=== PATIENT | female | born 1980 | race Caucasian/White ===

== ENCOUNTER → 2024-11-08 | Outpatient (CLI) | payer OTHER, SELFPAY | END | disposition home or self-care (01) | LOC: LABSPEC 21:19 | PROVIDERS: PCP Family Medicine; Referring Provider Nurse Practitioner; Visit Provider Nurse Practitioner | DX: Z00.00 Encounter for general adult medical examination without abnormal findings (principal) ==

== ENCOUNTER → 2024-11-09 | Outpatient (CLI) | payer OTHER, SELFPAY ==
--- OUTSIDE RECORDS SUMMARY | 2024-11-09 02:48 | XMS RPT_ITS | CCD ---
Author Organization [facility] Care Team Providers Care Manufacturing Finance Manager Name Role Phone Pending Provider Unavailable Unavailable Unavailable Unavailable Unavailable Unavailable Unavailable Unavailable Jeffery Swift MD Unavailable Jeffery Swift MD Primary Care Provider Ming Perez DO Primary Care Provider Jeffery Swift MD Unavailable Jeffery Swift MD Primary Care Provider Jeffery Swift MD Unavailable [phone] Jeffery Swift MD Primary Care Provider Cresencio More Attending Unavailable PROVIDER, UNKNOWN Referring Unavailable Ming Perez Primary Care Unavailable PROVIDER, UNKNOWN Referring Unavailable Ming Perez Primary Care Unavailable Cresencio More Attending Unavailable PROVIDER, UNKNOWN Referring Unavailable Ming Perez Primary Care Unavailable Ming Perez Attending Unavailable Oscar Voss Attending Unavaila Oscar Landry Referring Unavaila ble Pending, Provider Primary Care Unavailable Jeffery Swift MD Unavailable Jeffery Swift MD Primary Care Provider Ming Perez DO Primary Care Provider ZAIRA MOODY Attending Unavailable MING PEREZ Primary Care Unavailable JEFFERY SWIFT Primary Care Unavailable ZAIRA MEJIA Attending UnavailJEFFERY Conley Primary Care Unavailable Jeffery Swift MD Primary Care Provider ROSLYN CARRANZA CNP Attending Unavailable MING PEREZ Primary Care Unavailable Anahy Garcia APRN.CNP Unavailable Nory Aj PA-C Unavailable Jeniffer ORTIZ, Jeffery Cedeno Unavailable JENIFFER, JEFFERY A Primary Care Unavailable STEPHANIE DUVALL Attending Unavailable JENIFFER, JEFFERY A Primary Care Unavailable JENIFFERJEFFERY Attending Unavailable SELF Referring Unavailable JENIFFER, JEFFERY A Primary Care Unavailable JENIFFER, JEFFERY A Primary Care Unavailable JEFFERY SWIFT Attending Unavailable JENIFFER, JEFFERY A Referring Unavailable JENIFFER, JEFFERY A Primary Care Unavailable Lorrie Braxton Attending Unavailable Neftaliley, Tha Primary Care Unavailable Bursley, Tha Referring Unavailable Bursley, Tha Primary Care Unavailable Lorrie Braxton Attending Unavailable Bursley, Tha Referring Unavailable Bursley, Tha Primary Care Unavailable Lorrie Braxton Attending Unavailable Bursley, Tha Referring Unavailable Bursley, Tha Primary Care Unavailable Lorrie Braxton Attending Unavailable Pedrito, Tha Referring Unavailable Pedrito ORTIZ, Dr. Almazan Primary Care Provider Dr. Tha Major MD Referring Provider [phone] Fox EMT I/85-CLorrie Attending Provider [phone] Christiano EMT I/85-CReyna Attending Provider Jose PÉREZ.OCCUPATIONAL REHABILITATION AIDEKenAnahy Unavailable Nory Aj PA-C Unavailable Christiano EMT I/85-CReyna Referring Provider [phone] Allergies Allergy Classification Reported Allergen(s) Allergy Type Date of Onset Reaction(s) Facility (20 sources) atorvastatin; Translations: [ATORVASTATIN] Drug Allergy 0 Other: See Comments [facility] Work Phone: (20 sources) canagliflozin; Translations: [CANAGLIFLOZIN] Drug Allergy 8 Other: See Comments [facility] Work Phone: (20 sources) HYDROcodone; Translations: [HYDROCODONE] Drug Allergy 6 Other: See Comments [facility] Work Phone: (20 sources) Blue Dye; Translations: [BLUE DYE] Drug Allergy 6 [facility] Work Phone: (2 sources) Acetaminophen / HYDROcodone Drug Allergy 5 Nausea Only [facility] Work Phone: (2 sources) atorvastatin Drug Allergy 0 [facility] (2 sources) Morphine Drug Allergy 5 Nausea Only [facility] (1 source) canagliflozin Drug Allergy 8 [facility] [employer] (1 source) Blue Dyes (Parenteral) Drug Allergy 6 [facility] NEGATED: Highlighted row has been ruled out! (1 source) Other Propensity to adverse reactions 6 [facility] Work Phone: Medications Current Medications Medication Drug Class(es) Dates Sig (Normalized) Sig (Original) Blood-Glucose Meter (20 sources) Start: 07-12-2019 Blood-Glucose Meter Indications: Type 2 diabetes mellitus without complication, without long-term current use of insulin (HCC) Use as directed to test glucose 3 times daily, E11.9, non-insulin. 1 Each 07/12/2019 Active Start: 07-12-2019 Blood-Glucose Meter Indications: Type 2 diabetes mellitus without complication, without long-term current use of insulin (HCC) Use as directed to test glucose 3 times daily, E11.9, non-insulin. 1 Each 0 07/12/2019 Active Comment on above: Use as directed to t est glucose 3 times daily, E11.9, non-insulin. Blood-Glucose Meter,Continuous (DEXCOM G6 SKATES OPERATOR) misc (20 sources) Start: 08-07-2022 Blood-Glucose Meter,Continuous (DEXCOM G6 SKATES OPERATOR) misc Indications: Type 2 diabetes mellitus without complication, without long-term current use of insulin (HCC) Use continuously to monitor glucose, IDDM, E11.9 08/07/2022 Active Start: 08-07-2022 Blood-Glucose Meter,Continuous (DEXCOM G6 SKATES OPERATOR) misc Indications: Type 2 diabetes mellitus without complication, without long-term current use of insulin (HCC) Use continuously to monitor glucose, IDDM, E11.9 0 08/07/2022 Active Comment on above: Use continuously to monitor glucose, IDDM, E11.9 Blood-Glucose Sensor (DEXCOM G6 SENSOR) ismael (20 sources) Start: 08-07-2022 Blood-Glucose Sensor (DEXCOM G6 SENSOR) ismael Indications: Type 2 diabetes mellitus without complication, without long-term current use of insulin (HCC) Use one sensor every 10 days, IDDM, E 11.9 08/07/2022 Active Start: 08-07-2022 Blood-Glucose Sensor (DEXCOM G6 SENSOR) ismael Indications: Type 2 diabetes mellitus without complication, without long-term current use of insulin (HCC) Use one sensor every 10 days, IDDM, E 11.9 0 08/07/2022 Active Comment on above: Use one sensor every 10 days, IDDM, E 11.9 Blood-Glucose Sensor (Dexcom G7 Sensor) device (4 sources) Start: 10-26-2023 Blood-Glucose Sensor (Dexcom G7 Sensor) device Active 0 .Route 3 October 26, 2023 10:00am Diabetes mellitus Type 2 diabetes mellitus with hyperglycemia services account manager (current) use of insulin 1 sensor q 10 days Start: 10-26-2023 Blood-Glucose Sensor (Dexcom G7 Sensor) device Active 0 .Route 3 October 26, 2023 10:00am 1 sensor q 10 days Start: 10-15-2023 End: 10-26-2023 Blood-Glucose Sensor (Dexcom G7 Sensor) device Discontinued 0 .Route 3 October 15, 2023 12:00am October 26, 2023 10:00am Diabetes mellitus Type 2 diabetes mellitus with hyperglycemia services account manager (current) use of insulin 1 sensor q 10 days Start: 10-15-2023 End: 10-26-2023 Blood-Glucose Sensor (Dexcom G7 Sensor) device Discontinued 0 .Route October 15, 2023 12:00am October 26, 2023 10:00am 1 sensor q 10 days Blood-Glucose Transmitter (DEXCOM G6 TRANSMITTER) ismael (20 sources) Start: 08-07-2022 Blood-Glucose Transmitter (DEXCOM G6 TRANSMITTER) ismael Indications: Type 2 diabetes mellitus without complication, without long-term current use of insulin (HCC) Use one transmitter every 3 months, IDDM, E 11.9 08/07/2022 Active Start: 08-07-2022 Blood-Glucose Transmitter (DEXCOM G6 TRANSMITTER) ismael Indications: Type 2 diabetes mellitus without complication, without long-term current use of insulin (HCC) Use one transmitter every 3 months, IDDM, E 11.9 0 08/07/2022 Active Comment on above: Use one transmitter every 3 months, IDDM, E 11.9 cetirizine hydrochloride 10 mg oral capsule (20 sources) Histamine-1 Receptor Antagonist Start: 4 take 1 capsule by mouth once daily Cetirizine (Zyrtec) 10 mg capsule Active 10 mg PO DAILY May 12, 2023 1:00am Start: 09-29-2018 take 1 tablet by ml th twice daily cetirizine (ZYRTEC) 10 mg tablet Take 1 tablet by mouth twice daily. 180 tablet 1 09/29/2018 Active take 1 tablet by ml th once daily cetirizine (ZyrTEC) 10 MG tablet Take 10 mg by mouth daily. 0 Active Comment on above: Take 1 tablet by ml th twice daily. ciprofloxacin 500 mg oral tablet (1 source) Quinolone Antimicrobial Start: 025 take 1 tablet by mouth twice daily Ciprofloxacin Hcl (Cipro) 500 mg tablet Active 500 mg PO TWICE A DAY 14 November 08, 2024 12:00am Continuous Blood Gluc Sensor (FREESTYLE SUKHDEEP 2 SENSOR) [facility] ([facility]) Start: 022 Continuous Blood Gluc Sensor (FREESTYLE SUKHDEEP 2 SENSOR) [facility] [place] 1 SENSOR every 14 days as directed 0 08/14/2021 Active famotidine 20 mg oral tablet (1 source) Histamine-2 Receptor Antagonist Start: 018 take 1 tablet by mouth twice daily famotidine (PEPCID) 20 MG tablet Take 1 tablet by mouth 2 times daily 60 tablet 0 12/09/2017 Active 3 ml insulin degludec 100 unt/ml pen injector (4 sources) Insulin Analog Start: End: 025 Insulin Degludec (Tresiba Flextouch U-100) 100 unit/mL (3 mL) insulin pen Active 16 U SC DAILY 15 May 26, 2024 8:11am 3 ml insulin glargine 100 unt/ml pen injector (20 sources) Insulin Analog Start: inject 8 [IU] by subcutaneous injection once daily insulin glargine (LANTUS SOLOSTAR U-100 INSULIN) 100 unit/mL (3 mL) Indications: Type 2 diabetes mellitus without complication, without long-term current use of insulin ([facility]) Inject 8 units subcutaneously daily; Per Dr. Vivek Linares 30 mL 3 02/09/2024 Active Start: 05-22-2023 End: 02-09-2024 inject 10 [IU] by subcutaneous injection once daily insulin glargine (LANTUS SOLOSTAR U-100 INSULIN) 100 unit/mL (3 mL) Indications: Type 2 diabetes mellitus without complication, without long-term current use of insulin ([facility]) Inject 10 units subcutaneously daily; Per Dr. Vivek Linares 30 mL 3 05/22/2023 02/09/2024 Discontinued (Adjust Sig - Block E-Cancel) Start: 05-21-2023 End: 01-05-2024 Insulin Glargine (Lantus Linda ostar U-100 Insulin) 100 unit/mL (3 mL) insulin pen Discontinued 16 U SC EVERY EVENING 25 05December 15, 2023 9:04am January 05, 2024 12:31pm Start: 05-12-2023 End: 05-21-2023 Insulin Glargine (Lantus Linda ostar U-100 Insulin) 100 unit/mL (3 mL) insulin pen Discontinued 13 U SC EVERY EVENING May 12, 2023 1:00am May 21, 2023 10:35am Start: 03-30-2023 insulin glargi ne (LANTUS SOLOSTAR U-100 INSULIN) 100 unit/mL (3 mL) Indications: Type 2 diabetes mellitus without complication, without long-term current use of insulin ([facility]) Inject 13 units subcutaneously at bedtime daily; increase 2 units every 2 days until fasting glucose is 120 up to 30 units daily 30 mL 3 03/30/2023 Active Start: 03-10-2023 insulin glargi ne (LANTUS SOLOSTAR U-100 INSULIN) 100 unit/mL (3 mL) Indications: Type 2 diabetes mellitus without complication, without long-term current use of insulin (HCC) Inject 13 units subcutaneously at bedtime daily 15 mL 3 03/10/2023 Active Start: 04-01-2022 End: 03-10-2023 inject 10 [IU] by subcutaneous injection once daily at bedtime insulin glargine (LANTUS SOLOSTAR U-100 INSULIN) 100 unit/mL (3 mL) Indications: Type 2 diabetes mellitus without complication, without long-term current use of insulin (HCC) Inject 10 units subcutaneously at bedtime daily 15 mL 3 12/09/2022 03/10/2023 Discontinued Start: 04-01-2022 inject 10 [IU] by prabhakar bcutaneous injection once daily at bedtime insulin glargine (LANTUS SOLOSTAR U-100 INSULIN) 100 unit/mL (3 mL) Indications: Type 2 diabetes mellitus without complication, without long-term current use of insulin (HCC) Inject 10 Units subcutaneously daily at bedtime. 0 04/01/2022 Active Start: 12-24-2021 End: 04-01-2022 inject 9 [IU] by subcutaneous injection once daily at bedtime insulin glargine (LANTUS SOLOSTAR U-100 INSULIN) 100 unit/mL (3 mL) Indications: Type 2 diabetes mellitus without complication, without long-term current use of insulin (HCC) Inject subcutaneously 9 units daily at bedtime 15 mL 5 12/24/2021 04/01/2022 Discontinued (Adjust Sig - Block E-Cancel) Start: 09-19-2021 inject 8 [IU] by sub cutaneous injection once daily at bedtime insulin glargine (LANTUS SOLOSTAR U-100 INSULIN) 100 unit/mL (3 mL) Indications: Type 2 diabetes mellitus without complication, without long-term current use of insulin (HCC) Inject subcutaneously 8 units daily at bedtime; titrating up to 10 units daily for fasting glucose under 150 15 mL 5 09/19/2021 Active Start: 07-26-2021 insulin glargi ne (Lantus SoloStar) 100 UNIT/ML pen Inject 10 Units under the skin. 0 07/26/2021 Active Start: 07-26-2021 End: 09-19-2021 inject 5 [IU] by subcutaneous injection at bedtime insulin glargine (LANTUS SOLOSTAR) 100 UNIT/ML injection pen Inject subcutaneously 5 units at bedtime 0 07/26/2021 Active Comment on above: Inject subcutaneousl y 5 units at bedtime Inject subcutaneousl y 8 units daily at bedtime; titrating up to 10 units daily for fasting glucose under 150 Inject subcutaneousl y 9 units daily at bedtime Inject 10 Units subc utaneously daily at bedtime. Inject 10 units subc utaneously at bedtime daily Inject 13 units subc utaneously at bedtime daily Inject 13 units subc utaneously at bedtime daily; increase 2 units every 2 days until fasting glucose is 120 up to 30 units daily Inject 10 units subc utaneously daily; Per Dr. Vivek Linares 3 ml insulin isophane, human 100 unt/ml pen injector (5 sources) Start: 10-15-19 End: 09-15-19 Insulin Nph Isoph U-100 Human (Humulin N Nph Insulin Kwikpen) 100 unit/mL (3 mL) insulin pen Active 10 U SC EVERY MORNING 9 September 14, 2024 1:40pm Diabetes mellitus Type 2 diabetes mellitus with hyperglycemia services account manager (current) use of insulin metFORMIN hydrochloride 1000 mg oral tablet (20 sources) Biguanide Start: 11-09-19 take 1 tablet by mouth twice daily Metformin 1,000 mg tablet Active 1000 mg PO TWICE A DAY 180 November 08, 2024 12:00am Start: 05-12-2023 End: 08-11-2024 Metformin 500 mg tablet exte nded release 24 hr Discontinued 1000 mg PO TWICE A DAY 180 June 16, 2024 3:32pm August 11, 2024 10:02am Start: 06-17-2022 take 1 tablet by ml th every twenty-four hours in the morning metFORMIN XR (Glucophage-XR) 500 MG 24 hr tablet Take 1,000 mg by mouth in the morning and 1,000 mg in the evening. Take with meals. 0 06/17/2022 Active Start: 12-24-2021 End: 12-09-2022 take 2 tablets by mouth twice daily at mealtime metFORMIN ER (GLUCOPHAGE XR) 500 mg 24 hr tablet Indications: Type 2 diabetes mellitus without complication, without long-term current use of insulin (HCC) Take 2 tablets by mouth twice daily with meals. 360 tablet 3 12/09/2022 Active Start: 01-22-2021 take 2 tablets by mo uth twice daily at mealtime metFORMIN ER (GLUCOPHAGE XR) 500 mg 24 hr tablet Indications: Type 2 diabetes mellitus without complication, without long-term current use of insulin (HCC) Take 2 tablets by mouth twice daily with meals. 360 tablet 3 01/22/2021 Active Start: 07-04-2019 metFORMIN HCl - 1000 MG Oral Tablet Quantity: 60 Refills: 0 Ordered: 11-May-2020 DO Start : 04-Jul-2019 Active Start: 04-28-2018 End: 04-28-2027 metFORMIN (GLUCOPHAGE) 1000 MG tablet One q am for one week, then one bid if FBS over 150 mg/dl 60 tablet 0 04/28/2018 04/28/2027 Active Comment on above: Take 2 tablets by mo uth twice daily with meals. Take 2 tablets by mo uth two times a day with meals. Per Dr. Vivek linares MULTIVITAMIN ORAL (20 sources) MULTIVITAMIN ORA L Take by mouth. flintstone Active MULTIVITAMIN ORA L Take by mouth. flintstone 0 Active Comment on above: Take by mouth. flint stone naphazoline hydrochloride 0.25 mg/ml / pheniramine maleate 3 mg/ml ophthalmic solution (1 source) Start: 023 naphazoline-phenirami ne (Naphcon-A) 0.025-0.3 % ophthalmic solution Indications: Acute viral conjunctivitis of left eye Administer 1 drop into both eyes in the morning and 1 drop at noon and 1 drop in the evening and 1 drop before bedtime. 5 mL 0 08/19/2022 Active Semaglutide, 2 MG/DOSE, (Ozempic, 2 MG/DOSE,) 8 MG/3ML solution pen-injector (1 source) Start: 022 inject 2 mg by subcutaneous injection every week Semaglutide, 2 MG/DOSE, (Ozempic, 2 MG/DOSE,) 8 MG/3ML solution pen-injector Inject 2 mg under the skin once a week. 0 04/01/2022 Active tirzepatide (MOUNJARO) 7.5 mg/0.5 mL pen injector (11 sources) Start: 024 inject 7.5 mg by subcutaneous injection once tirzepatide (MOUNJARO) 7.5 mg/0.5 mL pen injector Inject 7.5 mg subcutaneously one time a week. Dr. Vivek Castro 02/09/2024 Active End: 02-09-2024 inject 7.5 mg by subcutaneous injection every week tirzepatide (MOUNJARO) 7.5 mg/0.5 mL pen injector Inject 7.5 mg subcutaneously one time a week. 02/09/2024 Discontinued (Adjust Sig - Block E-Cancel) inject 7.5 mg by sub cutaneous injection every week tirzepatide (MOUNJARO) 7.5 mg/0.5 mL pen injector Inject 7.5 mg subcutaneously one time a week. Active inject 7.5 mg by sub cutaneous injection every week tirzepatide (MOUNJARO) 7.5 mg/0.5 mL pen injector Inject 7.5 mg subcutaneously one time a week. 0 Active Comment on above: Inject 7.5 mg subcut aneously one time a week. Tirzepatide (Mounjaro) 7.5 mg/0.5 mL pen injector (12 sources) Start: 08-22-2024 Tirzepatide (Mounjaro) 7.5 mg/0.5 mL pen injector Active 7.5 mg SC EVERY WEEK 2 3 August 22, 2024 9:35am Type 1 diabetes mellitus with hyperglycemia Type 1 diabetes mellitus with hyperglycemia Start: 08-22-2024 Tirzepatide (M ounjaro) 7.5 mg/0.5 mL pen injector Active 7.5 mg SC EVERY WEEK 2 August 22, 2024 9:35am Start: 04-18-2024 End: 08-22-2024 Tirzepatide (Mounjaro) 7.5 m g/0.5 mL pen injector Discontinued 7.5 mg SC EVERY WEEK 2 3 April 18, 2024 1:22pm August 22, 2024 9:36am Diabetes mellitus Type 2 diabetes mellitus with hyperglycemia services account manager (current) use of insulin Start: 04-18-2024 End: 08-22-2024 Tirzepatide (Mounjaro) 7.5 m g/0.5 mL pen injector Discontinued 7.5 mg SC EVERY WEEK 2 April 18, 2024 1:22pm August 22, 2024 9:36am Start: 12-15-2023 End: 04-18-2024 Tirzepatide (Mounjaro) 7.5 m g/0.5 mL pen injector Discontinued 7.5 mg SC EVERY WEEK 2 3 December 15, 2023 9:05am April 18, 2024 1:22pm Diabetes mellitus Type 2 diabetes mellitus with hyperglycemia halfway (current) use of insulin Start: 12-15-2023 End: 04-18-2024 Tirzepatide (Mounjaro) 7.5 m g/0.5 mL pen injector Discontinued 7.5 mg SC EVERY WEEK 2 December 15, 2023 9:05am April 18, 2024 1:22pm Start: 08-13-2023 End: 12-15-2023 Tirzepatide (Mounjaro) 7.5 m g/0.5 mL pen injector Discontinued 7.5 mg SC EVERY WEEK 2 August 13, 2023 6:07pm December 15, 2023 9:06am Diabetes mellitus Type 2 diabetes mellitus with hyperglycemia halfway (current) use of insulin Start: 08-13-2023 End: 12-15-2023 Tirzepatide (Mounjaro) 7.5 m g/0.5 mL pen injector Discontinued 7.5 mg SC EVERY WEEK 2 August 13, 2023 6:07pm December 15, 2023 9:06am Start: 07-20-2023 End: 08-13-2023 Tirzepatide (Mounjaro) 7.5 m g/0.5 mL pen injector Discontinued 7.5 mg SC EVERY WEEK 2 July 20, 2023 12:00am August 13, 2023 6:08pm Start: 07-20-2023 End: 08-13-2023 Tirzepatide (Mounjaro) 7.5 m g/0.5 mL pen injector Discontinued 7.5 mg SC EVERY WEEK 2 July 20, 2023 12:00am August 13, 2023 6:08pm Start: 06-18-2023 End: 07-13-2023 Tirzepatide (Mounjaro) 7.5 m g/0.5 mL pen injector Discontinued 7.5 mg SC EVERY WEEK 2 June 18, 2023 1:00am July 13, 2023 4:51pm Diabetes mellitus Type 2 diabetes mellitus with hyperglycemia services account manager (current) use of insulin Start: 06-18-2023 End: 07-13-2023 Tirzepatide (Mounjaro) 7.5 m g/0.5 mL pen injector Discontinued 7.5 mg SC EVERY WEEK 2 June 18, 2023 1:00am July 13, 2023 4:51pm traMADol hydrochloride 50 mg oral tablet (1 source) Opioid Agonist Start: 11-08-2024 take 1 tablet by mouth every four hours as needed for pain Tramadol 50 mg tablet Active 50 mg PO Q4H as needed for lower back pain acute 42 7 0 November 08, 2024 12:00am November 14, 2024 12:00am Low back pain Low back pain, unspecified Completed/Discontinued Medications Medication Drug Class(es) Dates Sig (Normalized) Sig (Original) amoxicillin 875 mg / clavulanate 125 mg oral tablet (6 sources) Penicillin-class Antibacterial Start: 08-19-2024 End: 09-14-2024 Amoxicillin-Pot Clavulanate 875-125 mg tablet Discontinued 1 {tbl} PO TWICE A DAY 20 August 19, 2024 12:00am September 14, 2024 7:57am Start: 10-20-2020 take 1 tablet by ml th twice daily after mealtime Amoxicillin-Pot Clavulanate 875-125 MG Oral Tablet TAKE 1 TABLET TWICE DAILY AFTER MEALS Quantity: 20 Refills: 0 Ordered: 20-Oct-2020 Eyad Pérez MD Start : 20-Oct-2020 Active azithromycin 250 mg oral tablet (2 sources) Macrolide Antimicrobial Start: 09-13-2024 End: 09-18-2024 take 2 tablets by mouth once daily, then take 1 tablet by mouth once daily at mealtime Azithromycin 250 mg tablet Discontinued 250 mg PO daily 6 5 0 September 13, 2024 12:00am September 17, 2024 12:00am September 18, 2024 12:08am 2 po qd for 1 day then 1 po qd for 4 days with food or after eating Blood-Glucose Sensor (Freestyle Sukhdeep 3 Sensor) device (2 sources) Start: 07-09-2023 End: 10-15-2023 Blood-Glucose Sensor (Freestyle Sukhdeep 3 Sensor) device Discontinued 0 .Route 2 July 09, 2023 1:00am October 15, 2023 2:50pm Diabetes mellitus Type 2 diabetes mellitus without complications 1 sensor q 14 days Start: 07-09-2023 End: 10-15-2023 Blood-Glucose Sensor (Freest yle Sukhdeep 3 Sensor) device Discontinued 0 .Route 2 July 09, 2023 1:00am October 15, 2023 2:50pm 1 sensor q 14 days Dulaglutide (8 sources) GLP-1 Receptor Agonist Start: 05-21-2023 End: 06-18-2023 Dulaglutide (Trulicity) 4.5 mg/0.5 mL pen injector Discontinued 4.5 mg SC EVERY WEEK 2 May 21, 2023 1:00am June 18, 2023 9:15am Diabetes mellitus Type 2 diabetes mellitus without complications Start: 05-21-2023 End: 06-18-2023 Dulaglutide (Trulicity) 4.5 mg/0.5 mL pen injector Discontinued 4.5 mg SC EVERY WEEK 2 May 21, 2023 1:00am June 18, 2023 9:15am Start: 05-12-2023 End: 05-21-2023 Dulaglutide (Trulicity) 3 mg /0.5 mL pen injector Discontinued 3 mg SC EVERY WEEK May 12, 2023 1:00am May 21, 2023 5:21pm Start: 02-25-2023 End: 03-09-2023 inject 1.5 mg by subcutaneous injection every week dulaglutide (TRULICITY) 1.5 mg/0.5 mL pen injector Inject 1.5 mg subcutaneously one time a week. 2 mL 5 02/25/2023 03/09/2023 Discontinued Start: 04-20-2018 Trulicity 1.5 MG/0.5ML Subcutaneous Solution Pen-injector inject 1 AND 1/2 milligram subcutaneously every week Quantity: 2 Refills: 0 Ordered: 08-May-2020 DO Start : 04-Jul-2019 Active Comment on above: Inject 1.5 mg subcut aneously one time a week. dulaglutide (TRULICITY) 3 mg/0.5 mL pen injector (8 sources) Start: inject 3 mg by subcutaneous injection every week dulaglutide (TRULICITY) 3 mg/0.5 mL pen injector Inject 3 mg subcutaneously one time a week. 2 mL 5 03/09/2023 Active Comment on above: Inject 3 mg subcutan eously one time a week. dulaglutide (TRULICITY) 4.5 mg/0.5 mL pen injector (10 sources) Start: End: inject 4.5 mg by subcutaneous injection every week dulaglutide (TRULICITY) 4.5 mg/0.5 mL pen injector Indications: Type 2 diabetes mellitus without complication, without long-term current use of insulin (HCC) Inject 4.5 mg subcutaneously one time a week. 12 Each 0 12/31/2021 01/29/2022 Discontinued Start: 12-31-2021 inject 4.5 mg by sub cutaneous injection every week dulaglutide (TRULICITY) 4.5 mg/0.5 mL pen injector Indications: Type 2 diabetes mellitus without complication, without long-term current use of insulin (HCC) Inject 4.5 mg subcutaneously one time a week. 12 Each 0 12/31/2021 Active Start: 05-16-2021 inject 4.5 mg by sub cutaneous injection every week dulaglutide (TRULICITY) 4.5 mg/0.5 mL pen injector Indications: Type 2 diabetes mellitus without complication, without long-term current use of insulin (HCC) Inject 4.5 mg subcutaneously one time a week. 12 Each 3 05/16/2021 Active Comment on above: Inject 4.5 mg subcut aneously one time a week. dulaglutide (TRULICITY) 4.5 mg/0.5 mL pen injector (1 source) Start: 024 End: 024 inject 4.5 mg by subcutaneous injection once dulaglutide (TRULICITY) 4.5 mg/0.5 mL pen injector Inject 4.5 mg subcutaneously one time a week. Per Dr. Vivek Linares 0 05/22/2023 07/21/2023 Discontinued (Course of therapy completed) Comment on above: Inject 4.5 mg subcut aneously one time a week. Per Dr. Vivek Linares flash glucose scanning reader (FREESTYLE SUKHDEEP 2 READER) (13 sources) Start: 022 End: 023 flash glucose scanning reader (FREESTYLE SUKHDEEP 2 READER) Indications: Type 2 diabetes mellitus without complication, without long-term current use of insulin (HCC) Use 4x daily, IDDM, E 11.65 1 Each 0 07/26/2021 08/07/2022 Discontinued (Discontinued by Patient) Start: 07-26-2021 flash glucose scanning reader (FREESTYLE SUKHDEEP 2 READER) Indications: Type 2 diabetes mellitus without complication, without long-term current use of insulin (HCC) Use 4x daily, IDDM, E 11.65 1 Each 0 07/26/2021 Active Comment on above: Use 4x daily, IDDM, E 11.65 flash glucose sensor (FREESTYLE SUKHDEEP 2 SENSOR) kit (13 sources) Start: 07-26-2021 End: 08-07-2022 flash glucose sensor (FREESTYLE SUKHDEEP 2 SENSOR) kit Indications: Type 2 diabetes mellitus without complication, without long-term current use of insulin (HCC) Use one sensor every 14 days, IDDM, E11.65 2 Each 11 07/26/2021 08/07/2022 Discontinued (Discontinued by Patient) Start: 07-26-2021 flash glucose sensor (FREESTYLE SUKHDEEP 2 SENSOR) kit Indications: Type 2 diabetes mellitus without complication, without long-term current use of insulin (HCC) Use one sensor every 14 days, IDDM, E11.65 2 Each 11 07/26/2021 Active Comment on above: Use one sensor every 14 days, IDDM, E11.65 fluconazole 150 mg oral tablet (2 sources) Azole Antifungal Start: 5 End: 5 Fluconazole 150 mg tablet Discontinued 150 mg PO Every 3 Days 2 August 19, 2024 12:00am September 14, 2024 7:56am september repeat second dose 72 hrs after first dose if symptoms persist glimepiride 2 mg oral tablet (20 sources) Sulfonylurea Start: 4 End: 5 take 2 tablets by mouth once daily at breakfast, then take 1 tablet by mouth at dinner Glimepiride 2 mg tablet Discontinued 6 mg PO DAILY 270 May 26, 2024 8:10am August 11, 2024 10:03am 2 tabs at breakfast, one tab at dinner Start: 03-31-2023 glimepiride (A MARYL) 2 mg tablet Indications: Type 2 diabetes mellitus without complication, without long-term current use of insulin ([facility]) Take 2 tabs breakfast and 1 tab dinner 270 tablet 3 03/31/2023 Active Start: 06-17-2022 take 2 tablets by mo uth once daily at breakfast glimepiride (Amaryl) 2 MG tablet take 2 tablets by mouth once daily with breakfast 0 06/17/2022 Active Start: 04-01-2022 End: 03-31-2023 take 1 tablet by mouth twice daily at mealtime glimepiride (AMARYL) 2 mg tablet Indications: Type 2 diabetes mellitus without complication, without long-term current use of insulin (HCC) Take 1 tablet by mouth twice daily with meals. 180 tablet 3 12/09/2022 03/31/2023 Discontinued Start: 12-24-2021 End: 04-01-2022 take 2 tablets by mouth once daily at breakfast glimepiride (AMARYL) 2 mg tablet Indications: Type 2 diabetes mellitus without complication, without long-term current use of insulin (HCC) Take 2 tablets by mouth daily with breakfast. 180 tablet 3 12/24/2021 04/01/2022 Discontinued Start: 01-22-2021 take 2 tablets by mo ut twice daily at mealtime glimepiride (AMARYL) 1 mg tablet Indications: Type 2 diabetes mellitus without complication, without long-term current use of insulin ([facility]) Take 2 tablets by mouth twice daily with meals. (total 4 mg daily) 360 tablet 3 01/22/2021 Active Start: 12-09-2017 glimepiride (A MARYL) 2 MG tablet Increase to 2mg BID 60 tablet 0 12/09/2017 Active Comment on above: Take 2 tablets by mo uth twice daily with meals. (total 4 mg daily) Take 2 tablets by mo uth daily with breakfast. Take 1 tablet by ml twice daily with meals. Take 2 tabs breakfas t and 1 tab dinner Take 2 tabs breakfas t and [address] Vivek Linares 3 ml insulin aspart, human 100 unt/ml pen injector (9 sources) Insulin Analog Start: 09-19-2021 insulin aspart U-100 (NOVOLOG FLEXPEN U-100 INSULIN) 100 unit/mL (3 mL) Indications: Type 2 diabetes mellitus without complication, without long-term current use of insulin ([facility]) Inject subcutaneously TID meals per up to 15 units daily 15 mL 5 09/19/2021 Active Start: 07-26-2021 End: 09-19-2021 insulin aspart U-100 (NOVOLO G FLEXPEN U-100 INSULIN) 100 unit/mL (3 mL) Indications: Type 2 diabetes mellitus without complication, without long-term current use of insulin (HCC) Inject subcutaneously TID meals per SS up to 30 units daily 15 mL 5 07/26/2021 09/19/2021 Discontinued (Adjust Sig - Block E-Cancel) Start: 04-12-2021 inject 20 [IU] by prabhakar bcutaneous injection once insulin aspart (NOVOLOG) 100 UNIT/ML injection pen Inject subcutaneously up to 20 units daily per sliding scale 0 04/12/2021 Active Comment on above: Inject subcutaneousl y TID meals per SS up to 30 units daily Inject subcutaneousl y TID meals per SS up to 15 units daily 0.5 unt doses 3 ml insulin lispro 100 unt/ml pen injector (20 sources) Insulin Analog Start: 08-10-2023 End: 05-26-2024 Insulin Lispro (Humalog Romie Kwikpen U-100) 100 unit/mL insulin pen, half-unit Discontinued 10.5 U SC TWICE A DAY 15 December 22, 2023 2:27pm May 26, 2024 8:11am Diabetes mellitus Type 2 diabetes mellitus with hyperglycemia halfway (current) use of insulin Start: 05-22-2023 insulin lispro (HUMALOG KWIKPEN INSULIN) 100 unit/mL 3 units TID, per Dr. Vivek Linares 15 mL 5 05/22/2023 Active Start: 05-21-2023 Insulin Lispro (Humalog Kwikpen Insulin) 100 unit/mL insulin pen Active 1 sliding scale dose SC before meals and at bedtime May 21, 2023 1:00am Start: 04-01-2023 insulin lispro (HUMALOG KWIKPEN INSULIN) 100 unit/mL Inject subcutaneously TID meals per sliding scale up to 30 units daily 15 mL 5 04/01/2023 Active Start: 04-01-2023 insulin lispro (HUMALOG KWIKPEN INSULIN) 100 unit/mL Inject subcutaneously TID meals per sliding scale up to 30 units daily 15 mL 5 04/01/2023 Active Comment on above: Inject subcutaneousl y TID meals per sliding scale up to 30 units daily 3 units TID, per End Dr. Vivek sotelo levothyroxine sodium 0.125 mg oral tablet (20 sources) l-Thyroxine Start: 12-25-19 End: 05-26-19 take 1 tablet by mouth once daily Levothyroxine (Synthroid) 125 mcg tablet Discontinued 125 ug PO DAILY 90 1 December 15, 2023 9:05am May 26, 2024 8:11am Start: 07-24-2017 take 1 tablet by ml th once daily before breakfast levothyroxine (SYNTHROID) 125 mcg tablet Indications: Postablative hypothyroidism take 1 tablet by mouth once daily before breakfast 90 tablet 3 03/11/2021 Active Comment on above: take 1 tablet by ml th once daily before breakfast Take 1 tablet by ml th daily before breakfast. pioglitazone 30 mg oral tablet (20 sources) Peroxisome Proliferator Receptor alpha Agonist, Peroxisome Proliferator Receptor gamma Agonist, Thiazolidinedione Start: 05-12-19 End: 07-09-19 take 1 tablet by mouth once daily Pioglitazone (Actos) 30 mg tablet Discontinued 30 mg PO DAILY May 12, 2023 1:00am July 09, 2023 3:25pm Start: 05-28-2021 End: 12-09-2022 take 1 tablet by mouth once daily pioglitazone (ACTOS) 30 mg tablet Indications: Type 2 diabetes mellitus without complication, without long-term current use of insulin ([facility]) Take 1 tablet by mouth once daily. 90 tablet 3 12/09/2022 Active Comment on above: Take 1 tablet by ml th once daily. take 1 tablet by ml th once daily semaglutide (OZEMPIC) 2 mg/dose (8 mg/3 mL) pen injector (10 sources) Start: 04-01-20 End: 12-10-19 inject 2 mg by subcutaneous injection every week semaglutide (OZEMPIC) 2 mg/dose (8 mg/3 mL) pen injector Indications: Type 2 diabetes mellitus without complication, without long-term current use of insulin ([facility]) Inject 2 mg subcutaneously one time a week. 3 mL 04/01/2022 12/09/2022 Discontinued Start: 04-01-2022 inject 2 mg by subcu taneous injection every week semaglutide (OZEMPIC) 2 mg/dose (8 mg/3 mL) pen injector Indications: Type 2 diabetes mellitus without complication, without long-term current use of insulin ([facility]) Inject 2 mg subcutaneously one time a week. 3 mL 04/01/2022 Active Start: 12-24-2021 End: 12-31-2021 inject 2 mg by subcutaneous injection every week semaglutide (OZEMPIC) 2 mg/dose (8 mg/3 mL) pen injector Indications: Type 2 diabetes mellitus without complication, without long-term current use of insulin (HCC) Inject 2 mg subcutaneously one time a week. 3 mL 5 12/24/2021 12/31/2021 Discontinued Comment on above: Inject 2 mg subcutan eously one time a week. semaglutide (OZEMPIC) 2 mg/dose (8 mg/3 mL) pen injector (1 source) Start: inject 2 mg by subcutaneous injection every week semaglutide (OZEMPIC) 2 mg/dose (8 mg/3 mL) pen injector Indications: Type 2 diabetes mellitus without complication, without long-term current use of insulin (HCC) Inject 2 mg subcutaneously one time a week. 3 mL 11 12/09/2022 Active Comment on above: Inject 2 mg subcutan eously one time a week. 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 (current) use of insulin Start: 07-16-2023 End: 10-15-2023 Tirzepatide (Mounjaro) 12.5 mg/0.5 mL pen injector Discontinued 12.5 mg SC EVERY WEEK July 16, 2023 2:35pm October 15, 2023 2:45pm Start: 07-13-2023 End: 07-16-2023 Tirzepatide (Mounjaro) 12.5 mg/0.5 mL pen injector Discontinued 12.5 mg SC EVERY WEEK 2 July 13, 2023 1:00am July 16, 2023 2:35pm Diabetes mellitus Type 2 diabetes mellitus with hyperglycemia services account manager (current) use of insulin Start: 07-13-2023 End: 07-16-2023 Tirzepatide (Mounjaro) 12.5 mg/0.5 mL pen injector Discontinued 12.5 mg SC EVERY WEEK 2 July 13, 2023 1:00am July 16, 2023 2:35pm tirzepatide (MOUNJARO) 5 mg/0.5 mL pen injector (3 sources) Start: 02-23-2023 End: 02-25-2023 inject 5 mg by subcutaneous injection every week tirzepatide (MOUNJARO) 5 mg/0.5 mL pen injector Inject 5 mg subcutaneously one time a week. 2 mL 0 02/23/2023 02/25/2023 Discontinued Start: 02-23-2023 inject 5 mg by subcu taneous injection every week tirzepatide (MOUNJARO) 5 mg/0.5 mL pen injector Inject 5 mg subcutaneously one time a week. 2 mL 0 02/23/2023 Active Comment on above: Inject 5 mg subcutan eously one time a week. TRULICITY 4.5 mg/0.5 mL pen injector (2 sources) Start: End: inject 4.5 mg by subcutaneous injection every week TRULICITY 4.5 mg/0.5 mL pen injector Indications: Type 2 diabetes mellitus without complication, without long-term current use of insulin (HCC) inject 4.5 milligrams subcutaneously weekly 2 mL 5 01/29/2022 04/01/2022 Discontinued Start: 01-29-2022 inject 4.5 mg by sub cutaneous injection every week TRULICITY 4.5 mg/0.5 mL pen injector Indications: Type 2 diabetes mellitus without complication, without long-term current use of insulin (HCC) inject 4.5 milligrams subcutaneously weekly 2 mL 5 01/29/2022 Active Comment on above: inject 4.5 milligram s subcutaneously weekly Problems Active Problems Problem Classification Problem Date Documented Da te Episodic/Chronic Acquired foot deformities (2 sources) Toe joint rigid; Translations: [Hallux rigidus, left foot] 07-15-2024 Chronic Anxiety disorders (4 sources) Mixed anxiety and depressive disorder; Translations: [Anxiety disorder, unspecified] Onset: 08-20-2016 07-24-2017 Chronic Chronic obstructive pulmonary disease and bronchiectasis (2 sources) Bronchitis; Translations: [Bronchitis, not specified as acute or chronic] 08-19-2024 Episodic Complications of surgical procedures or medical care (20 sources) Postablative hypothyroidism; Translations: [Postprocedural hypothyroidism] Onset: 07-06-2012 05-06-2021 Chronic Diabetes mellitus with complications (7 sources) Type 2 diabetes mellitus with hyperglycemia; Translations: [Hyperglycemia due to type 1 diabetes mellitus] Onset: 07-28-2024 08-12-2024 Chronic Diabetes mellitus without complication (20 sources) Type 2 diabetes mellitus without complication; Translations: [Type 2 diabetes mellitus without complications] Onset: 01-09-2015 Chronic Disorders of lipid metabolism (20 sources) Dyslipidemia; Translations: [Hyperlipidemia, unspecified] Onset: 11-29-2019 11-29-2019 Chronic E Codes: Fall (4 sources) Accidental fall ; Translations: [Unspecified fall] Episodic Genitourinary congenital anomalies (20 sources) Renal agenesis; 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, unilateral] 11-29-2019 Chronic Genitourinary symptoms and ill-defined conditions (2 sources) Dysuria; Translations: [Dysuria] 06-18-2023 Episodic Inflammation; infection of eye (except that caused by tuberculosis or sexually transmitteddisease) (3 sources) Viral conjunctivitis; Translations: [Viral conjunctivitis, unspecified] Onset: 08-19-2022 Episodic Joint disorders and dislocations; trauma-related (4 sources) Derangement of left knee; Translations: [Other internal derangement of knee] Chronic Malaise and fatigue (1 source) Fatigue; Translations: [Other fatigue] Episodic Menopausal disorders (3 sources) Perimenopausal state; Translations: [Menopausal and female climacteric states] Onset: 08-19-2022 Chronic Nonmalignant breast conditions (1 source) Congenital hypoplasia of breast; Translations: [Hypoplasia of breast] Episodic Nutritional deficiencies (20 sources) Vitamin D deficiency; Translations: [Vitamin D deficiency, unspecified] Onset: 11-29-2019 11-29-2019 Chronic Other aftercare (2 sources) halfway (current) use of insulin; Translations: [Encounter for long-term (current) use of insulin (HCC)] Onset: 07-28-2024 Episodic Other congenital anomalies (1 source) Porokeratosis; Translations: [Other specified congenital malformations of skin] 07-14-2024 Chronic Other gastrointestinal disorders (4 sources) Irritable bowel syndrome; Translations: [Irritable bowel syndrome without diarrhea] Onset: 05-11-2006 08-04-2017 Chronic Other gastrointestinal disorders (2 sources) Diarrhea; Translations: [Diarrhea, unspecified] 10-15-2023 Episodic Other lower respiratory disease (1 source) Dyspnea on exertion; Translations: [Dyspnea, unspecified] Episodic Other lower respiratory disease (1 source) Cough; Translations: [Acute cough] 01-28-2024 Episodic Other non-traumatic joint disorders (4 sources) Pain in right knee; Translations: [Acute pain of both knees] Episodic Other nutritional; endocrine; and metabolic disorders (20 sources) Overweight; Translations: [Overweight] Onset: 12-18-2017 11-29-2019 Episodic Other nutritional; endocrine; and metabolic disorders (1 source) Overweight; Translations: [Overweight] Onset: 07-13-2024 Episodic Other screening for suspected conditions (not mental disorders or infectious disease) (4 sources) Patient encounter status; Translations: [Encounter for screening mammogram for malignant neoplasm of breast] Episodic Other upper respiratory disease (20 sources) Seasonal allergy; Translations: [Other seasonal allergic rhinitis] Onset: 11-29-2019 11-29-2019 Chronic Other upper respiratory disease (4 sources) Allergic rhinitis; Translations: [Allergic rhinitis, unspecified] Onset: 01-28-2016 05-02-2016 Chronic Other upper respiratory infections (8 sources) Acute sinusitis; Translations: [Acute sinusitis, unspecified] 08-19-2024 Episodic Pneumonia (except that caused by tuberculosis or sexually transmitted disease) (2 sources) Pneumonia (except that caused by tuberculosis or sexually transmitted disease); Translations: [Pneumonia due to coronavirus disease 2018] Onset: 06-04-2021 Residual codes; unclassified (1 source) Viral syndrome; Translations: [Other general symptoms and signs] 01-28-2024 Episodic Spondylosis; intervertebral disc disorders; other back problems (2 sources) Disorder of left sciatic nerve; Translations: [Sciatica, left side] 11-08-2024 Episodic Thyroid disorders (5 sources) Acquired hypothyroidism; Translations: [Hypothyroidism, unspecified] Onset: 05-11-2003 08-04-2017 Chronic Unclassified (1 source) New Patient Evaluation Onset: 10-10-2022 Urinary tract infections (1 source) Cystitis; Translations: [Cystitis, unspecified without hematuria] 11-08-2024 Episodic Viral infection (1 source) Disease caused by 2019-nCoV; Translations: [Other specified viral infection] Episodic Viral infection (2 sources) COVID-19; Translations: [COVID-19] Onset: 06-04-2021 Past or Other Problems Problem Classification Problem Date Documented Da te Episodic/Chronic Conditions associated with dizziness or vertigo (10 sources) Vertigo; Translations: [Dizziness and giddiness] Onset: 04-09-2012 Resolved: 06-28-2013 06-28-2013 Episodic Deficiency and other anemia (2 sources) Anemia; Translations: [Anemia, unspecified] Episodic Mycoses (9 sources) Candidiasis of vagina; Translations: [Vaginal yeast infection] Onset: 03-18-2018 Resolved: 03-25-2018 03-25-2018 Episodic Nonspecific chest pain (3 sources) Chest pain; Translations: [Chest pain, unspecified] Onset: 11-21-2021 Episodic Other ear and sense organ disorders (9 sources) Pain of ear structure; Translations: [Otalgia, unspecified ear] Onset: 01-07-2012 Resolved: 06-28-2013 06-28-2013 Episodic Other ear and sense organ disorders (9 sources) Tinnitus; Translations: [Tinnitus, unspecified ear] Onset: 04-09-2012 Resolved: 06-28-2013 06-28-2013 Episodic Other lower respiratory disease (2 sources) Other forms of dyspnea; Translations: [Other forms of dyspnea] Onset: 11-21-2021 Episodic Other lower respiratory disease (2 sources) Dyspnea, unspecified; Translations: [Dyspnea, unspecified] Onset: 04-22-2021 Episodic Other non-traumatic joint disorders (1 source) Joint pain; Translations: [Pain in unspecified joint] Onset: 11-21-2014 Resolved: 01-28-2016 01-28-2016 Episodic Other nutritional; endocrine; and metabolic disorders (4 sources) History of Graves' disease; Translations: [Personal history of other endocrine, nutritional and metabolic disease] Onset: 01-28-2016 05-02-2016 Episodic Other skin disorders (20 sources) Foot callus; Translations: [Corns and callosities] Onset: 11-29-2019 11-29-2019 Episodic Other upper respiratory disease (9 sources) Rhinitis; Translations: [Chronic rhinitis] Onset: 01-07-2012 Resolved: 06-28-2013 06-28-2013 Chronic Other upper respiratory disease (7 sources) Polyp of nasal cavity and/or nasal sinus; Translations: [Nasal polyp, unspecified] Onset: 02-09-2024 02-09-2024 Episodic Results Test Name Value Interpretation Reference Range Facility Endocrinology Visit Reporton 08-11-[address] [facility] [address] [place] [address] OFFICE VISIT Date of Service: 08/11/24 MR#: [id number] Acct: [id number] Name: CRISTINA MARTINEZ Rep #: [id number] : 1980 Provider: PATO mohamud Age/Sex: 44/F Location: [facility] [place] Status: Signed Intake Vital Signs 04/14/24 13:16 08/11/24 09:46 Height 5 ft 5 in 5 ft 5 in Weight: 160 lb 6 oz 163 lb 4 oz BMI 26.6 27.1 BP 111/76 123/83 H Blood Pressure Location Lt brachial Rt brachial Position Sitting Sitting Pulse 80 88 Pulse Source Monitor Monitor Pulse Oximetry (%) 99 98 Oxygen Delivery Method room air room air Intake Visit Reasons: 4 M FU, CX 07/14 Chief Complaint: f/u diabetes Is patient in pain?: No Allergies No Known Allergies Allergy (Verified 08/11/24 09:50) Medications ???Medication ???Instructions ???Recorded ???Confirmed ???Type cetirizine 10 mg capsule (Zyrtec) 10 mg PO DAILY 05/12/23 08/11/24 History insulin lispro 100 unit/mL 1 sliding scale dose subcut QACHS 05/21/23 08/11/24 History subcutaneous pen (Humalog KwikPen (U-100) Insulin) blood-glucose sensor ([employer] G7 #3 ea 10/26/23 08/11/24 Rx Sensor device) tirzepatide 7.5 mg/0.5 mL 7.5 mg (0.5 mL) subcut QWEEK #2 mL 04/18/24 08/11/24 Rx subcutaneous pen injector (Darianro) insulin NPH isoph U-100 human 100 10 unit (0.1 mL) subcut QAM #9 mL 04/26/24 08/11/24 Rx unit/mL (3 mL) subcutaneous pen (Humulin N NPH U-100 Insulin KwikPen) Tresiba FlexTouch U-100 100 16 unit (0.16 mL) subcut DAILY #15 05/26/24 08/11/24 Rx unit/mL (3 mL) subcutaneous pen mL (insulin degludec) insulin lispro 100 unit/mL 10.5 unit (0.105 mL) subcut BID 08/11/24 Rx subcutaneous half-unit pen #15 mL (Humalog Romie KwikPen (U-100)) levothyroxine 125 mcg tablet 125 mcg PO DAILY #90 tabs 05/26/24 08/11/24 Rx (Synthroid) [facility] Medical History (Updated 08/12/24 @ 09:58 by PATO Bradley) Hypercholesteremia Anxiety Arthritis Thyroid disease Surgical History History of cholecystectomy Social History Smoking Status: Former smoker alcohol intake: current details: 1-2 days per week substance use type: does not use frequency: 1-2 times per week HPI HPI Chief Complaint: f/u diabetes Details: CRISTINA MARTINEZ, is a 44 F who presents to the office today for evaluation and management of diabetes. A1C today is 6.87%, improved from 04/14/24 at 7.3%. She has gained 3 lbs since that time. The weight gain is upsetting to her. Recent labs completed earlier this month showed +SACHI antibodies. Currently taking Tresiba 7 u once daily, N 6 u QHS, and Humalog 2.5 u TIDCM, glimepiride 6 mg once daily, and metformin 1 gm BID with food. CGM tracings reviewed- she is having post meal elevations. She is having mid day lows. N effective in addressing DP. She denies any significant episode of hypoglycemia that has required assistance from others. We have discussed in detail at multiple prior appts insulin pump therapy, she has been resistance. She is hypothyroid d/t radiation. She is taking levothyroxine 125 mcg once daily when she is up in the middle of the night to urinate; however, she reports she is typically missing 4-5 doses/week. BP controlled. Review of recent labs 07/28/24: vitamin D 41.1 - M:C TSH 4.72 T4 1.3 vitamin B 12 454 total cholesterol 185 LDL 112 She is seeing a holistic doctor in the coming weeks. She is trying to be mindful of her diet and eat whole foods, she does admit that over the last year + she has not been as strict with her diet. She denies any acute concerns. ROS Const Constitutional: Positive for fatigue and weight change (gain) ENT ENT: No dizziness/vertigo Cardio Cardiology: No chest pain at rest, chest pain with exertion, shortness of breath or palpitations Skin Skin: No wounds Endo Endocrine: Positive for fatigue and weight change (gain) Exam Const General: cooperative, healthy appearing and comfortable Nutritional Appearance: overweight Orientation: alert, awake and oriented x3 HENMT Head: normal to inspection Ears: hearing grossly normal bilaterally Nose: external nose normal Face and sinus: normal facial exam Eyes General: appearance normal, both eyes and all related structures Alignment and Position: alignment normal Sclera: sclerae normal Neck Neck: normal visual inspection Chest Chest palpation inspection: normal inspection of the chest Resp Effort Inspection: normal respiratory effort, able to speak in complete sentences, symmetric chest movement, normal respiratory pattern, no audible wheezes and no (more content not included)... Normal [facility] - Hematology and Cell countsOrdered By: Lorrie Braxton on 08-11-2024 HbA1c (Bld) [Mass fraction] 6.8 % High 4.2-6.3 [facility] 25([place])D3 [place] [facility] 25-hydroxyvitamin D3 [Mass/Vol] 41.4 ng/mL Normal 31.0-80.0 [facility] Comment on above: Order Comment: Speci men Type: BLOOD SPECIMEN Ordering Facility: [facility] Address: [address] [place] [address] Result Comment: Clas sification of 25 [place] Vitamin D status: Deficiency/Insufficiency: < or = 30 ng/ml. Sufficiency/Optimal Levels: 31-80 ng/mL Toxicity: > 100 ng/mL. Test performed by chemiluminescent immunoassay. Performed By: #### 1 [id number] #### [facility] CLIA [id number] [address] [address] [place] ALBUMIN/CREATININE RATIO, UR INEon 07-28-2024 Albumin DL <= 20 mg/L (U) [Mass/Vol] mg/dL Normal [facility] Comment on above: Order Comment: Speci men Type: URINE SPECIMEN Ordering Facility: [facility] Address: [address] [place], [place] [id number] Performed By: #### U ACR #### [facility] CLIA [id number] [address] [place] [id number] [place] Albumin/Creatinine (U) [Mass ratio] <10 Normal <30 [facility] Comment on above: Order Comment: Speci men Type: URINE SPECIMEN Ordering Facility: [facility] Address: [address] [place] [address] Result Comment: Adul t Male and Female Nephrotic Criteria: <30 mg/g is considered normal to mildly increased 30-300 mg/g is considered moderately increased >300 mg/g is considered severely increased KDIGO. (2013). KDIGO 2012 Clinical Practice Guideline for the Evaluation and Management of Chronic Kidney Disease. Official Journal of the International Society of Nephrology, 3(1), 1-150. Performed By: #### U ACR #### [facility] CLIA [id number] [facility]0 [place] [id number] [place] Creatinine (U) [Mass/Vol] 123.1 mg/dL Normal 20.0-300.0 [facility] Comment on above: Order Comment: Speci men Type: URINE SPECIMEN Ordering Facility: [facility] Address: [address] [place] [address] Performed By: #### U ACR #### [facility] CLIA [id number] [address] [place] [address] [place] Comprehensive metabolic 2000 panelon 07-28-2024 Albumin [Mass/Vol] 4.3 g/dL Normal 3.9-4.9 [facility] Comment on above: Order Comment: Speci men Type: BLOOD SPECIMEN Ordering Facility: [facility] Address: [address] [place] [address] Performed By: #### 2 4323-8, 58426-5, 6-3 #### [facility] CLIA [id number] [address] [place] [address] [place] ALP [Catalytic activity/Vol] 46 U/L Normal 34-123 [facility] Comment on above: Order Comment: Speci men Type: BLOOD SPECIMEN Ordering Facility: [facility] Address: [address] [place] [address] Performed By: #### 2 4323-8, 62964-2, 6-3 #### [facility] CLIA [id number] [address] [place] [address] [place] ALT [Catalytic activity/Vol] 9 U/L Normal 7-38 [facility] Comment on above: Order Comment: Speci men Type: BLOOD SPECIMEN Ordering Facility: [facility] Address: [address] [place] [address] Performed By: #### 2 4323-8, 14216-8, 6-3 #### [facility] CLIA [id number] [address] [place] [address] [place] Anion gap [Moles/Vol] 7 mmol/L Low 8-15 [facility] Comment on above: Order Comment: Speci men Type: BLOOD SPECIMEN Ordering Facility: [facility] Address: [address] [place] [address] Performed By: #### 2 4323-8, 39125-4, 3015-3 #### [facility] CLIA [id number] [address] [place] [address] [place] AST [Catalytic activity/Vol] 13 U/L Normal 13-35 [facility] Comment on above: Order Comment: Speci men Type: BLOOD SPECIMEN Ordering Facility: [facility] Address: [address] [place] [address] Performed By: #### 2 4323-8, 85122-4, 6-3 #### [facility] CLIA [id number] [address] [place] [address] [place] Bilirubin [Mass/Vol] 0.3 mg/dL Normal 0.2-1.3 [facility] Comment on above: Order Comment: Speci men Type: BLOOD SPECIMEN Ordering Facility: [facility] Address: [address] [place] [address] Performed By: #### 2 4323-8, 48009-2, 3015-3 #### [facility] CLIA [id number] [address] [place] [address] [place] Calcium [Mass/Vol] 9.7 mg/dL Normal 8.5-10.2 [facility] Comment on above: Order Comment: Speci men Type: BLOOD SPECIMEN Ordering Facility: [facility] Address: [address] [place] [address] Performed By: #### 2 4323-8, 94677-5, 3015-3 #### [facility] CLIA [id number] [address] [place] [address] [place] Chloride [Moles/Vol] 103 mmol/L Normal 98-107 [facility] Comment on above: Order Comment: Speci men Type: BLOOD SPECIMEN Ordering Facility: [facility] Address: [address] [place] [address] Performed By: #### 2 4323-8, 71877-5, 3015-3 #### [facility] CLIA [id number] [address] [place] [address] [place] CO2 [Moles/Vol] 31 mmol/L High 22-30 [facility] Comment on above: Order Comment: Speci men Type: BLOOD SPECIMEN Ordering Facility: [facility] Address: [address] [place] [address] Performed By: #### 2 4323-8, 30243-7, 3015-3 #### [facility] CLIA [id number] [address] [place] [address] [place] Creatinine [Mass/Vol] 0.61 mg/dL Normal 0.58-0.96 [facility] Comment on above: Order Comment: Speci men Type: BLOOD SPECIMEN Ordering Facility: [facility] Address: [address] [place] [address] Performed By: #### 2 4323-8, 44650-8, 3015-3 #### [facility] CLIA [id number] [address] [place] [address] [place] Creatinine and Glomerular filtration rate.predicted panel (S/P/Bld) 113 mL/min/1.73m??? Normal >=60 [facility] Comment on above: Order Comment: Rosario garcia Type: BLOOD SPECIMEN Ordering Facility: [facility] Address: [address] [place] [address] Result Comment: Eliana mated Glomerular Filtration Rate (eGFR) is calculated using the 2020 CKD-EPI creatinine equation. This equation utilizes serum creatinine, sex, and age as parameters. The creatinine assay has traceable calibration to isotope dilution-mass spectrometry. Refer to KDIGO guidelines for clinical interpretation. In patients with unstable renal function, e.g. those with acute kidney injury, the eGFR may not accurately reflect actual GFR. Performed By: #### 2 4323-8, 62298-2, 3015-3 #### [facility] CLIA [id number] [address] [place] [address] [place] Glucose [Mass/Vol] 129 mg/dL High 74-99 [facility] Comment on above: Order Comment: Rosario garcia Type: BLOOD SPECIMEN Ordering Facility: [facility] Address: [address] [place] [address] Result Comment: The [place] Diabetes Association (ADA) provides guidance for cutoff values for fasting glucose and random glucose. The ADA defines fasting as no caloric intake for at least 8 hours. Fasting plasma glucose results between 100 to 125 mg/dL indicate increased risk for diabetes (prediabetes). Fasting plasma glucose results greater than or equal to 126 mg/dL meet the criteria for diagnosis of diabetes. In the absence of unequivocal hyperglycemia, results should be confirmed by repeat testing. In a patient with classic symptoms of hyperglycemia or hyperglycemic crisis, random plasma glucose results greater than or equal to 200 mg/dL meet the criteria for diagnosis of diabetes. Reference: Standards of Medical Care in Diabetes 2016, [place] Diabetes Association. Diabetes Care. 2016.39(Suppl 1). Performed By: #### 2 4323-8, 65062-0, 6-3 #### [facility] CLIA [id number] [address] [place] [address] [place] Potassium [Moles/Vol] 4.5 mmol/L Normal 3.7-5.1 [facility] Comment on above: Order Comment: Speci men Type: BLOOD SPECIMEN Ordering Facility: [facility] Address: [address] [place] [address] Performed By: #### 2 4323-8, 31124-1, 3016-3 #### [facility] CLIA [id number] [address] [place] [address] [place] Protein [Mass/Vol] 6.9 g/dL Normal 6.3-8.0 [facility] Comment on above: Order Comment: Speci men Type: BLOOD SPECIMEN Ordering Facility: [facility] Address: [address] [place] [address] Performed By: #### 2 4323-8, 35301-6, 6-3 #### [facility] CLIA [id number] [address] [place] [address] [place] Sodium [Moles/Vol] 141 mmol/L Normal 136-144 [facility] Comment on above: Order Comment: Speci men Type: BLOOD SPECIMEN Ordering Facility: [facility] Address: [address] [place] [address] Performed By: #### 2 4323-8, 71336-5, 6-3 #### [facility] CLIA [id number] [address] [place] [address] [place] Urea nitrogen [Mass/Vol] 13 mg/dL Normal 7-21 [facility] Comment on above: Order Comment: Speci men Type: BLOOD SPECIMEN Ordering Facility: [facility] Address: [address] [place] [address] Performed By: #### 2 4323-8, 87752-3, 6-3 #### [facility] CLIA [id number] [address] [place] [address] [place] GAD65 Ab Ser-aCncon 07-29-19 25 Glutamate decarboxylase 65 Ab Qn (S) 5.6 IU/mL High <=5.0 [facility] Comment on above: Order Comment: Speci men Type: BLOOD SPECIMEN Ordering Facility: [facility] Address: [facility] [place] [id number] Result Comment: Anti -glutamic acid decarboxylase antibody (GAD65) test usually in conjunction with another test such as IA-2 antibody is used as an aid in establishing the autoimmune nature of previously-diagnosed type I diabetes mellitus or in predicting of progression to type I diabetes mellitus in patients with certain autoimmune diseases including autoimmune gastritis among others. It is also used as an aid in diagnosis of stiff person syndrome and certain autoimmune nervous system diseases. Clinical correlation is required. Performed By: #### 1 3926-1 #### [facility] CLIA [id number] [address] [place] [address] [place] Glutamate decarboxylase 65 A b Qn (S)on 07-28-2024 GLUTAMIC ACID DECARBOXYLAS AB QUALITATIVE Positive Abnormal Negative [facility] Comment on above: Order Comment: Rosario garcia Type: BLOOD SPECIMEN Ordering Facility: [facility] Address: [address] [place] [address] Performed By: #### 1 3926-1 #### [facility] CLIA [id number] [address] [place] [address] [place] Lipid 1996 panelon 5 Cholesterol [Mass/Vol] 185 mg/dL Normal <200 [facility] Comment on above: Order Comment: Rosario garcia Type: BLOOD SPECIMEN Ordering Facility: [facility] Address: [address] [place] [address] Result Comment: <200 mg/dL, Desirable 200-239 mg/dL, Borderline high >239 mg/dL, High Performed By: #### 2 4323-8, 43960-6, 3016-3 #### [facility] CLIA [id number] [address] [place] [address] [place] Cholesterol in HDL [Mass/Vol] 63 mg/dL Normal >39 [facility] Comment on above: Order Comment: Rosario garcia Type: BLOOD SPECIMEN Ordering Facility: [facility] Address: [address] [place] [address] Result Comment: 40-5 9 mg/dL, Acceptable >59 mg/dL, High: Negative risk factor for coronary heart disease <40 mg/dL, Low: Positive risk factor for coronary heart disease Performed By: #### 2 4323-8, 39260-2, 6-3 #### [facility] CLIA [id number] [address] [place] Cholesterol in LDL [Mass/Vol] 112 mg/dL High <100 [facility] Comment on above: Order Comment: Rosario radha Type: BLOOD SPECIMEN Ordering Facility: [facility] Address: [address] [place] [address] Result Comment: <100 mg/dL, Optimal 100-129 mg/dL, Near optimal/above optimal 130-159 mg/dL, Borderline high 160-189 mg/dL, High >189 mg/dL, Very high Secondary prevention optimal LDL Cholesterol levels are recommended to be < 70 mg/dL Performed By: #### 2 4323-8, 71226-7, 3015-3 #### [facility] CLIA [id number] [address] Cholesterol in LDL/Cholesterol in HDL [Mass ratio] 1.78 {ratio} Normal <2.54 [facility] Comment on above: Order Comment: Rosario [facility] Type: BLOOD SPECIMEN Ordering Facility: [facility] Address: [address] [place] [address] Result Comment: Refe rence: 1. National Cholesterol Education Program ATP III Guideline At-A-Glance Quick Desk Reference: National Heart, Lung, and Blood [place]. National Institutes of Health. 2001: NIH Publication No. 01-3305. 2. An International Atherosclerosis Society position paper: global recommendations for the management of dyslipidemia: executive summary, Atherosclerosis. 2014: 232(2):410-413. Performed By: #### 2 4323-8, 59967-8, 3015-3 #### [facility] CLIA [id number] [address] Cholesterol in VLDL [Mass/Vol] 10 mg/dL Normal <30 [facility] Comment on above: Order Comment: Rosario [facility] Type: BLOOD SPECIMEN Ordering Facility: [facility] Address: [address] [place] [address] Performed By: #### 2 4323-8, 21298-0, 6-3 #### [facility] CLIA [id number] [address] [place] Cholesterol non HDL [Mass/Vol] 122 mg/dL Normal <130 [facility] Comment on above: Order Comment: Rosario garcia Type: BLOOD SPECIMEN Ordering Facility: [facility] Address: [address] [place] [address] Result Comment: <130 mg/dL, Optimal 130-159 mg/dL, Near optimal/above optimal 160-189 mg/dL, Borderline high 190-219 mg/dL, High >219 mg/dL, Very high Secondary prevention optimal non HDL Cholesterol levels are recommended to be <100 mg/dL Performed By: #### 2 4323-8, 52540-3, 3016-3 #### [facility] CLIA [id number] [address] Cholesterol.total/C holesterol in HDL [Mass ratio] 2.94 {ratio} Normal <5.10 [facility] Comment on above: Order Comment: Rosario garcia Type: BLOOD SPECIMEN Ordering Facility: [facility] Address: [address] [place] [address] Performed By: #### 2 4323-8, 78241-3, 3016-3 #### [facility] CLIA [id number] [address] FASTING TIME 12 hrs Normal [facility] Comment on above: Order Comment: Rosario garcia Type: BLOOD SPECIMEN Ordering Facility: [facility] Address: [address] [place] [address] Performed By: #### 2 4323-8, 55285-0, 3016-3 #### [facility] CLIA [id number] [address] Triglyceride [Mass/Vol] 50 mg/dL Normal <150 [facility] Comment on above: Order Comment: Rosario [facility] Type: BLOOD SPECIMEN Ordering Facility: [facility] Address: [address] [place] [address] Result Comment: <150 mg/dL, Normal 150-199 mg/dL, Borderline high 200-499 mg/dL, High >499 mg/dL, Very high Performed By: #### 2 4323-8, 23812-5, 3016-3 #### [facility] CLIA [id number] [address] [place] [address] [place] T4 Free SerPl-mCncon 025 Free T4 [Mass/Vol] 1.3 ng/dL Normal 0.9-1.7 [facility] Comment on above: Order Comment: Rosario garcia Type: BLOOD SPECIMEN Ordering Facility: [facility] Address: [address] [place] [address] Performed By: #### 3 024-7 #### [facility] CLIA [id number] [address] [place] [address] [place] TSH SerPl-aCncon 07-28-2024 TSH Qn 4.720 m[IU]/L High 0.270-4.200 [facility] Comment on above: Order Comment: Rosario garcia Type: BLOOD SPECIMEN Ordering Facility: [facility] Address: [address] [place] [address] Result Comment: If t he patient is , TSH reference range varies by gestational period: First Trimester (weeks 9-12): 0.180-2.990 mIU/L Second Trimester: 0.110-3.980 mIU/L Third Trimester: 0.480-4.710 mIU/L Nura Hernández et al. A Practical Approach for the Verifications and Determination of Site- and Trimester-Specific Reference Intervals for Thyroid Function tests in . Thyroid, 2019:29:3:412-420. Luis Baltazar, et al. 2017 Guidelines of the [place] Thyroid Association for the Diagnosis and Management of Thyroid Disease during and the . Thyroid, 2017:27:3:315-389. Performed By: #### 2 4323-8, 71518-5, 3016-3 #### [facility] CLIA [id number] [address] [place] [address] [place] Urinalysis complete panel (U )on 07-28-2024 Bacteria LM.HPF (Urine sed) [#/Area] Rare Abnormal None Seen [facility] Comment on above: Order Comment: Rosario garcia Type: URINE SPECIMEN Ordering Facility: [facility] Address: [address] [place] [address] Performed By: #### 2 4356-8 #### [facility] CLIA [id number] [address] [place] Bilirubin Ql (U) Negative Normal Negative [facility] Comment on above: Order Comment: Speci men Type: URINE SPECIMEN Ordering Facility: [facility] Address: [address] [place] [address] Performed By: #### 2 4356-8 #### [facility] CLIA [id number] [address] [place] Clarity (Unsp spec) Clear Normal Clear [facility] Comment on above: Order Comment: Speci men Type: URINE SPECIMEN Ordering Facility: [facility] Address: [address] [place] [address] Performed By: #### 2 4356-8 #### [facility] CLIA [id number] [address] Color (U) Yellow Normal Yellow [facility] Comment on above: Order Comment: Speci men Type: URINE SPECIMEN Ordering Facility: [facility] Address: [address] [place] [address] Performed By: #### 2 4356-8 #### [facility] CLIA [id number] [address] Epithelial cells LM.HPF (Urine sed) [#/Area] Few Normal [facility] Comment on above: Order Comment: Speci men Type: URINE SPECIMEN Ordering Facility: [facility] Address: [address] [place] [address] Performed By: #### 2 4356-8 #### [facility] CLIA [id number] [address] [place] Glucose Test strip (U) [Mass/Vol] Negative Normal Negative [facility] Comment on above: Order Comment: Speci men Type: URINE SPECIMEN Ordering Facility: [facility] Address: [address] [place] [address] Performed By: #### 2 4356-8 #### [facility] CLIA [id number] [address] [place] Hemoglobin Ql (U) Negative Normal Negative [facility] Comment on above: Order Comment: Speci men Type: URINE SPECIMEN Ordering Facility: [facility] Address: [address] [place] [address] Performed By: #### 2 4356-8 #### [facility] CLIA [id number] [address] [place] [address] [place] [facility] [place] Ketones Ql (U) Negative Normal Negative [facility] Comment on above: Order Comment: Speci men Type: URINE SPECIMEN Ordering Facility: [facility] Address: [address] [place] [address] Performed By: #### 2 4356-8 #### [facility] CLIA [id number] [address] [place] Leukocyte esterase Test strip Ql (U) Negative Normal Negative [facility] Comment on above: Order Comment: Speci men Type: URINE SPECIMEN Ordering Facility: [facility] Address: [address] [place] [address] Performed By: #### 2 4356-8 #### [facility] CLIA [id number] [address] [place] [address] [place] Nitrite Ql (U) Negative Normal Negative [facility] Comment on above: Order Comment: Speci men Type: URINE SPECIMEN Ordering Facility: [facility] Address: [address] [place] [address] Performed By: #### 2 4356-8 #### [facility] CLIA [id number] [address] [place] [address] [place] pH (U) 6.0 [pH] Normal 5.0-8.0 [facility] Comment on above: Order Comment: Speci men Type: URINE SPECIMEN Ordering Facility: [facility] Address: [facility] [place] [address] Performed By: #### 2 4356-8 #### [facility] CLIA [id number] [address] [place] Protein (U) [Mass/Vol] Negative Normal Negative [facility] Comment on above: Order Comment: Speci men Type: URINE SPECIMEN Ordering Facility: [facility] Address: [facility] [place] [address] Performed By: #### 2 4356-8 #### [facility] CLIA [id number] [address] [place] [address] [place] RBC LM.HPF (Urine sed) [#/Area] 0-3 /HPF Normal 0-3 /HPF [facility] Comment on above: Order Comment: Speci men Type: URINE SPECIMEN Ordering Facility: [facility] Address: [address] [place] [address] Performed By: #### 2 4356-8 #### [facility] CLIA [id number] [address] [place] [address] [place] Specific gravity (U) [Rel density] 1.025 Normal 1.005-1.030 [facility] Comment on above: Order Comment: Speci men Type: URINE SPECIMEN Ordering Facility: [facility] Address: [address] [place] [address] Performed By: #### 2 4356-8 #### [facility] CLIA [id number] [address] [place] Urobilinogen Ql (U) 0.2 EU/dL Normal 0.2-1.0 EU/dL [facility] Comment on above: Order Comment: Speci men Type: URINE SPECIMEN Ordering Facility: [facility] Address: [address] [place] [address] Performed By: #### 2 4356-8 #### [facility] CLIA [id number] [address] [place] WBC LM.HPF (Urine sed) [#/Area] 0-5 /HPF Normal 0-5 /HPF [facility] Comment on above: Order Comment: Speci men Type: URINE SPECIMEN Ordering Facility: [facility] Address: [address] [place] [address] Performed By: #### 2 4356-8 #### [facility] CLIA [id number] [address] [place] Vit B12 SerPl-mCncon 025 Cobalamin (Vitamin B12) [Mass/Vol] 454 pg/mL Normal 232-1245 [facility] Comment on above: Order Comment: Speci men Type: BLOOD SPECIMEN Ordering Facility: [facility] Address: [address] [place] [address] Performed By: #### 2 132-9 #### [facility] [id number] [address] [place] [address] [facility] CNOVon 07-14-2024 CNOV Office Visit (PODIWS ) -------- CRISTINA MARTINEZ ([id number]) 1980 F Date Time Provider Department 07/14/24 9:30 AM STEPHANIE DUVALL PODIWS During your visit today, we recorded the following information about you: Mallorie Jauregui LPN 07/15/2024 8:15 AM Signed AMB ROOMING INTAKE FLOWSHEET DATA Pain Pain Level: 5 Pain Location: Foot-Right Description: Tenderness Duration Amount of Time: 2 Duration Units: Months Frequency: Intermittent Intervention/Comfort measure: Relaxation, Reposition Patient presents with: Right Foot - New, Diabetes, Pain, Wart JULISSA Payan Matthew 07/15/2024 8:15 AM Signed Initial Podiatric Office Visit: Chief Complaint: This 44 year old female who presents with chief complaint:wart of right foot HPI Patient presents to clinic for evaluation of right foot. Has wart to right 5th metatarsal that she has noticed for the past 1-3 months. Hurts with pressure. Treated with debridement and she was fine but the condition returned. Here to discuss options. She was last seen in 2020 and we had talked about her bunion of left foot. This causes her pain and she is interested in discussing surgery but would like to consider after 2024. She is type 2 diabetes. Patient denies any burning or numbness. Her last A1c was October 2023 was 6.9. Does also mention ingrowing toenail of b/l feet. PAIN EVALUATION 07/14/2024 0930 Pain Level: 5 Pain Location: Foot-Right Description: Tenderness Duration Amount of Time: 2 Duration Units: Months Frequency: Intermittent Intervention/Comfort measure: Relaxation;Reposition Hemoglobin A1C (%) Date Value 10/15/2023 6.9 07/16/2023 7.5 11/29/2019 6.2 08/15/2015 5.9 10/06/2012 5.6 07/06/2012 5.3 Hemoglobin A1c (%) Date Value 03/10/2016 5.8 02/19/2015 6.8 Hemoglobin A1C (POCT) (%) Date Value 12/09/2022 7.8 08/07/2022 7.5 04/01/2022 7.9 12/24/2021 8.1 09/19/2021 8.1 PCP: Jeffery Swift MD PAST MEDICAL HISTORY Diagnosis Date Blurring of visual image Chronic osteoarthritis Congenital single kidney left Diverticulitis Dyslipidemia 11/29/2019 Encounter for gynecological examination 07/21/2023 Seeing Natasha Strauss Foot callus 11/29/2019 Gastroesophageal reflux disease Migraine Over weight 12/18/2017 Postablative hypothyroidism 07/06/2012 History of hyperthyroidism Seasonal allergies 11/29/2019 Type 2 diabetes mellitus without complication, without long-term current use of insulin (HCC) 09/19/[address] Doyle Vitamin D deficiency Current Outpatient Medications Medication Sig insulin glargine (LANTUS SOLOSTAR U-100 INSULIN) 100 unit/mL (3 mL) Inject 8 units subcutaneously daily; Per Dr. Vivek Linares tirzepatide (MOUNJARO) 7.5 mg/0.5 mL pen injector Inject 7.5 mg subcutaneously one time a week. PerDr. Doyle levothyroxine (SYNTHROID) 125 mcg tablet take 1 tablet by mouth every morning before breakfast insulin lispro (HUMALOG KWIKPEN INSULIN) 100 unit/mL 3 units TID, per Dr. Vivek Linares metFORMIN ER (GLUCOPHAGE XR) 500 mg 24 hr tablet Take 2 tablets by mouth two times a day with meals. Per Dr. Vivek linares glimepiride (AMARYL) 2 mg tablet Take 2 tabs breakfast and [address]. [address] Vivek Linares Insulin Rowlett, Disposable, (BD ULTRAFINE III MINI PEN) 31 gauge x 3/16 Use 4 pen needles daily Blood-Glucose Sensor (DEXCOM G6 SENSOR) ismael Use one sensor every 10 days, IDDM, E 11.9 Blood-Glucose Transmitter (DEXCOM G6 TRANSMITTER) ismael Use one transmitter every 3 months, IDDM, E 11.9 Blood-Glucose Meter,Continuous (DEXCOM G6 SKATES OPERATOR) misc Use continuously to monitor glucose, IDDM, E11.9 blood sugar diagnostic (BLOOD GLUCOSE TEST) test strip Use as directed to test glucose 2 times daily, E11.9, IDDM Lancets lancets Use as directed to test glucose 3 times daily, E11.9, non-insulin. MULTIVITAMIN ORAL Take by mouth. flintstone Blood-Glucose Meter Use as directed to test glucose 3 times daily, E11.9, non-insulin. cetirizine (ZYRTEC) 10 mg tablet Take 1 tablet by mouth twice daily. No current facility-administered medications for this visit. ALLERGIES Allergen Reactions Blue Dye Hives Hydrocodone Other: See Comments N \EANDE\ V Invokana [Canaglifl* Other: See Comments Vaginal yeast infections Lipitor [Atorvastat* Other: See Comments made sugars increase. PAST SURGICAL HISTORY Procedure Laterality Date CHOLECYSTECTOMY HX 2010 HYSTERECTOMY HX 07/01/2013 LAVH - DUB LAPAROSCOPIC TUBAL LIGATION/RING/CLIP 08/20/2012 Filshie clips NEEDLE OCULOGRAPHY 1/ XOC MUSC 1/BOTH EYE W/IANDR SURGERY TO REPAIR LAZY EYE L EYE PAST SURGICAL HISTORY OF 2008 Dental procedure- 4 wisdom teeth removed PAST SURGICAL HISTORY OF Eye muscle surgery procedure PAST SURGICAL HISTORY OF 2012 Hysterectomy, ovary preserv PAST SURGICAL HISTORY OF 08/2012 Tubal ster (more content not included)... Normal [facility] Physician Progress No nidia 04-19-2024 [facility] Physician Progress Note CRISTINA MARTINEZ :1980 Registration Date:04/19/2024 Assessment/Plan This Visit Diagnosis 1. Encounter for annual routine gynecological examination Z01.419 pap/hpv neg 2022- ASC-H MVI/Calcium/Vit D Exercise f/u 1 yr and prn Ordered: AMB Preventive Est Age 40-64 [id number], 04/19/2024 11:48:00 EST, Encounter for annual routine gynecological examination / S/P hysterectomy / Diabetes type 2 / Hot flashes / Screening mammogram, encounter for 2. S/P hysterectomy Z90.710 Ordered: AMB Preventive Est Age 40-64 [id number], 04/19/2024 11:48:00 EST, Encounter for annual routine gynecological examination / S/P hysterectomy / Diabetes type 2 / Hot flashes / Screening mammogram, encounter for 3. Diabetes type 2 E11.9 follows up with PCP- considering pump for better control Ordered: AMB Preventive Est Age 40-64 [id number], 04/19/2024 11:48:00 EST, Encounter for annual routine gynecological examination / S/P hysterectomy / Diabetes type 2 / Hot flashes / Screening mammogram, encounter for 4. Hot flashes R23.2 lab order given for estradiol and FSH interested in trying supplements Ordered: AMB Preventive Est Age 40-64 [id number], 04/19/2024 11:48:00 EST, Encounter for annual routine gynecological examination / S/P hysterectomy / Diabetes type 2 / Hot flashes / Screening mammogram, encounter for ESTRADIOL, ROUTINE, 04/19/2024, Order for future visit-Diagnosis required, Dx: Hot flashes FSH, ROUTINE, 04/19/2024, Order for future visit-Diagnosis required, Dx: Hot flashes 5. Screening mammogram, encounter for Z12.31 order given for mammogram Ordered: AMB Preventive Est Age 40-64 [id number], 04/19/2024 11:48:00 EST, Encounter for annual routine gynecological examination / S/P hysterectomy / Diabetes type 2 / Hot flashes / Screening mammogram, encounter for MAMM DIGITAL SCRN BILATERAL, 04/19/2024, Routine, SCREENING, Ambulatory, Screening mammogram, encounter for Medication Reconciliation What How Much When Instructions Unchanged glimepiride (glimepiride 2 mg oral tablet) 180 EA, 0 Refill(s), take 1 tablet by mouth twice a day with meals Contact prescribing physician if questions or concerns Unchanged insulin glargine (Lantus Solostar Pen 100 units/ mL subcutaneous solution) 9 mL, 0 Refill(s), inject 10 units subcutaneously at bedtime daily Contact prescribing physician if questions or concerns Unchanged levothyroxine (levothyroxine 125 mcg (0.125 mg) oral tablet) Contact prescribing physician if questions or concerns Unchanged metFORMIN (metFORMIN 1000 mg oral tablet, extended release) Oral DAILY Contact prescribing physician if questions or concerns Unchanged metFORMIN = Glucophage (metFORMIN 500 mg oral tablet, extended release) Oral 1000 Unknown, 0 Refill(s), Take 1,000 mg by mouth in the morning and 1,000 mg in the evening. Take with meals. Contact prescribing physician if questions or concerns Unchanged pioglitazone (Actos 30 mg oral tablet) Oral 0 Refill(s) Contact prescribing physician if questions or concerns Unchanged pioglitazone (pioglitazone 15 mg oral tablet) Contact prescribing physician if questions or concerns Unchanged tirzepatide (Mounjaro 7.5 mg/ 0.5 mL subcutaneous solution) 2 mL, 0 Refill(s), INJECT 7.5 MG (0.5 ML) SUBCUTANEOUSLY EVERY WEEK Contact prescribing physician if questions or concerns What How Much When Comments Stop Taking dulaglutide (Trulicity Pen 1.5 mg/ 0.5 mL subcutaneous solution) 0.5 Milliliter Subcutaneous THURSDAY Stop Taking glimepiride (Amaryl 1 mg oral tablet) Oral 0 Refill(s) Stop Taking semaglutide (Ozempic 8 mg/ 3 mL (2 mg dose) subcutaneous solution) 9 mL, 0 Refill(s), INJECT 2 MG SUBCUTANEOUSLY ONCE A WEEK Chief Complaint Here for annual- has been having night sweats, hot flashes, and fatigue for the last few months- interested in blood work. Can have some leakage with coughing/sneezing. HYST. History of Present Illness 43year old here for annual gynecologic exam. Current with PCP-manages DM/hypothyroid. Due for labs there. Hx LAVH/BS 2013- done for bleeding. Had a breast augmentation in Jun. Had over 100 lb weight loss and lost breast tissue- very happy with surgery-Dr. Silva. Sexual activity: no new partners Dyspareunia/vaginal concerns: none Menopause Vasomotor symptoms: increased night sweats, occasional hot flashes during the day Cervical Cytology Last Pap: pap/hpv neg 01/2023 History of abnormal pap: Hx ASC-H prior to hyst (unable to locate pathology) Breasts Denies breast pain, lumps, skin changes or discharge Mammogram Mammogram: neg 03/31/23 Fam hx breast cancer: none Bowel/Bladder Denies any urinary urgency, incontinence, dysuria. Denies any bowel changes Colonoscopy 2021 Physical Exam Vitals & Measurements BP: 110/78 HT: 166 cm WT: 74.5 kg BMI: 27.04 Depression Screening Scores Initial Depression Screen Score: 0 (04/19/24 10:57:00) Fall Risk Assessment Is the patient ambulatory (m (more content not included)... Normal [facility] Ambulatory Clinical Summaryo n 04-19-2024 Ambulatory Clinical Summary CRISTINA MARTINEZ :1980 [facility]:[id number] Registration Date:04/19/2024 Ambulatory Visit Instructions Your Diagnosis Encounter for annual routine gynecological examination S/P hysterectomy Diabetes type 2 Hot flashes Screening mammogram, encounter for Your Care Team Attending Physician - ROSLYN CARRANZA CNP Primary Care Physician - MING PEREZ Procedures Performed Breast Augmentation (06/2023) Mammogram: Cat 1 Negative (03/31/2023) Pap: Neg w/Neg HPV (01/23/2023) Colonoscopy- Rpt in 10 years (2021) LAVH - Bilateral salpingectomy w/cystoscopy - DUB & non functioning Rt urter (07/01/2013) hysteroscopy D&C, BTL - Post coital bleeding (2012) Cholecystectomy, Dr Alves (07/2011) strabismus repair [place] teeth Discharge Vitals Blood Pressure 110/78 Height 65.35 in (166 cm) Weight 164.27 lb (74.5 kg) BMI 27.04 Systolic Blood Pressure: 110 mmHg (04/19/24 10:57:00) Diastolic Blood Pressure: 78 mmHg (04/19/24 10:57:00) Mean Arterial Pressure: 89 mmHg (04/19/24 10:57:00) Height/Length Measured: 166 cm (04/19/24 10:57:00) Weight Measured: 74.5 kg (04/19/24 10:57:00) Body Mass Index Measured: 27.04 kg/m2 (04/19/24 10:57:00) Ht/Wt Measurement Refused by Patient?2: No (04/19/24 10:57:00) What to do next Scheduled Follow-Up Appointments No results You Need to Schedule the Following Appointments ESTRADIOL, ROUTINE, 04/19/2024, Order for future visit-Diagnosis required, Dx: Hot flashes FSH, ROUTINE, 04/19/2024, Order for future visit-Diagnosis required, Dx: Hot flashes MAMM DIGITAL SCRN BILATERAL, 04/19/2024, Routine, SCREENING, Ambulatory, Screening mammogram, encounter for Medications What How Much When Instructions Unchanged glimepiride (glimepiride 2 mg oral tablet) 180 EA, 0 Refill(s), take 1 tablet by mouth twice a day with meals Contact prescribing physician if questions or concerns Unchanged insulin glargine (Lantus Solostar Pen 100 units/ mL subcutaneous solution) 9 mL, 0 Refill(s), inject 10 units subcutaneously at bedtime daily Contact prescribing physician if questions or concerns Unchanged levothyroxine (levothyroxine 125 mcg (0.125 mg) oral tablet) Contact prescribing physician if questions or concerns Unchanged metFORMIN (metFORMIN 1000 mg oral tablet, extended release) Oral DAILY Contact prescribing physician if questions or concerns Unchanged metFORMIN = Glucophage (metFORMIN 500 mg oral tablet, extended release) Oral 1000 Unknown, 0 Refill(s), Take 1,000 mg by mouth in the morning and 1,000 mg in the evening. Take with meals. Contact prescribing physician if questions or concerns Unchanged pioglitazone (Actos 30 mg oral tablet) Oral 0 Refill(s) Contact prescribing physician if questions or concerns Unchanged pioglitazone (pioglitazone 15 mg oral tablet) Contact prescribing physician if questions or concerns Unchanged tirzepatide (Mounjaro 7.5 mg/ 0.5 mL subcutaneous solution) 2 mL, 0 Refill(s), INJECT 7.5 MG (0.5 ML) SUBCUTANEOUSLY EVERY WEEK Contact prescribing physician if questions or concerns What How Much When Comments Stop Taking dulaglutide (Trulicity Pen 1.5 mg/ 0.5 mL subcutaneous solution) 0.5 Milliliter Subcutaneous THURSDAY Stop Taking glimepiride (Amaryl 1 mg oral tablet) Oral 0 Refill(s) Stop Taking semaglutide (Ozempic 8 mg/ 3 mL (2 mg dose) subcutaneous solution) 9 mL, 0 Refill(s), INJECT 2 MG SUBCUTANEOUSLY ONCE A WEEK Allergies artificial color or dye hives oxyCODONE Problems Ongoing - Any problem that you are currently receiving treatment for. BMI 26.0-26.9,adult Diabetes type 2 Encounter for annual routine gynecological examination History of Graves' disease - Radiation Therapy Hot flashes Hypothyroidism, postradioiodine therapy Kidney congenitally absent, right S/P hysterectomy Screening mammogram, encounter for Single kidney LEFT Common Emergency Awareness Tips IS IT A STROKE? Act FAST and Check for these signs: FACE Does the face look uneven? ARM Does one arm drift down? SPEECH Does their speech sound strange? TIME Call at any sign of stroke Heart Attack Signs Chest discomfort: Most heart attacks involve discomfort in the center of the chest and lasts more than a few minutes, or goes away and comes back. It can feel like uncomfortable pressure, squeezing, fullness or pain. Discomfort in upper body: Symptoms can include pain or discomfort in one or both arms, back, neck, jaw or stomach. Shortness of breath: With or without discomfort. Other signs: Breaking out in a cold sweat, nausea, or lightheaded. Remember, MINUTES DO MATTER. If you experience any of these heart attack warning signs, call to get immediate medical attention! Normal [facility] Comprehensive Intake - Texto n 04-19-2024 Comprehensive Intake - Text Comprehensive Intake Entered On: 04/19/2024 10:57 EST Performed On: 04/19/2024 10:57 EST by Daniela Gudino Summary Bladder Control Issues? : No Urine Leakage? : Yes Presence or absence of urinary incontinence assessed : Yes Daniela Gudino - 04/19/2024 11:06 EST Chief Complaint : Here for annual- has been having night sweats, hot flashes, and fatigue for the last few months- interested in blood work. Can have some leakage with coughing/sneezing. MYRA. Daniela Gudino - 04/19/2024 11:17 EST Menstrual Status : Hysterectomy CPT-II Medication list doc'd in medical record : Yes Influenza immunization administered or previously received : No Pneumococcal vaccine administered or previously received : No Daniela Gudino - 04/19/2024 10:57 EST Measurements Weight Measured : 74.5 kg(Converted to: 164 lb 4 oz, 164.244 lb) Body Mass Index Measured : 27.04 kg/m2 Body Mass Index documented : Yes Daniela Gudino - 04/19/2024 11:06 EST Ht/Wt Measurement Refused by Patient? : No Height/Length Measured : 166 cm(Converted to: 5 ft 5 in, 65.35 in) Daniela Gudino - 04/19/2024 10:57 EST Vitals Require BP : Yes Systolic Blood Pressure : 110 mmHg Diastolic Blood Pressure : 78 mmHg Mean Arterial Pressure : 89 mmHg Last Systolic BP : less than 130 mmHg Last Diastolic BP : less than 80 mmHg Pain Present : No actual or suspected pain Pain : 0 Pain severity quantified : No pain present Daniela Gudino - 04/19/2024 11:06 EST Infection Screening Travel outside [place] within past 21 days : No Positive COVID test in the last 10 days? : No Exposure to and/or close contact with a person who has a laboratory-confirmed COVID test within the last 48 hours. : No Daniela Gudino - 04/19/2024 10:57 EST Depression Screening Is patient currently : None of the Below Feeling Down, Depressed, Hopeless : Not at all Little Interest - Pleasure in Activities : Not at all Initial Depression Screen Score : 0 Depression Screening Score 0 : No Daniela Gudino - 04/19/2024 11:06 EST Falls Risk Assessment Is the patient ambulatory (mobile) : Yes Have you had 2 or more falls in the past year : No Have you had a fall within the past year that has caused an injury : No Patient screen for fall risk : no falls in last year OR 1 fall with no injury in last year Daniela Gudino - 04/19/2024 10:[address] [facility] HUMAN FACTORS ENGINEER Visit - [place] HUMAN FACTORS ENGINEER Visit - Text HUM[employer]CT[employer] ENGINEER Visit Entered On : 04/19/2024 11:00 EST Performed On: 04/19/2024 10:57 EST by Daniela Gudino [employer] ENGINEER Menstrual History Menstrual Status : Hysterectomy Daniela Gudino - 04/19/2024 10:57 EST HUM[employer] ENGINEER Screenings Date of Last Pap Smear : 01/23/2023 Last Pap Result : Negative Last Pap Result Comment : 01/23/2023 Neg w/Neg HPV 03/25/2019 ASCUS w/Neg HPV Date of Last Mammogram : 03/31/2023 Last Mammography Result : Benign Last Mammography Result Comment : Negative Date of colo/rectal cancer screen : 2021- per patient [place]/Rectal cancer screen test performed : Colonoscopy [place]/Rectal cancer screen result comment : Rpt in 10 years Daniela Gudino - 04/19/2024 10:57 EST Contraception Contraception Method : Sterilization for contraception Sterilization Type : Hysterectomy Daniela Gudino - 04/19/2024 10:[address] [facility] Endocrinology Visit Reporton 04-14-[address] [facility] [address] [place] [address] OFFICE VISIT Date of Service: 04/14/24 MR#: [id number] Acct: [id number] Name: CRISTINA MARTINEZ Rep #: [id number] : 1980 Provider: PATO mohamud Age/Sex: 43/F Location: [facility] [place] Status: Signed Intake Vital Signs 01/14/24 15:21 04/14/24 13:16 Height 5 ft 5 in 5 ft 5 in Weight: 161 lb 160 lb 6 oz BMI 26.8 26.6 BP 111/77 111/76 Blood Pressure Location Lt brachial Lt brachial Position Sitting Sitting Pulse 92 80 Pulse Source Monitor Monitor Pulse Oximetry (%) 98 99 Oxygen Delivery Method room air room air Intake Visit Reasons: 3 M FU Chief Complaint: f/u diabetes Is patient in pain?: No Allergies No Known Allergies Allergy (Verified 10/15/23 14:27) Medications ???Medication ???Instructions ???Recorded ???Confirmed ???Type cetirizine 10 mg capsule (Zyrtec) 10 mg PO DAILY 05/12/23 04/14/24 History insulin lispro 100 unit/mL 1 sliding scale dose subcut QACHS 05/21/23 04/14/24 History subcutaneous pen (Humalog KwikPen (U-100) Insulin) insulin NPH isoph U-100 human 100 10 unit (0.1 mL) subcut QAM #9 mL 10/15/23 04/14/24 Rx unit/mL (3 mL) subcutaneous pen (Humulin N NPH U-100 Insulin KwikPen) blood-glucose sensor (Dexcom G7 #3 ea 10/26/23 04/14/24 Rx Sensor device) glimepiride 2 mg tablet 6 mg (3 x 2 mg) PO DAILY #270 tabs 12/15/23 04/14/24 Rx levothyroxine 125 mcg tablet 125 mcg PO DAILY #90 tabs 12/15/23 04/14/24 Rx (Synthroid) tirzepatide 7.5 mg/0.5 mL 7.5 mg (0.5 mL) subcut QWEEK #2 mL 12/15/23 04/14/24 Rx subcutaneous pen injector (Mounjaro) insulin lispro 100 unit/mL 10.5 unit (0.105 mL) subcut BID 12/22/23 04/14/24 Rx subcutaneous half-unit pen #15 mL (Humalog Romie KwikPen (U-100)) Tresiba FlexTouch U-100 100 16 unit (0.16 mL) subcut DAILY #15 01/05/24 04/14/24 Rx unit/mL (3 mL) subcutaneous pen mL (insulin degludec) metformin 500 mg tablet,extended 1,000 mg (2 x 500 mg) PO BID #180 03/21/24 04/14/24 Rx release 24 hr tabs PFSH Medical History Hypercholesteremia Anxiety Arthritis Thyroid disease Diabetes Surgical History History of cholecystectomy Social History Smoking Status: Former smoker alcohol intake: current details: 1-2 days per week substance use type: does not use frequency: 1-2 times per week HPI HPI Chief Complaint: f/u diabetes Details: CRISTINA MARTINEZ, is a 43 F who presents to the office today for evaluation and management of diabetes. A1C today is 7.3%, increased from 01/14/24 at 6.8%. Weight is stable. Her weight is very frustrating for her. Currently taking metformin 1 gm BID with food, Mounjaro 7.5 mg qweek- tolerating well, glimepiride 4 mg bfast, 2 mg supper, basal/bolus and N for DP. She admits that she has been somewhat off track with her diet d/t holidays. Dexcom tracings reviewed- she is having sustained elevations as well as rebound elevations following a low. Denies any significant episodes of hypoglycemia that have required assistance from others. I suspect d/t her low insulin needs that she is likely type 1, not type 2. We have discussed insulin pump therapy on several occasions, she is still somewhat hesitant. She is hypothyroid. Currently taking levothyroxine 125 mcg once daily. Reports compliance with medication regimen. She was to have labs completed after her last appt, she has not had those drawn yet. Denies any acute concerns. ROS Const Constitutional: No fatigue or weight change ENT ENT: No dizziness/vertigo Cardio Cardiology: No chest pain at rest, chest pain with exertion, shortness of breath or palpitations Skin Skin: No wounds Endo Endocrine: No fatigue or weight change Exam Const General: cooperative, healthy appearing, comfortable and no acute distress Nutritional Appearance: overweight Orientation: alert, awake and oriented x3 HENMT Head: normal to inspection Ears: hearing grossly normal bilaterally Nose: external nose normal Face and sinus: normal facial exam Eyes General: appearance normal, both eyes and all related structures Alignment and Position: alignment normal Sclera: sclerae normal Neck Neck: normal visual inspection Carotids: normal carotid upstroke Chest Chest palpation inspection: normal inspection of the chest Resp Effort Inspection: normal respiratory effort, able to speak in complete sentences, symmetric chest movement, normal respiratory pattern, no audible wheezes and no cough Auscultation: Bilateral: Clear to Auscultation Cardio Rate: regular rate Rhythm: (more content not included)... Normal [facility] CNOVon 02-09-2024 CNOV Office Visit (FAMPWS ) -------- CRISTINA MARTINEZ ([id number]) 1980 F Date Time Provider Department 02/09/24 9:40 AM [facility] SW[facility] During your visit today, we recorded the following information about you: Pulse Respiration Blood pressure Weight 82/minute 16/minute 108/68 72.6 kg Jeffery Swift MD 02/09/2024 10:35 AM Signed Chief Complaint Patient presents with: F/U 6 months HPI Cristina Martinez is a 43 year old female who presents here today for 6 month follow up. Patient sees endocrinology last visit 01/2024 Follows with endocrinology for hx of diabetes and hypothyroidism ADHD dx as child; was on medication for a short time; has noticed difficulty with concentrating and staying focused. Patient has been getting dizzying, off balance. No ataxia or vertigo. Not related to position changes. Sometimes if she rolls over too fast she will get it. But has it often at rest. No syncope. Does have allergies. Ears always hurt. Has noted some decreased hearing. Nose is congested. Patient has checked her home BP and has been normal during the dizzy spells. Like 's Past medical history, appointments, medications, allergies reviewed. Previous Medical History PAST MEDICAL HISTORY Diagnosis Date Blurring of visual image Chronic osteoarthritis Congenital single kidney left Diverticulitis Dyslipidemia 11/29/2019 Encounter for gynecological examination 07/21/2023 Seeing Natasha Strauss Foot callus 11/29/2019 Gastroesophageal reflux disease Migraine Over weight 12/18/2017 Postablative hypothyroidism 07/06/2012 History of hyperthyroidism Seasonal allergies 11/29/2019 Type 2 diabetes mellitus without complication, without long-term current use of insulin ([facility]) 09/19/[address] Doyle Vitamin D deficiency Previous Surgical History PAST SURGICAL HISTORY Procedure Laterality Date CHOLECYSTECTOMY HX 2011 HYSTERECTOMY HX 07/01/2013 [facility] - DUB LAPAROSCOPIC TUBAL LIGATION/RING/CLIP 08/20/2012 Filshie clips NEEDLE OCULOGRAPHY 1/ XOC MUSC 1/BOTH EYE W/IANDR SURGERY TO REPAIR LAZY EYE L EYE PAST SURGICAL HISTORY OF 2008 Dental procedure- 4 wisdom teeth removed PAST SURGICAL HISTORY OF Eye muscle surgery procedure PAST SURGICAL HISTORY OF 2012 Hysterectomy, ovary preserv PAST SURGICAL HISTORY OF 08/2012 Tubal sterilization SALPINGECTOMY Bilateral 07/01/2013 TOOTH EXTRACTION Family History FAMILY HISTORY Problem Relation Age of Onset other (migraine) Father other (rheumatoid arthritis) Father other (Thyroid disorder) Father hyperthyroid Arthritis Mother osteoarthritis Diabetes Mother other (migraine) Mother other (Cancer - other) Paternal Grandmother started in her eye and metastasized Alzheimer's Disease Maternal Grandmother other (Diabetes mellitus) Maternal Grandmother Cancer Other multiple family members Thyroid Paternal Grandfather hyperthyroid Diabetes Paternal Grandfather Thyroid Paternal Uncle hyperthyroid Thyroid Paternal Aunt hyperthyroid Thyroid Paternal Uncle hyperthyroid other (Thyroid disorder) Other other (Thyroid disorder) Other Patient Allergies ALLERGIES Allergen Reactions Blue Dye Hives Hydrocodone Other: See Comments N \EANDE\ V Invokana [Canaglifl* Other: See Comments Vaginal yeast infections Lipitor [Atorvastat* Other: See Comments made sugars increase. Current Medications Current Outpatient Medications on File Prior to Visit Medication Sig levothyroxine (SYNTHROID) 125 mcg tablet take 1 tablet by mouth every morning before breakfast tirzepatide (MOUNJARO) 7.5 mg/0.5 mL pen injector Inject 7.5 mg subcutaneously one time a week. insulin glargine (LANTUS SOLOSTAR U-100 INSULIN) 100 unit/mL (3 mL) Inject 10 units subcutaneously daily; Per Dr. Vivek Linares (Patient taking differently: Inject 8 units subcutaneously daily; Per Dr. Vivke Linares) insulin lispro (HUMALOG KWIKPEN INSULIN) 100 unit/mL 3 units TID, per Dr. Vivek Linares metFORMIN ER (GLUCOPHAGE XR) 500 mg 24 hr tablet Take 2 tablets by mouth two times a day with meals. Per Dr. Vivek linares glimepiride (AMARYL) 2 mg tablet Take 2 tabs breakfast and [address] Vivek Linares Insulin Rowlett, Disposable, (BD ULTRAFINE III MINI PEN) 31 gauge x 3/16 Use 4 pen needles daily Blood-Glucose Sensor (DEXCOM G6 SENSOR) ismael Use one sensor every 10 days, IDDM, E 11.9 Blood-Glucose Transmitter (DEXCOM G6 TRANSMITTER) ismael Use one transmitter every 3 months, IDDM, E 11.9 Blood-Glucose Meter,Continuous (DEXCOM G6 SKATES OPERATOR[place] [facility] [place] to monitor glucose, IDDM, E11.9 blood sugar diagnostic (BLOOD GLUCOSE TEST) test strip Use as directed to test glucose 2 times daily, E11.9, IDDM Lancets lancets Use as directed to test glucose 3 times daily, E11.9, non-insulin. MULTIVITAMIN ORAL Take by mouth. flintstone Blood-Glucose (more content not included)... Normal [facility] CNOVon 01-28-2024 CNOV Office Visit (WALKWA ) -------- CRISTINA MARTINEZ ([id number]) 1980 F Date Time Provider Department 01/28/24 12:30 PM ROSE MARY FINLEY During your visit today, we recorded the following information about you: Temperature Pulse Respiration Blood pressure 100 degrees 97/minute 16/minute 120/82 Weight 71.5 kg Rose Mary Finley, AZEB 01/28/2024 3:22 PM Signed Cristina Martinez is a 43 year old female with a complaint of fever up to 100, chills, body aches, productive cough, runny nose, headache x 3 days. Mild diarrhea. Has had pneumonia in the past, feels similar. Denies sob, hemoptysis, vomiting or any other complaints. No recent sick contacts. Did not take home covid test. BS all over the place because I'm sick. REVIEW OF SYSTEMS See HPI, otherwise unremarkable. PAST MEDICAL HISTORY Diagnosis Date Blurring of visual image Chronic osteoarthritis Congenital single kidney left Diverticulitis Dyslipidemia 11/29/2019 Encounter for gynecological examination 07/21/2023 Seeing Natasha Strauss Foot callus 11/29/2019 Gastroesophageal reflux disease Migraine Over weight 12/18/2017 Postablative hypothyroidism 07/06/2012 History of hyperthyroidism Seasonal allergies 11/29/2019 Type 2 diabetes mellitus without complication, without long-term current use of insulin ([facility]) 09/19/[address] Doyle Vitamin D deficiency PAST SURGICAL HISTORY Procedure Laterality Date CHOLECYSTECTOMY HX 2011 HYSTERECTOMY HX 07/01/2013 [facility] LAPAROSCOPIC TUBAL LIGATION/RING/CLIP 08/20/2012 Filshie clips NEEDLE OCULOGRAPHY 1/ XOC MUSC 1/BOTH EYE W/IANDR SURGERY TO REPAIR LAZY EYE L EYE PAST SURGICAL HISTORY OF 2008 Dental procedure- 4 wisdom teeth removed PAST SURGICAL HISTORY OF Eye muscle surgery procedure PAST SURGICAL HISTORY OF 2012 Hysterectomy, ovary preserv PAST SURGICAL HISTORY OF 08/2012 Tubal sterilization SALPINGECTOMY Bilateral 07/01/2013 TOOTH EXTRACTION FAMILY HISTORY Problem Relation Age of Onset other (migraine) Father other (rheumatoid arthritis) Father other (Thyroid disorder) Father hyperthyroid Arthritis Mother osteoarthritis Diabetes Mother other (migraine) Mother other (Cancer - other) Paternal Grandmother started in her eye and metastasized Alzheimer's Disease Maternal Grandmother other (Diabetes mellitus) Maternal Grandmother Cancer Other multiple family members Thyroid Paternal Grandfather hyperthyroid Diabetes Paternal Grandfather Thyroid Paternal Uncle hyperthyroid Thyroid Paternal Aunt hyperthyroid Thyroid Paternal Uncle hyperthyroid other (Thyroid disorder) Other other (Thyroid disorder) Other Social History Tobacco Use Smoking status: Former Current packs/day: 0.00 Types: Cigarettes Quit date: 07/03/2009 Years since quittin.5 Smokeless tobacco: Never Tobacco comments: Type: cigarette; Start date: 1999; Stop date: 2009 Vaping Use Vaping status: Never Used Substance Use Topics Alcohol use: Yes Comment: rarely Drug use: No PHYSICAL EXAMINATION: Vitals: BP 120/82 Pulse 97 Temp 37.8 ?C (100 ?F) Resp 16 Wt 71.5 kg (157 lb 8.3 oz) LMP 01/26/2012 SpO2 97% BMI 25.81 kg/m? General Appearance: Alert, in no acute distress, well-hydrated, well nourished.. Ears: External ears normal, canals clear. TMs clear Nose/Sinuses: Nares normal, septum midline, mucosa normal, no drainage or sinus tenderness. Oropharynx: Lips, mucosa, and tongue normal, teeth and gums normal, oropharynx normal. Neck: Supple, no adenopathy. Lungs: Lungs clear to auscultation. No wheezing, rhonchi, rales.. Heart: RRR without murmur, gallop, or rubs. No ectopy. ASSESSMENT: DIAGNOSIS: (R05.1) Acute cough (primary encounter diagnosis) (R68.89) Flu-like symptoms PLAN: ASSESSMENT/PLAN: 1. Acute cough - ICD9: 786.2, ICD10: R05.1 (primary diagnosis) - XR CHEST 2V FRONTAL/LAT - COVID AND INFLUENZA A/B AND RSV PCR, ROUTINE 2. Flu-like symptoms - ICD9: 780.99, ICD10: R68.89 - XR CHEST 2V FRONTAL/LAT - COVID AND INFLUENZA A/B AND RSV PCR, ROUTINE Supportive care, push fluids. Follow up dependent on results. Report to ED in the interim for new or worsening sx. Pt in agreement with the plan and verbalized understanding. Rose Mary Finley PA-C Allergies As of Date: 01/28/2024 Noted Allergy Reaction BLUE DYE 03/10/2016 4 - Hives HYDROCODONE 12/31/2015 14 - Other: See Comments Comments: N \EANDE\ V INVOKANA (CANAGLIFLOZIN) 03/11/2018 14 - Other: See Comments Comments: Vaginal yeast infections LIPITOR (ATORVASTATIN) 02/27/2020 14 - Other: See Comments Comments: made sugars increase. Date Reviewed: 01/28/2024 Reviewed by: Cristina Gomez MA - Fully Assessed Reason for Visit: Viral Syndrome [119] Cmt: Has fever and chest is burning, started Thursday. Primary Visit Diagnosis:Acute cough [R05.1] Other Visi (more content not included)... Normal [facility] COVID AND INFLUENZA A/B AND RSV PCR, ROUTINEon 01-28-2024 SARS-CoV-2 (COVID-19) RNA PAYAM+probe Ql (Unsp spec) SARS-COV-2 (AGENT OF COVID-19) RNA: Detected INFLUENZA A RNA: Not detected INFLUENZA B RNA: Not detected RESPIRATORY SYNCYTIAL VIRUS (RSV) RNA: Not detected Abnormal [facility] Comment on above: Performed By: #### C VFLRS ####[facility] LABCLIA [id number] [address] OF [facility] Endocrinology Visit Reporton 01-14-[address] [facility] [address] [place] [id number] OFFICE VISIT Date of Service: 01/14/24 MR#: [id number] Acct: [id number] Name: CRISTINA MARTINEZ Rep #: [id number] : 1980 Provider: PATO mohamud Age/Sex: 43/F [place] [facility] [place] Status: Signed Intake Vital Signs 10/15/23 14:24 01/14/24 15:21 Height 5 ft 5 in 5 ft 5 in Weight: 159 lb 161 lb BMI 26.4 26.8 BP 111/77 111/77 Blood Pressure Location Lt brachial Lt brachial Position Sitting Sitting Pulse 82 92 Pulse Source Monitor Monitor Pulse Oximetry (%) 98 98 Oxygen Delivery Method room air room air Intake Visit Reasons: 3 M FU Chief Complaint: f/u diabetes Application Performance Engineer Required: No Accompanied by: Self Is patient in pain?: No Allergies No Known Allergies Allergy (Verified 10/15/23 14:27) Medications ???Medication ???Instructions ???Recorded ???Confirmed ???Type cetirizine 10 mg capsule (Zyrtec) 10 mg PO DAILY 05/12/23 01/14/24 History insulin lispro 100 unit/mL 1 sliding scale dose subcut QACHS 05/21/23 01/14/24 History subcutaneous pen (Humalog KwikPen (U-100) Insulin) insulin NPH isoph U-100 human 100 10 unit (0.1 mL) subcut QAM #9 mL 10/15/23 01/14/24 Rx unit/mL (3 mL) subcutaneous pen (Humulin N NPH U-100 Insulin KwikPen) blood-glucose sensor ([employer] G7 #3 ea 10/26/23 01/14/24 Rx Sensor device) glimepiride 2 mg tablet 6 mg (3 x 2 mg) PO DAILY #270 tabs 12/15/23 01/14/24 Rx levothyroxine 125 mcg tablet 125 mcg PO DAILY #90 tabs 12/15/23 01/14/24 Rx (Synthroid) metformin 500 mg tablet,extended 1,000 mg (2 x 500 mg) PO BID #180 12/15/23 01/14/24 Rx release 24 hr tabs tirzepatide 7.5 mg/0.5 mL 7.5 mg (0.5 mL) subcut QWEEK #2 mL 12/15/23 01/14/24 Rx subcutaneous pen injector (Lorna) insulin lispro 100 unit/mL 10.5 unit (0.105 mL) subcut BID 12/22/23 01/14/24 Rx subcutaneous half-unit pen #15 mL (Humalog Romie KwikPen (U-100)) Tresiba FlexTouch U-100 100 16 unit (0.16 mL) subcut DAILY #15 01/05/24 01/14/24 Rx unit/mL (3 mL) subcutaneous pen mL (insulin degludec) [facility] Medical History Hypercholesteremia Anxiety Arthritis Thyroid disease Diabetes Surgical History History of cholecystectomy Social History Smoking Status: Former smoker alcohol intake: current details: 1-2 days per week substance use type: does not use frequency: 1-2 times per week HPI HPI Chief Complaint: f/u diabetes Details: CRISTINA MARTINEZ, is a 43 F who presents to the office today for evaluation and management of diabetes. A1C today is 6.8%, consistent with 10/15/23 at 6.9%. She has gained 2 lbs. This is frustrating to her. Currently taking metformin 1 gm BID with food, Lantus 7 u once daily, Humalog 3.5-4.5 u TIDCM, glimepiride 4 mg AM and 2 mg PM, and Mounjaro 7.5 mg qweek- tolerating fair. Dexcom tracings reviewed- she has significant Salima Phenomenon. She does not like taking N prior to bedtime d/t potential low blood sugars. Denies any significant episode of hypoglycemia that has required assistance from others. Currently taking levothyroxine 125 mcg once daily. Reports compliance with medication regimen. Hx of elevated cholesterol. She is not currently on any cholesterol lowering agent. She is due for routine labs. Denies any acute concerns. ROS Const Constitutional: Positive for fatigue and weight change Psych Psychiatric: Positive for anxiety and Positive for irritability Gastro GI: Positive for diarrhea (intermittent) Endo Endocrine: Positive for fatigue and weight change Exam Const General: cooperative, healthy appearing, comfortable and no acute distress Nutritional Appearance: overweight Orientation: alert, awake and oriented x3 HENMT Head: normal to inspection Ears: hearing grossly normal bilaterally Nose: external nose normal Face and sinus: normal facial exam Eyes General: appearance normal, both eyes and all related structures Alignment and Position: alignment normal Sclera: sclerae normal Neck Neck: normal visual inspection Carotids: normal carotid upstroke Chest Chest palpation inspection: normal inspection of the chest Resp Effort Inspection: normal respiratory effort, able to speak in complete sentences, symmetric chest movement, normal respiratory pattern, no audible wheezes and no cough Auscultation: Bilateral: Clear to Auscultation Cardio Rate: regular rate Rhythm: regular rhythm Heart Sounds: S1 normal and S2 normal Bruits: no carotid bruits GI Inspection: normal to inspection Musc Cervical Spine: normal cervical lordosi (more content not included)... Normal [facility] Endocrinology Visit Reporton 10-15-[address] [facility] [address] [place] [address] OFFICE VISIT Date of Service: 10/15/23 MR#: [id number] Acct: [id number] Name: CRISTINA MARTINEZ Rep #: [id number] : 1980 Provider: PATO mohamud Age/Sex: 43/F Location: [facility] [place] Status: Signed Intake Vital Signs 07/09/23 13:40 10/15/23 14:24 Height 5 ft 5 in 5 ft 5 in Weight: 159 lb 159 lb BMI 26.4 26.4 BP 112/74 111/77 Blood Pressure Location Lt brachial Lt brachial Position Sitting Sitting Pulse 96 82 Pulse Source Monitor Monitor Pulse Oximetry (%) 99 98 Oxygen Delivery Method room air room air Intake Visit Reasons: 3 M FU Chief Complaint: f/u diabetes Application Performance Engineer Required: No Accompanied by: Self Is patient in pain?: No Allergies No Known Allergies Allergy (Verified 10/15/23 14:27) Medications ???Medication ???Instructions ???Recorded ???Confirmed ???Type cetirizine 10 mg capsule (Zyrtec) 10 mg PO DAILY 05/12/23 10/15/23 History glimepiride 2 mg tablet 6 mg PO DAILY 05/12/23 10/15/23 History levothyroxine 125 mcg tablet 125 mcg PO DAILY 05/12/23 10/15/23 History (Synthroid) metformin 500 mg tablet,extended 1,000 mg PO BID 05/12/23 10/15/23 History release 24 hr insulin glargine 100 unit/mL (3 16 unit subcut QPM 05/21/23 10/15/23 History mL) subcutaneous pen (Lantus Solostar U-100 Insulin) insulin lispro 100 unit/mL 1 sliding scale dose subcut QACHS 05/21/23 10/15/23 History subcutaneous pen (Humalog KwikPen (U-100) Insulin) insulin lispro 100 unit/mL 10.5 unit (0.105 mL) subcut BID 08/10/23 10/15/23 Rx subcutaneous half-unit pen #15 mL (Humalog Romie KwikPen (U-100)) tirzepatide 7.5 mg/0.5 mL 7.5 mg (0.5 mL) subcut QWEEK #2 mL 08/13/23 10/15/23 Rx subcutaneous pen injector (Mounjaro) blood-glucose sensor (Dexcom G7 #3 ea 10/15/23 10/15/23 Rx Sensor device) insulin NPH isoph U-100 human 100 10 unit (0.1 mL) subcut QAM #9 mL 10/15/23 10/15/23 Rx unit/mL (3 mL) subcutaneous pen (Humulin N NPH U-100 Insulin KwikPen) PFSH Medical History Hypercholesteremia Anxiety Arthritis Thyroid disease Diabetes Surgical History History of cholecystectomy Social History Smoking Status: Former smoker alcohol intake: current details: 1-2 days per week substance use type: does not use frequency: 1-2 times per week HPI HPI Chief Complaint: f/u diabetes Details: CRISTINA MARTINEZ, is a 43 F who presents to the office today for evaluation and management of diabetes. A1C today is 6.9%, improved from 05/21/23 at 7.7%. Weight is stable since her last appt 07/09/23. Currently taking metformin 1 gm BID with food, glimepiride 4 mg before breakfast, 2 mg before supper, Lantus 8 u once daily, Humalog 2-3 u TIDCM, and Mounjaro 7.5mg- tolerating fair. CGM tracings reviewed- she is having Salima Phenomenon- this is frustrating to her. Denies any significant episodes of hypoglycemia that have required assistance from others. Currently taking levothyroxine 125 mcg once daily. Reports compliance with medication regimen. 07/16/23: vitamin D 36 GFR 116 total cholesterol 220 LDL 149 TSH 1.020 Reports diarrhea, nausea, headache, and dizziness for the last week. Exam Const General: cooperative, healthy appearing, comfortable and no acute distress Nutritional Appearance: overweight Orientation: alert, awake and oriented x3 HENMT Head: normal to inspection Ears: hearing grossly normal bilaterally Nose: external nose normal Face and sinus: normal facial exam Eyes General: appearance normal, both eyes and all related structures Alignment and Position: alignment abnormal left esotropia Sclera: sclerae normal Neck Neck: normal visual inspection Carotids: normal carotid upstroke Chest Chest palpation inspection: normal inspection of the chest Resp Effort Inspection: normal respiratory effort, able to speak in complete sentences, symmetric chest movement, normal respiratory pattern, no audible wheezes and no cough Auscultation: Bilateral: Clear to Auscultation Cardio Rate: regular rate Rhythm: regular rhythm Heart Sounds: S1 normal and S2 normal Bruits: no carotid bruits GI Inspection: normal to inspection Musc Cervical Spine: normal cervical lordosis Thoracic/Lumbar Spine: thoracic and lumbar spine normal to inspection Skin General: no rashes or lesions noted Lesions: no lesions Rashes: no rashes Trauma: no lacerations or abrasions Wounds: no wounds Neuro General: patient alert, patient awake and patient oriented x3 Cognition: normal cognition Speech: speec (more content not included)... Normal [facility] HEMOGLOBIN A1C (EXTERNAL)Ord ered By: Janes Ruano on 10-15-2023 HbA1c (Bld) [Mass fraction] 6.9 % Abnormal 0 - 5.7 % [facility] Interpretation and review of laboratory results Abnormal [facility] CRISTINA MARTINEZ ([id number]) 1980 F Date Time Provider Department 07/28/23 K[facility] MENESES [facility] During your visit today, we recorded the following information about you: Katarzyna Meneses MA 07/28/2023 12:53 PM Signed Patient stopped by office indicated that you guys had talked about ADHD and having US of carotid. She said her was with her and everyone got to talking about other things and never went back to the 2 issues that she wanted to address. Please place order for carotid US. Also need to schedule ADHD appointment? 40 minutes? HUY Felton Jeffrey A, MD 07/28/2023 4:41 PM Signed Let Cristina know I went back to my note and I don't have anything in it or in her diagnosis to explain getting a carotid doppler US? Also I would need an appt for ADD eval. 20 min is ok. Edilia Malagon RN 07/29/2023 8:57 AM Signed Left vm for patient to return call for provider's message. Regina Dodge LPN 07/31/2023 11:09 AM Signed Left message to call office. 07/31/2023 11:08 AM JULISSA Urbina Brittany L, MA 08/06/2023 9:50 AM Addendum Patient reviewed [facility] messed sent on 08/02, at 3:54 PM on 08/02 with no response. Will close TE at this time. Jhonny Campbell MA Allergies As of Date: 07/28/2023 Noted Allergy Reaction BLUE DYE 03/10/2016 4 - Hives HYDROCODONE 12/31/2015 14 - Other: See Comments Comments: N \EANDE\ V INVOKANA (CANAGLIFLOZIN) 03/11/2018 14 - Other: See Comments Comments: Vaginal yeast infections LIPITOR (ATORVASTATIN) 02/27/2020 14 - Other: See Comments Comments: made sugars increase. Date Reviewed: 07/21/2023 Reviewed by: Jeffery Swift MD - Fully Assessed Reason for Visit: Patient Question [1907] Prescriptions as of 08/06/2023 - tirzepatide (MOUNJARO) 7.5 mg/0.5 mL pen injector Inject 7.5 mg subcutaneously one time a week. - insulin glargine (LANTUS SOLOSTAR U-100 INSULIN) 100 unit/mL (3 mL) Inject 10 units subcutaneously daily; Per Dr. Vivek Linares - insulin lispro (HUMALOG KWIKPEN INSULIN) 100 unit/mL 3 units TID, per Dr. Vivek Linares - metFORMIN ER (GLUCOPHAGE XR) 500 mg 24 hr tablet Take 2 tablets by mouth two times a day with meals. Per Dr. Vivek linares - glimepiride (AMARYL) 2 mg tablet Take 2 tabs breakfast and [address] Vivek Linares - Insulin Rowlett, Disposable, (BD ULTRAFINE III MINI PEN) 31 gauge x 16 Use 4 pen needles daily - levothyroxine (SYNTHROID) 125 mcg tablet Take 1 tablet by mouth daily before breakfast. - Blood-Glucose Sensor (DEXCOM G6 SENSOR) ismael Use one sensor every 10 days, IDDM, E 11.9 - Blood-Glucose Transmitter (DEXCOM G6 TRANSMITTER) ismael Use one transmitter every 3 months, IDDM, E 11.9 - Blood-Glucose Meter,Continuous (DEXCOM G6 SKATES OPERATOR) [facility] Use [facility] to monitor glucose, IDDM, E11.9 - blood sugar diagnostic (BLOOD GLUCOSE TEST) test strip Use as directed to test glucose 2 times daily, E11.9, IDDM - Lancets lancets Use as directed to test glucose 3 times daily, E11.9, non-insulin. - MULTIVITAMIN ORAL Take by mouth. flintstone - Blood-Glucose Meter Use as directed to test glucose 3 times daily, E11.9, non-insulin. - cetirizine (ZYRTEC) 10 mg tablet Take 1 tablet by mouth twice daily. Problem List As Of Date 07/28/2023 Noted Resolved Rhinitis [J31.0] 01/07/2012 06/28/2013 Otalgia [H92.09] 01/07/2012 06/28/2013 Vertigo [R42] 04/09/2012 06/28/2013 Tinnitus [H93.19] 04/09/2012 06/28/2013 Postablative hypothyroidism [E89.0] 07/06/2012 Vaginal yeast infection [B37.31] 03/18/2018 03/25/2018 Vitamin D deficiency [E55.9] 11/29/2019 Seasonal allergies [J30.2] 11/29/2019 Dyslipidemia [E78.5] 11/29/2019 Foot callus [L84] 11/29/2019 Congenital single kidney [Q60.0] Type 2 diabetes mellitus without complication, *09/19/2021 Well adult exam [Z00.00] 07/21/2023 Encounter for gynecological examination [Z01.41*07/21/2023 Encounter Status:Closed by JHONNY CAMPBELL on 08/06/23 Normal [facility] CNOVon 07-21-2023 CNOV Office Visit (FAMPWS ) -------- CRISTINA MARTINEZ ([id number]) 1980 F Date Time Provider Department 07/21/23 2:00 PM JEFFERY SWIFT FAMPWS During your visit today, we recorded the following information about you: Pulse Respiration Blood pressure Weight 76/minute 16/minute 114/78 71.7 kg Height 1.664 m Jeffery Swift MD 07/21/2023 4:23 PM Signed Chief Complaint Patient presents with: Physical HPI Cristina Mratinez is a 43 year old female who presents here today for Physical. Follows with endocrinology for hx of diabetes and hypothyroidism Any new concerns today? None ADHD dx as child; was on medication for a short time; has noticed difficulty with concentrating and staying focused. Any recent ER/hospital visits? None Patient currently see Dr. Doyle Past medical history, appointments, medications, allergies reviewed. Previous Medical History PAST MEDICAL HISTORY Diagnosis Date Blurring of visual image Chronic osteoarthritis Congenital single kidney left Diverticulitis Dyslipidemia 11/29/2019 Foot callus 11/29/2019 Gastroesophageal reflux disease Hyperthyroidism s/o I-131 ablation Migraine Obesity, Class I, BMI 30-34.9 12/18/2017 Over weight 12/18/2017 Postablative hypothyroidism 07/06/2012 History of hyperthyroidism Seasonal allergies 11/29/2019 Type 2 diabetes mellitus (HCC) 02/19/2015 Type II diabetes mellitus, uncontrolled Vitamin D deficiency Previous Surgical History PAST SURGICAL HISTORY Procedure Laterality Date CHOLECYSTECTOMY HX 2010 HYSTERECTOMY HX 07/01/2013 [facility] - [facility] LAPAROSCOPIC TUBAL LIGATION/RING/CLIP 08/20/2012 Jacobshie clips NEEDLE OCULOGRAPHY 1/ XOC MUSC 1/BOTH EYE W/IANDR SURGERY TO REPAIR LAZY EYE L EYE PAST SURGICAL HISTORY OF 2008 Dental procedure- 4 wisdom teeth removed PAST SURGICAL HISTORY OF Eye muscle surgery procedure PAST SURGICAL HISTORY OF 2012 Hysterectomy, ovary preserv PAST SURGICAL HISTORY OF 08/2012 Tubal sterilization SALPINGECTOMY Bilateral 07/01/2013 TOOTH EXTRACTION Family History FAMILY HISTORY Problem Relation Age of Onset other (migraine) Father other (rheumatoid arthritis) Father other (Thyroid disorder) Father hyperthyroid Arthritis Mother osteoarthritis Diabetes Mother other (migraine) Mother other (Cancer - other) Paternal Grandmother started in her eye and metastasized Alzheimer's Disease Maternal Grandmother other (Diabetes mellitus) Maternal Grandmother Cancer Other multiple family members Thyroid Paternal Grandfather hyperthyroid Diabetes Paternal Grandfather Thyroid Paternal Uncle hyperthyroid Thyroid Paternal Aunt hyperthyroid Thyroid Paternal Uncle hyperthyroid other (Thyroid disorder) Other other (Thyroid disorder) Other Patient Allergies ALLERGIES Allergen Reactions Blue Dye Hives Hydrocodone Other: See Comments N \EANDE\ V Invokana [Canaglifl* Other: See Comments Vaginal yeast infections Lipitor [Atorvastat* Other: See Comments made sugars increase. Current Medications Current Outpatient Medications on File Prior to Visit Medication Sig tirzepatide (MOUNJARO) 7.5 mg/0.5 mL pen injector Inject 7.5 mg subcutaneously one time a week. insulin glargine (LANTUS SOLOSTAR U-100 INSULIN) 100 unit/mL (3 mL) Inject 10 units subcutaneously daily; Per Dr. Vivek Linares (Patient taking differently: Inject 8 units subcutaneously daily; Per Dr. Vivek Linares) insulin lispro (HUMALOG KWIKPEN INSULIN) 100 unit/mL 3 units TID, per Dr. Vivek Linares metFORMIN ER (GLUCOPHAGE XR) 500 mg 24 hr tablet Take 2 tablets by mouth two times a day with meals. Per Dr. Vivek linares glimepiride (AMARYL) 2 mg tablet Take 2 tabs breakfast and [address] Vivek Linares Insulin Rowlett, Disposable, (BD ULTRAFINE III MINI PEN) 31 gauge x 3/16 Use 4 pen needles daily levothyroxine (SYNTHROID) 125 mcg tablet Take 1 tablet by mouth daily before breakfast. Blood-Glucose Sensor (DEXCOM G6 SENSOR) ismael Use one sensor every 10 days, IDDM, E 11.9 Blood-Glucose Transmitter (DEXCOM G6 TRANSMITTER) ismael Use one transmitter every 3 months, IDDM, E 11.9 Blood-Glucose Meter,Continuous (DEXCOM G6 SKATES OPERATOR) misc Use continuously to monitor glucose, IDDM, E11.9 blood sugar diagnostic (BLOOD GLUCOSE TEST) test strip Use as directed to test glucose 2 times daily, E11.9, IDDM Lancets lancets Use as directed to test glucose 3 times daily, E11.9, non-insulin. MULTIVITAMIN ORAL Take by mouth. flintstone Blood-Glucose Meter Use as directed to test glucose 3 times daily, E11.9, non-insulin. cetirizine (ZYRTEC) 10 mg tablet Take 1 tablet by mouth twice daily. dulaglutide (TRULICITY) 4.5 mg/0.5 mL pen injector Inject 4.5 mg subcutaneously one time a week. Per Dr. Vivek Linares (Patient not taking: Reported on 07/21/2023) No current facility-administered medications on file prior to visit (more content not included)... Normal [facility] 25(OH)D3 [facility] 2023 25-hydroxyvitamin D3 [Mass/Vol] 36.0 ng/mL Normal >=30.0 [facility] Comment on above: Order Comment: Speci men Type: BLOOD SPECIMEN Ordering Facility: [facility] Address: [address] [place] [address] Result Comment: Clas sification of 25 [place] Vitamin D status: Deficiency: <= 20.0 ng/ml. Insufficiency: 21.0-29.0 ng/ml. Sufficiency: >= 30.0 ng/ml. Performed By: #### 1 989-3 #### [facility] CLIA [id number] [address] [place] ALBUMIN/CREAT RATIO RND URon 07-16-2023 Albumin Unsp time DL <= 20 mg/L (U) [Mass/Time] 12.8 mg/L Normal [facility] Comment on above: Order Comment: Speci [facility] Type: URINE SPECIMEN Ordering Facility: [facility] Address: [address] [address] Performed By: #### U ACR #### [facility] CLIA [id number] [address] [place] Albumin/Creatinine (U) [Mass ratio] 13 mg/g Normal <30 [facility] Comment on above: Order Comment: Speci men Type: URINE SPECIMEN Ordering Facility: [facility] Address: [address] [place] [address] Result Comment: Adul t Male and Female Nephrotic Criteria: <30 mg/g is considered normal to mildly increased 30-300 mg/g is considered moderately increased >300 mg/g is considered severely increased KDIGO. (2013). KDIGO 2012 Clinical Practice Guideline for the Evaluation and Management of Chronic Kidney Disease. Official Journal of the International Society of Nephrology, 3(1), 1-150. Performed By: #### U ACR #### [facility] CLIA [id number] [address] Creatinine (U) [Mass/Vol] 101.8 mg/dL Normal 42.2-237.9 [facility] Comment on above: Order Comment: Speci men Type: URINE SPECIMEN Ordering Facility: [facility] Address: [address] [place] [address] Performed By: #### U ACR #### [facility] CLIA [id number] [address] Comprehensive metabolic 2000 panelon 07-16-2023 Albumin [Mass/Vol] 4.1 g/dL Normal 3.9-4.9 [facility] Comment on above: Order Comment: Speci men Type: BLOOD SPECIMEN Ordering Facility: [facility] Address: [address] [place] [address] Performed By: #### 3 016-3, 66841-5, 07970-3 #### [facility] CLIA [id number] [address] [place] [address] [place] [facility] ALP [Catalytic activity/Vol] 44 U/L Normal 34-123 [facility] Comment on above: Order Comment: Speci men Type: BLOOD SPECIMEN Ordering Facility: [facility] Address: [address] [place] [address] Performed By: #### 3 016-3, 87891-5, 89598-7 #### [facility] CLIA [id number] [address] [place] [address] [place] [facility] ALT With P-5'-P [Catalytic activity/Vol] 12 U/L Normal 7-38 [facility] Comment on above: Order Comment: Speci men Type: BLOOD SPECIMEN Ordering Facility: [facility] Address: [address] [place] [address] Performed By: #### 3 016-3, 26453-9, 14010-5 #### [facility] CLIA [id number] [address] [place] [address] [place] Anion gap [Moles/Vol] 12 mmol/L Normal 9-18 [facility] Comment on above: Order Comment: Speci men Type: BLOOD SPECIMEN Ordering Facility: [facility] Address: [address] [place] [address] Performed By: #### 3 016-3, 75019-8, #### [facility] CLIA [id number] [address] [place] [address] [place] AST With P-5'-P [Catalytic activity/Vol] 13 U/L Normal 13-35 [facility] Comment on above: Order Comment: Speci men Type: BLOOD SPECIMEN Ordering Facility: [facility] Address: [address] [place] [address] Performed By: #### 3 016-3, 00957-1, 12853-5 #### [facility] CLIA [id number] [address] [place] [address] [place] Bilirubin [Mass/Vol] 0.3 mg/dL Normal 0.2-1.3 [facility] Comment on above: Order Comment: Speci men Type: BLOOD SPECIMEN Ordering Facility: [facility] Address: [address] [place] [address] Performed By: #### 3 016-3, 43076-5, 16063-7 #### [facility] CLIA [id number] [address] [place] [address] [place] Calcium [Mass/Vol] 9.2 mg/dL Normal 8.5-10.2 [facility] Comment on above: Order Comment: Speci men Type: BLOOD SPECIMEN Ordering Facility: [facility] Address: [address] [place] [address] Performed By: #### 3 016-3, 33889-5, 98395-8 #### [facility] CLIA [id number] [address] [place] [address] [place] Chloride [Moles/Vol] 100 mmol/L Normal 97-105 [facility] Comment on above: Order Comment: Speci men Type: BLOOD SPECIMEN Ordering Facility: [facility] Address: [address] [place] [address] Performed By: #### 3 016-3, 99264-1, 06477-5 #### [facility] CLIA [id number] [address] [place] [address] [place] CO2 [Moles/Vol] 26 mmol/L Normal 22-30 [facility] Comment on above: Order Comment: Speci men Type: BLOOD SPECIMEN Ordering Facility: [facility] Address: [address] [place] [address] Performed By: #### 3 016-3, 77533-3, 53601-1 #### [facility] CLIA [id number] [address] [place] [address] [place] Creatinine [Mass/Vol] 0.55 mg/dL Low 0.58-0.96 [facility] Comment on above: Order Comment: Speci men Type: BLOOD SPECIMEN Ordering Facility: [facility] Address: [address] [place] [address] Performed By: #### 3 016-3, 79122-9, 03261-4 #### [facility] CLIA [id number] [address] [place] [address] [place] [facility] Creatinine and Glomerular filtration rate.predicted panel (S/P/Bld) 116 mL/min/1.73m??? Normal >=60 [facility] Comment on above: Order Comment: Speci men Type: BLOOD SPECIMEN Ordering Facility: [facility] Address: [address] [place] [address] Result Comment: Eliana mated Glomerular Filtration Rate (eGFR) is calculated using the 2020 CKD-EPI creatinine equation. This equation utilizes serum creatinine, sex, and age as parameters. The creatinine assay has traceable calibration to isotope dilution-mass spectrometry. Refer to KDIGO guidelines for clinical interpretation. In patients with unstable renal function, e.g. those with acute kidney injury, the eGFR may not accurately reflect actual GFR. Performed By: #### 3 016-3, 43586-4, #### [facility] CLIA [id number] [address] [place] [address] [place] Glucose [Mass/Vol] 228 mg/dL High 74-99 [facility] Comment on above: Order Comment: Rosario garcia Type: BLOOD SPECIMEN Ordering Facility: [facility] Address: [address] [place] [address] Result Comment: The [place] Diabetes Association (ADA) provides guidance for cutoff values for fasting glucose and random glucose. The ADA defines fasting as no caloric intake for at least 8 hours. Fasting plasma glucose results between 100 to 125 mg/dL indicate increased risk for diabetes (prediabetes). Fasting plasma glucose results greater than or equal to 126 mg/dL meet the criteria for diagnosis of diabetes. In the absence of unequivocal hyperglycemia, results should be confirmed by repeat testing. In a patient with classic symptoms of hyperglycemia or hyperglycemic crisis, random plasma glucose results greater than or equal to 200 mg/dL meet the criteria for diagnosis of diabetes. Reference: Standards of Medical Care in Diabetes 2016, [place] Diabetes Association. Diabetes Care. 2016.39(Suppl 1). Performed By: #### 3 016-3, 75922-9, #### [facility] CLIA [id number] [address] [place] [address] [place] Potassium [Moles/Vol] 4.6 mmol/L Normal 3.7-5.1 [facility] Comment on above: Order Comment: Rosario garcia Type: BLOOD SPECIMEN Ordering Facility: [facility] Address: [address] [place] [address] Performed By: #### 3 016-3, 51394-2, #### [facility] CLIA [id number] [address] [place] [address] [place] Protein [Mass/Vol] 7.0 g/dL Normal 6.3-8.0 [facility] Comment on above: Order Comment: Rosario men Type: BLOOD SPECIMEN Ordering Facility: [facility] Address: [address] [place] [address] Performed By: #### 3 016-3, 33987-2, 13155-6 #### [facility] CLIA [id number] [address] [place] [address] [place] Sodium [Moles/Vol] 138 mmol/L Normal 136-144 [facility] Comment on above: Order Comment: Malachii men Type: BLOOD SPECIMEN Ordering Facility: [facility] Address: [address] [place] [address] Performed By: #### 3 016-3, 34603-5, #### [facility] CLIA [id number] [address] [place] [address] [place] Urea nitrogen [Mass/Vol] 13 mg/dL Normal 7-21 [facility] Comment on above: Order Comment: Malachii men Type: BLOOD SPECIMEN Ordering Facility: [facility] Address: [address] [place] [address] Performed By: #### 3 016-3, 60499-9, #### [facility] CLIA [id number] [address] [place] [address] [place] HbA1c (Bld)on 07-16-2023 Average glucose Estimated from glycated hemoglobin (Bld) [Mass/Vol] 169 mg/dL Normal [facility] Comment on above: Order Comment: Malachii men Type: BLOOD SPECIMEN Ordering Facility: [facility] Address: [address] [place] [address] Result Comment: eAG: (Estimated average glucose) is a calculated value from HgbA1c and is sales representative raw fibers of the average blood glucose level in the last 2-3 month period. Performed By: #### 5 5454-3 #### [facility] CLIA [id number] [address] [place], [place] [address] [address] [place] HbA1c (Bld) [Mass fraction] 7.5 % High 4.3-5.6 [facility] Comment on above: Order Comment: Rosario garcia Type: BLOOD SPECIMEN Ordering Facility: [facility] Address: [address] [place] [address] Result Comment: [place] Diabetes Association guidelines indicate that patients with HgbA1c in the range 5.7-6.4% are at increased risk for development of diabetes, and intervention by lifestyle modification may be beneficial. HgbA1c greater or equal to 6.5% is considered diagnostic of diabetes. Performed By: #### 5 5454-3 #### [facility] CLIA [id number] [id number] [place] [address] [place] Lipid 1996 panelon 4 Cholesterol [Mass/Vol] 220 mg/dL High <200 [facility] Comment on above: Order Comment: Rosario garcia Type: BLOOD SPECIMEN Ordering Facility: [facility] Address: [address] [place] [address] Result Comment: <200 mg/dL, Desirable 200-239 mg/dL, Borderline high >239 mg/dL, High Performed By: #### 3 016-3, 31879-4, 78892-4 #### [facility] CLIA [id number] [address] [place] [address] [facility] [place] Cholesterol in HDL [Mass/Vol] 58 mg/dL Normal >39 [facility] Comment on above: Order Comment: Rosario garcia Type: BLOOD SPECIMEN Ordering Facility: [facility] Address: [address] [place] [address] Result Comment: 40-5 9 mg/dL, Acceptable >59 mg/dL, High: Negative risk factor for coronary heart disease <40 mg/dL, Low: Positive risk factor for coronary heart disease Performed By: #### 3 016-3, 92875-2, 97455-2 #### [facility] CLIA [id number] [address] [place] [address] [facility] [place] Cholesterol in LDL [Mass/Vol] 149 mg/dL High <100 [facility] Comment on above: Order Comment: Rosario garcia Type: BLOOD SPECIMEN Ordering Facility: [facility] Address: [address] [place] [address] Result Comment: <100 mg/dL, Optimal 100-129 mg/dL, Near optimal/above optimal 130-159 mg/dL, Borderline high 160-189 mg/dL, High >189 mg/dL, Very high Secondary prevention optimal LDL Cholesterol levels are recommended to be < 70 mg/dL Performed By: #### 3 016-3, 82404-1, #### [facility] CLIA [id number] [address] [place] [address] [facility] Cholesterol in LDL/Cholesterol in HDL [Mass ratio] 2.57 {ratio} High <2.54 [facility] Comment on above: Order Comment: Rosario garcia Type: BLOOD SPECIMEN Ordering Facility: [facility] Address: [address] [place] [address] Result Comment: Refe rence: 1. National Cholesterol Education Program ATP III Guideline At-A-Glance Quick Desk Reference: National Heart, Lung, and Blood [place]. National Institutes of Health. 2001: NIH Publication No. 01-3305. 2. An International Atherosclerosis Society position paper: global recommendations for the management of dyslipidemia: executive summary, Atherosclerosis. 2014: 232(2):410-413. Performed By: #### 3 016-3, 22587-6, #### [facility] CLIA [id number] [address] [place] [address] [place] Cholesterol in VLDL [Mass/Vol] 13 mg/dL Normal <30 [facility] Comment on above: Order Comment: Rosario garcia Type: BLOOD SPECIMEN Ordering Facility: [facility] Address: [address] [place] [address] Performed By: #### 3 016-3, 88604-7, #### [facility] CLIA [id number] [address] [place] [address] [place] Cholesterol non HDL [Mass/Vol] 162 mg/dL High <130 [facility] Comment on above: Order Comment: Rosario garcia Type: BLOOD SPECIMEN Ordering Facility: [facility] Address: [address] [place] [address] Result Comment: <130 mg/dL, Optimal 130-159 mg/dL, Near optimal/above optimal 160-189 mg/dL, Borderline high 190-219 mg/dL, High >219 mg/dL, Very high Secondary prevention optimal non HDL Cholesterol levels are recommended to be <100 mg/dL Performed By: #### 3 016-3, 91811-5, 09211-1 #### [facility] CLIA [id number] [address] [place] [address] [facility] Cholesterol.total/C holesterol in HDL [Mass ratio] 3.79 {ratio} Normal <5.10 [facility] Comment on above: Order Comment: Specyordan men Type: BLOOD SPECIMEN Ordering Facility: [facility] Address: [address] [place] [address] Performed By: #### 3 016-3, 96233-4, 11505-8 #### [facility] CLIA [id number] [address] [place] [address] [facility] FASTING TIME 12 hrs Normal [facility] Comment on above: Order Comment: Specyordan garcia Type: BLOOD SPECIMEN Ordering Facility: [facility] Address: [address] [place] [address] Performed By: #### 3 016-3, 70277-2, 83301-0 #### [facility] CLIA [id number] [address] [place] [address] [facility] Triglyceride [Mass/Vol] 64 mg/dL Normal <150 [facility] Comment on above: Order Comment: Speci men Type: BLOOD SPECIMEN Ordering Facility: [facility] Address: [address] [place] [address] Result Comment: <150 mg/dL, Normal 150-199 mg/dL, Borderline high 200-499 mg/dL, High >499 mg/dL, Very high Performed By: #### 3 016-3, 59318-1, 89054-9 #### [facility] CLIA [id number] [address] [place] [address] [place] T4 Free SerPl-mCncon 024 Free T4 [Mass/Vol] 1.8 ng/dL High 0.9-1.7 [facility] Comment on above: Order Comment: Rosario garcia Type: BLOOD SPECIMEN Ordering Facility: [facility] Address: [address] [place] [address] Performed By: #### 3 024-7 #### [facility] CLIA [id number] [address] [place] [address] [place] TSH SerPl-aCncon 07-16-2023 TSH Qn 1.020 m[IU]/L Normal 0.270-4.200 [facility] Comment on above: Order Comment: Rosario garcia Type: BLOOD SPECIMEN Ordering Facility: [facility] Address: [address] [address] Result Comment: If t he patient is , TSH reference range varies by gestational period: First Trimester (weeks 9-12): 0.180-2.990 mIU/L Second Trimester: 0.110-3.980 mIU/L Third Trimester: 0.480-4.710 mIU/L Nura Hernández et al. A Practical Approach for the Verifications and Determination of Site- and Trimester-Specific Reference Intervals for Thyroid Function tests in . Thyroid, 2019:29:3:412-420. Luis Baltazar, et al. 2017 Guidelines of the [place] Thyroid Association for the Diagnosis and Management of Thyroid Disease during and the . Thyroid, 2017:27:3:315-389. Performed By: #### 3 016-3, 50535-6, 40616-7 #### [facility] CLIA [id number] [address] [place] [address] [place] MACIEJ SCREENINGon 03-31-2023 [facility] HEMOGLOBIN A1C (POC)on 12-09 HbA1c (Bld) [Mass fraction] 7.8 % Abnormal 4.2 - 5.6 % [facility] 36on 11-10-2022 36 Placed call to galo harkins. Unable to reach them by phone to discuss lab results. Left detailed message to return call to discuss results. Normal [facility] 36 ----- Message from Jaya Moody PA-C sent at 11/10/2022 1:58 PM EDT ----- We did review your ophthalmology exam as this is no signs of diabetic retinopathy continue on your routine schedule exams as directed per the eye doctor. Follow-up with the office as directed in the next scheduled appointment in February. [facility] CNOVon 10-10-2022 CNOV Office Visit (PLHWBA ) -------- CRISTINA MARTINEZ ([id number]) 1980 F Date Time Provider Department 10/10/22 2:30 PM ZAIRA MEJIA PLHWBA During your visit today, we recorded the following information about you: Weight Height 68.1 kg 1.651 m Zaira Mejia MD 10/11/2022 12:58 PM Signed [facility] Department of Plastic Surgery BREAST AUGMENTATION EVALUATION CC:Small Breast Size HPI: Cristina Martinez is a 42 year old that presents today for breast augmentaion evaluation and bilateral micromastia. The patient complains of small breasts for >2 years. The patients personal history includes None. The pt does do a self breast exam frequently. All mammograms WNL, no sig h/o breast cancer. S/P weight loss by diet. Current Bra Size: 38 A Desired Bra Size: Full C History of Bleeding Disorder: No History of DVT/Pulmonary Embolism: No History of MRSA: No MRSA Infection History of Diabetes: Yes: Take tablets and Insulin dependent History of Sleep Apnea: No History of HTN: No History of Smoking: Yes PMH: PAST MEDICAL HISTORY Diagnosis Date Blurring of visual image Chronic osteoarthritis Congenital single kidney left Diverticulitis Dyslipidemia 11/29/2019 Foot callus 11/29/2019 Gastroesophageal reflux disease Hyperthyroidism s/o I-131 ablation Migraine Obesity, Class I, BMI 30-34.9 12/18/2017 Over weight 12/18/2017 Postablative hypothyroidism 07/06/2012 History of hyperthyroidism Seasonal allergies 11/29/2019 Type 2 diabetes mellitus (HCC) 02/19/2015 Type II diabetes mellitus, uncontrolled Vitamin D deficiency PSH: PAST SURGICAL HISTORY Procedure Laterality Date CHOLECYSTECTOMY HX 2011 HYSTERECTOMY HX 07/01/2013 LAVH - DUB LAPAROSCOPIC TUBAL LIGATION/RING/CLIP 08/20/2012 Filshie clips NEEDLE OCULOGRAPHY 1/ XOC MUSC 1/BOTH EYE W/IANDR SURGERY TO REPAIR LAZY EYE L EYE PAST SURGICAL HISTORY OF 2008 Dental procedure- 4 wisdom teeth removed PAST SURGICAL HISTORY OF Eye muscle surgery procedure PAST SURGICAL HISTORY OF 2012 Hysterectomy, ovary preserv PAST SURGICAL HISTORY OF 08/2012 Tubal sterilization SALPINGECTOMY Bilateral 07/01/2013 TOOTH EXTRACTION Meds: Current Outpatient Medications on File Prior to Visit Medication Sig insulin glargine (LANTUS SOLOSTAR U-100 INSULIN) 100 unit/mL (3 mL) Inject 10 units subcutaneously at bedtime daily Insulin [place], Disposable, (BD ULTRAFINE III MINI PEN) 31 gauge x 3/16 Use 1 pen needles daily Blood-Glucose Sensor (DEXCOM G6 SENSOR) ismael Use one sensor every 10 days, IDDM, E 11.9 Blood-Glucose Transmitter (DEXCOM G6 TRANSMITTER) ismael Use one transmitter every 3 months, IDDM, E 11.9 Blood-Glucose Meter,Continuous (DEXCOM G6 SKATES OPERATOR) [facility] [place] to monitor glucose, IDDM, E11.9 semaglutide (OZEMPIC) 2 mg/dose (8 mg/3 mL) pen injector Inject 2 mg subcutaneously one time a week. glimepiride (AMARYL) 2 mg tablet Take 1 tablet by mouth twice daily with meals. pioglitazone (ACTOS) 30 mg tablet Take 1 tablet by mouth once daily. metFORMIN ER (GLUCOPHAGE XR) 500 mg 24 hr tablet Take 2 tablets by mouth twice daily with meals. levothyroxine (SYNTHROID) 125 mcg tablet Take 1 tablet by mouth daily before breakfast. blood sugar diagnostic (BLOOD GLUCOSE TEST) test strip Use as directed to test glucose 2 times daily, E11.9, IDDM Lancets lancets Use as directed to test glucose 3 times daily, E11.9, non-insulin. MULTIVITAMIN ORAL Take by mouth. flintstone Blood-Glucose Meter Use as directed to test glucose 3 times daily, E11.9, non-insulin. cetirizine (ZYRTEC) 10 mg tablet Take 1 tablet by mouth twice daily. No current facility-administered medications on file prior to visit. Social History Tobacco Use Smoking status: Former Types: Cigarettes Quit date: 07/03/2009 Years since quittin.2 Smokeless tobacco: Never Tobacco comments: Type: cigarette; Start date: 1999; Stop date: 2009 Vaping Use Vaping Use: Never used Substance Use Topics Alcohol use: Yes Comment: rarely Drug use: No REVIEW OF SYSTEMS: Review of Systems Constitutional: Negative for chills, diaphoresis, fever, malaise/fatigue and weight loss. Respiratory: Negative for cough, shortness of breath and wheezing. Cardiovascular: Negative for chest pain, palpitations and leg swelling. Gastrointestinal: Negative for diarrhea, nausea and vomiting. Genitourinary: Negative for dysuria. Neurological: Negative for dizziness, tingling, focal weakness, weakness and headaches. Endo/Heme/Allergies: Does not bruise/bleed easily. Psychiatric/Behavioral: Negative for depression. The patient does not have insomnia. PHYSICAL EXAM: Ht 165.1 cm (5' 5) Wt 68.1 kg (150 lb 3.2 oz) LMP 01/26/2012 BMI 24.99 kg/m? CONSTITUTIONAL: Patient reports no recent fever or weight loss ABDOMEN: Non distended, positive bowel (more content not included)... [facility] 09-18-2022 36 Patient was sent a letter to return call to the office. [facility] 09-11-2022 36 Left message for pat ient to return call to the office. [facility] 36 Please assist [facility] 36 Name of caller: Heidi wilhelm Contact phone number: [phone] Relationship to Patient: patient Provider: Zaira Moody Practice: [facility] Chief Complaint/Reason for Call: Patient states she heard that the [facility] were giving free calcium score tests and would like to know if the provider has heard of this and what she would do to go about this. Please Advise. Best time of day caller can be reached: Any Patient advised that office/PCP has 24-48 business hours to return their call: No [place] [id number] 36 Placed call to galo harkins. Was able to speak to patient. All concerns in message have been addressed. [facility] 36 Please assist [facility] [facility] 36 Name of caller: Heidi wilhelm Contact phone number: [phone] Relationship to Patient: patient Provider: [place] Practice: Medical center [facility] Chief Complaint/Reason for Call: patient states the manufacture has stopped making the eye drops rx naphazoline-pheniramine (Naphcon-A) 0.025-0.3 % ophthalmic solution Please advise what she can get instead . Best time of day caller can be reached: any Patient advised that office/PCP has 24-48 business hours to return their call: yes Normal [facility] Office Visiton 08-19-2022 Follow-up visit [id number] Heidi Martinez Brittaney 1980 F Date Provider Department Center 08/19/2022 [id number] MOODY [facility] Family History Problem Relation Age of Onset Diabetes Paternal Grandfather No Known Problems Mother Thyroid disease Father No Known Problems Brother No Known Problems Sister Family Status - Relation Status Age at Paternal Grandfather Mother Alive Father Alive Brother Alive Sister Alive Level of Service:06794 [place] OFFICE/OUTPATIENT ESTABLISHED MOD MDM 30-39 MIN Reason for Visit and Comments: new to provider [Other] Menopause [179678] - Thinks it in Normal [facility] Progress Noteon 08-19-2022 Progress Note [facility] [address] [facility] [address] Dept: [phone] Dept Loc: [phone] Visit type: Established Patient Reason for Visit: new to provider and Menopause (Thinks it in ) Assessment and Plan 1. Acute viral conjunctivitis of left eye Comments: acute inflammation left eye Orders: - naphazoline-pheniramine (Naphcon-A) 0.025-0.3 % ophthalmic solution; Administer 1 drop into both eyes in the morning and 1 drop at noon and 1 drop in the evening and 1 drop before bedtime., Starting Thu08/19/2022, Normal 2. Perimenopause Comments: concern for possible menopause, will refer to HUMAN FACTORS ENGINEER for futher evaluation. 3. Hypothyroidism (acquired) Comments: TSH levels have been normal this is continuing to be followed by endocrinology encouraged to continue to follow with them. 4. Type 2 diabetes mellitus without complication, with long-term current use of insulin ([facility]) ([facility]) Comments: Most recent hemoglobin A1c is 7.5 and improving continue to follow-up with endocrinology. 5. Other fatigue Comments: Suspect secondary to stress, possible perimenopausal. Scheduled to have blood work including CBC drawn later this week. Follow up in about 6 months (around 02/18/2023). Lengthy discussion with the patient about her health. Her sugars appear adequately controlled. We did discuss her ASCVD risk which is 1.5% at this point time. He does recommend statin therapy but on a case to case basis. She states that she is talk to her manufacturing lead before about placing her on a statin as she is trying to modify her diet and watch what she eats cooked better using special oils such as coconut and olive oil. I think this is reasonable at this point time as his ASCVD risk is extremely low even though she is a diabetic she would prefer to stay off statin medications at this point time even though her LDL slightly higher HDL is at 58 which is good. Encouraged to try [id number] medication such as omega-3 fatty acids or red yeast rice as these will help drop her LDL levels without using a statin medication. She does have ongoing conjunctivitis of the left eye but possibly more allergy based versus medication as she does have some cobblestoning of the conjunctive a but there is no signs of an acute bacterial infection or any indication for emergent antibiotic treatment. There is no signs of shingles or zoster is in and around the eyes and suggest further imaging of the eye. We did also discussed the use of holistic medicine. He did discussed Eastern medicine. Encouraged use of vitamins herbs and supplements. Discussed the use of such medicines and heard such as turmeric and maciej. Patient is encouraged to use these items as comfortable as she is. As she is trying to lead a healthier lifestyle we will once avoid as much medicine as possible. Time spent with the patient 40 minutes Subjective HPI This is a 42 yo female with h/o DM2, HLD, and post ablative hypothyroid, with grave's disease, and anxiety and depression, and IBS who presents to the office for evaluation. She is currently following up with endocrinology. She has had her gallbladder removed, post lottie US of abdomen 11/29 was normal, also history of BAILEY, MRI 11/29 was normal and she has a negative cardiac stress test the same month. Also a normal colonoscopy 04/01. Female exam due for exam, will follow up with Production Cloth Cutter, Last A1c was 7.5 08/07/22 trulicity, and recent switched ozempic, lost 103lbs diet and diabetes. Born with only one kidney, left remains. Treated for pink eye in left eye about a month ago, still having intermittent drainage in left eye. Fatigue, sweating, sex drive diminished, emotional, concerned for possible menopause, partial hysterectomy, Patient states she is trying to lead a healthy life ever since she was diagnosed as a diabetic she is lost a lot of weight she states she is down 103 pounds watching what she eats cooking better she is states she is trying to lead as much of a healthy life as possible she was concerned that she may be going through menopause we did discuss this and following with HUMAN FACTORS ENGINEER to do any further testing to determine stage of menopause. Otherwise in review of her medications everything seems to be stable there is no indication for current blood work at this point time as she continues to follow-up with endocrinology for most of her needs. Review of Systems Constitutional: Positive for fatigue. Negative for chills and fever. HENT: Negative for congestion and sore throat. Eyes: Positive for discharge, redness and itching. Negative for photophobia and visual disturbance. Respiratory: Negative for cough and shortness of breath. Cardiovascular: Negative for chest pain. Gastrointestinal: Negative for abdominal pain, diarrhea, nausea and vomiting. Genitourinary: Negative for difficulty urinating, dysur (more content not included)... Normal [facility] HEMOGLOBIN A1C (POC)on 08-07 HbA1c (Bld) [Mass fraction] 7.5 % Abnormal 4.2 - 5.6 % [facility] 36on 07-09-2022 36 Talked to patient an d she will get the lab work done. Normal [facility] 36on 07-08-2022 36 Left detailed messag e for patient to stop by and have a cbc done before her next menses. Normal [facility] 36 Even though the anem ia is most likely secondary to heavy menses for completeness should have a CBC done before her next menses Normal [facility] HEMOGLOBIN A1C (POC)on 04-01 HbA1c (Bld) [Mass fraction] 7.9 % Abnormal 4.2 - 5.6 % [facility] MRI Brain w/ + w/o Contrasto n 11-21-2021 MRI Brain w/ + w/o Contrast Patient Name: CRISTINA MARTINEZ Magnetic Resonance Imaging ACCESSION EXAM DATE/TIME PROCEDURE ORDERING PROVIDER [id number] 11/21/2021 09:59 EDT MRI Brain w/ + w/o DO PEREZ PAUL E. Contrast CPT code 87863 Reason For Exam (MRI Brain w/ + w/o Contrast) . Report CLINICAL INFORMATION: Recurrent headaches. MRI brain without and with gadolinium: Contrast: Gadavist, 7 mL. Sagittal T1 and axial T1, turbo spin echo T2, FLAIR, T2*gradient echo and diffusion-weighted images are obtained prior to gadolinium administration. Axial, coronal and sagittal T1 weighted images are obtained following gadolinium administration. The ventricles and sulci are normal in size and configuration. No intra-axial mass lesion or mass effect is seen. There are no focal areas of abnormal intra-axial signal intensity. There is no abnormality of the cerebellum, midbrain, jarad or medulla. The corpus callosum, optic chiasm and pituitary are normal in appearance. There is no evidence of acute ischemic disease. There are no areas of abnormal contrast enhancement or other enhancing lesions. IMPRESSION: Negative examination. Report Dictated on Final Dictating Physician: MD CALZADA HARLAN Signed Date and Time: 11/22/2021 10:11 pm Signed by: MD CALZADA HARLAN Transcribed Date and Time: 11/22/2021 10:12 Normal [facility] NM Myocardial Perf Imaging M ulti Specton 11-21-2021 NM Myocardial Perf Imaging Multi Spect Patient Name: CRISTINA MARTINEZ Nuclear Medicine ACCESSION EXAM DATE/TIME PROCEDURE ORDERING PROVIDER [id number] 11/21/2021 09:28 EDT NM Myocardial Perf DO PEREZ PAUL E. Imaging Multi Spect CPT code 92674 [id number] A9500 Reason For Exam (NM Myocardial Perf Imaging Multi Spect) Chest pain Report Nuclear Stress Myocardial Perfusion Study Abdulkadir Protocol Gated SPECT Patient: Cristina Martinez Height: (66 in) Weight: (146.1 lb) : 1980 Age: 41 Gender: F Study Date: 11/21/2021 Accession#: Patient Room #: *ORDERING PHYSICIAN: Ming Swain *SUPERVISING PHYSICIAN: * Edi, *RN: * Kendall Hill *RADIOLOGIST: * Lucian Guerrero MD *NUCLEAR TECH: * Zachery Arnett V. *READING PHYSICIAN: Chuck Guzman Indications: - Chest pain. - Dyspnea on exertion. Summary: 1. Normal exercise stress myocardial perfusion imaging. No evidence for scar or ischemia. 2. Left ventricular ejection fraction and wall motion appear normal on gated SPECT images. 3. Stress ECG conclusions: The stress ECG is negative for ischemia. Radiologist Confirmation: This is a combined report. The ECG portion of the study was interpreted and reported by the salsa dance instructor and the perfusion imaging portion of the study was interpreted and reported by Lucian Guerrero MD on 11/21/2021 10:56 AM. Nuclear Medicine Report History: Diabetic non insulin dependent. Tobacco use former. Hypothyroidism. Medications: Insulin. Metformin (Glucophage). Pioglitazone (Actos). Glimepiride (Amaryl). Levothyroxine (Synthroid). Allergies: See list allergy. No cardiac medications. No known cardiac medical history. Patient is NPO per policy. No caffeine per policy. Medication list reviewed with patient and no contraindicated medications have been taken. Study data: Bra or chest circumference is 34 in. The patient states she is not . The patient's lungs are clear to auscultation. Heart auscultation by RN revealed a regular rate and rhythm. Pre pain assessment is 0 out of 10. Post pain assessment is 0 out of 10. Patient status: Outpatient. Gated SPECT; rest/stress. One-day Sestamibi. Consent: The procedure was reviewed with the patient and the patient voices understanding. Study completion: The patient tolerated the procedure well. There were no complications. Administered medications: None. Discharge: Discharge instruction given. The patient was discharged to home while ambulatory. Procedure data: Initial setup. The patient was brought to the laboratory. A baseline ECG was recorded. Surface ECG leads and blood pressure measurements were monitored. IV access obtained 20 RAC. 1 attempts for IV access. IV access per Derek Hill. IV patent, site benign. IV discontinued, site benign. Treadmill exercise testing was performed using the Abdulkadir protocol. The patient exercised for 8 min 16 sec, to a maximal work rate of 10.1 mets. Exercise was terminated due to moderate fatigue. Exercise was terminated when the patient's Jayy scale was 17. Stress protocol: + +---+----- ------+ -------+ + +Stage +HR +BP +Symptoms +Comments + + +---+----- ------+ -------+ + +Rest +81 +104/68 (80)+No symptoms. +O2 sat 99% RA.+ + +---+----- ------+ -------+ + +Peak stress +166+142/68 (93)+Mild dyspnea, moderate +O2 sat 99% RA.+ + + + +fatigue. + + + +---+----- ------+ -------+ + +Recovery +113+138/70 (93)+Subsiding. +O2 sat 98% RA.+ + +---+----- ------+ -------+ + +Late recovery+93 +102/70 (81)+No symptoms. + + + +---+----- ------+ -------+ + Stress results: Peak heart rate during stress was 166 bpm. (93% of maximal predicted heart rate). The maximal predicted heart rate was 178 bpm.The target heart rate was achieved. The heart rate recovery at one minute is normal. The heart rate at 1 minute into recovery was 133 bpm. The heart rate response to stress is normal. There is an appropriate response to stress. The rate-pressure product for the peak heart rate and blood pressure was 95998 mm Hg/min. Stress testing did not produce any symptoms suggestive of coronary artery disease. Stress ECG: There was no ischemic ST depression. Occasional isolated ventricul (more content not included)... Normal tabulate NM Myocardial Spect Rest Exe rcise or Rxon 11-21-2021 Nuclear Stress Myocardial Perfusion Study Abdulkadir Protocol Gated SPECT Patient: Cristina Martinez Height: (66 in) Weight: (146.1 lb) : 1980 Age: 41 Gender: F Study Date: 11/21/2021 Accession#: Patient Room #: *ORDERING PHYSICIAN: * Ming Perez *SUPERVISING PHYSICIAN: * Edi, MauroRN: Kendall Gallo *RADIOLOGIST: * Lucian Guerrero MD *NUCLEAR TECH: * Zachery Arnett V. *READING PHYSICIAN: * Chuck Miles Indications: - Chest pain. - Dyspnea on exertion. Summary: 1. Normal exercise stress myocardial perfusion imaging. No evidence for scar or ischemia. 2. Left ventricular ejection fraction and wall motion appear normal on gated SPECT images. 3. Stress ECG conclusions: The stress ECG is negative for ischemia. Radiologist Confirmation: This is a combined report. The ECG portion of the study was interpreted and reported by the salsa dance instructor and the perfusion imaging portion of the study was interpreted and reported by Lucian Guerrero MD on 11/21/2021 10:56 AM. History: Diabetic non insulin dependent. Tobacco use former. Hypothyroidism. Medications: Insulin. Metformin (Glucophage). Pioglitazone (Actos). Glimepiride (Amaryl). Levothyroxine (Synthroid). Allergies: See list allergy. No cardiac medications. No known cardiac medical history. Patient is NPO per policy. No caffeine per policy. Medication list reviewed with patient and no contraindicated medications have been taken. Study data: Bra or chest circumference is 34 in. The patient states she is not . The patient's lungs are clear to auscultation. Heart auscultation by RN revealed a regular rate and rhythm. Pre pain assessment is 0 out of 10. Post pain assessment is 0 out of 10. Patient status: Outpatient. Gated SPECT; rest/stress. One-day Sestamibi. Consent: The procedure was reviewed with the patient and the patient voices understanding. Study completion: The patient tolerated the procedure well. There were no complications. Administered medications: None. Discharge: Discharge instruction given. The patient was discharged to home while ambulatory. Procedure data: Initial setup. The patient was brought to the laboratory. A baseline ECG was recorded. Surface ECG leads and blood pressure measurements were monitored. IV access obtained 20 RAC. 1 attempts for IV access. IV access per Derek Hill. IV patent, site benign. IV discontinued, site benign. Treadmill exercise testing was performed using the Abdulkadir protocol. The patient exercised for 8 min 16 sec, to a maximal work rate of 10.1 mets. Exercise was terminated due to moderate fatigue. Exercise was terminated when the patient's Jayy scale was 17. Stress protocol: + +---+----- ------+ -------+ + +Stage +HR +BP +Symptoms +Comments + + +---+----- ------+ -------+ + +Rest +81 +104/68 (80)+No symptoms. +O2 sat 99% RA.+ + +---+----- ------+ -------+ + +Peak stress +166+142/68 (93)+Mild dyspnea, moderate +O2 sat 99% RA.+ + + + +fatigue. + + + +---+----- ------+ -------+ + +Recovery +113+138/70 (93)+Subsiding. +O2 sat 98% RA.+ + +---+----- ------+ -------+ + +Late recovery+93 +102/70 (81)+No symptoms. + + + +---+----- ------+ -------+ + Stress results: Peak heart rate during stress was 166 bpm. (93% of maximal predicted heart rate). The maximal predicted heart rate was 178 bpm.The target heart rate was achieved. The heart rate recovery at one minute is normal. The heart rate at 1 minute into recovery was 133 bpm. The heart rate response to stress is normal. There is an appropriate response to stress. The rate-pressure product for the peak heart rate and blood pressure was 02028 mm Hg/min. Stress testing did not produce any symptoms suggestive of coronary artery disease. Stress ECG: There was no ischemic ST depression. Occasional isolated ventricular ectopy. The stress ECG is negative for ischemia. Chang scoring: exercise time of 8. (more content not included)... [facility] C[facility] Chuck Miles MD - 11/21/2021 Nuclear Stress Myocardial Perfusion Study Abdulkadir Protocol Gated SPECT Patient: Cristina Martinez Height: (66 in) Weight: (146.1 lb) : 1980 Age: 41 Gender: F Study Date: 11/21/2021 Accession#: Patient Room #: *ORDERING PHYSICIAN: Ming Swain *SUPERVISING PHYSICIAN: Mauro Daley, *RN: Kendall Gallo *RADIOLOGIST: * Lucian Guerrero MD *NUCLEAR TECH: * Zachery Arnett V. *READING PHYSICIAN: Chuck Guzman Indications: - Chest pain. - Dyspnea on exertion. Summary: 1. Normal exercise stress myocardial perfusion imaging. No evidence for scar or ischemia. 2. Left ventricular ejection fraction and wall motion appear normal on gated SPECT images. 3. Stress ECG conclusions: The stress ECG is negative for ischemia. Radiologist Confirmation: This is a combined report. The ECG portion of the study was interpreted and reported by the salsa dance instructor and the perfusion imaging portion of the study was interpreted and reported by Lucian Guerrero MD on 11/21/2021 10:56 AM. History: Diabetic non insulin dependent. Tobacco use former. Hypothyroidism. Medications: Insulin. Metformin (Glucophage). Pioglitazone (Actos). Glimepiride (Amaryl). Levothyroxine (Synthroid). Allergies: See list allergy. No cardiac medications. No known cardiac medical history. Patient is NPO per policy. No caffeine per policy. Medication list reviewed with patient and no contraindicated medications have been taken. Study data: Bra or chest circumference is 34 in. The patient states she is not . The patient's lungs are clear to auscultation. Heart auscultation by RN revealed a regular rate and rhythm. Pre pain assessment is 0 out of 10. Post pain assessment is 0 out of 10. Patient status: Outpatient. Gated SPECT; rest/stress. One-day Sestamibi. Consent: The procedure was reviewed with the patient and the patient voices understanding. Study completion: The patient tolerated the procedure well. There were no complications. Administered medications: None. Discharge: Discharge instruction given. The patient was discharged to home while ambulatory. Procedure data: Initial setup. The patient was brought to the laboratory. A baseline ECG was recorded. Surface ECG leads and blood pressure measurements were monitored. IV access obtained 20 RAC. 1 attempts for IV access. IV access per Derek Hill. IV patent, site benign. IV discontinued, site benign. Treadmill exercise testing was performed using the Abdulkadir protocol. The patient exercised for 8 min 16 sec, to a maximal work rate of 10.1 mets. Exercise was terminated due to moderate fatigue. Exercise was terminated when the patient's Jayy scale was 17. Stress protocol: + +---+----- ------+ -------+ + +Stage +HR +BP +Symptoms +Comments + + +---+----- ------+ -------+ + +Rest +81 +104/68 (80)+No symptoms. +O2 sat 99% RA.+ + +---+----- ------+ -------+ + +Peak stress +166+142/68 (93)+Mild dyspnea, moderate +O2 sat 99% RA.+ + + + +fatigue. + + + +---+----- ------+ -------+ + +Recovery +113+138/70 (93)+Subsiding. +O2 sat 98% RA.+ + +---+----- ------+ -------+ + +Late recovery+93 +102/70 (81)+No symptoms. + + + +---+----- ------+ -------+ + Stress results: Peak heart rate during stress was 166 bpm. (93% of maximal predicted heart rate). The maximal predicted heart rate was 178 bpm.The target heart rate was achieved. The heart rate recovery at one minute is normal. The heart rate at 1 minute into recovery was 133 bpm. The heart rate response to stress is normal. There is an appropriate response to stress. The rate-pressure product for the peak heart rate and blood pressure was 98889 mm Hg/min. Stress testing did not produce any symptoms suggestive of coronary artery disease. Stress ECG: There was no ischemic ST depression. Occasional isolated ventricular ectopy. The stress ECG is negative for ischemia. Chang scoring: exercise time of 8.5 min; maximum ST deviation of 0 mm; no angina; resulting score is 8.5. This score predicts a low risk of cardiac events. Isotope administration: + +-------- --------+----- (more content not included)... [facility] Work Phone: Radiology Study observation (narrative) [facility] Work Phone: NM Myocardial Spect Rest Exe rcise or RxOrdered By: Chuck Miles on 11-21-2021 [facility] Work Phone: NM Rad Signatureon 2 NM Rad Signature Patient Name: CRISTINA MARTINEZ Nuclear Medicine ACCESSION EXAM DATE/TIME PROCEDURE ORDERING PROVIDER [id number] 11/21/2021 13:32 EDT NM Rad Signature SIGNATURE, RAD NM Reason For Exam (NM Rad Signature) Rad signature Report Indications: - Chest pain. - Dyspnea on exertion. Summary: 1. Normal exercise stress myocardial perfusion imaging. No evidence for scar or ischemia. 2. Left ventricular ejection fraction and wall motion appear normal on gated SPECT images. 3. Stress ECG conclusions: The stress ECG is negative for ischemia. Radiologist Confirmation: This is a combined report. The ECG portion of the study was interpreted and reported by the salsa dance instructor and the perfusion imaging portion of the study was interpreted and reported by Lucian Guerrero MD on 11/21/2021 10:56 AM. History: Diabetic non insulin dependent. Tobacco use former. Hypothyroidism. Medications: Insulin. Metformin (Glucophage). Pioglitazone (Actos). Glimepiride (Amaryl). Levothyroxine (Synthroid). Allergies: See list allergy. No cardiac medications. No known cardiac medical history. Patient is NPO per policy. No caffeine per policy. Medication list reviewed with patient and no contraindicated medications have been taken. Study data: Bra or chest circumference is 34 in. The patient states she is not . The patient's lungs are clear to auscultation. Heart auscultation by RN revealed a regular rate and rhythm. Pre pain assessment is 0 out of 10. Post pain assessment is 0 out of 10. Patient status: Outpatient. Gated SPECT; rest/stress. One-day Sestamibi. Consent: The procedure was reviewed with the patient and the patient voices understanding. Study completion: The patient tolerated the procedure well. There were no complications. Administered medications: None. Discharge: Discharge instruction given. The patient was discharged to home while ambulatory. Procedure data: Initial setup. The patient was brought to the laboratory. A baseline ECG was recorded. Surface ECG leads and blood pressure measurements were monitored. IV access obtained 20 RAC. 1 attempts for IV access. IV access per Derek Hill. IV patent, site benign. IV discontinued, site benign. Treadmill exercise testing was performed using the Abdulkadir protocol. The patient exercised for 8 min 16 Nuclear Medicine Report sec, to a maximal work rate of 10.1 mets. Exercise was terminated due to moderate fatigue. Exercise was terminated when the patient's Jayy scale was 17. Stress protocol: + +---+----- ------+ -------+ + +Stage +HR +BP +Symptoms +Comments + + +---+----- ------+ -------+ + +Rest +81 +104/68 (80)+No symptoms. +O2 sat 99% RA.+ + +---+----- ------+ -------+ + +Peak stress +166+142/68 (93)+Mild dyspnea, moderate +O2 sat 99% RA.+ + + + +fatigue. + + + +---+----- ------+ -------+ + +Recovery +113+138/70 (93)+Subsiding. +O2 sat 98% RA.+ + +---+----- ------+ -------+ + +Late recovery+93 +102/70 (81)+No symptoms. + + + +---+----- ------+ -------+ + Stress results: Peak heart rate during stress was 166 bpm. (93% of maximal predicted heart rate). The maximal predicted heart rate was 178 bpm.The target heart rate was achieved. The heart rate recovery at one minute is normal. The heart rate at 1 minute into recovery was 133 bpm. The heart rate response to stress is normal. There is an appropriate response to stress. The rate-pressure product for the peak heart rate and blood pressure was 49574 mm Hg/min. Stress testing did not produce any symptoms suggestive of coronary artery disease. Stress ECG: There was no ischemic ST depression. Occasional isolated ventricular ectopy. The stress ECG is negative for ischemia. Chang scoring: exercise time of 8.5 min; maximum ST deviation of 0 mm; no angina; resulting score is 8.5. This score predicts a low risk of cardiac events. Isotope administration: + +-------- --------+ + +Stage +Rest +Stress + + +-------- --------+ + +Agent +Tc-99m sestamibi+Tc-99m sestamibi + + +-------- --------+ + +Injected dose +7.2 mCi +21.4 mCi + + +------ (more content not included)... Normal [employer] [facility] US Abdomen Completeon 2021 US Abdomen Complete Patient Name: CRISTINA MARTINEZ Ultrasound ACCESSION EXAM DATE/TIME PROCEDURE ORDERING PROVIDER [id number] 11/18/2021 08:15 EDT US Abdomen Complete ЕЛЕНА ANDRES ERIN CPT code 82240 Reason For Exam (US Abdomen Complete) R10.84 Report ULTRASOUND ABDOMEN: INDICATION: Mid abdominal pain COMPARISON: None. Sonogram of the abdomen is performed. The liver is normal in echotexture. No hyper or hypo echoic masses are seen. There is no intrahepatic biliary ductal dilatation. The gallbladder is surgically absent. The common bile duct diameter of 4.2 mm is within normal limits. The pancreas is suboptimally visualized due to overlying bowel gas. The spleen is unremarkable and measures 8.9 x 3.1 x 9.1 cm. Cursory examination of the left kidney is performed. The right kidney is congenitally absent The left kidney measures 13.5 x 5.4 x 9.3 cm. A 1 cm left renal cyst is noted within the midportion of the kidney. There is no hydronephrosis. There is no ascites. The visualized portions of the aorta and inferior vena cava are within normal limits. No sonographic Durán's sign was elicited during the examination. IMPRESSION: Unremarkable postcholecystectomy ultrasound of the abdomen. Congenital absence of the right kidney. Report Dictated on Final Dictated: 11/19/2021 8:37 am Dictating Physician: DO RICHTER ALFRED Signed Date and Time: 11/19/2021 8:39 am Signed by: DO RICHTER ALFRED Transcribed Date and Time: 11/19/2021 8:37 Normal [facility] HEMOGLOBIN A1C (POC)on 09-19 HbA1c (Bld) [Mass fraction] 8.1 % Abnormal 4.2 - 5.6 % [facility] CR Chest PA/LATon 06-04-2021 CR Chest PA/LAT Patient Name: CRISTINA MARTINEZ Diagnostic Radiology ACCESSION EXAM DATE/TIME PROCEDURE ORDERING PROVIDER [id number] 06/04/2021 14:50 EST CR Chest PA and LAT [id number] -CRESENCIO MORE CPT code 14482 Reason For Exam (CR Chest PA and LAT) See dx Report CLINICAL INFORMATION: Follow-up Covid pneumonia. Frontal and lateral views of the chest were obtained. Comparison was made to the study dated 04/22/2021. No acute pulmonary disease is noted. The previously seen bilateral airspace infiltrates have resolved. The cardiovascular silhouette is within normal limits. There are no pleural effusions. IMPRESSION: No acute pulmonary disease. Report Dictated on Final Dictating Physician: DO BANUELOS ANTHONY Signed Date and Time: 06/04/2021 3:13 pm Signed by: DO BANUELOS ANTHONY Transcribed Date and Time: 06/04/2021 3:14 Normal [facility] CR Chest PA/LATon 04-22-2021 CR Chest PA/LAT Patient Name: CRISTINA MARTINEZ Diagnostic Radiology ACCESSION EXAM DATE/TIME PROCEDURE ORDERING PROVIDER [id number] 04/22/2021 16:39 EST CR Chest PA and LAT [id number] CRESENCIO SIERRA CPT code 89353 Reason For Exam (CR Chest PA and LAT) See dx Report CHEST X-RAY TWO VIEWS CLINICAL INDICATION: Cough, shortness of breath, chest pain. COVID-19. TECHNIQUE: Frontal and lateral views of the chest. COMPARISON: 10/26/2018 FINDINGS: Fairly extensive bilateral infiltrates in the mid and lower lungs, left greater than right. No vascular congestion, pleural effusion, or pneumothorax. Heart size normal. IMPRESSION: 1. Bilateral pneumonia compatible with history of COVID-19. Critical Test Results: Results were conveyed to Cresencio More EMT I/85 via [employer] messaging at 10:48 PM on 04/22/2021. Report Dictated on Workstation: TESS Final Dictating Physician: MD ROSENBERG JOHN R Signed Date and Time: 04/22/2021 10:49 pm Signed by: MD ROSENBERG JOHN R Transcribed Date and Time: 04/22/2021 10:50 [facility] Office Visit (Urgent Care)on 04-10-2021 Follow-up visit Diagnoses/Problems Assessed COVID-19 (079.89) (U07.1) Patient Discussion/Summary Please see your primary care physician in 7 days. as needed Robitussin-DM, warm tea with honey, Sudafed, Tylenol, increased fluids and rest. Seek follow-up medical care if symptoms worsen or do not resolve. Chief Complaint Chief Complaints Cough History of Present Illness 40-year-old female who has not been Covid vaccinated and describes a 5-day history of initially upper respiratory symptoms. More recently she developed fatigue with chills and a cough. No loss of taste or smell. She did a home Covid test yesterday which was positive. Review of systems is otherwise negative for constitutional, ear nose and throat, neck, heart, lungs, and abdomen. Review of Systems Constitutional: as noted in HPI. Active Problems Problems Accidental fall, initial encounter (E888.9) (W19.XXXA) Acute pain of both knees (338.19,719.46) (M25.561,M25.562) Acute sinusitis (461.9) (J01.90) Other internal derangements of left knee (717.89) (M23.8X2) Allergies Medication No Known Drug Allergies Recorded By: Eyad Pérez; 10/20/2020 4:38:47 PM Current Meds Medication NameInstruction Levothyroxine Sodium 125 MCG Oral Tablet metFORMIN HCl - 1000 MG Oral Tablet Trulicity 1.5 MG/0.5ML Subcutaneous Solution Pen-injectorinject 1 AND 1/2 milligram subcutaneously every week Vitals Vital Signs Recorded: 10Apr2021 12:19PM Rgakqftcwhq51.6 F Heart Fokx931 Ueuawvaxtpm42 Ddpdwnst284 Wensqgqpc62 Tobacco Useb) No O2 Gdngluxvhq87 Physical Exam Patient appears in no apparent distress and is well-hydrated. Vital signs noted. The sinuses are nontender. Examination of the ears, nose, throat, neck, and lungs is normal. Signatures Electronically signed by : Oscar Voss MD; Apr 10 2021 12:33PM EST (Author) Normal [facility] Tobacco Screening.on 021 Tobacco use status [facility] b) No [facility] Work Phone: Office Visit (Urgent Care)on 02-22-2021 Follow-up visit Diagnoses/Problems Assessed Accidental fall, initial encounter (E888.9) (W19.XXXA) Acute pain of both knees (338.19,719.46) (M25.561,M25.562) Other internal derangements of left knee (717.89) (M23.8X2) Orders Accidental fall, initial encounter, Acute pain of both knees Xray Knee 3 View; Status:Canceled; Perform:[facility]; Due:23May2021;Ordered; Stat; For:Accidental fall, initial encounter, Acute pain of both knees; Ordered By:Oscar Cedeño; Radiology Cancel Reason: DUPLICATE ORDER Laterality : Right Radiologist to Determine Optimal Study : Y What are the patient's signs and symptoms? : Fell 6 days ago, injury to both knees. Left 1 has a pop Acute pain of both knees Xray Knee 3 View; Status:Canceled; Perform:[facility]; Due:23May2021;Ordered; Stat; For:Acute pain of both knees; Ordered By:Oscar Cedeño; Laterality : Left Radiologist to Determine Optimal Study : Y What are the patient's signs and symptoms? : Fell 6 days ago, injury to both knees. Left 1 has a pop Other internal derangements of left knee Kiran Bandage 3-4 in; Status:Active; Requested for:22Feb2021; Perform:In Office; Due:04Mar2021;Ordered; For:Other internal derangements of left knee; Ordered By:Oscar Cedeño; Orthopedic - General Referral Evaluation and Treatment Evaluate AND Treat Status: Hold For - Scheduling Requested for: 22Feb2021 Ordered;For: Other internal derangements of left knee; Ordered By: Oscar Cedeño Performed: Due: 23May2021 Patient Discussion/Summary Orthopedics in Next 1 to 2 weeks days. Kiran bandage bilaterally for support and compression. May use Tylenol or ibuprofen as needed for discomfort. If your condition worsens go directly to the emergency room or call 911. Otherwise follow-up with primary physician as suggested above. Recommend follow-up with orthopedics as above. Chief Complaint Chief Complaints Knee Injury History of Present Illness 6 days ago the patient was hiking a mountain trail and was smoking at least when she slipped and fell onto both knees. She said she felt and heard a loud pop on the left. She hiked 3-1/2 [place] the mountain. She has had pain and swelling since then, also a clicking and popping of the left knee. She denies any locking or giving out at this time. Pain level is a 4/10. Review of Systems Constitutional: as noted in HPI. Active Problems Problems Acute sinusitis (461.9) (J01.90) Allergies Medication No Known Drug Allergies Recorded By: Eyad Pérez; 10/20/2020 4:38:47 PM Current Meds Medication NameInstruction Amoxicillin-Pot Clavulanate 875-125 MG Oral TabletTAKE 1 TABLET TWICE DAILY AFTER MEALS Vitals Vital Signs Recorded: 22Feb2021 09:27AM Elfndxftmxi82.1 F Heart Rate86 Xokffmrijck32 Juiqwocn681 Yaibjugiw32 Height5 ft 5 in Pfnstf775 lb 10.05 oz BMI Amtxttxxzk88.23 kg/m2 BSA Calculated1.79 Tobacco Useb) No O2 Tktjcddwdj42 Pain Scale4 Physical Exam Constitutional: Well developed, well nourished. vital signs reviewed. Left knee has swelling, tenderness of the medial joint space. There is a positive Ashish sign. [place] and posterior drawers are negative. MCL and LCL integrity is good. No patellar tenderness is present. No deformity is seen. She does have full range of motion of the knee today. Right knee has tenderness on the medial joint space as well. There is a negative Ashish's, [place]. Posterior drawer is negative. MCL and LCL are normal. She has full range of motion. Neurovascular integrity of the lower extremities is intact bilaterally. Signatures Electronically signed by : Oscar Cedeño MD; Feb 22 2021 10:18AM EST (Author) Normal [facility] Radiologyon 02-22-2021 XR Knee 4 Views Normal [facility] Work Phone: Tobacco Screening.on 021 Tobacco use status [facility] b) No [facility] Work Phone: Office Visit (Urgent Care)on 10-20-2020 Follow-up visit Diagnoses/Problems Assessed Acute sinusitis (461.9) (J01.90) Orders Acute sinusitis Start: Amoxicillin-Pot Clavulanate 875-125 MG Oral Tablet; TAKE 1 TABLET TWICE DAILY AFTER MEALS Rx By: Eyad Pérez; Dispense: 10 Days ; #:20 Tablet; Refill: 0;For: Acute sinusitis; CONNOR = N; Sent To: [facility] [facility] Patient Discussion/Summary Medication as recommended with probiotics and food Sscw-fzi-ggbgjgt antihistamines as needed Follow-up with primary care in 1 to 3 days if no improvement seen Any worsening of symptoms go directly to the emergency room Chief Complaint Chief Complaints Cough Nasal Symptoms Sinus headache cough congestion since Thursday History of Present IllnessCRISTINA MARTINEZ presents with complaints of nasal symptoms. Associated symptoms include nasal congestion and purulent nasal discharge. CRISTINA MARTINEZ presents with complaints of cough. Associated symptoms include no dyspnea and no wheezing. 40-year-old female with complaint of sinus headache cough congestion purulent drainage facial pain since Thursday. Allergies Medication No Known Drug Allergies Recorded By: Eyad Pérez; 10/20/2020 4:38:18 PM Vitals Vital Signs Recorded: 20Oct2020 04:18PM Tsyluojkhgt65.2 F Heart Rate89 Oxzgqyyzmpv44 Filmvsqx306 Lcsaruxwk86 Height5 ft 5 in Gaajgw182 lb BMI Zivvpqrepe18.79 kg/m2 BSA Calculated1.78 Tobacco Useb) No O2 Gogmxoiwkk86 Physical Exam Constitutional: Well developed, well nourished. vital signs reviewed. patient alert patient without distress consolable Head and Face: Head and face: Normal. Palpation of the face and sinuses: Normal. Ears, Nose, Mouth, and Throat: External inspection of ears: Normal. Nasal mucosa, septum, and turbinates: Normal. Lips, teeth, and gums: Normal. Oropharynx: Normal. Otoscopic examination: Normal. Neck: No neck mass was observed. Supple. Cardiovascular: Heart rate normal, normal S1 and S2, no gallops, no murmurs and no pericardial rub. Rhythm: Normal. Pulmonary: No respiratory distress. Clear bilateral breath sounds. Signatures Electronically signed by : Eyad Pérez MD; Oct 20 2020 4:38PM EST (Author) Normal [facility] Tobacco Screening.on 021 Tobacco use status [facility] b) No [facility] Work Phone: Vital Signs Date Time Vital Sign Value Performing Clinician Martell tobias 11-08-2024 14:19-0400 Body height 165.[address] Tha Major MD Work Phone: [facility] 11-08-2024 14:19-040 Body mass index (BMI) [Ratio] 27.3 kg/m2 Dr. Tha Major MD Work Phone: [facility] 11-08-2024 14:19-0400 Body temperature 98.4 [degF] Dr. Tha Major MD Work Phone: [facility] 11-08-2024 14:19-040 Body weight 74.[address] Tha Major MD Work Phone: [facility] 11-08-2024 14:19-040 Diastolic blood pressure 80 mm[Hg] Dr. Tha Major MD Work Phone: 9(934)504-321229 [place] [address] 11-08-2024 14:19-0400 Heart rate 84 /min Dr. Tha Major MD Work Phone: 5(658)919-290029 [place] [address] 11-08-2024 14:19-0400 Respiratory rate 18 /min Dr. Tha Major MD Work Phone: 2(664)800-489129 [place] [address] 11-08-2024 14:19-0400 SaO2% (BldA) [Mass fraction] 98 % Dr. Tha Major MD Work Phone: 8(383)131-752129 [place] [address] 11-08-2024 14:19-0400 Systolic blood pressure 122 mm[Hg] Dr. Tha Major MD Work Phone: 6(990)183-596229 [place] [address] 09-13-2024 15:04-0400 Body height 165.[address] Tha Major MD Work Phone: 3(215)929-751029 [place] [address] 09-13-2024 15:04-0400 Body mass index (BMI) [Ratio] 27.6 kg/m2 Dr. Tha Major MD Work Phone: 2(551)498-492829 [place] [address] 09-13-2024 15:04-0400 Body temperature 97.7 [degF] Dr. Tha Major MD Work Phone: 9(041)228-652029 [place] [address] 09-13-2024 15:04-0400 Body weight 75.[address] Tha Major MD Work Phone: 8(422)089-194829 [place] [address] 09-13-2024 15:04-0400 Diastolic blood pressure 60 mm[Hg] Dr. Tha Major MD Work Phone: 7(129)216-037929 [place] [address] 09-13-2024 15:04-0400 Heart rate 92 /min Dr. Tha Major MD Work Phone: 6(994)942-923929 [place] [address] 09-13-2024 15:04-0400 Respiratory rate 18 /min Dr. Tha Major MD Work Phone: 0(093)938-317629 [place] [address] 09-13-2024 15:04-0400 SaO2% (BldA) [Mass fraction] 96 % Dr. Tha Major MD Work Phone: 2(280)717-427029 [place] [address] 09-13-2024 15:04-0400 Systolic blood pressure 100 mm[Hg] Dr. Tha Major MD Work Phone: 3(145)322-153929 [place] [address] 08-19-2024 14:56-0400 Body mass index (BMI) [Ratio] 27.6 kg/m2 Dr. Tha Major MD Work Phone: 3(615)238-900529 [place] [address] 08-19-2024 14:56-0400 Body temperature 97.7 [degF] Dr. Tha Major MD Work Phone: 2(453)116-439529 [place] [address] 08-19-2024 14:56-0400 Body weight 75.[address] Tha Major MD Work Phone: 6(549)611-602929 [place] [address] 08-19-2024 14:56-0400 Diastolic blood pressure 70 mm[Hg] Dr. Tha Major MD Work Phone: 6(484)315-858729 [place] [address] 08-19-2024 14:56-0400 Heart rate 94 /min Dr. Tha Major MD Work Phone: 1(863)032-863329 [place] [address] 08-19-2024 14:56-0400 Respiratory rate 18 /min Dr. Tha Major MD Work Phone: 4(151)438-312729 [place] [address] 08-19-2024 14:56-0400 SaO2% (BldA) [Mass fraction] 96 % Dr. Tha Major MD Work Phone: 0(067)150-786529 [place] [address] 08-19-2024 14:56-0400 Systolic blood pressure 115 mm[Hg] Dr. Tha Major MD Work Phone: 3(598)327-823129 [place] [address] 08-11-2024 09:46-0400 Body mass index (BMI) [Ratio] 27.1 kg/m2 Dr. Tha Major MD Work Phone: 0(488)947-535329 [place] [address] 08-11-2024 09:46-0400 Body weight 74.[address] Tha Major MD Work Phone: [facility] 08-11-2024 09:46-0400 Diastolic blood pressure 83 mm[Hg] Dr. Tha Major MD Work Phone: [facility] 08-11-2024 09:46-0400 Heart rate 88 /min Dr. Tha Major MD Work Phone: [facility] 08-11-2024 09:46-0400 SaO2% (BldA) [Mass fraction] 98 % Dr. Tha Major MD Work Phone: [facility] 08-11-2024 09:46-0400 Systolic blood pressure 123 mm[Hg] Dr. Tha Major MD Work Phone: [facility] 02-09-2024 09:28-0400 Body mass index (BMI) [Ratio] 26.22 kg/m2 Jeffery Swift MD Work Phone: [facility] 02-09-2024 09:28-0400 Body weight 72.58 kg Jeffery Swift MD Work Phone: [facility] 02-09-2024 09:28-0400 Diastolic blood pressure 68 mm[Hg] Jeffery Swift MD Work Phone: [facility] 02-09-2024 09:28-0400 Heart rate 82 /min Jeffery Swift MD Work Phone: [facility] 02-09-2024 09:28-0400 Respiratory rate 16 /min Jeffery Swift MD Work Phone: [facility] 02-09-2024 09:28-0400 Systolic blood pressure 108 mm[Hg] Jeffery Swift MD Work Phone: [facility] 01-28-2024 12:31-0400 Body mass index (BMI) [Ratio] 25.81 kg/m2 Rose Mary Finley PA-C Work Phone: [facility] 01-28-2024 12:31-0400 Body temperature 100 [degF] Rose Mary LANCASTERC Work Phone: [facility] 01-28-2024 12:31-0400 Body weight 71.45 kg Rose Mary Finley PA-C Work Phone: [facility] 01-28-2024 12:31-0400 Diastolic blood pressure 82 mm[Hg] Rose Mary Finley PA-C Work Phone: [facility] 01-28-2024 12:31-0400 Heart rate 97 /min Rose Mary Finley PA-C Work Phone: [facility] 01-28-2024 12:31-0400 Respiratory rate 16 /min Rose Mary Finley PA-C Work Phone: [facility] 01-28-2024 12:31-0400 SaO2% (BldA) [Mass fraction] 97 % Rose Mary Finley PA-C Work Phone: [facility] 01-28-2024 12:31-0400 Systolic blood pressure 120 mm[Hg] Rose Mary Finley PA-C Work Phone: [facility] 07-21-2023 14:10-0400 Body height 166.4 cm Jeffery Swift MD Work Phone: [facility] 07-21-2023 14:10-0400 Body weight 71.67 kg Jeffery Swift MD Work Phone: [facility] 07-21-2023 14:10-0400 Diastolic blood pressure 78 mm[Hg] Jeffery Swift MD Work Phone: [facility] 07-21-2023 14:10-0400 Heart rate 76 /min Jeffery Swift MD Work Phone: [facility] 07-21-2023 14:10-0400 Respiratory rate 16 /min Jeffery Swift MD Work Phone: [facility] 07-21-2023 14:10-0400 Systolic blood pressure 114 mm[Hg] Jeffery Swift MD Work Phone: [facility] 12-09-2022 11:06-0400 Body height 165.1 cm [facility] MUCKING MACHINE OPERATOR.OCCUPATIONAL REHABILITATION AIDE Work Phone: [facility] 12-09-2022 11:06-0400 Body weight 67.77 kg [facility] MUCKING MACHINE OPERATOR.OCCUPATIONAL REHABILITATION AIDE Work Phone: [facility] 12-09-2022 11:06-0400 Diastolic blood pressure 75 mm[Hg] [facility] MUCKING MACHINE OPERATOR.OCCUPATIONAL REHABILITATION AIDE Work Phone: [facility] 12-09-2022 11:06-0400 Heart rate 87 /min [facility] MUCKING MACHINE OPERATOR.[facility] Work Phone: [facility] 12-09-2022 11:06-0400 SaO2% (BldA) [Mass fraction] 99 % [facility] MUCKING MACHINE OPERATOR.OCCUPATIONAL REHABILITATION AIDE Work Phone: [facility] 12-09-2022 11:06-0400 Systolic blood pressure 107 mm[Hg] [facility] MUCKING MACHINE OPERATOR.OCCUPATIONAL REHABILITATION AIDE Work Phone: [facility] 10-10-2022 14:21-0400 Body height 165.1 cm Zaira Mejia MD Work Phone: [facility] 10-10-2022 14:21-0400 Body weight 68.13 kg Zaira Mejia MD Work Phone: [facility] 08-19-2022 10:38-0400 Body height 165.1 cm Zaira Moody PA-C Work Phone: [facility] 08-19-2022 10:38-0400 Body mass index (BMI) [Ratio] 25.06 kg/m2 Zaira Moody PA-C Work Phone: [facility] 08-19-2022 10:38-0400 Body temperature 98.4 [degF] Zaira Moody PA-C Work Phone: [facility] 08-19-2022 10:38-0400 Body weight 68.31 kg Zaira Moody PA-C Work Phone: [facility] [employer] 08-19-2022 10:38-0400 Diastolic blood pressure 81 mm[Hg] Zaira Moody PA-C Work Phone: [facility] [employer] 08-19-2022 10:38-0400 Heart rate 85 /min Zaira Moody PA-C Work Phone: [facility] 08-19-2022 10:38-0400 SaO2% (BldA) [Mass fraction] 97 % Zaira Moody PA-C Work Phone: [facility] [employer] 08-19-2022 10:38-0400 Systolic blood pressure 115 mm[Hg] Zaira REYNOLDS-Deyanira Work Phone: [facility] 08-07-2022 14:21-0400 Body height 164.4 cm [facility] MUCKING MACHINE OPERATOR.OCCUPATIONAL REHABILITATION AIDE Work Phone: [facility] 08-07-2022 14:21-0400 Body weight 68.4 kg [facility] MUCKING MACHINE OPERATOR.OCCUPATIONAL REHABILITATION AIDE Work Phone: [facility] 08-07-2022 14:21-0400 Diastolic blood pressure 74 mm[Hg] [facility] MUCKING MACHINE OPERATOR.OCCUPATIONAL REHABILITATION AIDE Work Phone: [facility] 08-07-2022 14:21-0400 Heart rate 91 /min [facility] MUCKING MACHINE OPERATOR.OCCUPATIONAL REHABILITATION AIDE Work Phone: [facility] 08-07-2022 14:21-0400 Respiratory rate 17 /min [facility] MUCKING MACHINE OPERATOR.OCCUPATIONAL REHABILITATION AIDE Work Phone: [facility] 08-07-2022 14:21-0400 SaO2% (BldA) [Mass fraction] 98 % [facility] MUCKING MACHINE OPERATOR.OCCUPATIONAL REHABILITATION AIDE Work Phone: [facility] 08-07-2022 14:21-0400 Systolic blood pressure 104 mm[Hg] [facility] MUCKING MACHINE OPERATOR.OCCUPATIONAL REHABILITATION AIDE Work Phone: [facility] 04-01-2022 12:49-0500 Body height 166.4 cm Genoveva Kupiec MUCKING MACHINE OPERATOR.OCCUPATIONAL REHABILITATION AIDE Work Phone: [facility] 04-01-2022 12:49-0500 Body [facility] MACHINE OPERATOR.OCCUPATIONAL REHABILITATION AIDE Work Phone: [facility] 04-01-2022 12:49-0500 Diastolic blood pressure 78 mm[Hg] Genoveva Kupiec MUCKING MACHINE OPERATOR.OCCUPATIONAL REHABILITATION AIDE Work Phone: [facility] 04-01-2022 12:49-0500 Heart rate 82 /min Genoveva Kupiec MUCKING MACHINE OPERATOR.OCCUPATIONAL REHABILITATION AIDE Work Phone: [facility] 04-01-2022 12:49-0500 SaO2% (BldA) [Mass fraction] 96 % Genoveva Kupiec MUCKING MACHINE OPERATOR.[facility] Work Phone: [facility] 04-01-2022 12:49-0500 Systolic blood pressure 117 mm[Hg] Genoveva Kupiec MUCKING MACHINE OPERATOR.OCCUPATIONAL REHABILITATION AIDE Work Phone: [facility] 09-19-2021 14:02-0400 Body weight 67.13 [facility] MUCKING MACHINE OPERATOR.[facility] Work Phone: [facility] 09-19-2021 14:02-0400 Diastolic blood pressure 70 mm[Hg] Genoveva Kupiec MUCKING MACHINE OPERATOR.[facility] Work Phone: [facility] 09-19-2021 14:02-0400 Heart rate 89 /min Genoveva Kupiec MUCKING MACHINE OPERATOR.OCCUPATIONAL REHABILITATION AIDE Work Phone: [facility] 09-19-2021 14:02-0400 SaO2% (BldA) [Mass fraction] 98 % Genoveva Kupiec MUCKING MACHINE OPERATOR.[facility] Work Phone: [facility] 09-19-2021 14:02-0400 Systolic blood pressure 106 mm[Hg] Genoveva Kupiec MUCKING MACHINE OPERATOR.[facility] Work Phone: [facility] 04-10-2021 12:19-0500 Body temperature 98.6 [degF] Oscar Voss MD Work Phone: [facility] Work Phone: 04-10-2021 12:19-0500 Diastolic blood pressure 84 mm[Hg] Oscar Voss MD Work Phone: [facility] Work Phone: 04-10-2021 12:19-0500 Heart rate 109 /min Oscar Voss MD Work Phone: [facility] Work Phone: 04-10-2021 12:19-0500 Respiratory rate 14 /min Oscar Voss MD Work Phone: [facility] Work Phone: 04-10-2021 12:19-0500 SaO2% (BldA) [Mass fraction] 98 % Oscar Voss MD Work Phone: [facility] Work Phone: 04-10-2021 12:19-0500 Systolic blood pressure 123 mm[Hg] Oscar Voss MD Work Phone: [facility] Work Phone: 02-22-2021 09:27-0400 Body height 165.1 cm Oscar Cedeño MD Work Phone: [facility] Work Phone: 02-22-2021 09:27-0400 Body mass index (BMI) [Ratio] 26.23 kg/m2 Oscar Cedeño MD Work Phone: [facility] Work Phone: 02-22-2021 09:27-0400 Body surface area Derived from formula 1.79 m2 Oscar Cdeeño MD Work Phone: [facility] Work Phone: 02-22-2021 09:27-0400 Body temperature 98.1 [degF] Oscar Cedeño MD Work Phone: [facility] Work Phone: 02-22-2021 09:27-0400 Body weight 71.5 kg Oscar Cedeño MD Work Phone: [facility] Work Phone: 02-22-2021 09:27-0400 Diastolic blood pressure 80 mm[Hg] Oscar Cedeño MD Work Phone: [facility] Work Phone: 02-22-2021 09:27-0400 Heart rate 86 /min Oscar Cedeño MD Work Phone: [facility] Work Phone: 02-22-2021 09:27-0400 Respiratory rate 18 /min Oscar Cedeño MD Work Phone: [facility] Work Phone: 02-22-2021 09:27-0400 SaO2% (BldA) [Mass fraction] 98 % Oscar Cedeño MD Work Phone: [facility] Work Phone: 02-22-2021 09:27-0400 Systolic blood pressure 121 mm[Hg] Oscar Cedeño MD Work Phone: [facility] Work Phone: 02-22-2021 09:27-0400 4 1 Oscar Cedeño MD Work Phone: [facility] Work Phone: Comment on above: [employer] 10-20-2020 16:18-0400 Body height 165.1 cm Eyad Pérez MD Work Phone: [facility] Work Phone: 10-20-2020 16:18-0400 Body mass index (BMI) [Ratio] 25.79 kg/m2 Eyad Pérez MD Work Phone: [facility] Work Phone: 10-20-2020 16:18-0400 Body surface area Derived from formula 1.78 m2 Eyad Pérez MD Work Phone: [facility] Work Phone: 10-20-2020 16:18-0400 Body temperature 98.2 [degF] Eyad Pérez MD Work Phone: [facility] Work Phone: 10-20-2020 16:18-0400 Body weight 70.31 kg Eyad Pérez MD Work Phone: [facility] Work Phone: 10-20-2020 16:18-0400 Diastolic blood pressure 76 mm[Hg] Eyad Pérez MD Work Phone: [facility] Work Phone: 10-20-2020 16:18-0400 Heart rate 89 /min Eyad Pérez MD Work Phone: [facility] Work Phone: 10-20-2020 16:18-0400 Respiratory rate 16 /min Eyad Pérez MD Work Phone: [facility] Work Phone: 10-20-2020 16:18-0400 SaO2% (BldA) [Mass fraction] 97 % Eyad Pérez MD Work Phone: [facility] Work Phone: 10-20-2020 16:18-0400 Systolic blood pressure 109 mm[Hg] Eyad Pérez MD Work Phone: [facility] Work Phone: Encounters Encounter Date Encounter Type Care Provider Facility Start: 11-08-2024 Patient encounter procedure Reyna Alvarado EMT I/85AdrianC -Laboratory Specimen Work Phone: Start: 11-08-2024 End: 11-08-[address] Tha Major MD Work Phone: -After Hours [facility] Start: 10-13-2024 End: 10-14-2024 Follow-up encounter Jeffery Swift MD Work Phone: [facility] Comment on above: Appointment Start: 09-13-2024 End: 09-13-[address] Tha Major MD Work Phone: [facility] Work Phone: Start: 09-07-2024 End: 09-09-2024 ambulatory Jeffery Swift MD Work Phone: [facility] Start: 09-07-2024 End: 09-09-2024 Patient encounter procedure Jeffery Swift MD Work Phone: [facility] Comment on above: Up coming appointmen t Start: 08-11-2024 End: 08-11-2024 Patient encounter procedure Lorrie Braxton EMT I/85AdrianC [facility] Work Phone: Start: 08-11-2024 End: 08-11-2024 ambulatory Lorrie Braxton Facility:[facility] Start: 07-28-2024 End: 07-28-2024 ambulatory JEFFERY SWIFT Facility:[facility] Start: 07-14-2024 End: 07-14-2024 ambulatory JEFFERY SWIFT Facility:[facility] Start: 07-14-2024 End: 07-14-2024 Patient encounter procedure Stephanie Duvall Work Phone: Podiatry Comment on above: Porokeratosis (Prima ry Dx); Type 2 diabetes mellitus without complication, without long-term current use of insulin (HCC); Hallux rigidus of left foot; Hammertoe of left foot Start: 05-11-2024 End: 05-16-2024 ambulatory Jeffery Swift MD Work Phone: Internal Medicine [place] [id number] Start: 05-08-2024 End: 05-09-2024 ambulatory Jeffery Swift MD Work Phone: [facility] [place] Comment on above: Back pain Start: 04-19-2024 End: 04-19-2024 ambulatory ROSLYN CARRANZA OCCUPATIONAL REHABILITATION AIDE Facility:[id number] Start: 04-14-2024 End: 04-14-2024 ambulatory [facility] Facility:[facility] Start: 02-09-2024 End: 02-09-2024 ambulatory JEFFERY SWIFT Facility:[facility] Start: 02-09-2024 End: 02-09-2024 Patient encounter procedure Jeffery Swift MD Work Phone: [facility] [place] Comment on above: Type 2 diabetes christy itus without complication, without long- term current use of insulin (HCC) (Primary Dx); Dyslipidemia; Postablative hypothyroidism; Vitamin D deficiency; Dizziness; Seasonal allergies; Nasal polyps Start: 01-28-2024 End: 01-28-2024 ambulatory JEFFERY SWIFT Facility:[facility] Start: 01-28-2024 End: 01-28-2024 Patient encounter procedure Rose Mary Finley PA-C Work Phone: [facility] Comment on above: Acute cough (Primary Dx); Flu-like symptoms Start: 01-14-2024 End: 01-14-2024 ambulatory [facility] Facility:[facility] Start: 12-08-2023 Refill Genoveva bowman APRN.CNP Work Phone: Endocrinology Comment on above: Refill Request Start: 10-16-2023 Chart abstracting Janes Ruano MA [facility] [place] Start: 10-15-2023 End: 10-15-2023 ambulatory [facility] Facility:[facility] Start: 07-21-2023 End: 07-21-2023 ambulatory JEFFERY SWIFT Facility:[facility] Start: 07-21-2023 End: 07-21-2023 Patient encounter procedure Jeffery Swift MD Work Phone: [facility] [place] Comment on above: Well adult exam (Roslyn kendall Dx); Type 2 diabetes mellitus without complication, without long-term current use of insulin (HCC); Dyslipidemia; Postablative hypothyroidism; Vitamin D deficiency; Encounter for gynecological examination Start: 07-21-2023 End: 07-21-2023 Patient encounter status Jeffery Swift MD Work Phone: [facility] Work Phone: Start: 07-16-2023 End: 07-17-2023 ambulatory JEFFERY SWIFT Facility:[facility] Start: 04-01-2023 ambulatory Genoveva bowman MUCKING MACHINE OPERATOR.OCCUPATIONAL REHABILITATION AIDE Work Phone: Endocrinology Comment on above: My sugar Start: 03-31-2023 ambulatory Genoveva bowman MUCKING MACHINE OPERATOR.OCCUPATIONAL REHABILITATION AIDE Work Phone: Endocrinology Comment on above: My sugar Start: 03-31-2023 Documentation procedure Mammog benji Coordinator [facility] Start: 03-31-2023 Letter encounter Mammography Coordinator [facility] Department Start: 03-31-2023 Telephone encounter Jeffery Swift MD Work Phone: Family Medicine [place] Comment on above: Results Start: 03-31-2023 End: 03-31-2023 Subsequent hospital visit by physician Screen/Diagnostic M[facility] Work Phone: Mammography Comment on above: Encounter for screen ing mammogram for breast cancer [Z12.31] Start: 03-10-2023 ambulatory Genoveva bowman MUCKING MACHINE OPERATOR.OCCUPATIONAL REHABILITATION AIDE Work Phone: Endocrinology Comment on above: Lantus Start: 03-08-2023 ambulatory Genoveva bowman MUCKING MACHINE OPERATOR.OCCUPATIONAL REHABILITATION AIDE Work Phone: Endocrinology Comment on above: My sugar Start: 02-25-2023 Telephone encounter Genoveva viramontes MUCKING MACHINE OPERATOR.OCCUPATIONAL REHABILITATION AIDE Work Phone: Endocrinology Comment on above: Medication Problem; Meidcation Pro Start: 02-24-2023 Telephone encounter Genoveva viramontes MUCKING MACHINE OPERATOR.OCCUPATIONAL REHABILITATION AIDE Work Phone: Endocrinology Comment on above: PA--Mounjaro 5MG/0.5 ML Start: 02-23-2023 Orders Only Genoveva bowman MUCKING MACHINE OPERATOR.OCCUPATIONAL REHABILITATION AIDE Work Phone: Endocrinology Start: 12-09-2022 End: 12-09-2022 Patient encounter procedure Genoveva Chatman MUCKING MACHINE OPERATOR.OCCUPATIONAL REHABILITATION AIDE Work Phone: Endocrinology Comment on above: Type 2 diabetes christy itus without complication, without long- term current use of insulin (HCC) (Primary Dx); Postablative hypothyroidism; Dyslipidemia Start: 10-28-2022 Telephone encounter Genoveva viramontes MUCKING MACHINE OPERATOR.OCCUPATIONAL REHABILITATION AIDE Work Phone: Endocrinology Comment on above: Diabetis Eye Exam Re port ([facility]) Start: 10-10-2022 End: 10-10-2022 ambulatory JEFFERY SWIFT Facility:[facility] Start: 10-10-2022 End: 10-10-2022 Patient encounter procedure Zaira Mejia MD Work Phone: Plastic Surgery Comment on above: Micromastia (Primary Dx) Start: 10-08-2022 ambulatory Jeffery acosta MD Work Phone: Internal Medicine [facility] [place] Start: 09-15-2022 Refill Genoveva bowman MUCKING MACHINE OPERATOR.OCCUPATIONAL REHABILITATION AIDE Work Phone: Endocrinology Comment on above: Refill Request Start: 08-19-2022 End: 08-19-2022 [facility]ulatory [facility] Start: 08-19-2022 End: 08-19-2022 Office outpatient visit 25 minutes Zaira Moody PA-C Work Phone: [facility] Comment on above: Acute viral conjunct ivitis of left eye (Primary Dx); Perimenopause; Hypothyroidism (acquired); Type 2 diabetes mellitus without complication, with long-term current use of insulin (CMS/HCC) (HCC); Other fatigue Start: 08-07-2022 End: 08-07-2022 Patient encounter procedure Genoveva Chatman MUCKING MACHINE OPERATOR.OCCUPATIONAL REHABILITATION AIDE Work Phone: Endocrinology Comment on above: Type 2 diabetes christy itus without complication, without long- term current use of insulin (HCC) (Primary Dx); Postablative hypothyroidism; Dyslipidemia Start: 07-08-2022 Telephone encounter Ming palomo DO Work Phone: [facility] Comment on above: Anemia Start: 05-08-2022 End: 05-08-2022 Patient encounter procedure Nurse Milagros [facility] Mc Work Phone: Endocrinology Comment on above: Type 2 diabetes christy itus without complication, without long- term current use of insulin (HCC) (Primary Dx) Start: 04-01-2022 End: 04-01-2022 Patient encounter procedure Genoveva Chatman MUCKING MACHINE OPERATOR.OCCUPATIONAL REHABILITATION AIDE Work Phone: Endocrinology Comment on above: Type 2 diabetes christy itus without complication, without long- term current use of insulin (HCC) (Primary Dx); Postablative hypothyroidism; Dyslipidemia Start: 01-29-2022 Refill Genoveva bowman MUCKING MACHINE OPERATOR.OCCUPATIONAL REHABILITATION AIDE Work Phone: Endocrinology Comment on above: Refill Request Start: 12-30-2021 ambulatory Genoveva bowman MUCKING MACHINE OPERATOR.OCCUPATIONAL REHABILITATION AIDE Work Phone: Endocrinology Comment on above: Meds Start: 11-21-2021 ambulatory UNKNOWN PROVIDER [facility] Start: 11-21-2021 End: 11-21-2021 Subsequent hospital visit by physician Ming Perez DO Work Phone: [facility] Nuclear [facility] Comment on above: Chest pain, unspecif ied type; Dyspnea on exertion Start: 11-14-2021 Refill Genoveva bowman MUCKING MACHINE OPERATOR.OCCUPATIONAL REHABILITATION AIDE Work Phone: Endocrinology Comment on above: Refill Request Start: 11-06-2021 ambulatory Jeffery acosta MD Work Phone: Internal Medicine [facility] [place] Start: 10-30-2021 Telephone encounter Genoveva viramontes MUCKING MACHINE OPERATOR.OCCUPATIONAL REHABILITATION AIDE Work Phone: Endocrinology Comment on above: Diabetic Eye Exam ([facility]) Start: 09-24-2021 Refill Genoveva bowman MUCKING MACHINE OPERATOR.OCCUPATIONAL REHABILITATION AIDE Work Phone: Endocrinology Comment on above: Refill Request Refill on my test st rips Start: 09-19-2021 End: 09-19-2021 Patient encounter procedure Genoveva Chatman MUCKING MACHINE OPERATOR.OCCUPATIONAL REHABILITATION AIDE Work Phone: Endocrinology Comment on above: Type 2 diabetes christy itus without complication, without long- term current use of insulin (HCC) (Primary Dx); Postablative hypothyroidism; Dyslipidemia Start: 09-11-2021 ambulatory [facility] Comment on above: [employer]ukhdeep Start: 09-11-2021 E-mail encounter delores m caregiver [facility] Provider [facility] Start: 08-01-2021 Telephone encounter Genoveva viramontes MUCKING MACHINE OPERATOR.OCCUPATIONAL REHABILITATION AIDE Work Phone: Endocrinology Comment on above: CGM Supply Orders Start: 06-04-2021 ambulatory UNKNOWN PROVIDER [facility] Start: 04-22-2021 ambulatory Cresencio [facility] Start: 04-10-2021 ambulatory Oscar Voss Facility:[id number] Start: 04-10-2021 Office outpatient vi sit 15 minutes Oscar Voss MD Work Phone: [facility] Work Phone: Start: 03-01-2021 Chart Update Oscar Quispe Work Phone: [facility] Work Phone: Start: 02-22-2021 Office outpatient vi sit 15 minutes Oscar Cedeño MD Work Phone: [facility] Work Phone: Start: 10-20-2020 Office outpatient ne w 20 minutes Eyad Pérez MD Work Phone: [facility] Work Phone: Procedures Date Procedure Procedure Detail Performing Clinician Start: 10-15-2023 Hemoglobin A1c/Hemoglobin.total in Blood [facility] Provider Start: 03-31-2023 Screening mammograph y bi 2-view breast inc cad Bulk Order Provider Start: 12-09-2022 Hemoglobin A1c/Hemoglobin.total in Blood Genoveva Chatman MUCKING MACHINE OPERATOR.OCCUPATIONAL REHABILITATION AIDE Work Phone: Start: 08-07-2022 Hemoglobin A1c/Hemoglobin.total in Blood [facility] MUCKING MACHINE OPERATOR.OCCUPATIONAL REHABILITATION AIDE Work Phone: Start: 04-01-2022 Hemoglobin A1c/Hemoglobin.total in Blood [facility] MUCKING MACHINE OPERATOR.OCCUPATIONAL REHABILITATION AIDE Work Phone: Start: 01-22-2022 Lipid 1996 panel - S ritu or Plasma Zaira Moody PA-C Work Phone: Start: 01-22-2022 Thyrotropin [Units/v olume] in Serum or Plasma Zaira Moody PA-C Work Phone: Start: 11-21-2021 Myocardial spect mul tiple studies Ming Perez DO Work Phone: Start: 09-19-2021 Hemoglobin A1c/Hemoglobin.total in Blood [facility] MUCKING MACHINE OPERATOR.OCCUPATIONAL REHABILITATION AIDE Work Phone: Start: 08-31-2020 Adult depression scr eening assessment [facility] MUCKING MACHINE OPERATOR.OCCUPATIONAL REHABILITATION AIDE Work Phone: Plan of Treatment Date Care Activity Detail Author Start: 11-28-2029 DTaP/Tdap/Td vaccine (2 - Td or Tdap) DTaP/Tdap/Td vaccine (2 - Td or Tdap) [facility] Start: 11-28-2029 DTaP/Tdap/Td Vaccine s (2 - Td or Tdap) DTaP/Tdap/Td Vaccines (2 - Td or Tdap) [facility] Start: 11-28-2029 Urine microalbumin profile [facility] Start: 2029 Zoster Vaccines (1 o f 2) Zoster Vaccines (1 of 2) [facility] Start: 07-28-2025 Hepatitis B screening Urine Al bumin:Creatinine Ratio [facility] Start: 07-28-2025 Hepatitis B surface antibody level LDL Cholesterol [facility] Start: 02-08-2025 Annual PCP Team Hand Deicer Element Winder malini Disease Visit Annual PCP Team Chronic Disease Visit [facility] Start: 02-08-2025 Anxiety Screening Anxiety Screening [facility] Comment on above: Postponed from 06/07 (Declined at this time) Start: 01-13-2025 Diabetic foot examination Diabetic Foot Exam [facility] Start: 11-10-2024 End: 11-10-2024 Patient encounter procedure 11/10/2024 1:20 PM EDT Office Visit [facility] [place] [address] [facility] [place] [address] Nory Aj PA-C [address] [facility] [place] [address] physical [facility] [place] Comment on above: physical Start: 10-08-2024 End: 10-08-2024 Patient encounter procedure 10/08/2024 8:40 AM EDT Office Visit Family Medicine [place] [address] [facility] [place] [address] Jeffery Swift MD [address] [place] [address] physical R/S from 08/09 Family [facility] [place] Comment on above: physical R/S from 08/09 Start: 09-13-2024 End: 09-13-2024 Patient encounter procedure 09/13/2024 9:40 AM EDT Office Visit Family Medicine [place] [address] [facility] [place] [address] Jeffery Swift MD [address] [place] [address] physical R/S from 08/09 Family [facility] [place] Comment on above: physical R/S from 08/09 Start: 08-09-2024 End: 08-09-2024 Patient encounter procedure 08/09/2024 10:20 AM EDT Office Visit Family Medicine [place] [address] [facility] [place] [address] Jeffery Swift MD [address] [facility] [place] [address] Physical [facility] [place] Comment on above: Physical Start: 07-29-2024 End: 10-28-2024 25-hydroxyvitamin D3 [Mass/volume] in Serum or Plasma VITAMIN D 25 HYDROXY Lab Routine Vitamin D deficiency Expected: 07/29/2024, Expires: 10/28/2024 [place] Work Phone: Comment on above: Expected: 07/29/2024 , Expires: 10/28/2024 Start: 07-29-2024 End: 10-28-2024 Comprehensive metabolic 2000 panel - Serum or Plasma COMPREHENSIVE METABOLIC PANEL Lab Routine Type 2 diabetes mellitus without complication, without long-term current use of insulin (HCC) Dyslipidemia Expected: 07/29/2024, Expires: 10/28/2024 [facility] Comment on above: Expected: 07/29/2024 , Expires: 10/28/2024 Start: 07-29-2024 End: 10-28-2024 LIPID PANEL, NONFASTING LIPID PANEL, NONFASTING Lab Routine Type 2 diabetes mellitus without complication, without long-term current use of insulin (HCC) Dyslipidemia Expected: 07/29/2024, Expires: 10/28/2024 [facility] Comment on above: Expected: 07/29/2024 , Expires: 10/28/2024 Start: 07-29-2024 End: 10-28-2024 Urinalysis complete panel - Urine URINALYSIS, WITH MICROSCOPIC Lab Routine Type 2 diabetes mellitus without complication, without long-term current use of insulin (HCC) Dyslipidemia Expected: 07/29/2024, Expires: 10/28/2024 [facility] Comment on above: Expected: 07/29/2024 , Expires: 10/28/2024 Start: 07-20-2024 Annual PCP Team Hand Deicer Element Winder malini Disease Visit Annual PCP Team Chronic Disease Visit [facility] Start: 07-20-2024 Pneumococcal vaccination Pneumococcal Vaccine (1 of 2 - PCV) [facility] Comment on above: Postponed from 06/07 (Declined at this time) Postponed from 06/07 (Declined at this time) Start: 07-15-2024 Hepatitis B screening Urine Al bumin:Creatinine Ratio [facility] Start: 07-15-2024 Hepatitis B surface antibody level LDL Cholesterol [facility] Start: 2024 Screening for malign ant neoplasm of colon [facility] Start: 05-10-2024 Behavioral Health Screening Behavioral Health Screening [facility] Comment on above: Postponed from 05/11 (Declined at this time) Start: 05-10-2024 Depression Assessment Depression Ass essment [facility] Comment on above: Postponed from 05/11 (Declined at this time) Start: 04-15-2024 Hemoglobin A1c measurement HbA1C [facility] Start: 03-31-2024 Mammography Mammogram Screening [facility] Start: 03-31-2024 Screening for malign ant neoplasm of breast Mammogram Screening [facility] Start: 03-17-2024 Annual PCP Team Hand Deicer Element Winder malini Disease Visit Annual PCP Team Chronic Disease Visit [facility] Start: 03-15-2024 End: 03-15-2024 Patient encounter procedure 03/15/2024 9:40 AM EST Office Visit [facility] [place] [address] [place], [place] [address] Jeffery Swift MD [address] [place], [place] [id number] 1 month follow up - Dizziness/Eustacion tube [facility] [place] Comment on above: 1 month follow up - Dizziness/Eustacion tube Start: 02-09-2024 Depression Screening Depression Scre ening [facility] Comment on above: Postponed from 06/07 (Declined at this time) Start: 01-26-2024 End: 01-26-2024 Patient encounter procedure 01/26/2024 8:40 AM EDT Office Visit Family Medicine [place] [address] [facility], [place] [address] Nory Aj PA-C [address] [place], [place] [id number] 6 month follow up [facility] [place] Comment on above: 6 month follow up Start: 01-16-2024 Hemoglobin A1c measurement HbA1C [facility] Start: 01-08-2024 End: 04-08-2024 LIPID PANEL, NONFASTING LIPID PANEL, NONFASTING Lab Routine Dyslipidemia Expected: 01/08/2024, Expires: 04/08/2024 [place] Work Phone: Comment on above: Expected: 01/08/2024 , Expires: 04/08/2024 Start: 12-10-2023 3 comp foot exam completed DIABETIC FOOT EXAM [facility] Start: 12-10-2023 Diabetic foot examination Diabetic Foot Exam [facility] Start: 10-29-2023 Glaucoma screening Dilated Retinal E xam [facility] Start: 10-29-2023 Hepatitis C antibody , confirmatory test DILATED RETINAL EXAM [facility] Start: 08-22-2023 Hepatitis B surface antibody level LDL CHOLESTEROL [facility] Start: 06-11-2023 End: 08-11-2023 ALBUMIN/CREAT RATIO RND UR ALBUMIN/CREAT RATIO RND UR Lab Routine Type 2 diabetes mellitus without complication, without long-term current use of insulin (HCC) Expected: 06/11/2023 (Approximate), Expires: 08/11/2023 [place] Work Phone: Comment on above: Expected: 06/11/2023 (Approximate), Expires: 08/11/2023 Start: 06-11-2023 End: 08-11-2023 Comprehensive metabolic 2000 panel - Serum or Plasma COMP METABOLIC PANEL Lab Routine Type 2 diabetes mellitus without complication, without long-term current use of insulin (HCC) Expected: 06/11/2023 (Approximate), Expires: 08/11/2023 [place] Work Phone: Comment on above: Expected: 06/11/2023 (Approximate), Expires: 08/11/2023 Start: 06-11-2023 End: 08-11-2023 Hemoglobin A1c in Blood HGB A1C Lab Routine Type 2 diabetes mellitus without complication, without long-term current use of insulin (HCC) Expected: 06/11/2023 (Approximate), Expires: 08/11/2023 [place] Work Phone: Comment on above: Expected: 06/11/2023 (Approximate), Expires: 08/11/2023 Start: 06-11-2023 Hemoglobin A1c/Hemoglobin.total in Blood HBA1C [facility] Start: 06-11-2023 End: 08-11-2023 Lipid 1996 panel - Serum or Plasma LIPID PANEL BASIC Lab Routine Type 2 diabetes mellitus without complication, without long-term current use of insulin (HCC) Expected: 06/11/2023 (Approximate), Expires: 08/11/2023 [place] Work Phone: Comment on above: Expected: 06/11/2023 (Approximate), Expires: 08/11/2023 Start: 06-11-2023 End: 08-11-2023 Thyrotropin [Units/volume] in Serum or Plasma TSH BLD Lab Routine Type 2 diabetes mellitus without complication, without long-term current use of insulin (HCC) Postablative hypothyroidism Expected: 06/11/2023 (Approximate), Expires: 08/11/2023 [place] Work Phone: Comment on above: Expected: 06/11/2023 (Approximate), Expires: 08/11/2023 Start: 02-17-2023 End: 02-17-2023 Patient encounter procedure 02/17/2023 Office Visit Family Medicine Zaira Moody PA-C [address] [place] [address] [facility] Start: 02-07-2023 Hemoglobin A1c/Hemoglobin.total in Blood HBA1C [facility] Start: 01-22-2023 Hepatitis B screening URINE AL BUMIN:CREATININE RATIO [facility] Start: 01-22-2023 Hepatitis B surface antibody level LDL CHOLESTEROL [facility] Start: 01-22-2023 Lipid panel Lipid Panel [facility] Start: 01-22-2023 Thyroid stimulating hormone measurement TSH Level [facility] Start: 01-09-2023 Influenza vaccination [facility] Start: 12-24-2022 3 comp foot exam completed DIABETIC FOOT EXAM [facility] Start: 11-07-2022 Hemoglobin A1c measurement Diabetes: Hemoglobin A1C [facility] Start: 11-07-2022 Influenza vaccination INFLUENZA (#1) [facility] Comment on above: Postponed from 01/09 (Declined at this time) Start: 10-29-2022 Hepatitis C antibody , confirmatory test DILATED RETINAL EXAM [facility] Start: 10-01-2022 COVID-19 Vaccine (1) COVID-19 Vaccin e (1) [facility] Comment on above: Postponed from 06/07 (Patient Refused) Start: 09-29-2022 Hemoglobin A1c/Hemoglobin.total in Blood HBA1C [facility] Start: 09-09-2022 Depression Monitoring Depression Mon itoring [facility] Start: 07-08-2022 End: 07-08-2023 CBC panel - Blood by Automated count CBC Lab Routine Anemia, unspecified type Expected: 07/08/2022 (Approximate), Expires: 07/08/2023 [facility] Work Phone: Comment on above: Expected: 07/08/2022 (Approximate), Expires: 07/08/2023 Start: 07-02-2022 End: 09-01-2022 Cobalamin (Vitamin B12) [Mass/volume] in Serum or Plasma VITAMIN B12 BLOOD Lab Routine Type 2 diabetes mellitus without complication, without long-term current use of insulin (HCC) Expected: 07/02/2022 (Approximate), Expires: 09/01/2022 [place] Work Phone: Comment on above: Expected: 07/02/2022 (Approximate), Expires: 09/01/2022 Start: 07-02-2022 End: 09-01-2022 Comprehensive metabolic 2000 panel - Serum or Plasma COMP METABOLIC PANEL Lab Routine Type 2 diabetes mellitus without complication, without long-term current use of insulin (HCC) Expected: 07/02/2022 (Approximate), Expires: 09/01/2022 [place] Work Phone: Comment on above: Expected: 07/02/2022 (Approximate), Expires: 09/01/2022 Start: 07-02-2022 End: 09-01-2022 Hemoglobin A1c in Blood HGB A1C Lab Routine Type 2 diabetes mellitus without complication, without long-term current use of insulin (HCC) Expected: 07/02/2022 (Approximate), Expires: 09/01/2022 [place] Work Phone: Comment on above: Expected: 07/02/2022 (Approximate), Expires: 09/01/2022 Start: 07-02-2022 End: 09-01-2022 Lipid 1996 panel - Serum or Plasma LIPID PANEL BASIC Lab Routine Type 2 diabetes mellitus without complication, without long-term current use of insulin (HCC) Expected: 07/02/2022 (Approximate), Expires: 09/01/2022 [place] Work Phone: Comment on above: Expected: 07/02/2022 (Approximate), Expires: 09/01/2022 Start: 07-02-2022 End: 09-01-2022 Thyrotropin [Units/volume] in Serum or Plasma TSH BLD Lab Routine Type 2 diabetes mellitus without complication, without long-term current use of insulin (HCC) Postablative hypothyroidism Expected: 07/02/2022 (Approximate), Expires: 09/01/2022 [place] Work Phone: Comment on above: Expected: 07/02/2022 (Approximate), Expires: 09/01/2022 Start: 05-11-2022 DEPRESSION ASSESSMENT DEPRESSION ASS ESSMENT [facility] Start: 03-26-2022 Hemoglobin A1c/Hemoglobin.total in Blood HBA1C [facility] Start: 03-05-2022 Hepatitis B screening URINE AL BUMIN:CREATININE RATIO [facility] Start: 03-05-2022 Hepatitis B surface antibody level LDL CHOLESTEROL [facility] Start: 03-05-2022 Lipid panel Lipids [facility] Start: 03-05-2022 Urine screening for protein Diabetic microalbuminuria test [facility] Start: 01-22-2022 3 comp foot exam completed DIABETIC FOOT EXAM [facility] Start: 01-09-2022 Influenza vaccination [facility] Start: 12-20-2021 End: 02-19-2022 ALBUMIN/CREAT RATIO RND UR ALBUMIN/CREAT RATIO RND UR Lab Routine Type 2 diabetes mellitus without complication, without long-term current use of insulin (HCC) Expected: 12/20/2021 (Approximate), Expires: 02/19/2022 [place] Work Phone: Comment on above: Expected: 12/20/2021 (Approximate), Expires: 02/19/2022 Start: 12-20-2021 End: 02-19-2022 Comprehensive metabolic 2000 panel - Serum or Plasma COMP METABOLIC PANEL Lab Routine Type 2 diabetes mellitus without complication, without long-term current use of insulin (HCC) Expected: 12/20/2021 (Approximate), Expires: 02/19/2022 [place] Work Phone: Comment on above: Expected: 12/20/2021 (Approximate), Expires: 02/19/2022 Start: 12-20-2021 End: 02-19-2022 Hemoglobin A1c/Hemoglobin.total in Blood [place] Work Phone: Comment on above: Expected: 12/20/2021 (Approximate), Expires: 02/19/2022 Start: 12-20-2021 End: 02-19-2022 LIPID PANEL BASIC LIPID PANEL BASIC Lab Routine Dyslipidemia Expected: 12/20/2021 (Approximate), Expires: 02/19/2022 [place] Work Phone: Comment on above: Expected: 12/20/2021 (Approximate), Expires: 02/19/2022 Start: 12-20-2021 End: 02-19-2022 Thyrotropin [Units/volume] in Serum or Plasma TSH BLD Lab Routine Postablative hypothyroidism Expected: 12/20/2021 (Approximate), Expires: 02/19/2022 [place] Work Phone: Comment on above: Expected: 12/20/2021 (Approximate), Expires: 02/19/2022 Start: 11-13-2021 Hemoglobin A1c/Hemoglobin.total in Blood HBA1C [facility] Start: 08-31-2021 Adult depression screening assessment DEPRESSION SCREENING [facility] Start: 08-30-2021 ANNUAL PCP TEAM WINDOW SHADE RING SEWER MALINI DISEASE VISIT ANNUAL PCP TEAM CHRONIC DISEASE VISIT [facility] Start: 05-11-2021 DEPRESSION ASSESSMENT DEPRESSION ASS ESSMENT [facility] Start: 2019 Mammography [facility] Start: 2019 Screening for malign ant neoplasm of breast Mammogram [facility] Start: 07-05-2017 HPV TESTING HPV TESTING [facility] Start: 07-05-2017 PAP TESTING PAP TESTING [facility] Start: 07-05-2017 Screening for malign ant neoplasm of cervix [facility] Start: 03-10-2017 Hemoglobin A1c measurement A1C test (Diabetic or Prediabetic) [facility] Start: 07-05-2015 Screening for malign ant neoplasm of cervix Cervical Cancer Screening [facility] Start: 2009 Screening for malign ant neoplasm of cervix [facility] Start: 2000 Screening for malign ant neoplasm of cervix Pap Smear [facility] Start: 1998 HEPATITIS B (1 of 3 - Risk 3-dose series) HEPATITIS B (1 of 3 - Risk 3-dose series) [facility] Start: 1998 Hepatitis B vaccine (1 of 3 - Risk 3-dose series) Hepatitis B vaccine (1 of 3 - Risk 3-dose series) [facility] Start: 1998 Pneumococcal vaccination Pneumococcal Vaccine (1 of 2 - PCV) [facility] Start: 1998 Urine screening for protein Diabetes: Urine Protein Screening [facility] Start: 1997 Anxiety Screening Anxiety Screening [facility] Start: 1997 Depression Screening Depression Scre ening [facility] Start: 1997 Diabetic retinal exam Diabetic retin al exam [facility] Start: 1997 HEPATITIS C SCREENING HEPATITIS C SC REENING [facility] Start: 1997 Hepatitis C screening S [facility] Start: 1997 HIV SCREENING HIV SCREENING [facility] Start: 1995 ONE PNEUMOVAX PRIOR TO AGE 65 ONE PNEUMOVAX PRIOR TO AGE 65 [facility] Start: 1994 HIV screening HIV screen [facility] Start: 1989 Diabetic foot examination [facility] Start: 1989 Glaucoma screening Diabetes: R etinopathy Screening [facility] Start: 1989 Hepatitis C antibody , confirmatory test DILATED RETINAL EXAM [facility] Start: 1989 Preventive dental service Diabetes: Dental Exam [facility] Start: 1985 PNEUMOCOCCAL (1 - PCV) PNEUMOCOCCAL (1 - PCV) [facility] Start: 1985 Pneumococcal 0-64 ye ars Vaccine (1 - PCV) Pneumococcal 0-64 years Vaccine (1 - PCV) [facility] Start: 1985 Pneumococcal vaccination Pneumococcal Vaccine (1 - PCV) [facility] Start: 1985 Pneumococcal Vaccine : Pediatrics (0 to 5 Years) and At-Risk Patients (6 to 64 Years) (1 - PCV) Pneumococcal Vaccine: Pediatrics (0 to 5 Years) and At-Risk Patients (6 to 64 Years) (1 - PCV) [facility] Start: 1984 COVID-19 VACCINE (#1) COVID-19 VACCI NE (#1) [facility] Start: 1984 COVID-19 VACCINE (1) COVID-19 VACCIN E (1) [facility] Start: 1980 MMR Vaccines (1 of 1 - Standard series) MMR Vaccines (1 of 1 - Standard series) [facility] Start: 1980 Varicella vaccine (1 of 2 - 2-dose childhood series) Varicella vaccine (1 of 2 - 2-dose childhood series) [facility] Start: 1979 COVID-19 VACCINE (#1) COVID-19 VACCI NE (#1) [facility] Start: 1979 Hemoglobin A1c measurement Diabetes: Hemoglobin A1C [facility] Start: 1979 HEPATITIS B (1 of 3 - 3-dose series) HEPATITIS B (1 of 3 - 3-dose series) [facility] Start: 1979 Hepatitis B Vaccine (1 of 3 - 3-dose series) Hepatitis B Vaccine (1 of 3 - 3-dose series) [facility] Start: 1979 Hepatitis B Vaccines (1 of 3 - 3-dose series) Hepatitis B Vaccines (1 of 3 - 3-dose series) [facility] Start: 1979 HIV screening HIV Screening [facility] Start: 1979 Lipid panel Lipid Panel [facility] Start: 1979 Thyroid stimulating hormone measurement TSH Level [facility] COVID & INFLUENZA A/ B & RSV PCR, ROUTINE COVID & INFLUENZA A/B & RSV PCR, ROUTINE Microbiology Routine Acute cough Flu-like symptoms Ordered: 01/28/2024 [facility] Comment on above: Ordered: 01/28/2024 End: 06-10-2025 DBT Breast - bilateral screening MACIEJ SCREENING W [facility] Radiology Routine Encounter for screening mammogram for breast cancer 1 Occurrences starting 05/11/2024 until 06/10/2025 [place] Work Phone: Comment on above: 1 Occurrences starti ng 05/11/2024 until 06/10/2025 End: 11-07-2023 MACIEJ SCREENING MACIEJ SCREENING Radiology Routine Encounter for screening mammogram for breast cancer 1 Occurrences starting 10/08/2022 until 11/07/2023 [place] Work Phone: Comment on above: 1 Occurrences starti ng 10/08/2022 until 11/07/2023 End: 11-21-2021 MRI BRAIN W WO CONTRAST [facility] Work Phone: Comment on above: 1 Occurrences starti ng 11/21/2021 until 11/21/2021 End: 11-21-2021 Nasal Cannula Oxygen Nasal Cannula Oxygen Respiratory Care Routine As Needed until discontinued starting 11/21/2021 [facility] Work Phone: Comment on above: As Needed until disc ontinued starting 11/21/2021 End: 12-06-2022 Screening mammography bi 2-view breast inc cad MACIEJ SCREENING Radiology Routine Encounter for screening mammogram for breast cancer 1 Occurrences starting 11/06/2021 until 12/06/2022 [place] Work Phone: Comment on above: 1 Occurrences starti ng 11/06/2021 until 12/06/2022 End: 02-26-2025 XR Chest PA and Lateral XR CHEST 2V FRONTAL/LAT Radiology Routine Acute cough Flu-like symptoms 1 Occurrences starting 01/28/2024 until 02/26/2025 [place] Work Phone: Comment on above: 1 Occurrences starti ng 01/28/2024 until 02/26/2025 [facility] Immunizations Immunization Date Immunization Notes Care Provider Trae curran 11-29-2019 tetanus toxoid, redu betty diphtheria toxoid, and acellular pertussis vaccine, adsorbed Genoveva Kupflorinac MUCKING MACHINE OPERATOR.OCCUPATIONAL REHABILITATION AIDE Work Phone: [facility] Payers Date Payer Category Payer Self-pay 2021 Unknown [facility] [id number] 2021-Present [address] [place] [address] [id number] 2021 Private Health Insurance [place] SELF FUNDED [id number] 2021 Unknown 2021 Unknown [facility] [place] SELF FUNDED [id number] 2021-Present [phone] [address] [place] [address] PPO [id number] 2021 Unknown [id number] 2019 Unknown [id number] 2018 Medicaid [place] [employer] [place] [employer] [id number] 2018-Present [phone] [address] [place] [address] Medicaid [id number] 2018 Medicaid [id number] 1979 Unknown [id number] 1979 Unknown [id number] 1979 Unknown [id number] 1979 Unknown [id number] 1979 Unknown [id number] 159 Unknown [id number] Unknown [id number] Unknown [id number] Unknown [id number] Unknown [id number] Social History Date Type Detail Facility Start: 07-06-2012 End: 11-08-2024 Tobacco smoking status NHIS Ex-smoker [facility] End: 11-21-2009 History of tobacco use Current smoker [facility] End: 11-21-2009 History of tobacco use Cigarette Smoker [facility] Start: 07-06-2012 End: 02-09-2024 Tobacco use and exposure Smokeless tobacco non-user [facility] Start: 05-16-2021 End: 07-14-2024 Alcohol intake Current drinker of alcohol (finding) [facility] Start: 12-31-2015 History SDOH Alcohol Comment rarely [facility] Start: 12-31-2015 End: 12-24-2021 Tobacco Comment Type: cigarette; Start date: 1999; Stop date: 2009 [facility] Start: 1980 Sex Assigned At Not on file [facility] Start: 09-09-2021 End: 08-19-2022 Exposure to SARS-CoV-2 (event) Not sure [facility] Start: 11-21-2014 End: 10-10-2022 Cigarettes smoked current (pack per day) - Reported 1 [facility] Start: 03-04-2019 End: 04-22-2021 History SDOH Social Connections Phone 5 [facility] Work Phone: Start: 03-04-2019 End: 04-22-2021 History SDOH Social Connections Denominational 1 [facility] Work Phone: Start: 03-04-2019 History SDOH Social Connections Membership 2 [facility] Work Phone: Start: 03-04-2019 History SDOH Social Connections Living 3 [facility] Work Phone: Start: 03-04-2019 History SDOH Physica l Activity MPS 4 [facility] Work Phone: Start: 08-19-2022 Alcohol Comment social couple times per week [employer] Start: 10-10-2022 End: 12-09-2022 Tobacco use panel [facility] Adult Depression Screening Assessment 0 [facility] Start: 09-14-2024 Sex Female (finding) [facility] Start: 1980 Sex Assigned At Female [facility] Medical Equipment Procedure Code Equipment Code Equipment Origin al Text Equipment Identifier Dates [id number], [id number], [id number], [id number], [id number], [id number] Start: 12-17-2020 End: 04-01-2023 Comment on above: Use as directed to t est glucose 2 times daily, E11.9, non-insulin. Use 4 pen needles da shawn Use as directed to t est glucose 3 times daily, E11.9, non-insulin. Use as directed to t est glucose 2 times daily, E11.9, IDDM Use 1 pen needles da shawn Clinical Notes 03-18-2018 to 11-08-2024 Note Date & Type Note Facility 11-08-2024 Progress note Note Date/Time November 08, 2024 8:09pm After Hours [address] [address] OFFICE VISIT Date of Service: 11/08/24 MR#: [id number] Acct: [id number] Name: CRISTINA MARTINEZ Rep #: [id number] : 1980 Provider: PATO Alvarado Age/Sex: 44/F Location: [facility] Status: Signed Intake Vital Signs 11/08/24 14:19 Height 5 ft 5 in Weight: 164 lb BMI 27.3 BP 122/80 H Blood Pressure Location Rt brachial Position Sitting Respiration 18 Temp 98.4 F Temp Source Surface Pulse 84 Pulse Source Doppler Pulse Oximetry (%) 98 Oxygen Delivery Method room air Intake Visit Reasons: Pulled muscle in the back Accompanied by: Self Is patient in pain?: Yes Allergies No Known Allergies Allergy (Verified 08/11/24 09:50) Medications ?Medication ?Instructions ?Recorded ?Confirmed ?Type cetirizine 10 mg capsule (Zyrtec) 10 mg PO DAILY 05/1211/08/24 History insulin lispro 100 unit/mL 1 sliding scale dose subcut QACHS 05/21/23 11/08/24 History subcutaneous pen (Humalog KwikPen (U-100) Insulin) blood-glucose sensor (Dexcom G7 #3 ea 10/26/23 5 Rx Sensor device) Tresiba FlexTouch U-100 100 16 unit (0.16 mL) subcut D AILY #15 05/26/24 11/08/24 Rx unit/mL (3 mL) subcutaneous pen mL (insulin degludec) insulin lispro 100 unit/mL 10.5 unit (0.105 mL) subcut BID 05/26/24 11/08/24 Rx subcutaneous half-unit pen #15 mL (Humalog Romie KwikPen (U-100)) levothyroxine 125 mcg tablet 125 mcg PO DAILY #90 tabs 05/26/24 11/08/24 Rx (Synthroid) tirzepatide 7.5 mg/0.5 mL 7.5 mg (0.5 mL) subcut QWEEK #2 mL 08/22/24 11/08/24 Rx subcutaneous pen injector (Mounjaro) insulin NPH isoph U-100 human 100 10 unit (0.1 mL) sub cut QAM #9 mL 09/14/24 11/08/24 Rx unit/mL (3 mL) subcutaneous pen (Humulin N NPH U-100 Insulin KwikPen) ciprofloxacin HCl 500 mg tablet 500 mg PO BID #14 tabs 11/08/24 11/08/24 Rx (Cipro) metformin 1,000 mg tablet 1,000 mg PO BID #180 tabs 11/08/24 Rx tramadol 50 mg tablet 50 mg PO Q4H PRN lower back pain 11/08/24 11/08/24 Rx acute 7 days #42 tabs Is last menstrual period known: No Post menopausal: Yes Patient : No PFSH Medical History Hypercholesteremia Anxiety Arthritis Thyroid disease Surgical History History of cholecystectomy Social History Smoking Status: Former smoker alcohol intake: current details: 1-2 days per week substance use type: does not use frequency: 1-2 times per week HPI HPI HPI HPI: CRISTINA MARTINEZ, is a 44 F who presents to the office today for lower back painshe injured today with just twisting wrong and it hurts across her back and down the L side She also c/o has only 1 kidney congenitally and for the past week has had stabbing pains into it . She wonders if she has a kidney infection. 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 She also c/o her BS are all olut of jasbir every since they started her on hte inslulin and took her off her orals. ROS Const Constitutional: Positive for decreased energy and weakness (legs) Musc Musculoskeletal: Positive for abnormal gait, back pain (lower back pain ) and limited range of motion Neuro Neurology: Positive for abnormal gait and weakness (legs) Exam Const Constitutional: Yes cooperative and Yes healthy appearing Orientation: Yes alert, awake and oriented x3 HENMT Head: Yes normocephalic Neck Neck: normal visual inspection Eyes General: Yes appearance normal, both eyes and all related structures Resp Effort & Inspection: Yes normal respiratory effort and able to speak in completesentences Auscultation: Yes clear to auscultation bilaterally Cardio Palpitation: Yes normal PMI Rate: Yes regular rate Rhythm: Yes regular rhythm GI Inspection: Yes normal to inspection Auscultation: Yes normal bowel sounds Palpation: Yes soft and no hepatosplenomegaly General: Yes bladder normal to inspection; No CVA tenderness Musc Cervical Spine: Yes cervical ROM normal Thoracic/Lumbar Spine: Yes thoracic and lumbar spine normal to inspection Skin General: no rashes or lesions noted Lesions: Yes no lesions Extrem General: Yes normal to inspection Neuro General: Yes CN's II-XI intact bilaterally, alert, oriented x3 and deep tendon reflexes 2+ bilaterally Cranial Nerves: Yes CN's II-XI intact bilaterally Speech: Yes speech normal Gait: Yes antalgic Motor: weakness (legs) Psych Appearance: Positive grossly normal Mood: Positive congruent mood Affect: Positive normal affect Speech and Movement: Yes speech and movement normal Attitude: Yes cooperative Thought Process: Yes normal Thought Content: Yes normal Judgment: Yes judgment good Results POC Urinalysis Dip (Clinic) Office Urine Color YELLOW Last Edit by Reyna Alvarado NP, EMT I/85-C on 11/08/24 20:09 Office Urine Clarity Clear Last Edit by Reyna Alvarado NP, EMT I/85-C on 5 20:09 Office Urine Glucose Negative Last Edit by Reyna Alvarado NP, EMT I/85-C on 11/08/24 20:09 Office Urine Ketones Negative Last Edit by Reyna Alvarado NP, EMT I/85-C on 11/08/24 20:09 Off Ur Spec [place] 1.020 Last Edit by Reyna Alvarado NP, EMT I/85-C on 11/08/24 20:09 Office Urine pH 8.5 Last Edit by Reyna Alvarado NP, EMT I/85-C on 11/08/24 20:09 Office Urine Bilirubin Negative Last Edit by Reyna Alvarado NP EMT I/85-C on 11/08/24 20:09 Office Urine Urobilinogen 0.2 mg/dL Last Edit by Reyna Alvarado NP, NP-C o n 11/08/24 20:09 Office Urine Blood Negative Last Edit by Reyna Alvarado NP EMT I/85-C on 20:09 Office Urine Blood Hemolyzed NA Last Edit by Reyna Alvarado NP EMT I/85-C on 11/08/24 20:09 Office Urine Protein Negative Last Edit by Reyna Alvarado NP, EMT I/85-C on 11/08/24 20:09 Office Urine Nitrate Negative Last Edit by Reyna Alvarado NP EMT I/85-C on 11/08/24 20:09 Off Ur Leukocytes Negatve Last Edit by Reyna Alvarado NP EMT I/85-C on 11/08/24 20:09 Coding Level of Care Code Off vis,est,level 4 Diagnoses Acute midline low back pain with left-sided sciatica M54.42 Chronicity: acute Back pain laterality: midline Sciatica presence: with sciatica Sciatica laterality: sciatica of left side Left sided sciatica M54.32 Type 2 diabetes mellitus with hyperglycemia, with long-term current use of insulin E11.65; Z79.4 Diabetes mellitus director product management insulin use: with director product management use Assessment and Plan Assessment and Plan (1) Lower back pain: Status: Acute Qualifiers: Chronicity: acute Back pain laterality: midline Sciatica presence: with sciatica Sciatica laterality: sciatica of left side Qualified Code(s): M54.42 - Lumbago with sciatica, left side (2) Left sided sciatica: Status: Acute (3) Hyperglycemia due to type 2 diabetes mellitus: Status: Acute Qualifiers: Diabetes mellitus residential insulin use: with director product management use Qualified Code(s): E11.65 - Type 2 diabetes mellitus with hyperglycemia; Z79.4 - services account manager(current) use of insulin Orders: Orders Culture, Urine Today N30.90 - Cystitis, unspecified without hematuria POC Urinalysis Dip (Clinic) Today M54.50 - Low back pain, unspecified Medications: New metformin 1,000 mg PO BID 180 tabs 3RF ciprofloxacin HCl (Cipro) 500 mg PO BID 14 tabs 0RF tramadol 50 mg PO Q4H PRN 42 tabs 0RF lower back pain acute 7 days M54.50 - Lowback pain, unspecified Patient Instructions: Take the pain medication for the back and start the metformin again Get the antibiotics and either start and wait for the results . Will call with the urine culture 11/08/242008 <Electronically signed by Reyna Mcclain on BRITTANIE WHYTE> Date _ Reyna WHYTE CC: ~ [facility] Work Phone: [phone] 485-507807-01-2025 Progress [facility] [address], [place] [id number] OFFICE VISIT Date of Service: 11/08/24 MR#: [id number] Acct: [id number] Name: RAMYACRISTINA LOPEZ Brittaney Rep #: [id number] : [id number] Provider: PATO Alvarado Age/Sex: 44/F Location: [facility] Status: Signed Intake Vital Signs 11/08/24 14:19 Height 5 ft 5 in Weight: 164 lb BMI 27.3 BP 122/80 H Blood Pressure Location Rt brachial Position Sitting Respiration 18 Temp 98.4 F Temp Source Surface Pulse 84 Pulse Source Doppler Pulse Oximetry (%) 98 Oxygen Delivery Method room air Intake Visit Reasons: Pulled muscle in the back Accompanied by: Self Is patient in pain?: Yes Allergies No Known Allergies Allergy (Verified 08/11/24 09:50) Medications ?Medication ?Instructions ?Recorded ?Confirmed ?Type cetirizine 10 mg capsule (Zyrtec) 10 mg PO DAILY 05/1211/08/24 History insulin lispro 100 unit/mL 1 sliding scale dose subcut QACHS 05/21/23 11/08/24 History subcutaneous pen (Humalog KwikPen (U-100) Insulin) blood-glucose sensor (DexDucksboard G7 #3 ea 10/26/23 5 Rx Sensor device) Tresiba FlexTouch U-100 100 16 unit (0.16 mL) subcut D AILY #15 05/26/24 11/08/24 Rx unit/mL (3 mL) subcutaneous pen mL (insulin degludec) insulin lispro 100 unit/mL 10.5 unit (0.105 mL) subcut BID 05/26/24 11/08/24 Rx subcutaneous half-unit pen #15 mL (Humalog Romie KwikPen (U-100)) levothyroxine 125 mcg tablet 125 mcg PO DAILY #90 tabs 05/26/24 11/08/24 Rx (Synthroid) tirzepatide 7.5 mg/0.5 mL 7.5 mg (0.5 mL) subcut QWEEK #2 mL 08/22/24 11/08/24 Rx subcutaneous pen injector (Mounjaro) insulin NPH isoph U-100 human 100 10 unit (0.1 mL) sub cut QAM #9 mL 09/14/24 11/08/24 Rx unit/mL (3 mL) subcutaneous pen (Humulin N NPH U-100 Insulin KwikPen) ciprofloxacin HCl 500 mg tablet 500 mg PO BID #14 tabs 11/08/24 11/08/24 Rx (Cipro) metformin 1,000 mg tablet 1,000 mg PO BID #180 tabs 11/08/24 Rx tramadol 50 mg tablet 50 mg PO Q4H PRN lower back pain 11/08/24 11/08/24 Rx acute 7 days #42 tabs Is last menstrual period known: No Post menopausal: Yes Patient : No PFSH Medical History Hypercholesteremia Anxiety Arthritis Thyroid disease Surgical History History of cholecystectomy Social History Smoking Status: Former smoker alcohol intake: current details: 1-2 days per week substance use type: does not use frequency: 1-2 times per week HPI HPI HPI HPI: CRISTINA MARTINEZ, is a 44 F who presents to the office today for lower back painshe injured today with just twisting wrong and it hurts across her back and down the L side She also c/o has only 1 kidney congenitally and for the past week has had stabbing pains into it . She wonders if she has a kidney infection. 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 She also c/o her BS are all olut of jasbir every since they started her on hte inslulin and took her off her orals. ROS Const Constitutional: Positive for decreased energy and weakness (legs) Musc Musculoskeletal: Positive for abnormal gait, back pain (lower back pain ) and limited range of motion Neuro Neurology: Positive for abnormal gait and weakness (legs) Exam Const Constitutional: Yes cooperative and Yes healthy appearing Orientation: Yes alert, awake and oriented x3 HENMT Head: Yes normocephalic Neck Neck: normal visual inspection Eyes General: Yes appearance normal, both eyes and all related structures Resp Effort & Inspection: Yes normal respiratory effort and able to speak in completesentences Auscultation: Yes clear to auscultation bilaterally Cardio Palpitation: Yes normal PMI Rate: Yes regular rate Rhythm: Yes regular rhythm GI Inspection: Yes normal to inspection Auscultation: Yes normal bowel sounds Palpation: Yes soft and no hepatosplenomegaly General: Yes bladder normal to inspection; No CVA tenderness Musc Cervical Spine: Yes cervical ROM normal Thoracic/Lumbar Spine: Yes thoracic and lumbar spine normal to inspection Skin General: no rashes or lesions noted Lesions: Yes no lesions Extrem General: Yes normal to inspection Neuro General: Yes CN's II-XI intact bilaterally, alert, oriented x3 and deep tendon reflexes 2+ bilaterally Cranial Nerves: Yes CN's II-XI intact bilaterally Speech: Yes speech normal Gait: Yes antalgic Motor: weakness (legs) Psych Appearance: Positive grossly normal Mood: Positive congruent mood Affect: Positive normal affect Speech and Movement: Yes speech and movement normal Attitude: Yes cooperative Thought Process: Yes normal Thought Content: Yes normal Judgment: Yes judgment good Results POC Urinalysis Dip (Clinic) Office Urine Color YELLOW Last Edit by Reyna Alvarado NP, NP-C on 11/08/24 20:09 Office Urine Clarity Clear Last Edit by Reyna Alvarado NP, EMT I/85-C on 5 20:09 Office Urine Glucose Negative Last Edit by Reyna Alvarado NP EMT I/85-C on 11/08/24 20:09 Office Urine Ketones Negative Last Edit by Reyna Alvarado NP EMT I/85-C on 11/08/24 20:09 Off Ur Spec [place] 1.020 Last Edit by Reyna Alvarado NP, NP-C on 11/08/24 20:09 Office Urine pH 8.5 Last Edit by Reyna Alvarado NP, NP-C on 11/08/24 20:09 Office Urine Bilirubin Negative Last Edit by Reyna Alvarado NP EMT I/85-C on 11/08/24 20:09 Office Urine Urobilinogen 0.2 mg/dL Last Edit by Reyna Alvarado NP, NP-C o n 11/08/24 20:09 Office Urine Blood Negative Last Edit by Reyna Alvarado NP EMT I/85-C on 20:09 Office Urine Blood Hemolyzed NA Last Edit by Reyna Alvarado NP, NP-C on 11/08/24 20:09 Office Urine Protein Negative Last Edit by Reyna Alvarado NP EMT I/85-C on 11/08/24 20:09 Office Urine Nitrate Negative Last Edit by Reyna Alvarado NP EMT I/85-C on 11/08/24 20:09 Off Ur Leukocytes Negatve Last Edit by Reyna Alvarado NP EMT I/85-C on 11/08/24 20:09 Coding Level of Care Code Off vis,est,level 4 Diagnoses Acute midline low back pain with left-sided sciatica M54.42 Chronicity: acute Back pain laterality: midline Sciatica presence: with sciatica Sciatica laterality: sciatica of left side Left sided sciatica M54.32 Type 2 diabetes mellitus with hyperglycemia, with long-term current use of insulin E11.65; Z79.4 Diabetes mellitus residential insulin use: with residential use Assessment and Plan Assessment and Plan (1) Lower back pain: Status: Acute Qualifiers: Chronicity: acute Back pain laterality: midline Sciatica presence: with sciatica Sciatica laterality: sciatica of left side Qualified Code(s): M54.42 - Lumbago with sciatica, left side (2) Left sided sciatica: Status: Acute (3) Hyperglycemia due to type 2 diabetes mellitus: Status: Acute Qualifiers: Diabetes mellitus director product management insulin use: with director product management use Qualified Code(s): E11.65 - Type 2 diabetes mellitus with hyperglycemia; Z79.4 - halfway(current) use of insulin Orders: Orders Culture, Urine Today N30.90 - Cystitis, unspecified without hematuria POC Urinalysis Dip (Clinic) Today M54.50 - Low back pain, unspecified Medications: New metformin 1,000 mg PO BID 180 tabs 3RF ciprofloxacin HCl (Cipro) 500 mg PO BID 14 tabs 0RF tramadol 50 mg PO Q4H PRN 42 tabs 0RF lower back pain acute 7 days M54.50 - Lowback pain, unspecified Patient Instructions: Take the pain medication for the back and start the metformin again Get the antibiotics and either start and wait for the results . Will call with the urine culture 11/08/242008 on EMT I/85 EMT I/85-C> Date _ Reyna Alvarado EMT I/85 EMT I/85-C CC: ~ [facility]06-06-2025 Telephone encounter Note* Telephone Encounter - Gely Patel LPN - 10/14/2024 3:04 PM EDT Patient returned call and went over notes below, scheduled for 11/10/2024 with PA, patient requested later in day time for her appt. [facility]06-06-2025 Miscellaneous Notes* Telephone Encounter - Gely Patel LPN - 10/14/2024 3:04 PM EDT Patient returned call and went over notes below, scheduled for 11/10/2024 with PA, patient requested later in day time for her appt. * Telephone Encounter - Koffi Narayanan LPN - 10/14/2024 1:27 PM EDT Left message for pt to contact office. Koffi Narayanan LPN * Telephone Encounter - Jeffery Swift MD - 10/13/2024 8:43 PM EDT Patient still needs to reschedule her PE. Nory has a lot of openings next week documented [facility] Telephone encounter Note * Telephone Encounter - Koffi Narayanan LPN - 10/14/2024 1:27 PM EDT Left message for pt to contact office. Koffi Narayanan LPN [facility]06-05-2025 Telephone encounter Note* Telephone Encounter - Jeffery Swift MD - 10/13/2024 8:43 PM EDT Patient still needs to reschedule her PE. 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 August 11, 2024 9:43am Overweight chronic August 11 9:43am Type 1 diabetes mellitus wit h hyperglycemia chronic August 11, 2024 9:43am Bronchitis acute August 19 4:54pm Maxillary sinusitis, acute acute August 19, 2024 4:54pm [facility] Work Phone: 1(609) 947-311204-03-2025 Evaluation note* Diagnosis Onset Date Resolution Status Admit Date High cholesterol chronic August 9:43am 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 malini August 11, 2024 9:43am Overweight chronic August 11 9:43am Type 1 diabetes mellitus wit h hyperglycemia chronic August 11, 2024 9:43am Bronchitis acute August 19 4:54pm Maxillary sinusitis, acute acute August 19, 2024 4:54pm Maxillary sinusitis, acute acute September 13, 2024 4:48pm Pharyngitis acute September 13, 2024 4:48pm Hyperglycemia due to type 2 diabetes mellitus acute November 08, 2024 4:40pm Left sided sciatica acute November 08, 2024 4:40pm Lower back pain acute November 08, 2024 4:40pm [facility] Work Phone: 1(939) 262-195103-06-2025 NoteHNO ID: [id number] Author: MALLORIE JAUREGUI LPN Service: ? Author Type: LICENSED NURSE Type: Progress Notes Filed: 07/15/2024 08:15 Note Text: Per Dr. Duvall, Cristina was provided with powerstep gel inserts, size 9, and instructed/educated in its application, wear, and care. All questions were answered, and patient was able to demonstrate competence with the necessary skills to utilize the above equipment. [facility] History of Present illness Narrative* Mallorie Jauregui LPN - 07/14/2024 10:09 AM EST Per Cristina Dixon was provided with powerstep gel inserts, size 9, and instructed/educatedin its application, wear, and care. All questions were answered, and patient was able to demonstrate competence with the necessary skills to utilize the above equipment. Mallorie Jauregui LPN * Stephanie Duvall - 07/14/2024 9:35 AM EST Initial Podiatric Office Visit: Chief Complaint: This 44 year old female who presents with chief complaint:wart of right foot HPI Patient presents to clinic for evaluation of right foot. Has wart to right 5th metatarsal that she has noticed for the past 1-3 months. Hurts with pressure. Treated with debridement and she was fine but the condition returned. Here to discuss options. She was last seen in 2020 and we had talked about her bunion of left foot. This causes her pain andshe is interested in discussing surgery but would like to consider after 2024. She is type 2 diabetes. Patient denies any burning or numbness. Her last A1c was October 2023 was 6.9. Does also mention ingrowing toenail of b/l feet. PAIN EVALUATION 07/14/2024 0930 Pain Level: 5 Pain Location: Foot-Right Description: Tenderness Duration Amount of Time: 2 Duration Units: Months Frequency: Intermittent Intervention/Comfort measure: Relaxation;Reposition Hemoglobin A1C (%) Date Value 10/15/2023 6.9 07/16/2023 7.5 11/29/2019 6.2 08/15/2015 5.9 10/06/2012 5.6 07/06/2012 5.3 Hemoglobin A1c (%) Date Value 03/10/2016 5.8 02/19/2015 6.8 Hemoglobin A1C (POCT) (%) Date Value 12/09/2022 7.8 08/07/2022 7.5 04/01/2022 7.9 12/24/2021 8.1 09/19/2021 8.1 PCP: Jeffery Swift MD PAST MEDICAL HISTORY Diagnosis Date Blurring of visual image Chronic osteoarthritis Congenital single kidney left Diverticulitis Dyslipidemia 11/29/2019 Encounter for gynecological examination 07/21/2023 Seeing Natasha Strauss Foot callus 11/29/2019 Gastroesophageal reflux disease Migraine Over weight 12/18/2017 Postablative hypothyroidism 07/06/2012 History of hyperthyroidism Seasonal allergies 11/29/2019 Type 2 diabetes mellitus without complication, without long-term current use of insulin ([facility]) 09/19/[address] Doyle Vitamin D deficiency Current Outpatient Medications Medication Sig insulin glargine (LANTUS SOLOSTAR U-100 INSULIN) 100 unit/mL (3 mL) Inject 8 units subcutaneously daily; Per Dr. Vivek Linares tirzepatide (MOUNJARO) 7.5 mg/0.5 mL pen injector Inject 7.5 mg subcutaneously one time a week. PerDr. Doyle levothyroxine (SYNTHROID) 125 mcg tablet take 1 tablet by mouth every morning before breakfast insulin lispro (HUMALOG KWIKPEN INSULIN) 100 unit/mL 3 units TID, per Dr. Vivek Linares metFORMIN ER (GLUCOPHAGE XR) 500 mg 24 hr tablet Take 2 tablets by mouth two times a day with meals. Per Dr. Vivek linares glimepiride (AMARYL) 2 mg tablet Take 2 tabs breakfast and [address]. [address] Vivek Linares Insulin [place], Disposable, (BD ULTRAFINE III MINI PEN) 31 gauge x 3/16 Use 4 pen needles daily Blood-Glucose Sensor (DEXCOM G6 SENSOR) ismael Use one sensor every 10 days, IDDM, E 11.9 Blood-Glucose Transmitter (DEXCOM G6 TRANSMITTER) ismael Use one transmitter every 3 months, IDDM, E 11.9 Blood-Glucose Meter,Continuous (DEXCOM G6 SKATES OPERATOR[place] [facility] [place] to monitor glucose, IDDM,E11.9 blood sugar diagnostic (BLOOD GLUCOSE TEST) test strip Use as directed to test glucose 2 times daily, E11.9, IDDM Lancets lancets Use as directed to test glucose 3 times daily, E11.9, non-insulin. MULTIVITAMIN ORAL Take by mouth. flintstone Blood-Glucose Meter Use as directed to test glucose 3 times daily, E11.9, non-insulin. cetirizine (ZYRTEC) 10 mg tablet Take 1 tablet by mouth twice daily. No current facility-administered medications for this visit. ALLERGIES Allergen Reactions Blue Dye Hives Hydrocodone Other: See Comments N \T\ V Invokana [Canaglifl* Other: See Comments Vaginal yeast infections Lipitor [Atorvastat* Other: See Comments made sugars increase. PAST SURGICAL HISTORY Procedure Laterality Date CHOLECYSTECTOMY HX 2010 HYSTERECTOMY HX 07/01/2013 [facility] - DUB LAPAROSCOPIC TUBAL LIGATION/RING/CLIP 08/20/2012 [facility]shie clips NEEDLE OCULOGRAPHY 1/ XOC MUSC 1/BOTH EYE W/I&R SURGERY TO REPAIR LAZY EYE L EYE PAST SURGICAL HISTORY OF 2008 Dental procedure- 4 wisdom teeth removed PAST SURGICAL HISTORY OF Eye muscle surgery procedure PAST SURGICAL HISTORY OF 2012 Hysterectomy, ovary preserv PAST SURGICAL HISTORY OF 08/2012 Tubal sterilization SALPINGECTOMY Bilateral 07/01/2013 TOOTH EXTRACTION FAMILY HISTORY Problem Relation Age of Onset other (migraine) Father other (rheumatoid arthritis) Father other (Thyroid disorder) Father hyperthyroid Arthritis Mother osteoarthritis Diabetes Mother other (migraine) Mother other (Cancer - other) Paternal Grandmother started in her eye and metastasized Alzheimer's Disease Maternal Grandmother other (Diabetes mellitus) Maternal Grandmother Cancer Other multiple family members Thyroid Paternal Grandfather hyperthyroid Diabetes Paternal Grandfather Thyroid Paternal Uncle hyperthyroid Thyroid Paternal Aunt hyperthyroid Thyroid Paternal Uncle hyperthyroid other (Thyroid disorder) Other other (Thyroid disorder) Other Social History Tobacco Use Smoking status: Former Current packs/day: 0.00 Types: Cigarettes Quit date: 07/03/2009 Years since quittin.0 Smokeless tobacco: Never Tobacco comments: Type: cigarette; Start date: 1999; Stop date: 2009 Vaping Use Vaping status: Never Used Substance Use Topics Alcohol use: Yes Comment: rarely Drug use: No REVIEW OF SYSTEMS GENERAL: Negative for Malaise, significant weight loss, fever RESPIRATORY: Negative for cough, wheezing and shortness of breath CARDIOVASCULAR: Negative for chest pain, leg swelling and palpitations GI: Negative for abdominal discomfort, blood in stools or black stools and change in bowel habits : Negative for dysuria, frequency and incontinence MUSCULOSKELETAL: Negative for joint pain or swelling, back pain, and muscle pain. SKIN: Negative for lesions, rash, and itching. HEMATOLOGY/LYMPHOLOGY Negative for prolonged bleeding, bruising easily, and swollen nodes. ENDOCRINE: Negative for cold or heat intolerance, polyuria, polydipsia and goiter. NEURO: negative Physical Exam: Constitutional: Pt is a well developed 44 year old female who is alert, oriented and cooperative Eyes: Following during examination. No redness or drainage. Respiratory: RR normal and nonlabored. Even breathing. No evidence of distress or shortness of breath. Psychology: Patient is engaged during conversation. Normal affect and mood. Does not appear depressed or anxious during encounter. Vascular: Dorsalis pedis and posterior tibial pulses palpable as b/l Capillary Fill time < 5 seconds to digits 1-5 b/l Skin temperature warm to warm proximal to distal b/l Hair growth present to digits Neurological: intact light touch/epicritic sensation b/l intact protective sensation no significant neurological deficits Dermatological: B/l hallux has ingrowing tendency of medial and lateral nail border. No signs of infection. Webspaces clean and dry 1-4 b/l. Skin appears well hydrated and supple. good color, texture, turgor. No open lesions present. Porokeratosis is present to right 5th metatarsal head. No wart present. Musculoskeletal/Orthopaedic: Patient has pain to palpation of left 1st mtpj. Dorsal spurring of left 1st mtpj is noted. Rom of left first mtpj is completely diminished with pain at end rom. There is cocked up 5th toe of left foot Foot type is neutral structurally AJ ROM is full with knee extended and flexed 1st MPJ is decreased when loaded and + pain or crepitus are noted with ROM. MTJ, STJ are full and free of pain and crepitus. +5/5 muscle strength dorsiflexion, plantarflexion, inversion, eversion b/l Radiographs: ordered ASSESSMENT: (Q82.8) Porokeratosis (primary encounter diagnosis) (E11.9) Type 2 diabetes mellitus without complication, without long-term current use of insulin ([facility]) (M20.22) Hallux rigidus of left foot (M20.42) Hammertoe of left foot PLAN: Discussed porokeratosis of right foot. This is not a wart. Porokeratosis was debrided with 15 blade. Tca applied under occlusion. Provided patient with powerstep inserts with donut hole pad to help eliminate direct pressure. Discussed possible recurrence Discussed arthritsi of left 1st mtpj. Recommend firm sole shoes or inserts. Other options discussedinclude nsaids vs steroid injection vs surgery. Surgical options discussed include cheilectomy although I feel that her arthritis is too advanced for cheilectomy alone. Other options discussed include implant arthroplasty vs decompression osteotomy vs fusion. I do have concerns for implant due to her young age and active lifestyle. If she were interested in surgery, fusion likely would be best option given severity of arthritis both clinically and radiographically Discussed hammertoe of left 5th toe. This toe has been cocked up since childhood. She likely would require tendon and skin lengthening. She is interested in surgery but not until davi time. Will have her make follow-up in late summer. 5. Can repeat xrays in summer/fall per patient request. 6. Discussed ingrowing toenail. No signs of infection. If pain were present, could consider partialnail matrixectomy. Stephanie Duvall DPM Podiatry [address] [facility] [address] Dept: [phone] Dept * Mallorie Jauregui LPN - 07/14/2024 9:30 AM EST AMB ROOMING INTAKE FLOWSHEET DATA Pain Pain Level: 5 Pain Location: Foot-Right Description: Tenderness Duration Amount of Time: 2 Duration Units: Months Frequency: Intermittent Intervention/Comfort measure: Relaxation, Reposition Patient presents with: Right Foot - New, Diabetes, Pain, Wart aMllorie Jauregui LPN documented [facility] Instructions* Patient Instructions* Stephanie Duvall - 07/14/2024 10:06 AM EST Trichloroacetic acid (TCA) has been applied to the plantar warts. Rinse off in 12 hours and keep clean and dry. May bathe and shower normally starting the day after treatment The area is expected to burn and blister in about 1-3 days, if painful soak in plain, cool water. If blistered, you may drain the blister with a clean, STERILIZED needle and apply OTC antibiotic ointment and band aid to area. Repeat 2-3 times daily as needed. Tylenol or Aleve as needed for pain, provided you have no allergies to either of these. Keep scheduled follow up appointment to have wart(s) re-evaluated and/or additional treatments. Powerstep Original Full length. Can purchase at [facility] [employer] and boots,shoes and more here in [place], [employer] in [place] or [place]. Also can find in [employer] in [facility]. Powersteps can also be purchased online, starting around $45.00 If you have a metatarsal or dancer pad for your feet apply the pad directly to the insole so you can interchange between your shoes. Find a shoe with a removable insole and take this out and replace with your powerstep insole. Always bring powersteps with you when shopping for shoes so that you can make sure that everything fits well together documented in this encounterC[facility]03-[facility]25 NoteHNO ID: [id number] Author: STEPHANIE DUVALL, ? Service: ? Author Type: Physician Type: Progress Notes Filed: 07/15/2024 08:15 Note Text: Initial Podiatric Office Visit: Chief Complaint: This 44 year old female who presents with chief complaint:wart of right foot HPI Patient presents to clinic for evaluation of right foot. Has wart to right 5th metatarsal that she has noticed for the past 1-3 months. Hurts with pressure. Treated with debridement and she was fine but the condition returned. Here to discuss options. She was last seen in 2020 and we had talked about her bunion of left foot. This causes her pain and she is interested in discussing surgery but would like to consider after 2024. She is type 2 diabetes. Patient denies any burning or numbness. Her last A1c was October 2023 was 6.9. Does also mention ingrowing toenail of b/l feet. PAIN EVALUATION 07/14/2024 0930 Pain Level: 5 Pain Location: Foot-Right Description: Tenderness Duration Amount of Time: 2 Duration Units: Months Frequency: Intermittent Intervention/Comfort measure: Relaxation;Reposition Hemoglobin A1C (%) Date Value 10/15/2023 6.9 07/16/2023 7.5 11/29/2019 6.2 08/15/2015 5.9 10/06/2012 5.6 07/06/2012 5.3 Hemoglobin A1c (%) Date Value 03/10/2016 5.8 02/19/2015 6.8 Hemoglobin A1C (POCT) (%) Date Value 12/09/2022 7.8 08/07/2022 7.5 04/01/2022 7.9 12/24/2021 8.1 09/19/2021 8.1 PCP: Jeffery Swift MD PAST MEDICAL HISTORY Diagnosis Date Blurring of visual image Chronic osteoarthritis Congenital single kidney left Diverticulitis Dyslipidemia 11/29/2019 Encounter for gynecological examination 07/21/2023 Seeing Natasha Strauss Foot callus 11/29/2019 Gastroesophageal reflux disease Migraine Over weight 12/18/2017 Postablative hypothyroidism 07/06/2012 History of hyperthyroidism Seasonal allergies 11/29/2019 Type 2 diabetes mellitus without complication, without long-term current use of insulin ([facility]) 09/19/[address] Doyle Vitamin D deficiency Current Outpatient Medications Medication Sig insulin glargine (LANTUS SOLOSTAR U-100 INSULIN) 100 unit/mL (3 mL) Inject 8 units subcutaneously daily; Per Dr. Vivek Linares tirzepatide (MOUNJARO) 7.5 mg/0.5 mL pen injector Inject 7.5 mg subcutaneously one time a week. PerDr. Doyle levothyroxine (SYNTHROID) 125 mcg tablet take 1 tablet by mouth every morning before breakfast insulin lispro (HUMALOG KWIKPEN INSULIN) 100 unit/mL 3 units TID, per Dr. Vivek Linares metFORMIN ER (GLUCOPHAGE XR) 500 mg 24 hr tablet Take 2 tablets by mouth two times a day with meals. Per Dr. Vivek linares glimepiride (AMARYL) 2 mg tablet Take 2 tabs breakfast and [address]. [address] Vivek Linares Insulin Row[place], Disposable, (BD ULTRAFINE III MINI PEN) 31 gauge x 3/16 Use 4 pen needles daily Blood-Glucose Sensor (DEXCOM G6 SENSOR) ismael Use one sensor every 10 days, IDDM, E 11.9 Blood-Glucose Transmitter (DEXCOM G6 TRANSMITTER) ismael Use one transmitter every 3 months, IDDM, E 11.9 Blood-Glucose Meter,Continuous (DEXCOM G6 SKATES OPERATOR) [facility] Use [facility] to monitor glucose, IDDM, E11.9 blood sugar diagnostic (BLOOD GLUCOSE TEST) test strip Use as directed to test glucose 2 times daily, E11.9, IDDM Lancets lancets Use as directed to test glucose 3 times daily, E11.9, non-insulin. MULTIVITAMIN ORAL Take by mouth. flintstone Blood-Glucose Meter Use as directed to test glucose 3 times daily, E11.9, non-insulin. cetirizine (ZYRTEC) 10 mg tablet Take 1 tablet by mouth twice daily. No current facility-administered medications for this visit. ALLERGIES Allergen Reactions Blue Dye Hives Hydrocodone Other: See Comments N \EANDE\ V Invokana [Canaglifl* Other: See Comments Vaginal yeast infections Lipitor [Atorvastat* Other: See Comments made sugars increase. PAST SURGICAL HISTORY Procedure Laterality Date CHOLECYSTECTOMY HX 2011 HYSTERECTOMY HX 07/01/2013 [facility] - DUB LAPAROSCOPIC TUBAL LIGATION/RING/CLIP 08/20/2012 Filshie clips NEEDLE OCULOGRAPHY 1/ XOC MUSC 1/BOTH EYE W/IANDR SURGERY TO REPAIR LAZY EYE L EYE PAST SURGICAL HISTORY OF 2008 Dental procedure- 4 wisdom teeth removed PAST SURGICAL HISTORY OF Eye muscle surgery procedure PAST SURGICAL HISTORY OF 2012 Hysterectomy, ovary preserv PAST SURGICAL HISTORY OF 08/2012 Tubal sterilization SALPINGECTOMY Bilateral 07/01/2013 TOOTH EXTRACTION FAMILY HISTORY Problem Relation Age of Onset other (migraine) Father other (rheumatoid arthritis) Father other (Thyroid disorder) Father hyperthyroid Arthritis Mother osteoarthritis Diabetes Mother other (migraine) Mother other (Cancer - other) Paternal Grandmother started in her eye and metastasized Alzheimer's Disease Maternal Grandmother other (Diabetes mellitus) Maternal Grandmother Cancer Other multiple family members Thyroid Paternal Grandfather hyperthyroid (more content not included)...[facility]03-06-2025 NoteHNO ID: [id number] Author: MALLORIE JAUREGUI LPN Service: ? Author Type: LICENSED NURSE Type: Progress Notes Filed: 07/15/2024 08:15 Note Text: AMB ROOMING INTAKE FLOWSHEET DATA Pain Pain Level: 5 Pain Location: Foot-Right Description: Tenderness Duration Amount of Time: 2 Duration Units: Months Frequency: Intermittent Intervention/Comfort measure: Relaxation, Reposition Patient presents with: Right Foot - New, Diabetes, Pain, Wart [facility] NotePatient Outreach (INTMMN) CRISTINA MARTINEZ ([id number]) 1980 F Date Time Provider Department 05/11/24 JEFFERY SWIFT During your visit today, we recorded the following information about you: Allergies As of Date: 05/11/2024 Noted Allergy Reaction BLUE DYE 03/10/2016 4 - Hives HYDROCODONE 12/31/2015 14 - Other: See Comments Comments: N \EANDE\ V INVOKANA (CANAGLIFLOZIN) 03/11/2018 14 - Other: See Comments Comments: Vaginal yeast infections LIPITOR (ATORVASTATIN) 02/27/2020 14 - Other: See Comments Comments: made sugars increase. Date Reviewed: 02/09/2024 Reviewed by: Katarzyna Meneses MA - Fully Assessed Visit Diagnosis:Encounter for screening mammogram for breast cancer [Z12.31] Order(s):[facility] SCREENING [facility]HSEN [[id number]] Order #: [id number] FUTURE Prescriptions as of 05/16/2024 - insulin glargine (LANTUS SOLOSTAR U-100 INSULIN) 100 unit/mL (3 mL) Inject 8 units subcutaneously daily; Per Dr. Vivek Linares - tirzepatide (MOUNJARO) 7.5 mg/0.5 mL pen injector Inject 7.5 mg subcutaneously one time a week. Dr. Vivek Castro - levothyroxine (SYNTHROID) 125 mcg tablet take 1 tablet by mouth every morning before breakfast - insulin lispro (HUMALOG KWIKPEN INSULIN) 100 unit/mL 3 units TID, per Dr. Vivek Linares - metFORMIN ER (GLUCOPHAGE XR) 500 mg 24 hr tablet Take 2 tablets by mouth two times a day with meals. Per Dr. Vivek linares - glimepiride (AMARYL) 2 mg tablet Take 2 tabs breakfast and [address]. [address] Vivek Linares - Insulin Rowlett, Disposable, (BD ULTRAFINE III MINI PEN) 31 gauge x 3/16 Use 4 pen needles daily - Blood-Glucose Sensor (DEXCOM G6 SENSOR) ismael Use one sensor every 10 days, IDDM, E 11.9 - Blood-Glucose Transmitter (DEXCOM G6 TRANSMITTER) ismael Use one transmitter every 3 months, IDDM, E 11.9 - Blood-Glucose Meter,Continuous (DEXCOM G6 SKATES OPERATOR) [facility] Use continuously to monitor glucose, IDDM, E11.9 - blood sugar diagnostic (BLOOD GLUCOSE TEST) test strip Use as directed to test glucose 2 times daily, E11.9, IDDM - Lancets lancets Use as directed to test glucose 3 times daily, E11.9, non-insulin. - MULTIVITAMIN ORAL Take by mouth. flintstone - Blood-Glucose Meter Use as directed to test glucose 3 times daily, E11.9, non-insulin. - cetirizine (ZYRTEC) 10 mg tablet Take 1 tablet by mouth twice daily. Problem List As Of Date 05/11/2024 Noted Resolved Rhinitis [J31.0] 01/07/2012 06/28/2013 Otalgia [H92.09] 01/07/2012 06/28/2013 Vertigo [R42] 04/09/2012 06/28/2013 Tinnitus [H93.19] 04/09/2012 06/28/2013 Postablative hypothyroidism [E89.0] 07/06/2012 Vaginal yeast infection [B37.31] 03/18/2018 03/25/2018 Vitamin D deficiency [E55.9] 11/29/2019 Seasonal allergies [J30.2] 11/29/2019 Dyslipidemia [E78.5] 11/29/2019 Foot callus [L84] 11/29/2019 Congenital single kidney [Q60.0] Type 2 diabetes mellitus without complication, *09/19/2021 Well adult exam [Z00.00] 07/21/2023 Encounter for gynecological examination [Z01.41*07/21/2023 Nasal polyps [J33.9] 02/09/2024 Encounter Status:Closed by [employer] on 05/16/24[facility] 02-09-2024 Instructions* Patient Instructions* Jeffery Swift MD - 02/09/2024 10:25 AM EDT Please get labs and urine test done on or after 07/29/2024 prior to your next visit. [facility] NoteHNO ID: [id number] Author: JEFFERY SWIFT MD Service: ? Author Type: Physician Type: Progress Notes Filed: 02/09/2024 10:35 Note Text: Chief Complaint Patient presents with: F/U 6 months HPI Cristina Martinez is a 43 year old female who presents here today for 6 month follow up. Patient sees endocrinology last visit 01/2024 Follows with endocrinology for hx of diabetes and hypothyroidism ADHD dx as child; was on medication for a short time; has noticed difficulty with concentrating and staying focused. Patient has been getting dizzying, off balance. No ataxia or vertigo. Not related to position changes. Sometimes if she rolls over too fast she will get it. But has it often at rest. No syncope. Does have allergies. Ears always hurt. Has noted some decreased hearing. Nose is congested. Patient has checked her home BP and has been normal during the dizzy spells. Like 's Past medical history, appointments, medications, allergies reviewed. Previous Medical History PAST MEDICAL HISTORY Diagnosis Date Blurring of visual image Chronic osteoarthritis Congenital single kidney left Diverticulitis Dyslipidemia 11/29/2019 Encounter for gynecological examination 07/21/2023 Seeing Natasha Strauss Foot callus 11/29/2019 Gastroesophageal reflux disease Migraine Over weight 12/18/2017 Postablative hypothyroidism 07/06/2012 History of hyperthyroidism Seasonal allergies 11/29/2019 Type 2 diabetes mellitus without complication, without long-term current use of insulin ([facility]) 09/19/[address] Doyle Vitamin D deficiency Previous Surgical History PAST SURGICAL HISTORY Procedure Laterality Date CHOLECYSTECTOMY HX 2010 HYSTERECTOMY HX 07/01/2013 LAV - DUB LAPAROSCOPIC TUBAL LIGATION/RING/CLIP 08/20/2012 Filshie clips NEEDLE OCULOGRAPHY 1/ XOC MUSC 1/BOTH EYE W/IANDR SURGERY TO REPAIR LAZY EYE L EYE PAST SURGICAL HISTORY OF 2008 Dental procedure- 4 wisdom teeth removed PAST SURGICAL HISTORY OF Eye muscle surgery procedure PAST SURGICAL HISTORY OF 2012 Hysterectomy, ovary preserv PAST SURGICAL HISTORY OF 08/2012 Tubal sterilization SALPINGECTOMY Bilateral 07/01/2013 TOOTH EXTRACTION Family History FAMILY HISTORY Problem Relation Age of Onset other (migraine) Father other (rheumatoid arthritis) Father other (Thyroid disorder) Father hyperthyroid Arthritis Mother osteoarthritis Diabetes Mother other (migraine) Mother other (Cancer - other) Paternal Grandmother started in her eye and metastasized Alzheimer's Disease Maternal Grandmother other (Diabetes mellitus) Maternal Grandmother Cancer Other multiple family members Thyroid Paternal Grandfather hyperthyroid Diabetes Paternal Grandfather Thyroid Paternal Uncle hyperthyroid Thyroid Paternal Aunt hyperthyroid Thyroid Paternal Uncle hyperthyroid other (Thyroid disorder) Other other (Thyroid disorder) Other Patient Allergies ALLERGIES Allergen Reactions Blue Dye Hives Hydrocodone Other: See Comments N \EANDE\ V Invokana [Canaglifl* Other: See Comments Vaginal yeast infections Lipitor [Atorvastat* Other: See Comments made sugars increase. Current Medications Current Outpatient Medications on File Prior to Visit Medication Sig levothyroxine (SYNTHROID) 125 mcg tablet take 1 tablet by mouth every morning before breakfast tirzepatide (MOUNJARO) 7.5 mg/0.5 mL pen injector Inject 7.5 mg subcutaneously one time a week. insulin glargine (LANTUS SOLOSTAR U-100 INSULIN) 100 unit/mL (3 mL) Inject 10 units subcutaneously daily; Per Dr. Vivek Linares (Patient taking differently: Inject 8 units subcutaneously daily; Per Dr. Vivek Linares) insulin lispro (HUMALOG KWIKPEN INSULIN) 100 unit/mL 3 units TID, per Dr. Vivek Linares metFORMIN ER (GLUCOPHAGE XR) 500 mg 24 hr tablet Take 2 tablets by mouth two times a day with meals. Per Dr. Vivek linares glimepiride (AMARYL) 2 mg tablet Take 2 tabs breakfast and [address] Vivek Linares Insulin Rowlett, Disposable, (BD ULTRAFINE III MINI PEN) 31 gauge x 3/16 Use 4 pen needles daily Blood-Glucose Sensor (DEXCOM G6 SENSOR) ismael Use one sensor every 10 days, IDDM, E 11.9 Blood-Glucose Transmitter (DEXCOM G6 TRANSMITTER) ismael Use one transmitter every 3 months, IDDM, E 11.9 Blood-Glucose Meter,Continuous (DEXCOM G6 SKATES OPERATOR[place] [facility] [place] to monitor glucose, IDDM, E11.9 blood sugar diagnostic (BLOOD GLUCOSE TEST) test strip Use as directed to test glucose 2 times daily, E11.9, IDDM Lancets lancets Use as directed to test glucose 3 times daily, E11.9, non-insulin. MULTIVITAMIN ORAL Take by mouth. flintstone Blood-Glucose Meter Use as directed to test glucose 3 times daily, E11.9, non-insulin. cetirizine (ZYRTEC) 10 mg tablet Take 1 tablet by mouth twice daily. No current facility-administered medications on file prior to visit. Social History Social History Tobacco Use Smoking s (more content not included)...[facility]10-01-2024 History of Present illness Narrative* Jeffery Swift MD - 02/09/2024 9:16 AM EDT Chief Complaint Patient presents with: F/U 6 months HPI Cristina Martinez is a 43 year old female who presents here today for 6 month follow up. Patient sees endocrinology last visit 01/2024 Follows with endocrinology for hx of diabetes and hypothyroidism ADHD dx as child; was on medication for a short time; has noticed difficulty with concentrating andstaying focused. Patient has been getting dizzying, off balance. No ataxia or vertigo. Not related to position changes. Sometimes if she rolls over too fast she will get it. But has it often at rest. No syncope. Doeshave allergies. Ears always hurt. Has noted some decreased hearing. Nose is congested. Patient has checked her home BP and has been normal during the dizzy spells. Like /70's Past medical history, appointments, medications, allergies reviewed. Previous Medical History PAST MEDICAL HISTORY Diagnosis Date Blurring of visual image Chronic osteoarthritis Congenital single kidney left Diverticulitis Dyslipidemia 11/29/2019 Encounter for gynecological examination 07/21/2023 Seeing Natasha Wills callus 11/29/2019 Gastroesophageal reflux disease Migraine Over weight 12/18/2017 Postablative hypothyroidism 07/06/2012 History of hyperthyroidism Seasonal allergies 11/29/2019 Type 2 diabetes mellitus without complication, without long-term current use of insulin ([facility]) 09/19/[address] Doyle Vitamin D deficiency Previous Surgical History PAST SURGICAL HISTORY Procedure Laterality Date CHOLECYSTECTOMY HX 2010 HYSTERECTOMY HX 07/01/2013 [facility] - DUB LAPAROSCOPIC TUBAL LIGATION/RING/CLIP 08/20/2012 Filshie clips NEEDLE OCULOGRAPHY 1/ XOC MUSC 1/BOTH EYE W/I&R SURGERY TO REPAIR LAZY EYE L EYE PAST SURGICAL HISTORY OF 2008 Dental procedure- 4 wisdom teeth removed PAST SURGICAL HISTORY OF Eye muscle surgery procedure PAST SURGICAL HISTORY OF 2012 Hysterectomy, ovary preserv PAST SURGICAL HISTORY OF 08/2012 Tubal sterilization SALPINGECTOMY Bilateral 07/01/2013 TOOTH EXTRACTION Family History FAMILY HISTORY Problem Relation Age of Onset other (migraine) Father other (rheumatoid arthritis) Father other (Thyroid disorder) Father hyperthyroid Arthritis Mother osteoarthritis Diabetes Mother other (migraine) Mother other (Cancer - other) Paternal Grandmother started in her eye and metastasized Alzheimer's Disease Maternal Grandmother other (Diabetes mellitus) Maternal Grandmother Cancer Other multiple family members Thyroid Paternal Grandfather hyperthyroid Diabetes Paternal Grandfather Thyroid Paternal Uncle hyperthyroid Thyroid Paternal Aunt hyperthyroid Thyroid Paternal Uncle hyperthyroid other (Thyroid disorder) Other other (Thyroid disorder) Other Patient Allergies ALLERGIES Allergen Reactions Blue Dye Hives Hydrocodone Other: See Comments N \T\ V Invokana [Canaglifl* Other: See Comments Vaginal yeast infections Lipitor [Atorvastat* Other: See Comments made sugars increase. Current Medications Current Outpatient Medications on File Prior to Visit Medication Sig levothyroxine (SYNTHROID) 125 mcg tablet take 1 tablet by mouth every morning before breakfast tirzepatide (MOUNJARO) 7.5 mg/0.5 mL pen injector Inject 7.5 mg subcutaneously one time a week. insulin glargine (LANTUS SOLOSTAR U-100 INSULIN) 100 unit/mL (3 mL) Inject 10 units subcutaneously daily; Per Dr. Vivek Linares (Patient taking differently: Inject 8 units subcutaneously daily; Per Dr. Vivek Linares) insulin lispro (HUMALOG KWIKPEN INSULIN) 100 unit/mL 3 units TID, per Dr. Vivek Linares metFORMIN ER (GLUCOPHAGE XR) 500 mg 24 hr tablet Take 2 tablets by mouth two times a day with meals. Per Dr. Vivek linares glimepiride (AMARYL) 2 mg tablet Take 2 tabs breakfast and [address] Vivek Linares Insulin Rowlett, Disposable, (BD ULTRAFINE III MINI PEN) 31 gauge x 3/16 Use 4 pen needles daily Blood-Glucose Sensor (DEXCOM G6 SENSOR) ismael Use one sensor every 10 days, IDDM, E 11.9 Blood-Glucose Transmitter (DEXCOM G6 TRANSMITTER) ismael Use one transmitter every 3 months, IDDM, E 11.9 Blood-Glucose Meter,Continuous (DEXCOM G6 SKATES OPERATOR) misc Use continuously to monitor glucose, IDDM,E11.9 blood sugar diagnostic (BLOOD GLUCOSE TEST) test strip Use as directed to test glucose 2 times daily, E11.9, IDDM Lancets lancets Use as directed to test glucose 3 times daily, E11.9, non-insulin. MULTIVITAMIN ORAL Take by mouth. flULTRA Testingtone Blood-Glucose Meter Use as directed to test glucose 3 times daily, E11.9, non-insulin. cetirizine (ZYRTEC) 10 mg tablet Take 1 tablet by mouth twice daily. No current facility-administered medications on file prior to visit. Social History Social History Tobacco Use Smoking status: Former Current packs/day: 0.00 Types: Cigarettes Quit date: 07/03/2009 Years since quittin.6 Smokeless tobacco: Never Tobacco comments: Type: cigarette; Start date: 1999; Stop date: 2009 Vaping Use Vaping status: Never Used Substance Use Topics Alcohol use: Yes Comment: rarely Drug use: No Review of Symptoms REVIEW OF SYSTEMS GENERAL: No weight loss, malaise or fevers NECK: Negative for lumps, goiter, pain and significant neck swelling RESPIRATORY: Negative for cough, hemoptysis, wheezing, COPD, dyspnea or shortness of breath CARDIOVASCULAR: Negative for chest pain, leg swelling, hypertension, CHF or palpitations GI: No vomiting, or diarrhea and No heartburn or reflux symptoms. Has her occasional nausea at times. NEURO: No history of syncope, paralysis, seizures or tremors. Has been having sinus headache's See HPI EXAM: BP 108/68 (BP Site: Right Arm, BP Position: Sitting, BP Cuff Size: Regular Adult) Pulse 82 Resp16 Wt 72.6 kg (160 lb) LMP 01/26/2012 BMI 26.22 kg/m Last 4 Encounter Wt Readings: Date: Wt: 02/09/2024 72.6 kg (160 lb) 01/28/2024 71.5 kg (157 lb 8.3 oz) 07/21/2023 71.7 kg (158 lb) 03/17/2023 68.3 kg (150 lb 9.6 oz) General Appearance: Well appearing, alert, in no acute distress, well-hydrated, well nourished.. Neck: Supple, no adenopathy; thyroid symmetric, normal size, no bruits. Lungs: Lungs clear to auscultation. No wheezing, rhonchi, rales. Nose: has mild congestion and bilateral nasal polyps.. Heart: RRR without murmur, gallop, or rubs. No ectopy. Abdomen: Normal abdominal exam, Abdomen soft, non-tender. Bowel sounds normal. No masses, organomegaly. Extremities: No deformities, edema, skin discoloration, clubbing or cyanosis. Good capillary refill. . Musculoskeletal: Muscular strength intact, No joint swelling, deformity, or tenderness. Peripheral Pulses: Normal. Neurologic: Gait normal. Sensation to light touch and crainal nerves 2-12 grossly intact. Health Maintenance List Depression Screening Never done Anxiety Screening Never done Cervical Cancer Screening due on 07/05/2015 Dilated Retinal Exam due on 10/29/2023 Diabetic Foot Exam due on 12/10/2023 Mammogram Screening due on 03/31/2024 Pneumococcal Vaccine(1 of 2 - PCV) due on 07/20/2024 HbA1C due on 04/15/2024 Urine Albumin:Creatinine Ratio due on 07/15/2024 LDL Cholesterol due on 07/15/2024 Annual PCP Team Chronic Disease Visit due on 07/20/2024 DTaP,Tdap,Td Vaccine(2 - Td or Tdap) due on 11/28/2029 HPV Vaccine Aged Out Hepatitis B Vaccine Discontinued Influenza Vaccine Discontinued Hepatitis C Screening Discontinued HIV Screening Discontinued Covid-19 Vaccine Discontinued Data reviewed 02/09/24 0928 02/09/24 1006 02/09/24 1007 02/09/24 1008 BP: 108/68 Pulse: 82 Resp: 16 Weight: 72.6 kg (160 lb) Orthostatic BP: 119/82 111/77 120/81 BP Position: Sitting Supine Sitting Standing Orthostatic Pulse: 82 80 80 Ortho's were neg. A/P ASSESSMENT/PLAN: 1. Type 2 diabetes mellitus without complication, without long-term current use of insulin (HCC) - ICD9: 250.00, ICD10: E11.9 (primary diagnosis) - Improving control - Continue current medications - Counseled on healthy diet and regular exercise - cont management with endo. 2. Dyslipidemia - ICD9: 272.4, ICD10: E78.5 - Control undetermined, due for labs - Counseled on healthy diet and regular exercise 3. Postablative hypothyroidism - ICD9: 244.1, ICD10: E89.0 - Instructed patient on importance of taking on an empty stomach either first thing in the morning or at bedtime. - continue current dose of Synthroid - follows with Endo for management 4. Vitamin D deficiency - ICD9: 268.9, ICD10: E55.9 - controlled. 5. Dizziness - ICD9: 780.4, ICD10: R42 - suspect this may be allergy related and eustachian tube dysfunction. Will try Flonase twice a dayfor a month. If no changes will check carotid US and MRI brain. 6. Seasonal allergies - ICD9: 477.9, ICD10: J30.2 - advised taking the OTC Flonase one spray each nostril twice a day. 7. Nasal polyps - ICD9: 471.9, ICD10: J33.9 - as per #6. F/u 6 months WAE check CMP, Lipid, UA Vit D. F/u 4 weeks dizziness. I spent a total of 30 minutes on the date of the service which included preparing to see the patient, [id number] patient care, completing clinical documentation, performing a medically appropriate examination, counseling and educating the patient/family/caregiver and ordering medications, tests, or procedures. Jeffery Swift MD documented in this encounterC[facility]09-[facility]24 NoteHNO ID: [id number] Author: ROSE MARY FINLEY PA-C Service: ? Author Type: Physician Locomotive [employer]il[employer]aker Type: Progress Notes Filed: 01/28/2024 15:22 Note Text: Cristina Martinez is a 43 year old female with a complaint of fever up to 100, chills, body aches, productive cough, runny nose, headache x 3 days. Mild diarrhea. Has had pneumonia in the past, feels similar. Denies sob, hemoptysis, vomiting or any other complaints. No recent sick contacts. Did not take home covid test. BS all over the place because I'm sick. REVIEW OF SYSTEMS See HPI, otherwise unremarkable. PAST MEDICAL HISTORY Diagnosis Date Blurring of visual image Chronic osteoarthritis Congenital single kidney left Diverticulitis Dyslipidemia 11/29/2019 Encounter for gynecological examination 07/21/2023 Seeing Natasha diaz 11/29/2019 Gastroesophageal reflux disease Migraine Over weight 12/18/2017 Postablative hypothyroidism 07/06/2012 History of hyperthyroidism Seasonal allergies 11/29/2019 Type 2 diabetes mellitus without complication, without long-term current use of insulin (HCC) 09/19/[address] Doyle Vitamin D deficiency PAST SURGICAL HISTORY Procedure Laterality Date CHOLECYSTECTOMY HX 2011 HYSTERECTOMY HX 07/01/2013 LAV - DUB LAPAROSCOPIC TUBAL LIGATION/RING/CLIP 08/20/2012 Filshie clips NEEDLE OCULOGRAPHY 1/ XOC MUSC 1/BOTH EYE W/IANDR SURGERY TO REPAIR LAZY EYE L EYE PAST SURGICAL HISTORY OF 2008 Dental procedure- 4 wisdom teeth removed PAST SURGICAL HISTORY OF Eye muscle surgery procedure PAST SURGICAL HISTORY OF 2012 Hysterectomy, ovary preserv PAST SURGICAL HISTORY OF 08/2012 Tubal sterilization SALPINGECTOMY Bilateral 07/01/2013 TOOTH EXTRACTION FAMILY HISTORY Problem Relation Age of Onset other (migraine) Father other (rheumatoid arthritis) Father other (Thyroid disorder) Father hyperthyroid Arthritis Mother osteoarthritis Diabetes Mother other (migraine) Mother other (Cancer - other) Paternal Grandmother started in her eye and metastasized Alzheimer's Disease Maternal Grandmother other (Diabetes mellitus) Maternal Grandmother Cancer Other multiple family members Thyroid Paternal Grandfather hyperthyroid Diabetes Paternal Grandfather Thyroid Paternal Uncle hyperthyroid Thyroid Paternal Aunt hyperthyroid Thyroid Paternal Uncle hyperthyroid other (Thyroid disorder) Other other (Thyroid disorder) Other Social History Tobacco Use Smoking status: Former Current packs/day: 0.00 Types: Cigarettes Quit date: 07/03/2009 Years since quittin.5 Smokeless tobacco: Never Tobacco comments: Type: cigarette; Start date: 1999; Stop date: 2009 Vaping Use Vaping status: Never Used Substance Use Topics Alcohol use: Yes Comment: rarely Drug use: No PHYSICAL EXAMINATION: Vitals: BP 120/82 Pulse 97 Temp 37.8 ?C (100 ?F) Resp 16 Wt 71.5 kg (157 lb 8.3 oz) LMP 01/26/2012 SpO2 97% BMI 25.81 kg/m? General Appearance: Alert, in no acute distress, well-hydrated, well nourished.. Ears: External ears normal, canals clear. TMs clear Nose/Sinuses: Nares normal, septum midline, mucosa normal, no drainage or sinus tenderness. Oropharynx: Lips, mucosa, and tongue normal, teeth and gums normal, oropharynx normal. Neck: Supple, no adenopathy. Lungs: Lungs clear to auscultation. No wheezing, rhonchi, rales.. Heart: RRR without murmur, gallop, or rubs. No ectopy. ASSESSMENT: DIAGNOSIS: (R05.1) Acute cough (primary encounter diagnosis) (R68.89) Flu-like symptoms PLAN: ASSESSMENT/PLAN: 1. Acute cough - ICD9: 786.2, ICD10: R05.1 (primary diagnosis) - XR CHEST 2V FRONTAL/LAT - COVID AND INFLUENZA A/B AND RSV PCR, ROUTINE 2. Flu-like symptoms - ICD9: 780.99, ICD10: R68.89 - XR CHEST 2V FRONTAL/LAT - COVID AND INFLUENZA A/B AND RSV PCR, ROUTINE Supportive care, push fluids. Follow up dependent on results. Report to ED in the interim for new or worsening sx. Pt in agreement with the plan and verbalized understanding. [facility]09-19-2024 History of Present illness Narrative* Rose Mary Finley PA-C - 01/28/2024 12:32 PM EDT Cristina Martinez is a 43 year old female with a complaint of fever up to 100, chills, body aches, productive cough, runny nose, headache x 3 days. Mild diarrhea. Has had pneumonia in the past, feels similar. Denies sob, hemoptysis, vomiting or any other complaints. No recent sick contacts. Did not take home covid test. BS all over the place because I'm sick. REVIEW OF SYSTEMS See HPI, otherwise unremarkable. PAST MEDICAL HISTORY Diagnosis Date Blurring of visual image Chronic osteoarthritis Congenital single kidney left Diverticulitis Dyslipidemia 11/29/2019 Encounter for gynecological examination 07/21/2023 Seeing Natasha Strauss Foot callus 11/29/2019 Gastroesophageal reflux disease Migraine Over weight 12/18/2017 Postablative hypothyroidism 07/06/2012 History of hyperthyroidism Seasonal allergies 11/29/2019 Type 2 diabetes mellitus without complication, without long-term current use of insulin (HCC) 09/19/[address] Doyle Vitamin D deficiency PAST SURGICAL HISTORY Procedure Laterality Date CHOLECYSTECTOMY HX 2010 HYSTERECTOMY HX 07/01/2013 LAV - DUB LAPAROSCOPIC TUBAL LIGATION/RING/CLIP 08/20/2012 Filshie clips NEEDLE OCULOGRAPHY 1/ XOC MUSC 1/BOTH EYE W/I&R SURGERY TO REPAIR LAZY EYE L EYE PAST SURGICAL HISTORY OF 2008 Dental procedure- 4 wisdom teeth removed PAST SURGICAL HISTORY OF Eye muscle surgery procedure PAST SURGICAL HISTORY OF 2012 Hysterectomy, ovary preserv PAST SURGICAL HISTORY OF 08/2012 Tubal sterilization SALPINGECTOMY Bilateral 07/01/2013 TOOTH EXTRACTION FAMILY HISTORY Problem Relation Age of Onset other (migraine) Father other (rheumatoid arthritis) Father other (Thyroid disorder) Father hyperthyroid Arthritis Mother osteoarthritis Diabetes Mother other (migraine) Mother other (Cancer - other) Paternal Grandmother started in her eye and metastasized Alzheimer's Disease Maternal Grandmother other (Diabetes mellitus) Maternal Grandmother Cancer Other multiple family members Thyroid Paternal Grandfather hyperthyroid Diabetes Paternal Grandfather Thyroid Paternal Uncle hyperthyroid Thyroid Paternal Aunt hyperthyroid Thyroid Paternal Uncle hyperthyroid other (Thyroid disorder) Other other (Thyroid disorder) Other Social History Tobacco Use Smoking status: Former Current packs/day: 0.00 Types: Cigarettes Quit date: 07/03/2009 Years since quittin.5 Smokeless tobacco: Never Tobacco comments: Type: cigarette; Start date: 1999; Stop date: 2009 Vaping Use Vaping status: Never Used Substance Use Topics Alcohol use: Yes Comment: rarely Drug use: No PHYSICAL EXAMINATION: Vitals: BP 120/82 Pulse 97 Temp 37.8 C (100 F) Resp 16 Wt 71.5 kg (157 lb 8.3 oz) LMP 01/26/2012 SpO2 97% BMI 25.81 kg/m General Appearance: Alert, in no acute distress, well-hydrated, well nourished.. Ears: External ears normal, canals clear. TMs clear Nose/Sinuses: Nares normal, septum midline, mucosa normal, no drainage or sinus tenderness. Oropharynx: Lips, mucosa, and tongue normal, teeth and gums normal, oropharynx normal. Neck: Supple, no adenopathy. Lungs: Lungs clear to auscultation. No wheezing, rhonchi, rales.. Heart: RRR without murmur, gallop, or rubs. No ectopy. ASSESSMENT: DIAGNOSIS: (R05.1) Acute cough (primary encounter diagnosis) (R68.89) Flu-like symptoms PLAN: ASSESSMENT/PLAN: 1. Acute cough - ICD9: 786.2, ICD10: R05.1 (primary diagnosis) - XR CHEST 2V FRONTAL/LAT - COVID & INFLUENZA A/B & RSV PCR, ROUTINE 2. Flu-like symptoms - ICD9: 780.99, ICD10: R68.89 - XR CHEST 2V FRONTAL/LAT - COVID & INFLUENZA A/B & RSV PCR, ROUTINE Supportive care, push fluids. Follow up dependent on results. Report to ED in the interim for new or worsening sx. Pt in agreement with the plan and verbalized understanding. Rose Mary Finley PA-C documented [facility] Telephone encounter Note * Telephone Encounter - Meredith Child MA - 12/08/2023 9:47 AM EDT Prescription Refill Information The patient has been identified by name and date of : Yes Caregiver verified no other encounters exist for this prescription request: Yes Caregiver confirmed with patient/requestor that no other refills are due, in the near future, with this provider at this time: Yes The last office visit in the department: 12/09/22 Does the patient have a future office visit with this provider/department: No Requested Prescriptions Pending Prescriptions Disp Refills levothyroxine (SYNTHROID) 125 mcg tablet [Pharmacy Med Name: LEVOTHYROXINE 125 MCG TABLET] 90 tablet 3 Sig: take 1 tablet by mouth every morning before breakfast Meredith Child MA December 08, 2023 9:47 AM [facility]07-30-2024 Miscellaneous Notes* Telephone Encounter - Meredith Child MA - 12/08/2023 9:47 AM EDT Prescription Refill Information The patient has been identified by name and date of : Yes Caregiver verified no other encounters exist for this prescription request: Yes Caregiver confirmed with patient/requestor that no other refills are due, in the near future, with this provider at this time: Yes The last office visit in the department: 12/09/22 Does the patient have a future office visit with this provider/department: No Requested Prescriptions Pending Prescriptions Disp Refills levothyroxine (SYNTHROID) 125 mcg tablet [Pharmacy Med Name: LEVOTHYROXINE 125 MCG TABLET] 90 tablet 3 Sig: take 1 tablet by mouth every morning before breakfast Meredith Child MA December 08, 2023 9:47 AM documented in this encounterC[facility]03-12-2024 Instructions* Patient Instructions* Jeffery Swift MD - 07/21/2023 3:40 PM EDT Please get labs done on or after 01/08/2024 prior to your next visit. documented in this encounterC[facility]03-12-2024 NoteHNO ID: [id number] Author: JEFFERY SWIFT MD Service: ? Author Type: Physician Type: Progress Notes Filed: 07/21/2023 16:23 Note Text: Chief Complaint Patient presents with: Physical HPI Cristina Martinez is a 43 year old female who presents here today for Physical. Follows with endocrinology for hx of diabetes and hypothyroidism Any new concerns today? None ADHD dx as child; was on medication for a short time; has noticed difficulty with concentrating and staying focused. Any recent ER/hospital visits? None Patient currently see Dr. Doyle Past medical history, appointments, medications, allergies reviewed. Previous Medical History PAST MEDICAL HISTORY Diagnosis Date Blurring of visual image Chronic osteoarthritis Congenital single kidney left Diverticulitis Dyslipidemia 11/29/2019 Foot callus 11/29/2019 Gastroesophageal reflux disease Hyperthyroidism s/o I-131 ablation Migraine Obesity, Class I, BMI 30-34.9 12/18/2017 Over weight 12/18/2017 Postablative hypothyroidism 07/06/2012 History of hyperthyroidism Seasonal allergies 11/29/2019 Type 2 diabetes mellitus (HCC) 02/19/2015 Type II diabetes mellitus, uncontrolled Vitamin D deficiency Previous Surgical History PAST SURGICAL HISTORY Procedure Laterality Date CHOLECYSTECTOMY HX 2010 HYSTERECTOMY HX 07/01/2013 LAV - DUB LAPAROSCOPIC TUBAL LIGATION/RING/CLIP 08/20/2012 Filshie clips NEEDLE OCULOGRAPHY 1/ XOC MUSC 1/BOTH EYE W/IANDR SURGERY TO REPAIR LAZY EYE L EYE PAST SURGICAL HISTORY OF 2008 Dental procedure- 4 wisdom teeth removed PAST SURGICAL HISTORY OF Eye muscle surgery procedure PAST SURGICAL HISTORY OF 2012 Hysterectomy, ovary preserv PAST SURGICAL HISTORY OF 08/2012 Tubal sterilization SALPINGECTOMY Bilateral 07/01/2013 TOOTH EXTRACTION Family History FAMILY HISTORY Problem Relation Age of Onset other (migraine) Father other (rheumatoid arthritis) Father other (Thyroid disorder) Father hyperthyroid Arthritis Mother osteoarthritis Diabetes Mother other (migraine) Mother other (Cancer - other) Paternal Grandmother started in her eye and metastasized Alzheimer's Disease Maternal Grandmother other (Diabetes mellitus) Maternal Grandmother Cancer Other multiple family members Thyroid Paternal Grandfather hyperthyroid Diabetes Paternal Grandfather Thyroid Paternal Uncle hyperthyroid Thyroid Paternal Aunt hyperthyroid Thyroid Paternal Uncle hyperthyroid other (Thyroid disorder) Other other (Thyroid disorder) Other Patient Allergies ALLERGIES Allergen Reactions Blue Dye Hives Hydrocodone Other: See Comments N \EANDE\ V Invokana [Canaglifl* Other: See Comments Vaginal yeast infections Lipitor [Atorvastat* Other: See Comments made sugars increase. Current Medications Current Outpatient Medications on File Prior to Visit Medication Sig tirzepatide (MOUNJARO) 7.5 mg/0.5 mL pen injector Inject 7.5 mg subcutaneously one time a week. insulin glargine (LANTUS SOLOSTAR U-100 INSULIN) 100 unit/mL (3 mL) Inject 10 units subcutaneously daily; Per Dr. Vivek Linares (Patient taking differently: Inject 8 units subcutaneously daily; Per Dr. Vivek Linares) insulin lispro (HUMALOG KWIKPEN INSULIN) 100 unit/mL 3 units TID, per Dr. Vivek Linares metFORMIN ER (GLUCOPHAGE XR) 500 mg 24 hr tablet Take 2 tablets by mouth two times a day with meals. Per Dr. Vivek linares glimepiride (AMARYL) 2 mg tablet Take 2 tabs breakfast and [address] Vivek Linares Insulin Rowlett, Disposable, (BD ULTRAFINE III MINI PEN) 31 gauge x 3/16 Use 4 pen needles daily levothyroxine (SYNTHROID) 125 mcg tablet Take 1 tablet by mouth daily before breakfast. Blood-Glucose Sensor (DEXCOM G6 SENSOR) ismael Use one sensor every 10 days, IDDM, E 11.9 Blood-Glucose Transmitter (DEXCOM G6 TRANSMITTER) ismael Use one transmitter every 3 months, IDDM, E 11.9 Blood-Glucose Meter,Continuous (DEXCOM G6 SKATES OPERATOR) misc Use continuously to monitor glucose, IDDM, E11.9 blood sugar diagnostic (BLOOD GLUCOSE TEST) test strip Use as directed to test glucose 2 times daily, E11.9, IDDM Lancets lancets Use as directed to test glucose 3 times daily, E11.9, non-insulin. MULTIVITAMIN ORAL Take by mouth. flintstone Blood-Glucose Meter Use as directed to test glucose 3 times daily, E11.9, non-insulin. cetirizine (ZYRTEC) 10 mg tablet Take 1 tablet by mouth twice daily. dulaglutide (TRULICITY) 4.5 mg/0.5 mL pen injector Inject 4.5 mg subcutaneously one time a week. Per Dr. Vivek Linares (Patient not taking: Reported on 07/21/2023) No current facility-administered medications on file prior to visit. Social History Social History Tobacco Use Smoking status: Former Types: Cigarettes Quit date: 07/03/2009 Years since quittin.0 Smokeless tobacco: Never Tobacco comments: Type: cigarette; Start date: 1999; Stop date: 2009 Vaping Use Vaping Use: Never used Substance (more content not included)...[facility]03-12-[facility] History of Present illness Narrative* Jeffery Swift MD - 07/21/2023 2:07 PM EDT Chief Complaint Patient presents with: Physical HPI Cristina Martinez is a 43 year old female who presents here today for Physical. Follows with endocrinology for hx of diabetes and hypothyroidism Any new concerns today? None ADHD dx as child; was on medication for a short time; has noticed difficulty with concentrating andstaying focused. Any recent ER/hospital visits? None Patient currently see Dr. Doyle Past medical history, appointments, medications, allergies reviewed. Previous Medical History PAST MEDICAL HISTORY Diagnosis Date Blurring of visual image Chronic osteoarthritis Congenital single kidney left Diverticulitis Dyslipidemia 11/29/2019 Foot callus 11/29/2019 Gastroesophageal reflux disease Hyperthyroidism s/o I-131 ablation Migraine Obesity, Class I, BMI 30-34.9 12/18/2017 Over weight 12/18/2017 Postablative hypothyroidism 07/06/2012 History of hyperthyroidism Seasonal allergies 11/29/2019 Type 2 diabetes mellitus (HCC) 02/19/2015 Type II diabetes mellitus, uncontrolled Vitamin D deficiency Previous Surgical History PAST SURGICAL HISTORY Procedure Laterality Date CHOLECYSTECTOMY HX 2010 HYSTERECTOMY HX 07/01/2013 LAV - DUB LAPAROSCOPIC TUBAL LIGATION/RING/CLIP 08/20/2012 Filshie clips NEEDLE OCULOGRAPHY 1/ XOC MUSC 1/BOTH EYE W/I&R SURGERY TO REPAIR LAZY EYE L EYE PAST SURGICAL HISTORY OF 2008 Dental procedure- 4 wisdom teeth removed PAST SURGICAL HISTORY OF Eye muscle surgery procedure PAST SURGICAL HISTORY OF 2012 Hysterectomy, ovary preserv PAST SURGICAL HISTORY OF 08/2012 Tubal sterilization SALPINGECTOMY Bilateral 07/01/2013 TOOTH EXTRACTION Family History FAMILY HISTORY Problem Relation Age of Onset other (migraine) Father other (rheumatoid arthritis) Father other (Thyroid disorder) Father hyperthyroid Arthritis Mother osteoarthritis Diabetes Mother other (migraine) Mother other (Cancer - other) Paternal Grandmother started in her eye and metastasized Alzheimer's Disease Maternal Grandmother other (Diabetes mellitus) Maternal Grandmother Cancer Other multiple family members Thyroid Paternal Grandfather hyperthyroid Diabetes Paternal Grandfather Thyroid Paternal Uncle hyperthyroid Thyroid Paternal Aunt hyperthyroid Thyroid Paternal Uncle hyperthyroid other (Thyroid disorder) Other other (Thyroid disorder) Other Patient Allergies ALLERGIES Allergen Reactions Blue Dye Hives Hydrocodone Other: See Comments N \T\ V Invokana [Canaglifl* Other: See Comments Vaginal yeast infections Lipitor [Atorvastat* Other: See Comments made sugars increase. Current Medications Current Outpatient Medications on File Prior to Visit Medication Sig tirzepatide (MOUNJARO) 7.5 mg/0.5 mL pen injector Inject 7.5 mg subcutaneously one time a week. insulin glargine (LANTUS SOLOSTAR U-100 INSULIN) 100 unit/mL (3 mL) Inject 10 units subcutaneously daily; Per Dr. Vivek Linares (Patient taking differently: Inject 8 units subcutaneously daily; Per Dr. Vivek Linares) insulin lispro (HUMALOG KWIKPEN INSULIN) 100 unit/mL 3 units TID, per Dr. Vivek Linares metFORMIN ER (GLUCOPHAGE XR) 500 mg 24 hr tablet Take 2 tablets by mouth two times a day with meals. Per Dr. Vivek linares glimepiride (AMARYL) 2 mg tablet Take 2 tabs breakfast and [address] Vivek Linares Insulin Rowlett, Disposable, (BD ULTRAFINE III MINI PEN) 31 gauge x 3/16 Use 4 pen needles daily levothyroxine (SYNTHROID) 125 mcg tablet Take 1 tablet by mouth daily before breakfast. Blood-Glucose Sensor (DEXCOM G6 SENSOR) ismael Use one sensor every 10 days, IDDM, E 11.9 Blood-Glucose Transmitter (DEXCOM G6 TRANSMITTER) ismael Use one transmitter every 3 months, IDDM, E 11.9 Blood-Glucose Meter,Continuous (DEXCOM G6 SKATES OPERATOR) misc Use continuously to monitor glucose, IDDM,E11.9 blood sugar diagnostic (BLOOD GLUCOSE TEST) test strip Use as directed to test glucose 2 times daily, E11.9, IDDM Lancets lancets Use as directed to test glucose 3 times daily, E11.9, non-insulin. MULTIVITAMIN ORAL Take by mouth. flintstone Blood-Glucose Meter Use as directed to test glucose 3 times daily, E11.9, non-insulin. cetirizine (ZYRTEC) 10 mg tablet Take 1 tablet by mouth twice daily. dulaglutide (TRULICITY) 4.5 mg/0.5 mL pen injector Inject 4.5 mg subcutaneously one time a week. Per Dr. Vivek Linares (Patient not taking: Reported on 07/21/2023) No current facility-administered medications on file prior to visit. Social History Social History Tobacco Use Smoking status: Former Types: Cigarettes Quit date: 07/03/2009 Years since quittin.0 Smokeless tobacco: Never Tobacco comments: Type: cigarette; Start date: 1999; Stop date: 2009 Vaping Use Vaping Use: Never used Substance Use Topics Alcohol use: Yes Comment: rarely Drug use: No Review of Symptoms REVIEW OF SYSTEMS GENERAL: No weight loss, malaise or fevers HEENT: Negative for frequent or significant headaches, No changes in hearing or vision, no nose bleeds or other nasal problems NECK: Negative for lumps, goiter, pain and significant neck swelling RESPIRATORY: Negative for cough, hemoptysis, wheezing, COPD, dyspnea or shortness of breath CARDIOVASCULAR: Negative for chest pain, leg swelling, hypertension, CHF or palpitations GI: No vomiting, and No heartburn or reflux symptoms. Some nausea and loose stool from recent changes in meds. : No history of dysuria, frequency or incontinence MUSCULOSKELETAL: Negative for joint pain or swelling, back pain or muscle pain SKIN: Negative for lesions, rash, and itching PSYCH: Negative for sleep disturbance, mood disorder and recent psychosocial stressors HEMATOLOGY/LYMPHOLOGY: Negative for prolonged bleeding, bruising easily or swollen nodes ENDOCRINE: Negative for cold or heat intolerance, occasional low BS's NEURO: No history of headaches, syncope, paralysis, seizures or tremors EXAM: BP 114/78 (BP Site: Right Arm, BP Position: Sitting, BP Cuff Size: Regular Adult) Pulse 76 Resp16 Ht 166.4 cm (5' 5.5) Wt 71.7 kg (158 lb) LMP 01/26/2012 BMI 25.89 kg/m Last 10 Encounter Wt Readings: Date: Wt: 07/21/2023 71.7 kg (158 lb) 03/17/2023 68.3 kg (150 lb 9.6 oz) 12/09/2022 67.8 kg (149 lb 6.4 oz) 10/10/2022 68.1 kg (150 lb 3.2 oz) 08/07/2022 68.4 kg (150 lb 12.8 oz) 04/01/2022 68.5 kg (151 lb) 12/24/2021 68.8 kg (151 lb 9.6 oz) 09/19/2021 67.1 kg (148 lb) 05/16/2021 65.7 kg (144 lb 12.8 oz)3 01/22/2021 71.2 kg (157 lb) General Appearance: Well appearing, alert, in no acute distress, well-hydrated, well nourished.. Skin: Skin color, texture, turgor normal, no suspicious rashes or lesions. Head: Normocephalic, no masses, lesions, tenderness or abnormalities. Eyes: Anicteric sclera. Pupils are equally round and reactive to light. Extraocular movements are intact. . Ears: External ears normal, canals clear. Nose/Sinuses: Nares normal, septum midline, mucosa normal, no drainage or sinus tenderness. Oropharynx: Lips, mucosa, and tongue normal, teeth and gums normal, oropharynx normal. Neck: Supple, no adenopathy; thyroid symmetric, normal size, no bruits. Lungs: Lungs clear to auscultation. No wheezing, rhonchi, rales.. Heart: RRR without murmur, gallop, or rubs. No ectopy. Abdomen: Normal abdominal exam, Abdomen soft, non-tender. Bowel sounds normal. No masses, organomegaly. Extremities: No deformities, edema, skin discoloration, Good capillary refill. . Musculoskeletal: Spine range of motion normal. Muscular strength intact, No joint swelling, deformity, or tenderness. Peripheral Pulses: Normal. Neurologic: Gait normal. Reflexes normal and symmetric. Sensation to light touch and crainal nerves2-12 intact.. Health Maintenance List Pneumococcal Vaccine(1 of 2 - PCV) Never done Hepatitis C Screening Never done HIV Screening Never done Hepatitis B Vaccine(1 of 3 - 19+ 3-dose series) Never done Pap Testing due on 07/05/2017 HPV Testing due on 07/05/2017 Influenza Vaccine(1) Never done Covid-19 Vaccine( - season) Never done Depression Assessment Never done Dilated Retinal Exam due on 10/29/2023 Diabetic Foot Exam due on 12/10/2023 HbA1C due on 01/16/2024 Annual PCP Team Chronic Disease Visit due on 03/17/2024 Mammogram Screening due on 03/31/2024 Urine Albumin:Creatinine Ratio due on 07/15/2024 LDL Cholesterol due on 07/15/2024 DTaP,Tdap,Td Vaccine(2 - Td or Tdap) due on 11/28/2029 HPV Vaccine Aged Out Data reviewed Latest Ref Rng 07/16/2023 Protein, Total 6.3 - 8.0 g/dL 7.0 Albumin 3.9 - 4.9 g/dL 4.1 Calcium 8.5 - 10.2 mg/dL 9.2 Bilirubin, Total 0.2 - 1.3 mg/dL 0.3 Alkaline Phosphatase 34 - 123 U/L 44 AST 13 - 35 U/L 13 ALT 7 - 38 U/L 12 Glucose 74 - 99 mg/dL 228 (H) BUN 7 - 21 mg/dL 13 Creatinine 0.58 - 0.96 mg/dL 0.55 (L) Sodium 136 - 144 mmol/L 138 Potassium 3.7 - 5.1 mmol/L 4.6 Chloride 97 - 105 mmol/L 100 CO2 22 - 30 mmol/L 26 Anion Gap 9 - 18 mmol/L 12 eGFR >=60 mL/min/1.73m 116 Cholesterol, Total <200 mg/dL 220 (H) Triglyceride <150 mg/dL 64 HDL Cholesterol >39 mg/dL 58 Non HDL Cholesterol <130 mg/dL 162 (H) Fasting Time hrs 12 VLDL Cholesterol <30 mg/dL 13 TC:HDL Ratio <5.10 3.79 LDL Cholesterol <100 mg/dL 149 (H) LDL:HDL Ratio <2.54 2.57 (H) Creatinine, Ur Random (UCRR) 42.2 - 237.9 mg/dL 101.8 Albumin, Urine Random mg/L 12.8 Albumin/Creat Ratio <30 mg/g 13 Hemoglobin A1C 4.3 - 5.6 % 7.5 (H) Estimated Average Glucose mg/dL 169 Vitamin D 25 Hydroxy >=30.0 ng/mL 36.0 TSH 0.270 - 4.200 mIU/L 1.020 A/P ASSESSMENT/PLAN: 1. Well adult exam - ICD9: V70.0, ICD10: Z00.00 (primary diagnosis) - Counseled on healthy diet and regular exercise - Calcium intake with supplements or by diet of 1000 mg/day for under 50, 1200- 1500 mg/day for 50+ - Follow up for annual exam in one year - advised to consider getting the Prev-20 2. Type 2 diabetes mellitus without complication, without long-term current use of insulin (HCC) - ICD9: 250.00, ICD10: E11.9 - Improving control - Continue current medications - Counseled on healthy diet and regular exercise - Discussed need for and benefit of weight loss. BMI 25.89 kg/(m^2) - management per Endo 3. Dyslipidemia - ICD9: 272.4, ICD10: E78.5 - Uncontrolled - Counseled on healthy diet and regular exercise - Discussed need for and benefit of weight loss. BMI 25.89 kg/(m^2) 4. Postablative hypothyroidism - ICD9: 244.1, ICD10: E89.0 - Instructed patient on importance of taking on an empty stomach either first thing in the morning or at bedtime. - continue current dose of Synthroid - management per Endo 5. Vitamin D deficiency - ICD9: 268.9, ICD10: E55.9 - stable on exam 6. Encounter for gynecological examination - ICD9: V72.31, ICD10: Z01.419 - seeing HUM[employer]CT[employer] ENGINEER F/u 6 months routine check lipid. Jeffery Swift MD documented in this encounterC[facility]11-22-2023 Miscellaneous Notes* Telephone Encounter - Cristina Martinez RN - 04/01/2023 9:13 AM EST Closed. documented in this encounterC[facility]11-22-2023 Miscellaneous Notes* Telephone Encounter - Cristina Martinez RN - 04/01/2023 8:23 AM EST Notified patient of Dr Fulton's message. Patient verbalized understanding and all questions were answered. Patient denies S/S of DKA. Also, she state's she has ketone strips at home and she is measuring at 3 currently where 6 is the highest. Discussed we do not use this as a reliable test but we will document as a guideline. Encounter closed. * Telephone Encounter - Genoveva Chatman APRN.CNP - 04/01/2023 8:00 AM EST Please call her. If feeling poorly--nausea, vomiting, abdominal pain, confusion then she needs to go to ER. If feeling ok I want her to go to pharmacy and get a short acting insulin. Start humalog per sliding scale below. As soon as she obtains it she should repeat her glucose and take the amount of insulin that corresponds immediately. Then she will take three times daily before meals depending on her BG level. If Blood Glucose (mg/dL) is < 150 Give 0 units 151-200 Give 2 units 201-250 Give 4 units 251-300 Give 6 units 301-350 Give 8 units > 351 Give 10 units If at any point her sugars are not improving, she develops symptoms, or she is concerned about the level then she should go to emergency. Continue other meds. For lantus, I believe she has titrated to 18 unit already. She can increase again to 22 units dailywith the next dose. Then keep increasing 2 units every 2 days as previously discussed. Update us again early next week. Sooner if needed. Thank you * Telephone Encounter - Cristina Martinez RN - 04/01/2023 7:57 AM EST Please review and advise. documented in this encounterC[facility]11-21-2023 Miscellaneous Notes* Telephone Encounter - Regina Dodge LPN - 03/31/2023 1:09 PM EST Pt notified & voiced understanding. Regina Dodge LPN * Telephone Encounter - Jeffery Swift MD - 03/31/2023 12:49 PM EST Let patient know mammogram was ok. documented in this encounterC[facility]11-21-2023 Miscellaneous Notes* Telephone Encounter - Cristina Martinez RN - 03/31/2023 12:37 PM EST Please review and advise. documented in this encounterC[facility]11-21-2023 Miscellaneous Notes* Letter - Coordinator, Mammography - 03/31/2023 11:01 AM EST March 31, 2023 PID: [id number] Cristina Martinez [address] [place] [address] Dear Ms. Martinez, We are pleased to inform you that the results of your recent breast imaging exam on 03/31/2023 are normal. Your mammogram demonstrates that you have dense breast tissue, which could hide abnormalities. Dense breast tissue, in and of itself, is a relatively common condition. Therefore, this information is not provided to cause undue concern; rather, it is to raise your awareness and promote discussion with your health care provider regarding the presence of dense breast tissue in addition to other riskfactors. Early detection of cancer is very important. We also understand recommendations regarding breast cancer screening are controversial. Please discuss with your primary care provider which strategy is best for you and whether a mammogram is right for you. Your imaging studies and report will be kept on file at [facility] as part of your permanent medical record and are available for your continuing care. Thank you for allowing us to help in meeting your health care needs. Sincerely, Dr. Funes Interpreting Radiologist [facility] (Normal over 40) documented in this encounterC[facility]11-21-2023 History of Present illness Narrative* Meghana Ayers CT - 03/31/2023 7:20 AM EST Radiology Service Progress Note PATIENT NAME: Cristina Martinez DATE OF SERVICE: March 31, 2023 TIME: 7:54 AM PATIENT IDENTITY VERIFICATION COMPLETED USING TWO (2) IDENTIFIERS: Name and Date of confirmedby patient verbally. FALL SCREENING: Has the patient had 2 falls in the last year or 1 fall with injury or currently using an Ambulatory Assistive Device (Walker, Cane, Wheelchair, Crutches, etc.)? No PATIENT GENDER DATA: Female. status: : No status: NO. PATIENT RELEVANT IMPLANT DATA REVIEWED: Not Applicable RADIOLOGY DEPARTMENT: Mammography PERIPHERAL IV DATA: Not applicable SIGNED BY: ROSENDO Schwartz March 31, 2023 7:54 AM documented in this encounterC[facility]10-19-2023 Miscellaneous Notes* Telephone Encounter - Rebecca Bruno RN - 02/26/2023 8:24 AM EDT Notified patient of Genoveva Chatman CNP's message. Patient verbalized understanding and all questions were answered. Encounter closed. * Telephone Encounter - Genoveva Chatman APRN.CNP - 02/25/2023 4:55 PM EDT Ok, use trulicity 1.5 mg weekly If BG is high after a month message us or call and I will increase to 3 mg. Rx sent Thank you * Telephone Encounter - Rebecca Bruno RN - 02/25/2023 1:26 PM EDT Patient called stated her insurance does not cover Mounjaro. Completed a PA for patient on [facility] yesterday 02/24/23 and it stated patient should be able to get the drug/product without a PA at this time. Called [facility] to have them reprocess the medication, it came back needing a PA. Patient stated she was able to find Trulicity at [facility] in [place]. Please review and send if appropriate. documented in this encounterC[facility]10-17-2023 Miscellaneous Notes* Telephone Encounter - Rebecca Bruno RN - 02/24/2023 10:35 AM EDT Cristina Martinez Florian: [id number] Need help? Call us at Outcome Additional Information Required Member should be able to get the drug/product without a PA at this time. Drug Mounjaro 5MG/0.5ML pen-injectors Form [employer] ePA Form 2017 NCPDP Closed documented in this encounterCleveland Clinic [facility] Hospital08-01-2023 History of Present illness Narrative* Genoveva Chatman APRN.MARINA - 12/09/2022 11:00 AM EDT Reason for Consultation: DM Type 2 Referring Physician: SELF HISTORY OF PRESENT ILLNESS Ms. Martinez is a 42 year old female presenting here today for a follow up of DM Type 2. As I recall,she was initially diagnosed with diabetes about 01/09/2015 with BG in 600's Endo: Dr. Fulton LV 08/07/22 A1C today is 7.8 History of diabetes, hyperlipidemia, hypothyroidism, covid 19 She is seeing holistic caregiver. Now on Dexcom but feels it is missing signal and is less accurate then sukhdeep. Verifies readings with fingersticks when needed. Will plan to go back to sukhdeep after the summer as she does not like people asking about it with summer clothing and wearing it on the arm. Has lost about 100 lb since DM diagnosis. Does intermittent fasting/low carb diet 25-30 grams of carbs per day. She feels the sukhdeep reads inaccurately. Has dexcom G6 at home but has not started using it yet. She purchased out of pocket. Fitness center 2-3 x per week. Fhx of DM: gradparents DM education on 02/08/20 Current diabetes regimen is as follows: Ozempic 2 mg weekly Metformin ER 500 mg 2 tabs BID actos 30 mg daily Glimepiride 2mg taking 2 tabs in AM (total 4 mg daily) Lantus 10 units daily at HS Previous DM medications: januvia invokana--genital yeast infection, UTI Trulicity--not at goal she is checking her blood glucose with Dexcom G6 CGM--unable to download today she does not bring a log book today for review. LDE Blood Sugar Frequency: FBS 108 to 160 During day: acL 130-140 acS 130-140's Hypoglycemia frequency: denies Hypoglycemia awareness: Yes Regarding symptoms of hypoglycemia, she is not experiencing any symptoms such as polyuria, polydipsia, nocturia or rapid weight loss or blurry vision, Overall, the patient has no acute complaints at this time. Hypothyroidism: Hx of MARSHALL for hyperthyroidism Dx about age 24. Fhx of thyroid disease: paternal aunt, uncle, grandfather Taking levothyroxine 125 mcg daily TSH 1.05 on 08/21/22 HLD: Used Atorvastatin: made sugars increase Was on pravastatin--pt stopped. PAST MEDICAL HISTORY Diagnosis Date Blurring of visual image Chronic osteoarthritis Congenital single kidney left Diverticulitis Dyslipidemia 11/29/2019 Foot callus 11/29/2019 Gastroesophageal reflux disease Hyperthyroidism s/o I-131 ablation Migraine Obesity, Class I, BMI 30-34.9 12/18/2017 Over weight 12/18/2017 Postablative hypothyroidism 07/06/2012 History of hyperthyroidism Seasonal allergies 11/29/2019 Type 2 diabetes mellitus (HCC) 02/19/2015 Type II diabetes mellitus, uncontrolled Vitamin D deficiency PAST SURGICAL HISTORY Procedure Laterality Date CHOLECYSTECTOMY HX 2010 HYSTERECTOMY HX 07/01/2013 LAV - DUB LAPAROSCOPIC TUBAL LIGATION/RING/CLIP 08/20/2012 Filshie clips NEEDLE OCULOGRAPHY 1/ XOC MUSC 1/BOTH EYE W/I&R SURGERY TO REPAIR LAZY EYE L EYE PAST SURGICAL HISTORY OF 2008 Dental procedure- 4 wisdom teeth removed PAST SURGICAL HISTORY OF Eye muscle surgery procedure PAST SURGICAL HISTORY OF 2012 Hysterectomy, ovary preserv PAST SURGICAL HISTORY OF 08/2012 Tubal sterilization SALPINGECTOMY Bilateral 07/01/2013 TOOTH EXTRACTION FAMILY HISTORY Problem Relation Age of Onset other (migraine) Father other (rheumatoid arthritis) Father other (Thyroid disorder) Father hyperthyroid Arthritis Mother osteoarthritis Diabetes Mother other (migraine) Mother other (Cancer - other) Paternal Grandmother started in her eye and metastasized Alzheimer's Disease Maternal Grandmother other (Diabetes mellitus) Maternal Grandmother Cancer Other multiple family members Thyroid Paternal Grandfather hyperthyroid Diabetes Paternal Grandfather Thyroid Paternal Uncle hyperthyroid Thyroid Paternal Aunt hyperthyroid Thyroid Paternal Uncle hyperthyroid other (Thyroid disorder) Other other (Thyroid disorder) Other Social History Tobacco Use Smoking status: Former Types: Cigarettes Quit date: 07/03/2009 Years since quittin.4 Smokeless tobacco: Never Tobacco comments: Type: cigarette; Start date: 1999; Stop date: 2009 Vaping Use Vaping Use: Never used Substance Use Topics Alcohol use: Yes Comment: rarely Drug use: No Allergies As of Date: 12/09/2022 Allergen Noted Reaction BLUE DYE 03/10/2016 Hives HYDROCODONE 12/31/2015 Other: See Comments INVOKANA [CANAGLIFLOZIN] 03/11/2018 Other: See Comments LIPITOR [ATORVASTATIN] 02/27/2020 Other: See Comments Fully Assessed 12/09/2022 Current Outpatient Medications Medication Sig Dispense Refill insulin glargine (LANTUS SOLOSTAR U-100 INSULIN) 100 unit/mL (3 mL) Inject 10 units subcutaneously at bedtime daily 15 mL 3 Insulin Rowlett, Disposable, (BD ULTRAFINE III MINI PEN) 31 gauge x /16 Use 1 pen needles daily 100 Each 3 Blood-Glucose Sensor (DEXCOM G6 SENSOR) ismael Use one sensor every 10 days, IDDM, E 11.9 Blood-Glucose Transmitter (DEXCOM G6 TRANSMITTER) ismael Use one transmitter every 3 months, IDDM, E 11.9 Blood-Glucose Meter,Continuous (DEXCOM G6 SKATES OPERATOR) misc Use continuously to monitor glucose, IDDM,E11.9 semaglutide (OZEMPIC) 2 mg/dose (8 mg/3 mL) pen injector Inject 2 mg subcutaneously one time a week. 3 mL 11 glimepiride (AMARYL) 2 mg tablet Take 1 tablet by mouth twice daily with meals. 180 tablet 3 pioglitazone (ACTOS) 30 mg tablet Take 1 tablet by mouth once daily. 90 tablet 3 metFORMIN ER (GLUCOPHAGE XR) 500 mg 24 hr tablet Take 2 tablets by mouth twice daily with meals. 360 tablet 3 levothyroxine (SYNTHROID) 125 mcg tablet Take 1 tablet by mouth daily before breakfast. 90 tablet 3 blood sugar diagnostic (BLOOD GLUCOSE TEST) test strip Use as directed to test glucose 2 times daily, E11.9, IDDM 200 Strip 3 Lancets lancets Use as directed to test glucose 3 times daily, E11.9, non- insulin. 300 Each 0 MULTIVITAMIN ORAL Take by mouth. flintstone Blood-Glucose Meter Use as directed to test glucose 3 times daily, E11.9, non- insulin. 1 Each 0 cetirizine (ZYRTEC) 10 mg tablet Take 1 tablet by mouth twice daily. 180 tablet 1 No current facility-administered medications for this visit. REVIEW OF SYSTEMS Answers submitted by the patient for this visit: Core Review of Systems (Submitted on 12/09/2022) Fever : No Nasal Congestion: No Hearing Loss: No A Cough: No Irregular Heart Beat: No Black Tarry Stools: No Difficulty Urinating?: No Awaken at Night More Than Once to Urinate?: No Joint Pain or Stiffness: No Leg or Foot Discomfort at Night?: No A Rash: No Memory Loss: No Seizures: No PHYSICAL EXAMINATION BP 107/75 Pulse 87 Ht 165.1 cm (5' 5) Wt 67.8 kg (149 lb 6.4 oz) LMP 01/26/2012 SpO2 99% BMI 24.86kg/m2 Physical Exam Constitutional: Appearance: Normal appearance. Cardiovascular: Rate and Rhythm: Normal rate and regular rhythm. Pulmonary: Effort: Pulmonary effort is normal. Breath sounds: Normal breath sounds. Skin: General: Skin is warm and dry. Neurological: Mental Status: She is alert and oriented to person, place, and time. Psychiatric: Mood and Affect: Mood normal. Behavior: Behavior normal. Feet:Shoes and socks removed, No deformities, ulcers, calluses, and sensitive to 10 gm monofilament DATA Creatinine Date Value Ref Range Status 08/21/2022 0.55 (L) 0.58 - 0.96 mg/dL Final Hemoglobin A1C (%) Date Value 11/29/2019 6.2 Hemoglobin A1C (POCT) (%) Date Value 08/07/2022 7.5 ) No components found for: URINEALBUMIN Cholesterol, Total (mg/dL) Date Value 08/21/2022 205 03/05/2021 202 HDL Cholesterol (mg/dL) Date Value 08/21/2022 59 03/05/2021 47 LDL Cholesterol (mg/dL) Date Value 08/21/2022 129 03/05/2021 128 Triglyceride (mg/dL) Date Value 08/21/2022 86 03/05/2021 133 IMPRESSION: Ms. Martinez is a 42 year old female here for evaluation of DM Type 2 complicated by hyperlipidemia and hypothyroidism RECOMMENDATIONS: (E11.9) Type 2 diabetes mellitus without complication, without long-term current use of insulin (HCC) (primary encounter diagnosis) Comment: Glycemic control is close to goal and trending up from last time.Limited BG data availableto review today. Plan: metFORMIN ER (GLUCOPHAGE XR) 500 mg 24 hr tablet, HEMOGLOBIN A1C (POC), insulin glargine (LANTUS SOLOSTAR U-100 INSULIN) 100 unit/mL (3 mL), semaglutide (OZEMPIC) 2 mg/dose (8 mg/3 mL) pen injector, glimepiride (AMARYL) 2 mg tablet, pioglitazone (ACTOS) 30 mg tablet, COMP METABOLIC PANEL, HGB A1C, TSH BLD, LIPID PANEL BASIC, ALBUMIN/CREAT RATIO RND UR Continue current DM regimen. 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 Medical Decision Making: Level: 4 - Moderate Genoveva Chatman, MSN, MUCKING MACHINE OPERATOR, EMT I/85-C, CDE Endocrinology [facility] Medical Office [facility]/[address], [address] [place] [address] Fax: documented in this encounterC[facility]06-20-2023 Miscellaneous Notes* Telephone Encounter - Ayde Sapp MA - 10/28/2022 1:34 PM EDT Received Eye Exam Report from [facility] HM Updated. Placed in provider's inbox for review. Route to [place] for scanning. documented in this encounterCleveland Clinic [facility] Hospital06-02-2023 NoteHNO ID: [id number] Author: Zaira Mejia MD Service: ? Author Type: Physician Type: Progress Notes Filed: 10/11/2022 12:58 PM Note Text: [facility] Department of Plastic Surgery BREAST AUGMENTATION EVALUATION CC:Small Breast Size HPI: Cristina Martinez is a 42 year old that presents today for breast augmentaion evaluation and bilateral micromastia. The patient complains of small breasts for >2 years. The patients personal history includes None. The pt does do a self breast exam frequently. All mammograms WNL, no sig h/o breast cancer. S/P weight loss by diet. Current Bra Size: 38 A Desired Bra Size: Full C History of Bleeding Disorder: No History of DVT/Pulmonary Embolism: No History of MRSA: No MRSA Infection History of Diabetes: Yes: Take tablets and Insulin dependent History of Sleep Apnea: No History of HTN: No History of Smoking: Yes PMH: PAST MEDICAL HISTORY Diagnosis Date Blurring of visual image Chronic osteoarthritis Congenital single kidney left Diverticulitis Dyslipidemia 11/29/2019 Foot callus 11/29/2019 Gastroesophageal reflux disease Hyperthyroidism s/o I-131 ablation Migraine Obesity, Class I, BMI 30-34.9 12/18/2017 Over weight 12/18/2017 Postablative hypothyroidism 07/06/2012 History of hyperthyroidism Seasonal allergies 11/29/2019 Type 2 diabetes mellitus (HCC) 02/19/2015 Type II diabetes mellitus, uncontrolled Vitamin D deficiency PSH: PAST SURGICAL HISTORY Procedure Laterality Date CHOLECYSTECTOMY HX 2011 HYSTERECTOMY HX 07/01/2013 LAVH - DUB LAPAROSCOPIC TUBAL LIGATION/RING/CLIP 08/20/2012 Filshie clips NEEDLE OCULOGRAPHY 1/ XOC MUSC 1/BOTH EYE W/IANDR SURGERY TO REPAIR LAZY EYE L EYE PAST SURGICAL HISTORY OF 2008 Dental procedure- 4 wisdom teeth removed PAST SURGICAL HISTORY OF Eye muscle surgery procedure PAST SURGICAL HISTORY OF 2012 Hysterectomy, ovary preserv PAST SURGICAL HISTORY OF 08/2012 Tubal sterilization SALPINGECTOMY Bilateral 07/01/2013 TOOTH EXTRACTION Meds: Current Outpatient Medications on File Prior to Visit Medication Sig insulin glargine (LANTUS SOLOSTAR U-100 INSULIN) 100 unit/mL (3 mL) Inject 10 units subcutaneously at bedtime daily Insulin Rowlett, Disposable, (BD ULTRAFINE III MINI PEN) 31 gauge x 07/24 Use 1 pen needles daily Blood-Glucose Sensor (DEXCOM G6 SENSOR) ismael Use one sensor every 10 days, IDDM, E 11.9 Blood-Glucose Transmitter (DEXCOM G6 TRANSMITTER) ismael Use one transmitter every 3 months, IDDM, E 11.9 Blood-Glucose Meter,Continuous (DEXCOM G6 SKATES OPERATOR) misc Use continuously to monitor glucose, IDDM, E11.9 semaglutide (OZEMPIC) 2 mg/dose (8 mg/3 mL) pen injector Inject 2 mg subcutaneously one time a week. glimepiride (AMARYL) 2 mg tablet Take 1 tablet by mouth twice daily with meals. pioglitazone (ACTOS) 30 mg tablet Take 1 tablet by mouth once daily. metFORMIN ER (GLUCOPHAGE XR) 500 mg 24 hr tablet Take 2 tablets by mouth twice daily with meals. levothyroxine (SYNTHROID) 125 mcg tablet Take 1 tablet by mouth daily before breakfast. blood sugar diagnostic (BLOOD GLUCOSE TEST) test strip Use as directed to test glucose 2 times daily, E11.9, IDDM Lancets lancets Use as directed to test glucose 3 times daily, E11.9, non-insulin. MULTIVITAMIN ORAL Take by mouth. flintstone Blood-Glucose Meter Use as directed to test glucose 3 times daily, E11.9, non-insulin. cetirizine (ZYRTEC) 10 mg tablet Take 1 tablet by mouth twice daily. No current facility-administered medications on file prior to visit. Social History Tobacco Use Smoking status: Former Types: Cigarettes Quit date: 07/03/2009 Years since quittin.2 Smokeless tobacco: Never Tobacco comments: Type: cigarette; Start date: 1999; Stop date: 2009 Vaping Use Vaping Use: Never used Substance Use Topics Alcohol use: Yes Comment: rarely Drug use: No REVIEW OF SYSTEMS: Review of Systems Constitutional: Negative for chills, diaphoresis, fever, malaise/fatigue and weight loss. Respiratory: Negative for cough, shortness of breath and wheezing. Cardiovascular: Negative for chest pain, palpitations and leg swelling. Gastrointestinal: Negative for diarrhea, nausea and vomiting. Genitourinary: Negative for dysuria. Neurological: Negative for dizziness, tingling, focal weakness, weakness and headaches. Endo/Heme/Allergies: Does not bruise/bleed easily. Psychiatric/Behavioral: Negative for depression. The patient does not have insomnia. PHYSICAL EXAM: Ht 165.1 cm (5' 5) Wt 68.1 kg (150 lb 3.2 oz) LMP 01/26/2012 BMI 24.99 kg/m? CONSTITUTIONAL: Patient reports no recent fever or weight loss ABDOMEN: Non distended, positive bowel sounds all 4 quadrants, soft non-tender, no organomegaly and extensive stria, s/o intertriginous irritation Breast Exam: Chest: Average Asymmetry: Minimal Masses: no Scars: None Stretch Otto none SUBAXILLARY ROL (more content not included)...[facility] 10-10-2022 History of Present illness Narrative* Zaira Mejia MD - 10/10/2022 2:25 PM EDT [facility] Department of Plastic Surgery BREAST AUGMENTATION EVALUATION CC:Small Breast Size HPI: Cristina Martinez is a 42 year old that presents today for breast augmentaion evaluation and bilateral micromastia. The patient complains of small breasts for >2 years. The patients personal history includes None. The pt does do a self breast exam frequently. All mammograms WNL, no sig h/o breast cancer. S/P weight loss by diet. Current Bra Size: 38 A Desired Bra Size: Full C History of Bleeding Disorder: No History of DVT/Pulmonary Embolism: No History of MRSA: No MRSA Infection History of Diabetes: Yes: Take tablets and Insulin dependent History of Sleep Apnea: No History of HTN: No History of Smoking: Yes PMH: PAST MEDICAL HISTORY Diagnosis Date Blurring of visual image Chronic osteoarthritis Congenital single kidney left Diverticulitis Dyslipidemia 11/29/2019 Foot callus 11/29/2019 Gastroesophageal reflux disease Hyperthyroidism s/o I-131 ablation Migraine Obesity, Class I, BMI 30-34.9 12/18/2017 Over weight 12/18/2017 Postablative hypothyroidism 07/06/2012 History of hyperthyroidism Seasonal allergies 11/29/2019 Type 2 diabetes mellitus (HCC) 02/19/2015 Type II diabetes mellitus, uncontrolled Vitamin D deficiency PSH: PAST SURGICAL HISTORY Procedure Laterality Date CHOLECYSTECTOMY HX 2011 HYSTERECTOMY HX 07/01/2013 LAVH - DUB LAPAROSCOPIC TUBAL LIGATION/RING/CLIP 08/20/2012 Filshie clips NEEDLE OCULOGRAPHY 1/ XOC MUSC 1/BOTH EYE W/I&R SURGERY TO REPAIR LAZY EYE L EYE PAST SURGICAL HISTORY OF 2008 Dental procedure- 4 wisdom teeth removed PAST SURGICAL HISTORY OF Eye muscle surgery procedure PAST SURGICAL HISTORY OF 2012 Hysterectomy, ovary preserv PAST SURGICAL HISTORY OF 08/2012 Tubal sterilization SALPINGECTOMY Bilateral 07/01/2013 TOOTH EXTRACTION Meds: Current Outpatient Medications on File Prior to Visit Medication Sig insulin glargine (LANTUS SOLOSTAR U-100 INSULIN) 100 unit/mL (3 mL) Inject 10 units subcutaneously at bedtime daily Insulin Rowlett, Disposable, (BD ULTRAFINE III MINI PEN) 31 gauge x 3/16 Use 1 pen needles daily Blood-Glucose Sensor (DEXCOM G6 SENSOR) ismael Use one sensor every 10 days, IDDM, E 11.9 Blood-Glucose Transmitter (DEXCOM G6 TRANSMITTER) ismael Use one transmitter every 3 months, IDDM, E 11.9 Blood-Glucose Meter,Continuous (DEXCOM G6 SKATES OPERATOR) [facility] Use continuously to monitor glucose, IDDM,E11.9 semaglutide (OZEMPIC) 2 mg/dose (8 mg/3 mL) pen injector Inject 2 mg subcutaneously one time a week. glimepiride (AMARYL) 2 mg tablet Take 1 tablet by mouth twice daily with meals. pioglitazone (ACTOS) 30 mg tablet Take 1 tablet by mouth once daily. metFORMIN ER (GLUCOPHAGE XR) 500 mg 24 hr tablet Take 2 tablets by mouth twice daily with meals. levothyroxine (SYNTHROID) 125 mcg tablet Take 1 tablet by mouth daily before breakfast. blood sugar diagnostic (BLOOD GLUCOSE TEST) test strip Use as directed to test glucose 2 times daily, E11.9, IDDM Lancets lancets Use as directed to test glucose 3 times daily, E11.9, non-insulin. MULTIVITAMIN ORAL Take by mouth. flintstone Blood-Glucose Meter Use as directed to test glucose 3 times daily, E11.9, non-insulin. cetirizine (ZYRTEC) 10 mg tablet Take 1 tablet by mouth twice daily. No current facility-administered medications on file prior to visit. Social History Tobacco Use Smoking status: Former Types: Cigarettes Quit date: 07/03/2009 Years since quittin.2 Smokeless tobacco: Never Tobacco comments: Type: cigarette; Start date: 1999; Stop date: 2009 Vaping Use Vaping Use: Never used Substance Use Topics Alcohol use: Yes Comment: rarely Drug use: No REVIEW OF SYSTEMS: Review of Systems Constitutional: Negative for chills, diaphoresis, fever, malaise/fatigue and weight loss. Respiratory: Negative for cough, shortness of breath and wheezing. Cardiovascular: Negative for chest pain, palpitations and leg swelling. Gastrointestinal: Negative for diarrhea, nausea and vomiting. Genitourinary: Negative for dysuria. Neurological: Negative for dizziness, tingling, focal weakness, weakness and headaches. Endo/Heme/Allergies: Does not bruise/bleed easily. Psychiatric/Behavioral: Negative for depression. The patient does not have insomnia. PHYSICAL EXAM: Ht 165.1 cm (5' 5) Wt 68.1 kg (150 lb 3.2 oz) LMP 01/26/2012 BMI 24.99 kg/m CONSTITUTIONAL: Patient reports no recent fever or weight loss ABDOMEN: Non distended, positive bowel sounds all 4 quadrants, soft non-tender, no organomegaly andextensive stria, s/o intertriginous irritation Breast Exam: Chest: Average Asymmetry: Minimal Masses: no Scars: None Stretch Otto none SUBAXILLARY ROLLS: {NO (DEF) / YES :[id number] Note: measurements are in centimeters Cleavage: wide based width Ptosis: R: Grade III L: Grade III Medial nipple displacement: None Skin Quality: Striae: No Skin Envelope Pinch: Moderate (2-4 cm in the upper pole; Tight (low profile implant needed) DATA: Radiology Review: n/a Breast Measurements were deferred today Assessment: 42 year old female with hypomastia related to weight loss- patient does not want implants. Discussed performing below. Also reviewed staging the procedure, performing a cosmetic julia, vs implant augmentation vs augmentation with fat. PLAN: The patient is a good candidate for breast augmentation. The patient might benefit from mastopexy due to moderate ptosis but her choice is to see results ofaugment alone and stage if necessary. The risks, benefits and options were discussed with the pt. The risks included but not limited to pain, bleeding, infection, heavy scarring, damage to surrounding structures, and need for further procedures. Other risks including but not limited to asymmetry, loss of nipple or/and areola, loss of sensation to nipple and areola, inability to breast feed, seroma, hematoma, implant failure, capsularcontracture, infection,and fat necrosis were also discussed with the patient. All of her questions were answered to her satisfaction. She would like a cosmetic quote before obtaining photos and a formal exam. Follow up 1-2 weeks prior to surgery: see below. Zaira Mejia MD Surgery Scheduling Cristina Martinez 1980 Procedure: bilateral augmentation-mastopexy with fat vs mastopexy alone OR Time Needed: 3 vs 2 hrs [place] or ASC: any Equipment Request: plastics set, cookie cutters, tumescent, lipografter, 3-0/4-0 monocryl, 5-0 fast, abd binder, bra SA Requested: Yes Anesthesia: General Post op appointment: 1,3,6 Inpatient stay:No Block Needed: No Pre Testing Needed: Yes Occupational Therapy: No Cosmetic: Yes Zaira Mejia MD documented in this encounterC[facility]05-09-2023 Miscellaneous Notes* Telephone Encounter - Meredith Child MA - 09/16/2022 8:23 AM EDT Patient phones requesting refills as follows: Had recent appt Requested Prescriptions Pending Prescriptions Disp Refills insulin glargine (LANTUS SOLOSTAR U-100 INSULIN) 100 unit/mL (3 mL) 15 mL 3 Sig: Inject 10 units subcutaneously at bedtime daily Insulin Rowlett, Disposable, (BD ULTRAFINE III MINI PEN) 31 gauge x 3/16 100 Each 3 Sig: Use 1 pen needles daily Please review and advise. Meredith Child MA documented in this encounterC[facility] History of Present illness Narrative* Zaira Moody PA-C - 08/19/2022 10:40 AM EDT Images from the original note were not included. [facility] MEDICINE [address] [facility] [address] Dept: [phone] Dept Loc: [phone] Visit type: Established Patient Reason for Visit: new to provider and Menopause (Thinks it in ) Assessment and Plan 1. Acute viral conjunctivitis of left eye Comments: acute inflammation left eye Orders: - naphazoline-pheniramine (Naphcon-A) 0.025-0.3 % ophthalmic solution; Administer 1 drop into both eyes in the morning and 1 drop at noon and 1 drop in the evening and 1 drop before bedtime., Starting Thu08/19/2022, Normal 2. Perimenopause Comments: concern for possible menopause, will refer to HUMAN FACTORS ENGINEER for futher evaluation. 3. Hypothyroidism (acquired) Comments: TSH levels have been normal this is continuing to be followed by endocrinology encouraged to continue to follow with them. 4. Type 2 diabetes mellitus without complication, with long-term current use of insulin ([facility]) ([facility]) Comments: Most recent hemoglobin A1c is 7.5 and improving continue to follow-up with endocrinology. 5. Other fatigue Comments: Suspect secondary to stress, possible perimenopausal. Scheduled to have blood work including CBC drawn later this week. Follow up in about 6 months (around 02/18/2023). Lengthy discussion with the patient about her health. Her sugars appear adequately controlled. We did discuss her ASCVD risk which is 1.5% at this point time. He does recommend statin therapy but on a case to case basis. She states that she is talk to her manufacturing lead before about placing her ameya statin as she is trying to modify her diet and watch what she eats cooked better using special oils such as coconut and olive oil. I think this is reasonable at this point time as his ASCVD risk isextremely low even though she is a diabetic she would prefer to stay off statin medications at thispoint time even though her LDL slightly higher HDL is at 58 which is good. Encouraged to try over-the- counter medication such as omega-3 fatty acids or red yeast rice as these will help drop her LDL levels without using a statin medication. She does have ongoing conjunctivitis of the left eye but possibly more allergy based versus medication as she does have some cobblestoning of the conjunctive a but there is no signs of an acute bacterial infection or any indication for emergent antibiotic treatment. There is no signs of shingles or zoster is in and around the eyes and suggest further imaging of the eye. We did also discussed the use of holistic medicine. He did discussed Eastern medicine. Encouraged use of vitamins herbs and supplements. Discussed the use of such medicines and heard such as turmericand maciej. Patient is encouraged to use these items as comfortable as she is. As she is trying to lead a healthier lifestyle we will once avoid as much medicine as possible. Time spent with the patient 40 minutes Subjective HPI This is a 42 yo female with h/o DM2, HLD, and post ablative hypothyroid, with grave's disease, and anxiety and depression, and IBS who presents to the office for evaluation. She is currently following up with endocrinology. She has had her gallbladder removed, post lottie US of abdomen 11/29 was normal, also history of BAILEY, MRI 11/29 was normal and she has a negative cardiac stress test the same month. Also a normal colonoscopy 04/01. Female exam due for exam, will follow up with Production Cloth Cutter, Last A1c was 7.5 08/07/22 trulicity, and recent switched ozempic, lost 103lbs diet and diabetes. Born with only one kidney, left remains. Treated for pink eye in left eye about a month ago, still having intermittent drainage in left eye. Fatigue, sweating, sex drive diminished, emotional, concerned for possible menopause, partial hysterectomy, Patient states she is trying to lead a healthy life ever since she was diagnosed as a diabetic she is lost a lot of weight she states she is down 103 pounds watching what she eats cooking better she is states she is trying to lead as much of a healthy life as possible she was concerned that she maybe going through menopause we did discuss this and following with HUMAN FACTORS ENGINEER to do any further testing to determine stage of menopause. Otherwise in review of her medications everything seems to be stable there is no indication for current blood work at this point time as she continues to follow-up with endocrinology for most of her needs. Review of Systems Constitutional: Positive for fatigue. Negative for chills and fever. HENT: Negative for congestion and sore throat. Eyes: Positive for discharge, redness and itching. Negative for photophobia and visual disturbance. Respiratory: Negative for cough and shortness of breath. Cardiovascular: Negative for chest pain. Gastrointestinal: Negative for abdominal pain, diarrhea, nausea and vomiting. Genitourinary: Negative for difficulty urinating, dysuria, frequency and urgency. Reports diminished sex drive Musculoskeletal: Negative for back pain. Skin: Negative for rash. Neurological: Negative for dizziness and light-headedness. Psychiatric/Behavioral: Positive for agitation. Negative for confusion and decreased concentration.The patient is not nervous/anxious. Concerns feels more emotional and aguayo at times. 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 All other systems reviewed and are negative. Allergies Allergen Reactions Blue Dyes (Parenteral) Hives Hydrocodone-Acetaminophen Nausea Only Morphine Nausea Only Atorvastatin Other reaction(s): Other: See Comments, Other: See Comments Other reaction(s): Other: See Comments made sugars increase. made sugars increase. Canagliflozin Other reaction(s): Other: See Comments, Other: See Comments Other reaction(s): Other: See Comments Vaginal yeast infections Vaginal yeast infections Hydrocodone Other reaction(s): Other: See Comments, Other: See Comments Other reaction(s): Other: See Comments N \T\ V N \T\ V Outpatient Medications Prior to Visit Medication Sig Dispense Refill cetirizine (ZyrTEC) 10 MG tablet Take 10 mg by mouth daily. Droplet Pen Rowlett 31G X 5 [place] [facility] [place] PEN NEEDLE daily glimepiride (Amaryl) 2 MG tablet take 2 tablets by mouth once daily with breakfast insulin glargine (Lantus SoloStar) 100 UNIT/ML pen Inject 10 Units under the skin. levothyroxine (Synthroid, Levoxyl) 125 MCG tablet Take 125 mcg by mouth every morning (before breakfast). metFORMIN XR (Glucophage-XR) 500 MG 24 hr tablet Take 1,000 mg by mouth in the morning and 1,000 mgin the evening. Take with meals. pioglitazone (Actos) 30 MG tablet Take 30 mg by mouth in the morning. Semaglutide, 2 MG/DOSE, (Ozempic, 2 MG/DOSE,) 8 MG/3ML solution pen-injector Inject 2 mg under the skin once a week. True Metrix Blood Glucose Test test strip use 1 TEST STRIP to TEST BLOOD SUGAR twice a day No facility-administered medications prior to visit. 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 Fulton for rx Women's annual routine gynecological examination Giach Social History Tobacco Use Smoking status: Former Packs/day: 1.00 Types: Cigarettes Quit date: 11/21/2009 Years since quittin.7 Smokeless tobacco: Never Substance Use Topics Alcohol use: Yes Comment: social couple times per week [place] Past Surgical History: Procedure Laterality Date CHOLECYSTECTOMY 2013 COLONOSCOPY 2006 COLONOSCOPY 02/06/2022 Diverticuli CYSTOSCOPY 2014 PARTIAL HYSTERECTOMY 2014 Gaich STRABISMUS SURGERY 1988 TUBAL LIGATION 2014 Family History Problem Relation Name Age of Onset Diabetes Paternal Grandfather No Known Problems Mother Thyroid disease Father No Known Problems Brother No Known Problems Sister Objective BP 115/81 (BP Location: Left arm, Patient Position: Sitting, BP Cuff Size: Adult long) Pulse 85 Temp 36.9 C (98.4 F) (Temporal) Ht 5' 5 (1.651 m) Wt 150 lb 9.6 oz (68.3 kg) SpO2 97% BMI 25.06 kg/m Physical Exam Vitals reviewed. Constitutional: General: She is not in acute distress. Appearance: Normal appearance. She is not ill-appearing or toxic-appearing. HENT: Right Ear: Tympanic membrane and ear canal normal. Left Ear: Tympanic membrane and ear canal normal. Mouth/Throat: Mouth: Mucous membranes are moist. Pharynx: Oropharynx is clear. No oropharyngeal exudate. Eyes: General: No scleral icterus. Pupils: Pupils are equal, round, and reactive to light. Comments: There is mild injection in both eyes however the left is greater than the right in the medial aspect of the sclera. There is also cobblestoning in the conjunctive a bilaterally greater in the left eye as well. There is some slight yellow-tinged exudate within the medial canthal fold of the left eye. Cardiovascular: Rate and Rhythm: Normal rate and regular rhythm. Heart sounds: Normal heart sounds. Pulmonary: Effort: Pulmonary effort is normal. No respiratory distress. Breath sounds: Normal breath sounds. Abdominal: General: Abdomen is flat. There is no distension. Palpations: Abdomen is soft. Tenderness: There is no abdominal tenderness. There is no guarding. Musculoskeletal: Cervical back: Normal range of motion and neck supple. Skin: General: Skin is warm and dry. Neurological: Mental Status: She is alert. Psychiatric: Mood and Affect: Mood normal. Data Reviewed and Summarized Labs: Imaging/Testing: Zaira Moody PA-C 08/19/2022 Please note that portions of this note may have been completed with voice recognition software. Documentation reviewed prior to signing but minor errors in sheep farmer may have occurred. documented in this [facility]03-30-[facility] Instructions* Patient Instructions* Genoveva Chatman APRN.CNP - 08/07/2022 2:42 PM EDT Continue current diabetes regimen. 2. Start Dexcom 3. Follow up in 4 months BA Guzman, MUCKING MACHINE OPERATOR, EMT I/85-C, CDE Endocrinology [facility] Medical Office [facility]/[address] [place] [address] Fax: documented in this encounterC[facility]03-30-2023 History of Present illness Narrative* Genoveva Chatman APRN.CNP - 08/07/2022 2:15 PM EDT Reason for Consultation: DM Type 2 Referring Physician: SELF HISTORY OF PRESENT ILLNESS Ms. Martinez is a 42 year old female presenting here today for a follow up of DM Type 2. As I recall,she was initially diagnosed with diabetes about 01/09/2015 with BG in 600's Endo: Dr. Fulton [place] 04/01/22 A1C today is 7.5 History in addition to diabetes include: hyperlipidemia, hypothyroidism, covid 19 She is seeing holistic caregiver. Using various supplements and feels it is helping her glucose. Has lost about 100 lb since DM diagnosis. Does intermittent fasting/low carb diet 25-30 grams of carbs per day. She feels the sukhdeep reads inaccurately. Has dexcom G6 at home but has not started using it yet. She purchased out of pocket. Fitness center 2-3 x per week. Fhx of DM: gradparents DM education on 02/08/20 Current diabetes regimen is as follows: Ozempic 2 mg weekly Metformin ER 500 mg 2 tabs BID actos 30 mg daily Glimepiride 2mg taking 2 tabs in AM (total 4 mg daily) Lantus 10 units daily at HS Previous DM medications: januvia invokana--genital yeast infection, UTI Trulicity--not at goal she is checking her blood glucose 2 -5 x per day she does not bring a log book today for review. LDE Blood Sugar Frequency: FBS 130-170 During day 130-170 Hypoglycemia frequency: occasionally Hypoglycemia awareness: Yes Regarding symptoms of hypoglycemia, she is not experiencing any symptoms such as polyuria, polydipsia, nocturia or rapid weight loss or blurry vision, Overall, the patient has no acute complaints at this time. Hypothyroidism: Hx of MARSHALL for hyperthyroidism Dx about age 24. Fhx of thyroid disease: paternal aunt, uncle, grandfather Taking levothyroxine 125 mcg daily TSH 1.04 on 01/22/22 HLD: Used Atorvastatin: made sugars increase Was on pravastatin--pt stopped. PAST MEDICAL HISTORY Diagnosis Date Blurring of visual image Chronic osteoarthritis Congenital single kidney left Diverticulitis Dyslipidemia 11/29/2019 Foot callus 11/29/2019 Gastroesophageal reflux disease Hyperthyroidism s/o I-131 ablation Migraine Obesity, Class I, BMI 30-34.9 12/18/2017 Over weight 12/18/2017 Postablative hypothyroidism 07/06/2012 History of hyperthyroidism Seasonal allergies 11/29/2019 Type 2 diabetes mellitus (HCC) 02/19/2015 Type II diabetes mellitus, uncontrolled Vitamin D deficiency PAST SURGICAL HISTORY Procedure Laterality Date CHOLECYSTECTOMY HX 2010 HYSTERECTOMY HX 07/01/2013 [facility] - DUB LAPAROSCOPIC TUBAL LIGATION/RING/CLIP 08/20/2012 Filshie clips NEEDLE OCULOGRAPHY 1/ XOC MUSC 1/BOTH EYE W/I&R SURGERY TO REPAIR LAZY EYE L EYE PAST SURGICAL HISTORY OF 2008 Dental procedure- 4 wisdom teeth removed PAST SURGICAL HISTORY OF Eye muscle surgery procedure PAST SURGICAL HISTORY OF 2012 Hysterectomy, ovary preserv PAST SURGICAL HISTORY OF 08/2012 Tubal sterilization SALPINGECTOMY Bilateral 07/01/2013 TOOTH EXTRACTION FAMILY HISTORY Problem Relation Age of Onset other (migraine) Father other (rheumatoid arthritis) Father other (Thyroid disorder) Father hyperthyroid Arthritis Mother osteoarthritis Diabetes Mother other (migraine) Mother other (Cancer - other) Paternal Grandmother started in her eye and metastasized Alzheimer's Disease Maternal Grandmother other (Diabetes mellitus) Maternal Grandmother Cancer Other multiple family members Thyroid Paternal Grandfather hyperthyroid Diabetes Paternal Grandfather Thyroid Paternal Uncle hyperthyroid Thyroid Paternal Aunt hyperthyroid Thyroid Paternal Uncle hyperthyroid other (Thyroid disorder) Other other (Thyroid disorder) Other Social History Tobacco Use Smoking status: Former Types: Cigarettes Quit date: 07/03/2009 Years since quittin.1 Smokeless tobacco: Never Tobacco comments: Type: cigarette; Start date: 1999; Stop date: 2009 Vaping Use Vaping Use: Never used Substance Use Topics Alcohol use: Yes Comment: rarely Drug use: No Allergies As of Date: 08/07/2022 Allergen Noted Reaction BLUE DYE 03/10/2016 Hives HYDROCODONE 12/31/2015 Other: See Comments INVOKANA [CANAGLIFLOZIN] 03/11/2018 Other: See Comments LIPITOR [ATORVASTATIN] 02/27/2020 Other: See Comments Fully Assessed 08/07/2022 Current Outpatient Medications Medication Sig Dispense Refill semaglutide (OZEMPIC) 2 mg/dose (8 mg/3 mL) pen injector Inject 2 mg subcutaneously one time a week. 3 mL 11 glimepiride (AMARYL) 2 mg tablet Take 1 tablet by mouth twice daily with meals. 180 tablet 3 pioglitazone (ACTOS) 30 mg tablet Take 1 tablet by mouth once daily. 90 tablet 3 insulin glargine (LANTUS SOLOSTAR U-100 INSULIN) 100 unit/mL (3 mL) Inject 10 Units subcutaneously daily at bedtime. metFORMIN ER (GLUCOPHAGE XR) 500 mg 24 hr tablet Take 2 tablets by mouth twice daily with meals. 360 tablet 3 levothyroxine (SYNTHROID) 125 mcg tablet Take 1 tablet by mouth daily before breakfast. 90 tablet 3 blood sugar diagnostic (BLOOD GLUCOSE TEST) test strip Use as directed to test glucose 2 times daily, E11.9, IDDM 200 Strip 3 Insulin Rowlett, Disposable, (BD ULTRAFINE III MINI PEN) 31 gauge x 3/16 Use 4 pen needles daily 150 Each 5 Lancets lancets Use as directed to test glucose 3 times daily, E11.9, non- insulin. 300 Each 0 MULTIVITAMIN ORAL Take by mouth. flintstone Blood-Glucose Meter Use as directed to test glucose 3 times daily, E11.9, non- insulin. 1 Each 0 cetirizine (ZYRTEC) 10 mg tablet Take 1 tablet by mouth twice daily. 180 tablet 1 flash glucose scanning reader (FREESTYLE SUKHDEEP 2 READER) Use 4x daily, IDDM, E 11.65 1 Each 0 flash glucose sensor (FREESTYLE SUKHDEEP 2 SENSOR) kit Use one sensor every 14 days, IDDM, E11.65 2 Each 11 No current facility-administered medications for this visit. REVIEW OF SYSTEMS Review of Systems Respiratory: Negative for difficulty breathing. Cardiovascular: Negative for chest pain. Gastrointestinal: Negative for nausea, vomiting, diarrhea and constipation. PHYSICAL EXAMINATION BP 104/74 Pulse 91 Resp 17 Ht 164.4 cm (5' 4.72) Wt 68.4 kg (150 lb 12.8 oz) LMP 01/26/2012 SpO2 98% BMI 25.31 kg/m2 Physical Exam Constitutional: Appearance: Normal appearance. Neck: Thyroid: No thyroid mass, thyromegaly or thyroid tenderness. Cardiovascular: Rate and Rhythm: Normal rate and regular rhythm. Pulmonary: Effort: Pulmonary effort is normal. Breath sounds: Normal breath sounds. Skin: General: Skin is warm and dry. Neurological: Mental Status: She is alert and oriented to person, place, and time. Psychiatric: Mood and Affect: Mood normal. Behavior: Behavior normal. DATA Creatinine Date Value Ref Range Status 01/22/2022 0.56 (L) 0.58 - 0.96 mg/dL Final Hemoglobin A1C (%) Date Value 11/29/2019 6.2 Hemoglobin A1C (POCT) (%) Date Value 04/01/2022 7.9 ) No components found for: URINEALBUMIN Cholesterol, Total (mg/dL) Date Value 01/22/2022 228 03/05/2021 202 HDL Cholesterol (mg/dL) Date Value 01/22/2022 58 03/05/2021 47 LDL Cholesterol (mg/dL) Date Value 01/22/2022 153 03/05/2021 128 Triglyceride (mg/dL) Date Value 01/22/2022 86 03/05/2021 133 IMPRESSION: Ms. Martinez is a 42 year old female here for evaluation of DM Type 2 complicated by hyperlipidemia and hypothyroidism RECOMMENDATIONS: (E11.9) Type 2 diabetes mellitus without complication, without long-term current use of insulin ([facility]) (primary encounter diagnosis) Comment: glycemic control is improving. Plan: Insulin Rowlett, Disposable, (BD ULTRAFINE III MINI PEN) 31 gauge x 3/16, HEMOGLOBIN A1C (POC), Blood-Glucose Sensor (DEXCOM G6 SENSOR) ismael, Blood-Glucose Transmitter (DEXCOM G6 TRANSMITTER) ismael, Blood-Glucose Meter,Continuous (DEXCOM G6 SKATES OPERATOR) misc Continue current regimen of Ozempic, metformin, lantus, glimepiride Start Dexcom Follow up in 4 months (E89.0) Postablative hypothyroidism Comment: She has been euthyroid on the present dose of thyroxine Plan: labs as ordered (E78.5) Dyslipidemia Comment/Plan: labs as ordered Declines statin Continue with exercise efforts. I spent a total of 30 minutes on the date of the service which included preparing to see the patient, [id number] patient care, completing clinical documentation, obtaining and/or reviewing separately obtained history, performing a medically appropriate examination, counseling and educating the pat ient/family/caregiver, ordering medications, tests, or procedures, and communicating results to thepatient/family/caregiver. Genoveva Chatman, MSN, MUCKING MACHINE OPERATOR, EMT I/85-C, CDE Endocrinology [facility] Medical Office [facility]/[address] [place] [address] Fax: documented in this encounterC[facility]03-01-2023 Telephone encounter Note * Telephone Encounter - Tiyn Monteiro LPN - 07/09/2022 4:22 PM EST Talked to patient and she will get the lab work done. [id number] Miscellaneous Notes* Telephone Encounter - Tiny Monteiro LPN - 07/09/2022 4:22 PM EST Talked to patient and she will get the lab work done. * Telephone Encounter - Irina Blankenship MA - 07/08/2022 11:22 AM EST Left detailed message for patient to stop by and have a cbc done before her next menses. * Telephone Encounter - Ming Perez DO - 07/08/2022 7:42 AM EST Even though the anemia is most likely secondary to heavy menses for completeness should have a CBC done before her next menses documented in this encounterSRegency Hospital [id number] Telephone encounter Note* Telephone Encounter - Irina Blankenship MA - 07/08/2022 11:22 AM EST Left detailed message for patient to stop by and have a cbc done before her next menses. [facility] [id number] Miscellaneous Notes* Telephone Encounter - Irina Blankenship MA - 07/08/2022 11:22 AM EST Left detailed message for patient to stop by and have a cbc done before her next menses. * Telephone Encounter - Ming Perez DO - 07/08/2022 7:42 AM EST Even though the anemia is most likely secondary to heavy menses for completeness should have a CBC done before her next menses documented in this [facility]02-28-2023 Telephone encounter Note* Telephone Encounter - Ming Perez DO - 07/08/2022 7:42 AM EST Even though the anemia is most likely secondary to heavy menses for completeness should have a CBC done before her next menses [facility] [id number] Nurse Note* Cristina Martinez RN - 05/08/2022 11:22 AM EST Patient walked in office today. State's she thinks she is not using her Ozempic 2 mg/dose (8 mg/3mL) Pen correctly. She is to inject 2 mg subcutaneous once weekly. Reviewed the proper way to use this specific pen. Patient was not dialing all the way to the 2 mgdose. She stated/demonstrated without difficulty now that she has been shown. She is confident she can complete this at home. Cristina Martinez RN documented in this encounterCleveland Clinic [facility]11-22-2022 Procedure note* Roslyn Perez Ma - 04/01/2022 1:00 PM ESTProcedure(s): EXTERNAL SKATES OPERATOR, CGM SYS Images from the original note were not included. documented in this encounterCleveland Clinic Luther[facility] Hospital11-22-2022 History of Present illness Narrative* Genoveva Chatman APRN.MARINA - 04/01/2022 12:21 PM EST Reason for Consultation: DM Type 2 Referring Physician: SELF HISTORY OF PRESENT ILLNESS Ms. Martinez is a 41 year old female presenting here today for a follow up of DM Type 2. As I recall,she was initially diagnosed with diabetes about 01/09/2015 with BG in 600's Endo: Dr. Fulton [place] 12/24/21 A1C today is 7.9 Fhx of DM: gradparents DM education on 02/08/20 History in addition to diabetes include: hyperlipidemia, hypothyroidism, covid 19 We switched to ozempic last visit but due to supply issues it was not available and she went back to [facility] . She is seeing holistic caregiver. Using various supplements and feels it is helping her glucose. Has lost about 100 lb since DM diagnosis. Does intermittent fasting/low carb diet 25-30 grams of carbs per day. Current diabetes regimen is as follows: Lantus 10 units daily at HS Novolog at meals per scale below If Blood Glucose (mg/dL) is < 150 Give 0 units 151-200 Give 0 units 201-250 Give 1 units 251-300 Give 2 units 301-350 Give 3 units > 351 Give 4 units [facility] 4.5 mg weekly Metformin ER 500 mg 2 tabs BID actos 30 mg daily Glimepiride 2mg 1 tabs at breakfast 1 tab at dinner (total 4 mg daily) Previous DM medications: vika mireles--genital yeast infection, UTI she is checking her blood glucose continuously ith Sukhdeep. Feels there is a discrepancy between readings she does bring a log book today for review. LDE Blood Sugar Frequency: Sukhdeep 14 day download (03/18/22 to 03/31/22) In range 31% High 53% Very high 16% Low 0% Very low 0% Estimated A1C 8.2 avg glucose 204 BG is highest from 6 AM to 11 AM Tends to run mostly high during the day but down to about 140 at lowest *See details in procedure note. Hypoglycemia frequency: rare Hypoglycemia awareness: Yes Regarding symptoms of hypoglycemia, she is not experiencing any symptoms such as polyuria, polydipsia, nocturia or rapid weight loss or blurry vision, Overall, the patient has no acute complaints at this time. Hypothyroidism: Hx of MARSHALL for hyperthyroidism Dx about age 24. Fhx of thyroid disease: paternal aunt, uncle, grandfather Taking levothyroxine 125 mcg daily TSH 1.04 on 01/22/22 HLD: Used Atorvastatin: made sugars increase Was on pravastatin--pt stopped. PAST MEDICAL HISTORY Diagnosis Date Blurring of visual image Chronic osteoarthritis Congenital single kidney left Diverticulitis Dyslipidemia 11/29/2019 Foot callus 11/29/2019 Gastroesophageal reflux disease Hyperthyroidism s/o I-131 ablation Migraine Obesity, Class I, BMI 30-34.9 12/18/2017 Over weight 12/18/2017 Postablative hypothyroidism 07/06/2012 History of hyperthyroidism Seasonal allergies 11/29/2019 Type 2 diabetes mellitus (HCC) 02/19/2015 Type II diabetes mellitus, uncontrolled Vitamin D deficiency PAST SURGICAL HISTORY Procedure Laterality Date CHOLECYSTECTOMY HX 2010 HYSTERECTOMY HX 07/01/2013 L[facility] - DUB LAPAROSCOPIC TUBAL LIGATION/RING/CLIP 08/20/2012 Filshie clips NEEDLE OCULOGRAPHY 1/ XOC MUSC 1/BOTH EYE W/I&R SURGERY TO REPAIR LAZY EYE L EYE PAST SURGICAL HISTORY OF 2008 Dental procedure- 4 wisdom teeth removed PAST SURGICAL HISTORY OF Eye muscle surgery procedure PAST SURGICAL HISTORY OF 2012 Hysterectomy, ovary preserv PAST SURGICAL HISTORY OF 08/2012 Tubal sterilization SALPINGECTOMY Bilateral 07/01/2013 TOOTH EXTRACTION FAMILY HISTORY Problem Relation Age of Onset other (migraine) Father other (rheumatoid arthritis) Father other (Thyroid disorder) Father hyperthyroid Arthritis Mother osteoarthritis Diabetes Mother other (migraine) Mother other (Cancer - other) Paternal Grandmother started in her eye and metastasized Alzheimer's Disease Maternal Grandmother other (Diabetes mellitus) Maternal Grandmother Cancer Other multiple family members Thyroid Paternal Grandfather hyperthyroid Diabetes Paternal Grandfather Thyroid Paternal Uncle hyperthyroid Thyroid Paternal Aunt hyperthyroid Thyroid Paternal Uncle hyperthyroid other (Thyroid disorder) Other other (Thyroid disorder) Other Social History Tobacco Use Smoking status: Former Types: Cigarettes Quit date: 07/03/2009 Years since quittin.7 Smokeless tobacco: Never Tobacco comments: Type: cigarette; Start date: 1999; Stop date: 2009 Vaping Use Vaping Use: Never used Substance Use Topics Alcohol use: Yes Comment: rarely Drug use: No Allergies As of Date: 04/01/2022 Allergen Noted Reaction BLUE DYE 03/10/2016 Hives HYDROCODONE 12/31/2015 Other: See Comments INVOKANA [CANAGLIFLOZIN] 03/11/2018 Other: See Comments LIPITOR [ATORVASTATIN] 02/27/2020 Other: See Comments Fully Assessed 04/01/2022 Current Outpatient Medications Medication Sig Dispense Refill TRULICITY 4.5 mg/0.5 mL pen injector inject 4.5 milligrams subcutaneously weekly 2 mL 5 insulin glargine (LANTUS SOLOSTAR U-100 INSULIN) 100 unit/mL (3 mL) Inject subcutaneously 9 units daily at bedtime (Patient taking differently: Inject 10 Units subcutaneously daily at bedtime. Injectsubcutaneously 9 units daily at bedtime) 15 mL 5 metFORMIN ER (GLUCOPHAGE XR) 500 mg 24 hr tablet Take 2 tablets by mouth twice daily with meals. 360 tablet 3 levothyroxine (SYNTHROID) 125 mcg tablet Take 1 tablet by mouth daily before breakfast. 90 tablet 3 glimepiride (AMARYL) 2 mg tablet Take 2 tablets by mouth daily with breakfast. (Patient taking differently: Take 4 mg by mouth twice daily with meals.) 180 tablet 3 pioglitazone (ACTOS) 30 mg tablet take 1 tablet by mouth once daily 30 tablet 5 blood sugar diagnostic (BLOOD GLUCOSE TEST) test strip Use as directed to test glucose 2 times daily, E11.9, IDDM 200 Strip 3 flash glucose scanning reader (FREESTYLE SUKHDEEP 2 READER) Use 4x daily, IDDM, E 11.65 1 Each 0 flash glucose sensor (FREESTYLE SUKHDEEP 2 SENSOR) kit Use one sensor every 14 days, IDDM, E11.65 2 Each 11 Insulin Rowlett, Disposable, (BD ULTRAFINE III MINI PEN) 31 gauge x 3/16 Use 4 pen needles daily 150 Each 5 Lancets lancets Use as directed to test glucose 3 times daily, E11.9, non- insulin. 300 Each 0 MULTIVITAMIN ORAL Take by mouth. flintstone Blood-Glucose Meter Use as directed to test glucose 3 times daily, E11.9, non- insulin. 1 Each 0 cetirizine (ZYRTEC) 10 mg tablet Take 1 tablet by mouth twice daily. 180 tablet 1 No current facility-administered medications for this visit. REVIEW OF SYSTEMS Review of Systems Respiratory: Negative for difficulty breathing. Cardiovascular: Negative for chest pain. Gastrointestinal: Negative for nausea, vomiting, diarrhea and constipation. PHYSICAL EXAMINATION BP 117/78 Pulse 82 Ht 166.4 cm (5' 5.5) Wt 68.5 kg (151 lb) LMP 01/26/2012 SpO2 96% BMI 24.75 kg/m2 Physical Exam Constitutional: Appearance: Normal appearance. Cardiovascular: Rate and Rhythm: Normal rate and regular rhythm. Pulmonary: Effort: Pulmonary effort is normal. Breath sounds: Normal breath sounds. Skin: General: Skin is warm and dry. Neurological: Mental Status: She is alert and oriented to person, place, and time. Psychiatric: Mood and Affect: Mood normal. Behavior: Behavior normal. DATA Creatinine Date Value Ref Range Status 01/22/2022 0.56 (L) 0.58 - 0.96 mg/dL Final Hemoglobin A1C (%) Date Value 11/29/2019 6.2 Hemoglobin A1C (POCT) (%) Date Value 04/01/2022 7.9 ) No components found for: URINEALBUMIN Cholesterol, Total (mg/dL) Date Value 01/22/2022 228 03/05/2021 202 HDL Cholesterol (mg/dL) Date Value 01/22/2022 58 03/05/2021 47 LDL Cholesterol (mg/dL) Date Value 01/22/2022 153 03/05/2021 128 Triglyceride (mg/dL) Date Value 01/22/2022 86 03/05/2021 133 IMPRESSION: Ms. Martinez is a 41 year old female here for evaluation of DM Type 2 complicated by hyperlipidemia and hypothyroidism RECOMMENDATIONS: (E11.9) Type 2 diabetes mellitus without complication, without long-term current use of insulin (HCC) (primary encounter diagnosis) Comment: glycemic control is improving. Plan: HEMOGLOBIN A1C (POC), semaglutide (OZEMPIC) 2 mg/dose (8 mg/3 mL) pen injector, glimepiride (AMARYL) 2 mg tablet, pioglitazone (ACTOS) 30 mg tablet, COMP METABOLIC PANEL, HGB A1C, TSH BLD, LIPID PANEL BASIC, VITAMIN B12 BLOOD, insulin glargine (LANTUS SOLOSTAR U-100 INSULIN) 100 unit/mL (3 mL) Stop trulicity Start ozempic 2 mg weekly Continue metformin, actos and glimepiride. Follow up in 3 months with labs EMERGENCY ROOM PHYSICIAN ASSISTANT. (E89.0) Postablative hypothyroidism Comment: She has been euthyroid on the present dose of thyroxine Plan: TSH BLD TFT with next labs (E78.5) Dyslipidemia Comment/Plan: LIPID PANEL BASIC Declines statin Increasing exercise. Medical Decision Making: Level: 4 - Moderate Genoveva Chatman, MSN, MUCKING MACHINE OPERATOR, EMT I/85-C, CDE Endocrinology [facility] Medical Office [facility]/[address], [address] [place] [address] Fax: documented in this [facility]09-21-2022 Miscellaneous Notes* Telephone Encounter - Regina Davila LPN - 01/29/2022 3:44 PM EDT Requester: Pharmacy Last Visit in Endocrinology: Provider name: Genoveva Chatman CNP , Date 12/24/2021 Next Scheduled Appt in Endo: 01/29/2022 Last Refill: 12/31/21 Number of Refills given: 3. Requested Prescriptions Pending Prescriptions Disp Refills TRULICITY 4.5 mg/0.5 mL pen injector [Pharmacy Med Name: TRULICITY 4.5 MG/0.5 ML PEN] 2 mL 5 Sig: inject 4.5 milligrams subcutaneously weekly Please review and advise. Regina Davila LPN documented in this [facility]08-23-2022 Miscellaneous Notes* Telephone Encounter - Cristina Martinez RN - 12/31/2021 7:46 AM EDT Please review. documented in this [facility]07-07-2022 Miscellaneous Notes* Telephone Encounter - Regina Davila LPN - 11/14/2021 9:43 AM EDT Requester: Pharmacy Last Visit in Endocrinology: Provider name: Genoveva Chatman CNP , Date 09/19/2021 Next Scheduled Appt in Endo: 12/24/2021 Last Refill: 05/28/21 Number of Refills given: 5 Pending Prescriptions Disp Refills PIOGLITAZONE 30 MG TABLET 30 tablet 5 Sig: take 1 tablet by mouth once daily CONNOR: Yes Please review and advise. Regina Davila LPN documented in this [facility]06-28-2022 Miscellaneous Notes* Telephone Encounter - Genoveva Chatman APRN.CNP - 11/05/2021 9:19 AM EDT Reviewed. No retinopathy noted. Thank you * Telephone Encounter - Regina Davila LPN - 10/30/2021 8:37 AM EDT Received eye exam from [facility] HM Updated. documented [facility] Miscellaneous Notes* Telephone Encounter - Roslyn Perez Ma - 09/26/2021 10:50 AM EDT See other message. Closed documented in this encounterC[facility]-2022 Miscellaneous Notes* Telephone Encounter - Cristina Martinez RN - 09/26/2021 8:14 AM EDT RX was already sent on 09/25/2021. message to patient to contact pharmacy. Closed. documented in this encounterC[facility]05-18-2022 Miscellaneous Notes* Telephone Encounter - Regina Davila LPN - 09/25/2021 8:28 AM EDT Requester: Patient Last Visit in Endocrinology: Provider name: Genoveva Chatman CNP , Date 09/19/2021 [place] Next Scheduled Appt in Endo: 12/24/2021 [place] Last Refill: 03/12/21 [place] Number of Refills given: 3 Pending Prescriptions Disp Refills BLOOD GLUCOSE TEST STRIPS 200 Strip 3 Sig: Use as directed to test glucose 2 times daily, E11.9, non-insulin. CONNOR: No Please review and advise. Regina Davila LPN documented in this encounterC[facility]05-12-2022 Instructions* Patient Instructions* Genoveva Chatman APRN.CNP - 09/19/2021 2:32 PM EDT 1. Lantus 8 units daily at bedtime. *gradually increase to 10 units daily if needed (aiming for sugars less then 150 in the AM). 2. Novolog at meals per scale below If Blood Glucose (mg/dL) is < 150 Give 0 units 151-200 Give 0 units 201-250 Give 1 units 251-300 Give 2 units 301-350 Give 3 units > 351 Give 4 units 3. Continue trulicity, metformin, actos and glimepiride. 4. Follow up in 3 months Genoveva Chatman, MSN, MUCKING MACHINE OPERATOR, EMT I/85-C, CDE Endocrinology [facility]/[place] [address] Fax: documented in this encounterC[facility]05-12-2022 History of Present illness Narrative* Genoveva Chatman APRN.MARINA - 09/19/2021 2:12 PM EDT Reason for Consultation: DM Type 2 Referring Physician: SELF HISTORY OF PRESENT ILLNESS Ms. Martinez is a 41 year old female presenting here today for a follow up of DM Type 2. As I recall,she was initially diagnosed with diabetes about 01/09/2015 with BG in 600's Endo: Dr. Fulton LV 07/26/21 A1C today is 8.1 Fhx of DM: gradparents DM education on 02/08/20 States sugars are still high since having covid in 2020 States she had a couple episodes of low sugars into 30's Taking various doses of humalog or skipping. Having an upcoming stress test due to possible issue with heart following covid. Hair loss is improving. Has lost about 100 lb since DM diagnosis. Does intermittent fasting/low carb diet 25-30 grams of carbs per day. History in addition to diabetes include: hyperlipidemia, hypothyroidism, covid 19 Exacerbating factors include: none Current diabetes regimen is as follows: Lantus 5 units HS --taking 7 units daily Novolog TID meals per SS If Blood Glucose (mg/dL) is < 150 Give 0 units 151-200 Give 1 units 201-250 Give 2 units 251-300 Give 3 units 301-350 Give 4 units 351-400 Give 5 units >400 Give 5 units trulicity 4.5 mg weekly Metformin ER 500 mg 2 tabs BID actos 30 mg daily Glimepiride 1mg 2 tabs BID (4 mg total daily) *intolerant to the 2 mg tab. Previous DM medications: vika mireles--genital yeast infection, UTI she is checking her blood glucose 4+ times daily with Sukhdeep. she does bring a log book today for review. LDE Blood Sugar Frequency: Sukhdeep 14 day download (09/06/21 to 09/19/21) In range 32% High 56% Very high 12% Low 0% Very low 0% Estimated A1C 8.1% avg glucose 202 BG is highest overnight from MN to 9 AM Trends lower in the afternoon from noon to 6 pm but still above goal. Hypoglycemia frequency: occasionally Hypoglycemia awareness: Yes Regarding symptoms of hypoglycemia, she is not experiencing any symptoms such as polyuria, polydipsia, nocturia or rapid weight loss or blurry vision, Overall, the patient has no acute complaints at this time. Hypothyroidism: Hx of MARSHALL for hyperthyroidism Dx about age 24. Fhx of thyroid disease: paternal aunt, uncle, grandfather Taking levothyroxine 125 mcg daily TSH 1.20 on 03/05/2021 HLD: Used Atorvastatin: made sugars increase Was on pravastatin--pt stopped. Trying avocado, green tea instead PAST MEDICAL HISTORY Diagnosis Date Blurring of visual image Chronic osteoarthritis Congenital single kidney left Diverticulitis Dyslipidemia 11/29/2019 Foot callus 11/29/2019 Gastroesophageal reflux disease Hyperthyroidism s/o I-131 ablation Migraine Obesity, Class I, BMI 30-34.9 12/18/2017 Over weight 12/18/2017 Postablative hypothyroidism 07/06/2012 History of hyperthyroidism Seasonal allergies 11/29/2019 Type 2 diabetes mellitus (HCC) 02/19/2015 Type II diabetes mellitus, uncontrolled Vitamin D deficiency PAST SURGICAL HISTORY Procedure Laterality Date CHOLECYSTECTOMY HX 2010 HYSTERECTOMY HX 07/01/2013 [facility] LAPAROSCOPIC TUBAL LIGATION/RING/CLIP 08/20/2012 Filshie clips NEEDLE OCULOGRAPHY 1/ XOC MUSC 1/BOTH EYE W/I&R SURGERY TO REPAIR LAZY EYE L EYE PAST SURGICAL HISTORY OF 2008 Dental procedure- 4 wisdom teeth removed PAST SURGICAL HISTORY OF Eye muscle surgery procedure PAST SURGICAL HISTORY OF 2012 Hysterectomy, ovary preserv PAST SURGICAL HISTORY OF 08/2012 Tubal sterilization SALPINGECTOMY Bilateral 07/01/2013 TOOTH EXTRACTION FAMILY HISTORY Problem Relation Age of Onset other (migraine) Father other (rheumatoid arthritis) Father other (Thyroid disorder) Father hyperthyroid Arthritis Mother osteoarthritis Diabetes Mother other (migraine) Mother other (Cancer - other) Paternal Grandmother started in her eye and metastasized Alzheimer's Disease Maternal Grandmother other (Diabetes mellitus) Maternal Grandmother Cancer Other multiple family members Thyroid Paternal Grandfather hyperthyroid Diabetes Paternal Grandfather Thyroid Paternal Uncle hyperthyroid Thyroid Paternal Aunt hyperthyroid Thyroid Paternal Uncle hyperthyroid other (Thyroid disorder) Other other (Thyroid disorder) Other Social History Tobacco Use Smoking status: Former Smoker Types: Cigarettes Quit date: 07/03/2009 Years since quittin.2 Smokeless tobacco: Never Used Tobacco comment: Type: cigarette; Start date: 1999; Stop date: 2009 Vaping Use Vaping Use: Never used Substance Use Topics Alcohol use: Yes Comment: rarely Drug use: No Allergies As of Date: 09/19/2021 Allergen Noted Reaction BLUE DYE 03/10/2016 Hives HYDROCODONE 12/31/2015 Other: See Comments INVOKANA [CANAGLIFLOZIN] 03/11/2018 Other: See Comments LIPITOR [ATORVASTATIN] 02/27/2020 Other: See Comments Fully Assessed 09/19/2021 Current Outpatient Medications Medication Sig Dispense Refill insulin glargine (LANTUS SOLOSTAR U-100 INSULIN) 100 unit/mL (3 mL) Inject subcutaneously 8 units daily at bedtime; titrating up to 10 units daily for fasting glucose under 150 15 mL 5 insulin aspart U-100 (NOVOLOG FLEXPEN U-100 INSULIN) 100 unit/mL (3 mL) Inject subcutaneously TID meals per SS up to 15 units daily 15 mL 5 flash glucose scanning reader (Cozy QueenSTYLE SUKHDEEP 2 READER) Use 4x daily, IDDM, E 11.65 1 Each 0 flash glucose sensor (FREESTYLE SUKHDEEP 2 SENSOR) kit Use one sensor every 14 days, IDDM, E11.65 2 Each 11 Insulin Rowlett, Disposable, (BD ULTRAFINE III MINI PEN) 31 gauge x 3/16 Use 4 pen needles daily 150 Each 5 pioglitazone (ACTOS) 30 mg tablet Take 1 tablet by mouth once daily. 30 tablet 5 dulaglutide (TRULICITY) 4.5 mg/0.5 mL pen injector Inject 4.5 mg subcutaneously one time a week. 12Each 3 blood sugar diagnostic (BLOOD GLUCOSE TEST) test strip Use as directed to test glucose 2 times daily, E11.9, non-insulin. 200 Strip 3 levothyroxine (SYNTHROID) 125 mcg tablet take 1 tablet by mouth once daily before breakfast 90 tablet 3 glimepiride (AMARYL) 1 mg tablet Take 2 tablets by mouth twice daily with meals. (total 4 mg daily)360 tablet 3 metFORMIN ER (GLUCOPHAGE XR) 500 mg 24 hr tablet Take 2 tablets by mouth twice daily with meals. 360 tablet 3 Lancets lancets Use as directed to test glucose 3 times daily, E11.9, non- insulin. 300 Each 0 MULTIVITAMIN ORAL Take by mouth. flintstone Blood-Glucose Meter Use as directed to test glucose 3 times daily, E11.9, non- insulin. 1 Each 0 cetirizine (ZYRTEC) 10 mg tablet Take 1 tablet by mouth twice daily. 180 tablet 1 No current facility-administered medications for this visit. REVIEW OF SYSTEMS Review of Systems Respiratory: Negative for difficulty breathing. Cardiovascular: Negative for chest pain. Gastrointestinal: Negative for nausea, vomiting, diarrhea and constipation. PHYSICAL EXAMINATION BP 106/70 Pulse 89 Wt 67.1 kg (148 lb) LMP 01/26/2012 SpO2 98% BMI 24.66 kg/m2 Physical Exam Constitutional: Appearance: Normal appearance. Cardiovascular: Rate and Rhythm: Normal rate and regular rhythm. Pulmonary: Effort: Pulmonary effort is normal. Breath sounds: Normal breath sounds. Skin: General: Skin is warm and dry. Neurological: Mental Status: She is alert and oriented to person, place, and time. Psychiatric: Mood and Affect: Mood normal. Behavior: Behavior normal. DATA Creatinine Date Value Ref Range Status 03/05/2021 0.59 0.58 - 0.96 mg/dL Final Hemoglobin A1C (%) Date Value 11/29/2019 6.2 Hemoglobin A1C (POCT) (%) Date Value 09/19/2021 8.1 ) No components found for: URINEALBUMIN Cholesterol, Total (mg/dL) Date Value 03/05/2021 202 HDL Cholesterol (mg/dL) Date Value 03/05/2021 47 LDL Cholesterol (mg/dL) Date Value 03/05/2021 128 Triglyceride (mg/dL) Date Value 03/05/2021 133 IMPRESSION: Ms. Martinez is a 41 year old female here for evaluation of DM Type 2 complicated by hyperlipidemia and hypothyroidism RECOMMENDATIONS: (E11.9) Type 2 diabetes mellitus without complication, without long-term current use of insulin ([facility]) (primary encounter diagnosis) Comment: Glucose has been high since she had covid. She notes some improvement lately and hoping tostop novolog. If unable to discontinue novolog the doses will need titrated and taken off of glimepiride. Plan: HEMOGLOBIN A1C (POC), insulin glargine (LANTUS SOLOSTAR U-100 INSULIN) 100 unit/mL (3 mL), insulin aspart U-100 (NOVOLOG FLEXPEN U-100 INSULIN) 100 unit/mL (3 mL), COMP METABOLIC PANEL, ALBUMIN/CREAT RATIO RND UR, HGB A1C Lantus 8 units daily at bedtime. *gradually increase to 10 units daily if needed (aiming for sugars less then 150 in the AM). Novolog at meals per scale below If Blood Glucose (mg/dL) is < 150 Give 0 units 151-200 Give 0 units 201-250 Give 1 units 251-300 Give 2 units 301-350 Give 3 units > 351 Give 4 units Continue trulicity, metformin, actos and glimepiride. Follow up in 3 months (E89.0) Postablative hypothyroidism Comment: She has been euthyroid on the present dose of thyroxine Plan: TSH BLD TSH with follow up (E78.5) Dyslipidemia Comment/Plan: LIPID PANEL BASIC Declines statin I spent a total of 30 minutes on the date of the service which included preparing to see the patient, [id number] patient care, completing clinical documentation, obtaining and/or reviewing separately obtained history, performing a medically appropriate examination, counseling and educating the pat ient/family/caregiver, ordering medications, tests, or procedures and communicating results to the patient/family/caregiver. Genoveva Chatman, MSN, MUCKING MACHINE OPERATOR, EMT I/85-C, CDE Endocrinology [facility] Medical Office Building/[address], [address] [place], [place] [address] Fax: documented in this encounterC[facility]04-08-2022 Miscellaneous Notes* Telephone Encounter - Cristina Martinez RN - 08/16/2021 1:52 PM EDT Patient has not contacted us and we have not yet received a request from DME. Will await to set up her account and notify us as discussed with her. Encounter closed. * Telephone Encounter - Cristina Martinez RN - 08/01/2021 2:29 PM EDT Patient returned call. Information below provided. She is agreeable. She will call [employer] to set up an account and then let us know so we can send orders, office notes, and insurance to . RX's attached are set to print, then sign. Attach last office note, labs, copy of card. * Telephone Encounter - Cristina Martinez RN - 08/01/2021 2:17 PM EDT Received a faxed DENIAL notice from [facility]. Insurance: Primary= [employer] Secondary=[place] Called the PA provider line for [employer]. I was told that the patient has to use the [employer] directly through [employer]. She cannot use a regular pharmacy for this. Patient will need to call and set up an account with them at [phone]. Once this is complete we can send prescriptions (hard copy), last office note and a copy of her insurance cards to F: [phone]. Called patient's home, left voice message to call office at [phone], and ask to speak to the nurse. Please relay the above information when she returns the call. documented in this encounterC[facility]11-30-[facility] History of Present illness [id number] female who has not been Covid vaccinated and describes a 5-day history of initially upper respiratory symptoms. More recently she developed fatigue with chills and a cough. No loss of taste or smell. She did a home Covid test yesterday which was positive. Review of systems is otherwise negative for constitutional, ear nose and throat, neck, heart, lungs, and abdomen.-[facility] Work Phone: 1(470) 882-650710-22-2021 History of Present illness Narrative6 days ago the patient was hiking a mountain trail and was smoking at least when she slipped and fell onto both knees. She said she felt and heard a loud pop on the left. She hiked 3-1/2 [address] the mountain. She has had pain and swelling since then, also a clicking and popping of the left knee.She denies any locking or giving out at this time. Pain level is a 4/10.[facility] Work Phone: 1(453) 108-523210-09-2021 History of Present illness Narrative6 days ago the patient was hiking a mountain trail and was smoking at least when she slipped and fell onto both knees. She said she felt and heard a loud pop on the left. She hiked 3-1/[address] [place]. She has had pain and swelling since then, also a clicking and popping of the left knee.She denies any locking or giving out at this time. Pain level is a 4/10.[facility] Work Phone: 1(145) 729-882711-08-2018 History of Past illness Narrative* Problem Noted Date Resolved Date Vaginal yeast infection 03/18/2018 03/25/20 18 Vertigo 04/09/2012 06/28/2013 Tinnitus 04/09/2012 06/28/2013 Rhinitis 01/07/2012 06/28/2013 Otalgia 01/07/2012 06/28/2013 documented as of this encounter (statuses as of 08/16/2021) [facility]11[facility] History of Past illness Narrative* Problem Noted Date Resolved Date Vaginal yeast infection 03/18/2018 03/25/20 18 Vertigo 04/09/2012 06/28/2013 Tinnitus 04/09/2012 06/28/2013 Rhinitis 01/07/2012 06/28/2013 Otalgia 01/07/2012 06/28/2013 documented as of this encounter (statuses as of 09/19/2021) [facility] History of Past illness Narrative* Problem Noted Date Resolved Date Vaginal yeast infection 03/18/2018 03/25/20 18 Vertigo 04/09/2012 06/28/2013 Tinnitus 04/09/2012 06/28/2013 Rhinitis 01/07/2012 06/28/2013 Otalgia 01/07/2012 06/28/2013 documented as of this encounter (statuses as of 09/25/2021) [facility] History of Past illness Narrative* Problem Noted Date Resolved Date Vaginal yeast infection 03/18/2018 03/25/20 18 Vertigo 04/09/2012 06/28/2013 Tinnitus 04/09/2012 06/28/2013 Rhinitis 01/07/2012 06/28/2013 Otalgia 01/07/2012 06/28/2013 documented as of this encounter (statuses as of 09/26/2021) [facility]2018 History of Past illness Narrative* Problem Noted Date Resolved Date Vaginal yeast infection 03/18/2018 03/25/20 18 Vertigo 04/09/2012 06/28/2013 Tinnitus 04/09/2012 06/28/2013 Rhinitis 01/07/2012 06/28/2013 Otalgia 01/07/2012 06/28/2013 documented as of this encounter (statuses as of 09/26/2021) [facility] History of Past illness Narrative* Problem Noted Date Resolved Date Vaginal yeast infection 03/18/2018 03/25/20 18 Vertigo 04/09/2012 06/28/2013 Tinnitus 04/09/2012 06/28/2013 Rhinitis 01/07/2012 06/28/2013 Otalgia 01/07/2012 06/28/2013 documented as of this encounter (statuses as of 11/05/2021) [facility] History of Past illness Narrative* Problem Noted Date Resolved Date Vaginal yeast infection 03/18/2018 03/25/20 18 Vertigo 04/09/2012 06/28/2013 Tinnitus 04/09/2012 06/28/2013 Rhinitis 01/07/2012 06/28/2013 Otalgia 01/07/2012 06/28/2013 documented as of this encounter (statuses as of 11/11/2021) [facility] History of Past illness Narrative* Problem Noted Date Resolved Date Vaginal yeast infection 03/18/2018 03/25/20 18 Vertigo 04/09/2012 06/28/2013 Tinnitus 04/09/2012 06/28/2013 Rhinitis 01/07/2012 06/28/2013 Otalgia 01/07/2012 06/28/2013 documented as of this encounter (statuses as of 11/14/2021) [facility] History of Past illness Narrative* Problem Noted Date Resolved Date Vaginal yeast infection 03/18/2018 03/25/20 18 Vertigo 04/09/2012 06/28/2013 Tinnitus 04/09/2012 06/28/2013 Rhinitis 01/07/2012 06/28/2013 Otalgia 01/07/2012 06/28/2013 documented as of this encounter (statuses as of 12/31/2021) [facility] History of Past illness Narrative* Problem Noted Date Resolved Date Vaginal yeast infection 03/18/2018 03/25/20 18 Vertigo 04/09/2012 06/28/2013 Tinnitus 04/09/2012 06/28/2013 Rhinitis 01/07/2012 06/28/2013 Otalgia 01/07/2012 06/28/2013 documented as of this encounter (statuses as of 01/29/2022) [facility] History of Past illness Narrative* Problem Noted Date Resolved Date Vaginal yeast infection 03/18/2018 03/25/20 18 Vertigo 04/09/2012 06/28/2013 Tinnitus 04/09/2012 06/28/2013 Rhinitis 01/07/2012 06/28/2013 Otalgia 01/07/2012 06/28/2013 documented as of this encounter (statuses as of 04/01/2022) [facility] History of Past illness Narrative* Problem Noted Date Resolved Date Vaginal yeast infection 03/18/2018 03/25/20 18 Vertigo 04/09/2012 06/28/2013 Tinnitus 04/09/2012 06/28/2013 Rhinitis 01/07/2012 06/28/2013 Otalgia 01/07/2012 06/28/2013 documented as of this encounter (statuses as of 05/14/2022) [facility] History of Past illness Narrative* Problem Noted Date Resolved Date Vaginal yeast infection 03/18/2018 03/25/20 18 Vertigo 04/09/2012 06/28/2013 Tinnitus 04/09/2012 06/28/2013 Rhinitis 01/07/2012 06/28/2013 Otalgia 01/07/2012 06/28/2013 documented as of this encounter (statuses as of 08/07/2022) [facility] History of Past illness Narrative* Problem Noted Date Resolved Date Vaginal yeast infection 03/18/2018 03/25/20 18 Vertigo 04/09/2012 06/28/2013 Tinnitus 04/09/2012 06/28/2013 Rhinitis 01/07/2012 06/28/2013 Otalgia 01/07/2012 06/28/2013 documented as of this encounter (statuses as of 09/16/2022) [facility] History of Past illness Narrative* Problem Noted Date Resolved Date Vaginal yeast infection 03/18/2018 03/25/20 18 Vertigo 04/09/2012 06/28/2013 Tinnitus 04/09/2012 06/28/2013 Rhinitis 01/07/2012 06/28/2013 Otalgia 01/07/2012 06/28/2013 documented as of this encounter (statuses as of 09/16/2022) [facility] History of Past illness Narrative* Problem Noted Date Resolved Date Vaginal yeast infection 03/18/2018 03/25/20 18 Vertigo 04/09/2012 06/28/2013 Tinnitus 04/09/2012 06/28/2013 Rhinitis 01/07/2012 06/28/2013 Otalgia 01/07/2012 06/28/2013 documented as of this encounter (statuses as of 10/11/2022) [facility] History of Past illness Narrative* Problem Noted Date Resolved Date Vaginal yeast infection 03/18/2018 03/25/20 18 Vertigo 04/09/2012 06/28/2013 Tinnitus 04/09/2012 06/28/2013 Rhinitis 01/07/2012 06/28/2013 Otalgia 01/07/2012 06/28/2013 documented as of this encounter (statuses as of 10/13/2022) [facility] History of Past illness Narrative* Problem Noted Date Resolved Date Vaginal yeast infection 03/18/2018 03/25/20 Vertigo 04/09/2012 06/28/2013 Tinnitus 04/09/2012 06/28/2013 Rhinitis 01/07/2012 06/28/2013 Otalgia 01/07/2012 06/28/2013 documented as of this encounter (statuses as of 10/29/2022) [facility] History of Past illness Narrative* Problem Noted Date Diagnosed Date Resolved Date Vaginal yeast infection 03/18/201803/11 Vertigo 04/09/2012 06/28/2013 Tinnitus 04/09/2012 06/28/2013 Rhinitis 01/07/2012 06/28/2013 Otalgia 01/07/2012 06/28/2013 documented as of this encounter (statuses as of 12/09/2022) [facility] History of Past illness Narrative* Problem Noted Date Diagnosed Date Resolved Date Vaginal yeast infection 03/18/201803/11 Vertigo 04/09/2012 06/28/2013 Tinnitus 04/09/2012 06/28/2013 Rhinitis 01/07/2012 06/28/2013 Otalgia 01/07/2012 06/28/2013 documented as of this encounter (statuses as of 02/24/2023) [facility] History of Past illness Narrative* Problem Noted Date Diagnosed Date Resolved Date Vaginal yeast infection 03/18/201803/11 Vertigo 04/09/2012 06/28/2013 Tinnitus 04/09/2012 06/28/2013 Rhinitis 01/07/2012 06/28/2013 Otalgia 01/07/2012 06/28/2013 documented as of this encounter (statuses as of 02/24/2023) [facility] History of Past illness Narrative* Problem Noted Date Diagnosed Date Resolved Date Vaginal yeast infection 03/18/201803/11 Vertigo 04/09/2012 06/28/2013 Tinnitus 04/09/2012 06/28/2013 Rhinitis 01/07/2012 06/28/2013 Otalgia 01/07/2012 06/28/2013 documented as of this encounter (statuses as of 02/26/2023) [facility] History of Past illness Narrative* Problem Noted Date Diagnosed Date Resolved Date Vaginal yeast infection 03/18/201803/11 Vertigo 04/09/2012 06/28/2013 Tinnitus 04/09/2012 06/28/2013 Rhinitis 01/07/2012 06/28/2013 Otalgia 01/07/2012 06/28/2013 documented as of this encounter (statuses as of 03/10/2023) [facility] History of Past illness Narrative* Problem Noted Date Diagnosed Date Resolved Date Vaginal yeast infection 03/18/201803/11 Vertigo 04/09/2012 06/28/2013 Tinnitus 04/09/2012 06/28/2013 Rhinitis 01/07/2012 06/28/2013 Otalgia 01/07/2012 06/28/2013 documented as of this encounter (statuses as of 03/11/2023) [facility] History of Past illness Narrative* Problem Noted Date Diagnosed Date Resolved Date Vaginal yeast infection 03/18/201803/11 Vertigo 04/09/2012 06/28/2013 Tinnitus 04/09/2012 06/28/2013 Rhinitis 01/07/2012 06/28/2013 Otalgia 01/07/2012 06/28/2013 documented as of this encounter (statuses as of 03/31/2023) [facility] History of Past illness Narrative* Problem Noted Date Diagnosed Date Resolved Date Vaginal yeast infection 03/18/201803/11 Vertigo 04/09/2012 06/28/2013 Tinnitus 04/09/2012 06/28/2013 Rhinitis 01/07/2012 06/28/2013 Otalgia 01/07/2012 06/28/2013 documented as of this encounter (statuses as of 04/01/2023) [facility] History of Past illness Narrative* Problem Noted Date Diagnosed Date Resolved Date Vaginal yeast infection 03/18/201803/11 Vertigo 04/09/2012 06/28/2013 Tinnitus 04/09/2012 06/28/2013 Rhinitis 01/07/2012 06/28/2013 Otalgia 01/07/2012 06/28/2013 documented as of this encounter (statuses as of 04/01/2023) [facility] History of Past illness Narrative* Problem Noted Date Diagnosed Date Resolved Date Vaginal yeast infection 03/18/201803/11 Vertigo 04/09/2012 06/28/2013 Tinnitus 04/09/2012 06/28/2013 Rhinitis 01/07/2012 06/28/2013 Otalgia 01/07/2012 06/28/2013 documented as of this encounter (statuses as of 04/01/2023) [facility] History of Past illness Narrative* Problem Noted Date Diagnosed Date Resolved Date Vaginal yeast infection 03/18/201803/11 Vertigo 04/09/2012 06/28/2013 Tinnitus 04/09/2012 06/28/2013 Rhinitis 01/07/2012 06/28/2013 Otalgia 01/07/2012 06/28/2013 documented as of this encounter (statuses as of 04/01/2023) [facility] History of Past illness Narrative* Problem Noted Date Diagnosed Date Resolved Date Vaginal yeast infection 03/18/201803/11 Vertigo 04/09/2012 06/28/2013 Tinnitus 04/09/2012 06/28/2013 Rhinitis 01/07/2012 06/28/2013 Otalgia 01/07/2012 06/28/2013 documented as of this encounter (statuses as of 04/02/2023) [facility] History of Past illness Narrative* Problem Noted Date Diagnosed Date Resolved Date Vaginal yeast infection 03/18/201803/11 Vertigo 04/09/2012 06/28/2013 Tinnitus 04/09/2012 06/28/2013 Rhinitis 01/07/2012 06/28/2013 Otalgia 01/07/2012 06/28/2013 documented as of this encounter (statuses as of 07/22/2023) [facility] Diagnosis Type 2 diabetes mellitus without complication, without long-term current use of insulin (HCC)- Primary [facility] Diagnosis Type 2 diabetes mellitus without complication, without long-term current use of insulin (HCC)- Primary Postablative hypothyroidism Other postablative hypothyroidism Dyslipidemia Other and unspecified hyperlipidemia [facility] Diagnosis Type 2 diabetes mellitus without complication, without long-term current use of insulin (HCC) [facility] Diagnosis Type 2 diabetes mellitus without complication, without long-term current use of insulin (HCC) [facility]* Diagnosis Encounter for screening mammogram for breast cancer documented in this encounter [facility] note* Diagnosis Type 2 diabetes mellitus without complication, without long-term current use of insulin (HCC) documented in this encounter [facility] note* Diagnosis Chest pain, unspecified type Dyspnea on exertion Other dyspnea and respiratory abnormality documented in this encounter [facility] Work Phone: [facility]* Diagnosis Type 2 diabetes mellitus without complication, without long-term current use of insulin (HCC) documented in this encounter [facility] note* Diagnosis Type 2 diabetes mellitus without complication, without long-term current use of insulin (HCC)- Primary Postablative hypothyroidism Other postablative hypothyroidism Dyslipidemia Other and unspecified hyperlipidemia documented in this encounter [facility] note* Diagnosis Type 2 diabetes mellitus without complication, without long-term current use of insulin (HCC)- Primary documented in this encounter [facility] note* Diagnosis Type 2 diabetes mellitus without complication, without long-term current use of insulin (HCC)- Primary Postablative hypothyroidism Other postablative hypothyroidism Dyslipidemia Other and unspecified hyperlipidemia documented in this encounter [facility] note* Diagnosis Acute viral conjunctivitis of left eye- Primary Perimenopause Symptomatic menopausal or female climacteric states Hypothyroidism (acquired) Unspecified hypothyroidism Type 2 diabetes mellitus without complication, with long-term current use of insulin ([facility]/HCC) (HCC) Other fatigue [facility] Diagnosis Type 2 diabetes mellitus without complication, without long-term current use of insulin (HCC) [facility] Diagnosis Type 2 diabetes mellitus without complication, without long-term current use of insulin (HCC) [facility]* Diagnosis Micromastia- Primary Hypoplasia of breast [facility] this [facility]* Diagnosis Type 2 diabetes mellitus without complication, without long-term current use of insulin (HCC)- Primary Postablative hypothyroidism Other postablative hypothyroidism Dyslipidemia Other and unspecified hyperlipidemia documented in this encounter [facility] note* Diagnosis Type 2 diabetes mellitus without complication, without long-term current use of insulin (HCC) documented in this encounter [facility] note* Diagnosis Type 2 diabetes mellitus without complication, without long-term current use of insulin (HCC) documented in this encounter [facility] note* Diagnosis Encounter for screening mammogram for breast cancer documented in this encounter [facility] note* Diagnosis Type 2 diabetes mellitus without complication, without long-term current use of insulin (HCC) documented in this encounter [facility] note* Diagnosis Well adult exam- Primary Routine general medical examination at a [facility] care facility Type 2 diabetes mellitus without complication, without long-term current use of insulin (HCC) Dyslipidemia Other and unspecified hyperlipidemia Postablative hypothyroidism Other postablative hypothyroidism Vitamin D deficiency Unspecified vitamin D deficiency Encounter for gynecological examination documented in this encounter [facility] note* Diagnosis Postablative hypothyroidism Other postablative hypothyroidism documented in this encounter [facility] note* Diagnosis Acute cough- Primary Flu-like symptoms Other general symptoms documented in this encounter [facility] note* Diagnosis Type 2 diabetes mellitus without complication, without long-term current use of insulin (HCC)- Primary Dyslipidemia Other and unspecified hyperlipidemia Postablative hypothyroidism Other postablative hypothyroidism Vitamin D deficiency Unspecified vitamin D deficiency Dizziness Dizziness and giddiness Seasonal allergies Allergic rhinitis, cause unspecified Nasal polyps Unspecified nasal polyp documented in this encounter [facility] note* Diagnosis Anemia, unspecified type- Primary documented in this encounter [facility] note* Diagnosis Anemia, unspecified type- Primary documented in this encounter [facility] note* Diagnosis Encounter for screening mammogram for breast cancer documented in this encounter [facility] note* Diagnosis Porokeratosis- Primary Other specified congenital anomaly of skin Type 2 diabetes mellitus without complication, without long-term current use of insulin (HCC) Hallux rigidus of left foot Hallux rigidus Hammertoe of left foot [facility] CRISTINA MARTINEZ presents with complaints of nasal symptoms. * Associated symptoms include nasal congestion and purulent nasal discharge. * CRISTINA MARTINEZ presents with complaints of cough. * Associated symptoms include no dyspnea and no wheezing. * 40-year-old female with complaint of sinus headache cough congestion purulent drainage facial pain since Thursday. [facility] Work Phone: Reason for referral (narrative)* Diagnostic Procedure Only (Routine) - Pending Review Specialty Diagnoses / Procedures Referred By Renetta t Referred To Contact [facility] Diagnoses Encounter for screening mammogram for breast cancer Procedures MACIEJ SCREENING SCREENING MAMMOGRAPHY BI 2-VIEW BREAST INC CAD Jeffery Swift MD [address] [place] [id number] [facility] [address] [place] [address] Referral ID Status Reason Start Date Expiration Date Visits Requested Visits Authorized [id number] Pending Review Auto-Generat ed Referral 11/06/2021 12/06/2022 1 1 [facility] for referral (narrative)* Diagnostic Procedure Only (Routine) - Pending Review Specialty Diagnoses / Procedures Referred By Renetta sheikh Referred To Contact [facility] Diagnoses Encounter for screening mammogram for breast cancer Procedures MACIEJ SCREENING SCREENING MAMMOGRAPHY BI 2-VIEW BREAST INC CAD Jeffery Swift MD [address] [place] [id number] [facility] [address] [place] [address] Referral ID Status Reason Start Date Expiration Date Visits Requested Visits Authorized [id number] Pending Review Auto-Generat ed Referral 10/08/2022 11/07/2023 1 1 [facility] for referral (narrative)* Diagnostic Procedure Only (Routine) - Closed Specialty Diagnoses / Procedures Referred By Contac t Referred To Contact [facility] Diagnoses Encounter for screening mammogram for breast cancer Procedures MACIEJ SCREENING SCREENING MAMMOGRAPHY BI 2-VIEW BREAST INC CAD Jeffery Swift MD [address] [place] [address] [facility] [address] [place] [address] Referral ID Status Reason Start Date Expiration Date V isits Requested Visits Authorized [id number] Closed Auto-Generate d Referral 10/08/2022 11/07/2023 1 1 [facility] for referral (narrative)* Diagnostic Procedure Only (Routine) - New Request Specialty Diagnoses / Procedures Referred By Renetta sheikh Referred To Contact [facility] Diagnoses Encounter for screening mammogram for breast cancer Procedures MACIEJ SCREENING W MOHSEN SCREENING DIGITAL BREAST TOMOSYNTHESIS BI SCREENING MAMMOGRAPHY BI 2-VIEW BREAST INC CAD Jeffery Swift MD [address] [place] [address] [facility] [place] [address] Referral ID Status Reason Start Date Expiration Date Visits Requested Visits Authorized [id number] New Request Auto-Generat ed Referral 05/11/2024 06/10/2025 1 1 [facility] for referral (narrative)No reason for referral [facility] Work [facility]: [facility] for visit Narrative* Diagnostic Procedure Only (Routine) - Closed Specialty Diagnoses / Procedures Referred By Renetta sheikh Referred To Contact [facility] Diagnoses Encounter for screening mammogram for breast cancer Procedures MACIEJ SCREENING SCREENING MAMMOGRAPHY BI 2-VIEW BREAST INC CAD Jeffery Swift MD [address] [place] [address] [facility] [address] [address] Referral ID Status Reason Start Date Expiration Date V isits Requested Visits Authorized [id number] Closed Auto-Generate d Referral 10/08/2022 11/07/2023 1 1 [facility] Chief Complaint Sinus headache cough congestion since Thursday Summary Purpose Family History No Family History Records FoundNo Family History Records FoundNo Family History Records FoundNo Family History Records FoundNo Family History Records FoundNo Family History Records FoundNo Family History Records FoundNo Family History Records FoundNo Family History Records FoundNo Family History Records Found Advance Directives Documents on File Type Date Recorded 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 [address] Referral ID Status Reason Start Date Expiration Date V isits Requested Visits Authorized [id number] Pending Review 1 1 Specialty Diagnoses / Procedures Referred By Contac t Referred To Contact Radiology Diagnoses Dyspnea on exertion Procedures MRI BRAIN W WO CONTRAST Ming Perez, DO [address] [place] [address] Referral ID Status Reason Start Date Expiration Date Visits Re quested Visits Authorized [id number] Closed 09/10/2021 11/15/2021 1 1 Specialty Diagnoses / Procedures Referred By Contac t Referred To Contact Radiology Diagnoses Chest pain, unspecified type Dyspnea on exertion Procedures NM Myocardial Spect Rest Exercise or Rx Ming Perez, DO [address] 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 August 9:43am Overweight August 11, 2024 9:43 am Type 1 diabetes mellitus with hyperglyce marlys August 11, 2024 9:43am Bronchitis August 19, 2024 4:5 4pm Maxillary sinusitis, acute August 19, 2 025 4:54pm Chief Complaint Admit Date 4 M FU, CX 07/14August 11, 2024 9:43 am Bronchitis X9 days August 19, 2024 4:5 4pm Sore throat/Fever/ear/weight September 13 4:48pm Pulled muscle in the back November 08, 2024 4:40pm Reason for Visit Admit Date High cholesterol August 11, 2024 9:43 am 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 August 9:43am Overweight August 11, 2024 9:43 am Type 1 diabetes mellitus with hyperglyce marlys August 11, 2024 9:43am Bronchitis August 19, 2024 4:5 4pm Maxillary sinusitis, acute August 19, 2 025 4:54pm Maxillary sinusitis, acute September 13, 2024 4:48pm Pharyngitis September 13, 2024 4:48pm Hyperglycemia due to type 2 diabetes cece litus November 08, 2024 4:40pm Left sided sciatica November 08, 2024 4:40p m Lower back pain November 08, 2024 4:40p m Additional Source Comments INFORMATION SOURCE (unrecogn ized section and content) DATE CREATED AUTHOR 04/12/2021 [employer] DATE CREATED AUTHOR AUTHOR'S ORGANIZ ATION 11/29/2021 [facility] DATE CREATED AUTHOR AUTHOR'S ORGANIZ ATION 03/05/2022 [facility] DATE CREATED AUTHOR AUTHOR'S ORGANIZ ATION 03/07/2022 [facility] DATE CREATED AUTHOR AUTHOR'S ORGANIZ ATION 11/11/2022 [facility] DATE CREATED AUTHOR AUTHOR'S ORGANIZ ATION 07/17/2023 [facility] DATE CREATED AUTHOR AUTHOR'S ORGANIZ ATION 04/22/2024 [facility] DATE CREATED AUTHOR AUTHOR'S ORGANIZ ATION 07/16/2024 [facility] DATE CREATED AUTHOR AUTHOR'S ORGANIZ ATION 08/03/2024 [facility] DATE CREATED AUTHOR AUTHOR'S ORGANIZ ATION 08/13/2024 [facility] Source Comments (unrecognize d section and content) In the event this informatio n is protected by the Federal Confidentiality of Alcohol and Drug Abuse Patient Records regulations: The Federal rules restrict any use of the information to criminally investigate or prosecute any alcohol or drug abuse patient.[facility] the event this information is protected by the Federal Confidentiality of Alcohol and Drug Abuse Patient Records regulations: The Federal rules restrict any use of the information to criminally investigate or prosecute any alcohol or drug abuse patient.[facility] Hospital[facility] the event this information is protected by the Federal Confidentiality of Alcohol and Drug Abuse Patient Records regulations: The Federal rules restrict any use of the information to criminally investigate or prosecute any alcohol or drug abuse patient.[facility] Hospital[facility] the event this information is protected by the Federal Confidentiality of Alcohol and Drug Abuse Patient Records regulations: The Federal rules restrict any use of the information to criminally investigate or prosecute any alcohol or drug abuse patient.[facility] HospitalIn the event this information is protected by the Federal Confidentiality of Alcohol and Drug Abuse Patient Records regulations: The Federal rules restrict any use of the information to criminally investigate or prosecute any alcohol or drug abuse patient.[facility] HospitalIn the event this information is protected by the Federal Confidentiality of Alcohol and Drug Abuse Patient Records regulations: The Federal rules restrict any use of the information to criminally investigate or prosecute any alcohol or drug abuse patient.[facility] HospitalIn the event this information is protected by the Federal Confidentiality of Alcohol and Drug Abuse Patient Records regulations: The Federal rules restrict any use of the information to criminally investigate or prosecute any alcohol or drug abuse patient.[facility] HospitalIn the event this information is protected by the Federal Confidentiality of Alcohol and Drug Abuse Patient Records regulations: The Federal rules restrict any use of the information to criminally investigate or prosecute any alcohol or drug abuse patient.[facility] HospitalIn the event this information is protected by the Federal Confidentiality of Alcohol and Drug Abuse Patient Records regulations: The Federal rules restrict any use of the information to criminally investigate or prosecute any alcohol or drug abuse patient.[facility] HospitalIn the event this information is protected by the Federal Confidentiality of Alcohol and Drug Abuse Patient Records regulations: The Federal rules restrict any use of the information to criminally investigate or prosecute any alcohol or drug abuse patient.[facility] HospitalIn the event this information is protected by the Federal Confidentiality of Alcohol and Drug Abuse Patient Records regulations: The Federal rules restrict any use of the information to criminally investigate or prosecute any alcohol or drug abuse patient.[facility] HospitalIn the event this information is protected by the Federal Confidentiality of Alcohol and Drug Abuse Patient Records regulations: The Federal rules restrict any use of the information to criminally investigate or prosecute any alcohol or drug abuse patient.[facility] HospitalIn the event this information is protected by the Federal Confidentiality of Alcohol and Drug Abuse Patient Records regulations: The Federal rules restrict any use of the information to criminally investigate or prosecute any alcohol or drug abuse patient.[facility] HospitalIn the event this information is protected by the Federal Confidentiality of Alcohol and Drug Abuse Patient Records regulations: The Federal rules restrict any use of the information to criminally investigate or prosecute any alcohol or drug abuse patient.[facility] HospitalIn the event this information is protected by the Federal Confidentiality of Alcohol and Drug Abuse Patient Records regulations: The Federal rules restrict any use of the information to criminally investigate or prosecute any alcohol or drug abuse patient.[facility] HospitalIn the event this information is protected by the Federal Confidentiality of Alcohol and Drug Abuse Patient Records regulations: The Federal rules restrict any use of the information to criminally investigate or prosecute any alcohol or drug abuse patient.[facility] HospitalIn the event this information is protected by the Federal Confidentiality of Alcohol and Drug Abuse Patient Records regulations: The Federal rules restrict any use of the information to criminally investigate or prosecute any alcohol or drug abuse patient.[facility] HospitalIn the event this information is protected by the Federal Confidentiality of Alcohol and Drug Abuse Patient Records regulations: The Federal rules restrict any use of the information to criminally investigate or prosecute any alcohol or drug abuse patient.[facility] HospitalIn the event this information is protected by the Federal Confidentiality of Alcohol and Drug Abuse Patient Records regulations: The Federal rules restrict any use of the information to criminally investigate or prosecute any alcohol or drug abuse patient.[facility] HospitalIn the event this information is protected by the Federal Confidentiality of Alcohol and Drug Abuse Patient Records regulations: The Federal rules restrict any use of the information to criminally investigate or prosecute any alcohol or drug abuse patient.[facility] HospitalIn the event this information is protected by the Federal Confidentiality of Alcohol and Drug Abuse Patient Records regulations: The Federal rules restrict any use of the information to criminally investigate or prosecute any alcohol or drug abuse patient.[facility] HospitalIn the event this information is protected by the Federal Confidentiality of Alcohol and Drug Abuse Patient Records regulations: The Federal rules restrict any use of the information to criminally investigate or prosecute any alcohol or drug abuse patient.[facility] HospitalIn the event this information is protected by the Federal Confidentiality of Alcohol and Drug Abuse Patient Records regulations: The Federal rules restrict any use of the information to criminally investigate or prosecute any alcohol or drug abuse patient.[facility] HospitalIn the event this information is protected by the Federal Confidentiality of Alcohol and Drug Abuse Patient Records regulations: The Federal rules restrict any use of the information to criminally investigate or prosecute any alcohol or drug abuse patient.[facility] HospitalIn the event this information is protected by the Federal Confidentiality of Alcohol and Drug Abuse Patient Records regulations: The Federal rules restrict any use of the information to criminally investigate or prosecute any alcohol or drug abuse patient.[facility] HospitalIn the event this information is protected by the Federal Confidentiality of Alcohol and Drug Abuse Patient Records regulations: The Federal rules restrict any use of the information to criminally investigate or prosecute any alcohol or drug abuse patient.[facility] HospitalIn the event this information is protected by the Federal Confidentiality of Alcohol and Drug Abuse Patient Records regulations: The Federal rules restrict any use of the information to criminally investigate or prosecute any alcohol or drug abuse patient.[facility] HospitalIn the event this information is protected by the Federal Confidentiality of Alcohol and Drug Abuse Patient Records regulations: The Federal rules restrict any use of the information to criminally investigate or prosecute any alcohol or drug abuse patient.[facility] HospitalIn the event this information is protected by the Federal Confidentiality of Alcohol and Drug Abuse Patient Records regulations: The Federal rules restrict any use of the information to criminally investigate or prosecute any alcohol or drug abuse patient.[facility] HospitalIn the event this information is protected by the Federal Confidentiality of Alcohol and Drug Abuse Patient Records regulations: The Federal rules restrict any use of the information to criminally investigate or prosecute any alcohol or drug abuse patient.[facility] HospitalIn the event this information is protected by the Federal Confidentiality of Alcohol and Drug Abuse Patient Records regulations: The Federal rules restrict any use of the information to criminally investigate or prosecute any alcohol or drug abuse patient.[facility] HospitalIn the event this information is protected by the Federal Confidentiality of Alcohol and Drug Abuse Patient Records regulations: The Federal rules restrict any use of the information to criminally investigate or prosecute any alcohol or drug abuse patient.[facility] HospitalIn the event this information is protected by the Federal Confidentiality of Alcohol and Drug Abuse Patient Records regulations: The Federal rules restrict any use of the information to criminally investigate or prosecute any alcohol or drug abuse patient.[facility] HospitalIn the event this information is protected by the Federal Confidentiality of Alcohol and Drug Abuse Patient Records regulations: The Federal rules restrict any use of the information to criminally investigate or prosecute any alcohol or drug abuse patient.[facility] HospitalIn the event this information is protected by the Federal Confidentiality of Alcohol and Drug Abuse Patient Records regulations: The Federal rules restrict any use of the information to criminally investigate or prosecute any alcohol or drug abuse patient.[facility] HospitalIn the event this information is protected by the Federal Confidentiality of Alcohol and Drug Abuse Patient Records regulations: The Federal rules restrict any use of the information to criminally investigate or prosecute any alcohol or drug abuse patient.[facility] HospitalIn the event this information is protected by the Federal Confidentiality of Alcohol and Drug Abuse Patient Records regulations: The Federal rules restrict any use of the information to criminally investigate or prosecute any alcohol or drug abuse patient.[facility] HospitalIn the event this information is protected by the Federal Confidentiality of Alcohol and Drug Abuse Patient Records regulations: The Federal rules restrict any use of the information to criminally investigate or prosecute any alcohol or drug abuse patient.[facility] HospitalIn the event this information is protected by the Federal Confidentiality of Alcohol and Drug Abuse Patient Records regulations: The Federal rules restrict any use of the information to criminally investigate or prosecute any alcohol or drug abuse patient.[facility] HospitalIn the event this information is protected by the Federal Confidentiality of Alcohol and Drug Abuse Patient Records regulations: The Federal rules restrict any use of the information to criminally investigate or prosecute any alcohol or drug abuse patient.[facility] Reason for Visit (unrecogniz ed section and content) Reason Comments CGM Supply Orders Reason Comments Insulin Dependent Diabetes Mellitus Reason Onset Date Comments Refill Request 09/24/2021 Reason Comments Diabetic Eye Exam [facility] Reason Comments Refill Request Reason Comments Insulin Dependent Diabetes Mellitus Thyroid Problem Reason Comments Ozempic Pen Teaching Reason Comments new to provider Menopause Thinks it in Reason Onset Date Comments Refill Request 09/15/2022 Reason Comments New Patient Evaluation Specialty Diagnoses / Procedures Referred By Contac t Referred To Contact Plastic Surgery / PLASTIC SURGERY Diagnoses cosmetic / breast - implants vs fat from abdomen. ar Procedures NEW DPSI GENERAL Self GatherwrZaira rosen MD [address] [facility] [address] [place] [address] Referral ID Status Reason Start Date Expiration Date V isits Requested Visits Authorized [id number] Closed Financial Clearance Required - Self Pay Patient Cleared - True Self-Pay required payment collected 10/10/2022 12/01/2022 1 1 Reason Comments Diabetis Eye Exam Report [facility] Reason Comments PA--Mounjaro 5MG/0.5ML Reason Comments Medication Problem Meidcation Pro Reason Comments Results Reason Comments Physical Reason Comments Viral Syndrome Has fever and chest is burning, started Thursday. Reason Comments F/U 6 months Reason Onset Date Comments Anemia 07/08/2022 Reason Comments New Diabetes Pain Wart Reason Onset Date Comments Appointment 10/13/2024 Care Teams (unrecognized sec tion and content) Manufacturing Finance Manager Relationship Specialty Start Date End Date Jeffery Swift MD [address] [place], [place] [id number] PCP - General Family Practice 11/29/19 Jeffery Swift MD Family Practice 07/01/12 Manufacturing Finance Manager Relationship Specialty Start Date End Date Jeffery Swift MD [address] [place] [address] PCP - General Family Practice 11/29/19 Jeffery Swift MD Family Practice 07/01/12 Manufacturing Finance Manager Relationship Specialty Start Date End Date Jeffery Swift MD [address] [facility] [place] [address] PCP - General Family Practice 11/29/19 Jeffery Swift MD Family Practice 07/01/12 Manufacturing Finance Manager Relationship Specialty Start Date End Date Jeffery Swift MD [address] [facility] [place] [address] PCP - General Family Practice 11/29/19 Jeffery Swift MD Family Practice 07/01/12 Manufacturing Finance Manager Relationship Specialty Start Date End Date Jeffery Swift MD [address] [facility] [place] [address] PCP - General Family Practice 11/29/19 Jeffery Swift MD Family Practice 07/01/12 Manufacturing Finance Manager Relationship Specialty Start Date End Date Jeffery Swift MD [address] [place] [address] PCP - General Family Practice 11/29/19 Jeffery Swift MD Family Practice 07/01/12 Manufacturing Finance Manager Relationship Specialty Start Date End Date Jeffery Swift MD [address] [place] [address] PCP - General Family Practice 11/29/19 Jeffery Swift MD Family Practice 07/01/12 Manufacturing Finance Manager Relationship Specialty Start Date End Date Ming Perez, DO [address] [place] [phone] PCP - General Family Medicine 04/22/21 Manufacturing Finance Manager Relationship Specialty Start Date End Date Jeffery Swift MD [address] [place] [address] PCP - General Family Medicine 11/29/19 Jeffery Swift MD Family Medicine 07/01/12 Manufacturing Finance Manager Relationship Specialty Start Date End Date Jeffery Swift MD [address] [place] [address] PCP - General Family Medicine 11/29/19 Jeffery Swift MD Family Medicine 07/01/12 Manufacturing Finance Manager Relationship Specialty Start Date End Date Jeffery Swift MD [address] [place] [address] PCP - General Family Medicine 11/29/19 Jeffery Swift MD Family Medicine 07/01/12 Manufacturing Finance Manager Relationship Specialty Start Date End Date Jeffery Swift MD [address] [place] [address] PCP - General Family Medicine 11/29/19 Jeffery Swift MD Family Medicine 07/01/12 Manufacturing Finance Manager Relationship Specialty Start Date End Date Ming Perez, DO [address] [place] [address] [phone] PCP - General 04/22/21 Manufacturing Finance Manager Relationship Specialty Start Date End Date Jeffery Swift MD [address] [place] [address] PCP - General Family Medicine 11/29/19 Jeffery Swift MD Family Medicine 07/01/12 Manufacturing Finance Manager Relationship Specialty Start Date End Date Jeffrey Swift MD [address] [place] [address] PCP - General Family Medicine 11/29/19 Jeffery Swift MD Family Medicine 07/01/12 Manufacturing Finance Manager Relationship Specialty Start Date End Date Jeffery Swift MD [address] [place] [address] PCP - General Family Medicine 11/29/19 Jeffery Swift MD Family Medicine 07/01/12 Manufacturing Finance Manager Relationship Specialty Start Date End Date Jeffery Swift MD [address] [place] [address] PCP - General Family Medicine 11/29/19 Jeffery Swift MD Family Medicine 07/01/12 Manufacturing Finance Manager Relationship Specialty Start Date End Date Jeffery Swift MD [address] [place] [address] PCP - General Family Medicine 11/29/19 Jeffery Swift MD Family Medicine 07/01/12 Manufacturing Finance Manager Relationship Specialty Start Date End Date Jeffery Swift MD [address] [place] [address] PCP - General Family Medicine 11/29/19 Jeffery Swift MD Family Medicine 07/01/12 Manufacturing Finance Manager Relationship Specialty Start Date End Date Jeffery Swift MD [address] [place] [address] PCP - General Family Medicine 11/29/19 Jeffery Swift MD Family Medicine 07/01/12 Manufacturing Finance Manager Relationship Specialty Start Date End Date Jeffery Swift MD [address] [place] [address] PCP - General Family Medicine 11/29/19 Jeffery Swift MD Family Medicine 07/01/12 Manufacturing Finance Manager Relationship Specialty Start Date End Date Jeffery Swift MD [address] [place] [address] PCP - General Family Medicine 11/29/19 Jeffery Swift MD Family Medicine 07/01/12 Manufacturing Finance Manager Relationship Specialty Start Date End Date Jeffery Swift MD [address] [place] [address] PCP - General Family Medicine 11/29/19 Jeffery Swift MD Family Medicine 07/01/12 Manufacturing Finance Manager Relationship Specialty Start Date End Date Jeffery Swift MD [address] [place] [address] PCP - General Family Medicine 11/29/19 Jeffery Swift MD Family Medicine 07/01/12 Manufacturing Finance Manager Relationship Specialty Start Date End Date Jeffery Swift MD [address] [place] [address] PCP - General Family Medicine 11/29/19 Jeffery Swift MD Family Medicine 07/01/12 Manufacturing Finance Manager Relationship Specialty Start Date End Date Jeffery Swift MD [address] [place] [address] PCP - General Family Medicine 11/29/19 Jeffery Swift MD Family Medicine 07/01/12 Manufacturing Finance Manager Relationship Specialty Start Date End Date Jeffery Swift MD [address] [place] [address] PCP - General Family Medicine 11/29/19 Jeffery Swift MD Family Medicine 07/01/12 Manufacturing Finance Manager Relationship Specialty Start Date End Date Jeffery Swift MD [address] [place] [address] PCP - General Family Medicine 11/29/19 Jeffery Swift MD Family Medicine 07/01/12 Manufacturing Finance Manager Relationship Specialty Start Date End Date Jeffery Swift MD [address] [place] [address] PCP - General Family Medicine 11/29/19 Jeffery Swift MD Family Medicine 07/01/12 Manufacturing Finance Manager Relationship Specialty Start Date End Date Jeffery Swift MD [address] [place] [address] PCP - General Family Medicine 11/29/19 Jeffery Swift MD Family Medicine 07/01/12 Manufacturing Finance Manager Relationship Specialty Start Date End Date Ming Perez DO [address] [place] [id number] PCP - General 04/22/21 Manufacturing Finance Manager Relationship Specialty Start Date End Date Ming Perez DO [address] [place] [address] PCP - General 04/22/21 Manufacturing Finance Manager Relationship Specialty Start Date End Date Jeffery Swift MD [address] [place] [address] PCP - General Family Medicine 11/29/19 Jeffery Swift MD Family Medicine 07/01/12 Anahy Garcia, ELISA.OCCUPATIONAL REHABILITATION AIDE [address] [place] [address] Diesel Instructor Family Medicine 04/16/24 Nory Aj PA-C [address] [place] [address] Diesel Instructor Family [facility] 04/16/24 Manufacturing Finance Manager Relationship Specialty Start Date End Date Jeffery Swift MD [address] [place] [address] PCP - General Family Medicine 11/29/19 Jeffery Swift MD Family Medicine 07/01/12 Anahy Garcia, ELISA.OCCUPATIONAL REHABILITATION AIDE [address] [place] [id number] Diesel Instructor Family Medicine 04/16/24 Nory Aj PA-C [address] [place] [address] Diesel Instructor Family [facility] 04/16/24 Manufacturing Finance Manager Relationship Specialty Start Date End Date Jeffery Swift MD [address] [place] [address] PCP - General Family Medicine 11/29/19 Jeffery Swift MD Family Medicine 07/01/12 Anahy Garcia, ELISA.OCCUPATIONAL REHABILITATION AIDE [facility] [place] [address] Diesel Instructor Family Medicine 04/16/24 Nory Aj PA-C [address] [place], [place] [id number] [facility] 04/16/24 Manufacturing Finance Manager Relationship Specialty Start Date End Date Jeffery Swift MD [address] [place] [address] PCP - General Family Medicine 11/29/19 Jeffery Swift MD Family Medicine 07/01/12 Anahy Garcia APRN.OCCUPATIONAL REHABILITATION AIDE [address] [place], [place] [id number] [facility] 04/16/24 Nory Aj PA-C [address] [place], [place] [address] [facility] 04/16/24 Team Status: Active Member Role Status Dates Dr. Tha Major MD Primary Care Provider Acti ve Team Status: Inactive Member Role Status Dates Dr. Tha Major MD Primary Care Provider Acti ve Start: August 11, 2024 End: August 11, 2024 Dr. Tha Major MD Referring Provider Active Start: August 11, 2024 End: August 11, 2024 PATO Bradley Attending Provider Active Start: August 11, 2024 End: August 11, 2024 Team Status: Inactive Member Role Status Dates Dr. Tha Major MD Primary Care Provider Acti ve Start: August 19, 2024 End: August 19, 2024 Dr. Tha Major MD Referring Provider Active Start: August 19, 2024 End: August 19, 2024 Reyna Alvarado NP, NP-C Attending Provider Active Start: August 19, 2024 End: August 19, 2024 Team Status: Inactive Member Role Status Dates Dr. Tha Major MD Primary Care Provider Acti ve Start: September 13, 2024 End: September 13, 2024 Dr. Tha Major MD Referring Provider Active Start: September 13, 2024 End: September 13, 2024 Reyna Alvarado NP, EMT I/85-C Attending Provider Active Start: September 13, 2024 End: September 13, 2024 Manufacturing Finance Manager Relationship Specialty Start Date End Date Jeffery Swift MD [address] [place], [place] [address] PCP - General Family Medicine 11/29/19 Jeffery Swift MD Family Medicine 07/01/12 Anahy Garcia APRN.OCCUPATIONAL REHABILITATION AIDE [address] [place], [place] [phone] Diesel Instructor Family Medicine 10/10/24 Nory Aj PA-C [address] [place], [place] [id number] Diesel Instructor Family [facility] 10/10/24 Team Status: Active Member Role/Relationship Status Dates Dr. Tha Major MD Primary Care Provider Acti ve Team Status: Inactive Member Role/Relationship Status Dates Dr. Tha Major MD Primary Care Provider Acti ve Start: August 11, 2024 End: August 11, 2024 Dr. Tha Major MD Referring Provider Active Start: August 11, 2024 End: August 11, 2024 PATO Bradley Attending Provider Active Start: August 11, 2024 End: August 11, 2024 Team Status: Inactive Member Role/Relationship Status Dates Dr. Tha Major MD Primary Care Provider Acti ve Start: August 19, 2024 End: August 19, 2024 Dr. Tha Major MD Referring Provider Active Start: August 19, 2024 End: August 19, 2024 Reyna Alvarado NP, EMT I/85-C Attending Provider Active Start: August 19, 2024 End: August 19, 2024 Team Status: Inactive Member Role/Relationship Status Dates Dr. Tha Major MD Primary Care Provider Acti ve Start: September 13, 2024 End: September 13, 2024 Dr. Tha Major MD Referring Provider Active Start: September 13, 2024 End: September 13, 2024 Reyna Alvarado NP EMT I/85-C Attending Provider Active Start: September 13, 2024 End: September 13, 2024 Team Status: Inactive Member Role/Relationship Status Dates Dr. Tha Major MD Primary Care Provider Acti ve Start: November 08, 2024 End: November 08, 2024 Dr. Tha Major MD Referring Provider Active Start: November 08, 2024 End: November 08, 2024 Reyna Alvarado NP, NP-C Attending Provider Active Start: November 08, 2024 End: November 08, 2024 Team Status: Active Member Role/Relationship Status Dates Dr. Tha Major MD Primary Care Provider Acti ve Start: November 08, 2024 Reyna Alvarado NP EMT I/85-C Attending Provider Active Start: November 08, 2024 Reyna Alvarado NP, NP-C Referring Provider Active Start: November 08, 2024 Goals (unrecognized section and content) Goals may be documented in a n alternate sectionGoals may be documented in an alternate section FOR RECORDS PERTAINING TO PATIENTS WHO ARE OR HAVE BEEN ENROLLED IN A CHEMICAL DEPENDENCY/SUBSTANCEABUSE PROGRAM, SOME INFORMATION MAY BE OMITTED. This clinical summary was aggregated from multiple sources. Caution should be exercised in using it in the provision of clinical care. This summary normalizes information from multiple sources, and as a consequence, information in this document may materially change the coding, format and clinical context of patient data. In addition, data may be omitted in some cases. CLINICAL DECISIONS SHOULD BE BASED ON THE PRIMARY CLINICAL RECORDS. [employer] provides no warranty or guarantee of the accuracy or completeness of information in this document.
--- OUTSIDE RECORDS SUMMARY | 2024-11-09 02:48 | XMS RPT_ITS | CCD ---
Author Organization [facility] Care Team Providers Care Second Ride Fare Collector Name Role Phone Pending Provider Unavailable Unavailable [...] Dr. Tha Major MD Referring Provider [phone] Fox PLUMBING INSTALLER-CLorrie Attending Provider [phone] Christiano PLUMBING INSTALLER-CReyna Attending Provider Jose PÉREZ.STUDIO COORDINATORKenAnahy Unavailable Nory Aj PA-C Unavailable [phone] Christiano PLUMBING INSTALLER-CReyna Referring Provider Allergies Allergy Classification Reported Allergen(s) Allergy Type Date of Onset Reaction(s) Facility (20 sources) atorvastatin; Translations: [ATORVASTATIN] Drug Allergy 0 Other: See Comments [facility] Work Phone: (20 sources) canagliflozin; Translations: [CANAGLIFLOZIN] Drug Allergy 8 Other: See Comments [facility] Work Phone: (20 sources) HYDROcodone; Translations: [HYDROCODONE] Drug Allergy 6 Other: See Comments [facility] Work Phone: (20 sources) Blue Dye; Translations: [BLUE DYE] Drug Allergy 6 [facility] Work Phone: (2 sources) Acetaminophen / HYDROcodone Drug Allergy 5 Nausea Only [facility] Work Phone: (2 sources) atorvastatin Drug Allergy 0 [facility] (2 sources) Morphine Drug Allergy 5 [facility] canagliflozin Drug Allergy 8 [facility] (1 source) Blue Dyes (Parenteral) Drug Allergy 6 [facility] NEGATED: Highlighted row has been ruled out! (1 source) Other Propensity to adverse reactions 6 [employer] [facility] Work Phone: Medications Current Medications Medication Drug [...] daily, E11.9, non-insulin. Blood-Glucose Meter,Continuous (DEXCOM G6 RACE ENGINE BUILDER) misc (20 sources) Start: 08-07-2022 Blood-Glucose Meter,Continuous (DEXCOM G6 RACE ENGINE BUILDER) misc Indications: Type 2 diabetes mellitus without complication, without long-term current use of insulin (HCC) Use continuously to monitor glucose, IDDM, E11.9 08/07/2022 Active Start: 08-07-2022 Blood-Glucose Meter,Continuous (DEXCOM G6 RACE ENGINE BUILDER) misc Indications: Type 2 diabetes mellitus without [...] mellitus Type 2 diabetes mellitus with hyperglycemia long term care administrator (current) use of insulin 1 sensor q 10 days Start: 10-26-2023 Blood-Glucose Sensor (Dexcom G7 Sensor) device Active 0 .Route 3 October 26, 2023 10:00am 1 sensor q 10 days Start: 10-15-2023 End: 10-26-2023 Blood-Glucose Sensor (Dexcom G7 Sensor) device Discontinued 0 .Route 3 October 15, 2023 12:00am October 26, 2023 10:00am Diabetes mellitus Type 2 diabetes mellitus with hyperglycemia long term care administrator (current) use of insulin 1 sensor q [...] Blood Gluc Sensor (FREESTYLE SUKHDEEP 2 SENSOR) [facility] ([facility] source) Start: 022 Continuous Blood Gluc Sensor (FREESTYLE SUKHDEEP 2 SENSOR) [facility] use 1 SENSOR every 14 days as [...] complication, without long-term current use of insulin ([facility]) Inject 8 units subcutaneously daily; Per Dr. Vivek Linares 30 mL 3 02/09/2024 Active Start: 05-22-2023 End: 02-09-2024 inject 10 [IU] by subcutaneous injection once daily insulin glargine (LANTUS SOLOSTAR U-100 INSULIN) 100 unit/mL (3 mL) Indications: Type 2 diabetes mellitus without complication, without long-term current use of insulin ([facility]) Inject 10 units subcutaneously daily; Per Dr. [...] complication, without long-term current use of insulin ([facility]) Inject 13 units subcutaneously at bedtime daily; [...] mellitus Type 2 diabetes mellitus with hyperglycemia long term care administrator (current) use of insulin metFORMIN hydrochloride 1000 [...] mellitus Type 2 diabetes mellitus with hyperglycemia long term care administrator (current) use of insulin Start: 04-18-2024 End: [...] mellitus Type 2 diabetes mellitus with hyperglycemia shelter (current) use of insulin Start: 12-15-2023 End: [...] mellitus Type 2 diabetes mellitus with hyperglycemia shelter (current) use of insulin Start: 08-13-2023 End: [...] mellitus Type 2 diabetes mellitus with hyperglycemia long term care administrator (current) use of insulin Start: 06-18-2023 End: [...] complication, without long-term current use of insulin ([facility]) Take 2 tabs breakfast and 1 tab [...] complication, without long-term current use of insulin ([facility]) Take 2 tablets by mouth twice daily [...] complication, without long-term current use of insulin ([facility]) Inject subcutaneously TID meals per up to [...] mellitus Type 2 diabetes mellitus with hyperglycemia shelter (current) use of insulin Start: 05-22-2023 insulin [...] complication, without long-term current use of insulin ([facility]) Take 1 tablet by mouth once daily. [...] complication, without long-term current use of insulin ([facility]) Inject 2 mg subcutaneously one time a week. 3 mL 04/01/2022 12/09/2022 Discontinued Start: 04-01-2022 inject 2 mg by subcu taneous injection every week semaglutide (OZEMPIC) 2 mg/dose (8 mg/3 mL) pen injector Indications: Type 2 diabetes mellitus without complication, without long-term current use of insulin ([facility]) Inject 2 mg subcutaneously one time a [...] mellitus Type 2 diabetes mellitus with hyperglycemia long term care administrator (current) use of insulin Start: 07-16-2023 End: 10-15-2023 Tirzepatide (Mounjaro) 12.5 mg/0.5 mL pen injector Discontinued 12.5 mg SC EVERY WEEK July 16, 2023 2:35pm October 15, 2023 2:45pm Start: 07-13-2023 End: 07-16-2023 Tirzepatide (Mounjaro) 12.5 mg/0.5 mL pen injector Discontinued 12.5 mg SC EVERY WEEK 2 July 13, 2023 1:00am July 16, 2023 2:35pm Diabetes mellitus Type 2 diabetes mellitus with hyperglycemia long term care administrator (current) use of insulin Start: 07-13-2023 End: [...] 11-29-2019 11-29-2019 Chronic Other aftercare (2 sources) shelter (current) use of insulin; Translations: [Encounter for [...] Endocrinology Visit Reporton 08-11-2024 Endocrinology Visit Report [facility] [address] [place] [address] OFFICE VISIT Date of Service: 08/11/24 MR#: [id number] Acct: [id number] Name: CRISTINA MARTINEZ Rep #: [id number] : 1980 Provider: PATO mohamud Age/Sex: 44/F Location: [facility] Status: Signed Intake Vital [...] pen (Humalog KwikPen (U-100) Insulin) blood-glucose sensor ([employer] G7 #3 ea 10/26/23 08/11/24 Rx Sensor [...] DAILY #90 tabs 05/26/24 08/11/24 Rx (Synthroid) [facility] Medical History (Updated 08/12/24 @ 09:58 [...] and no (more content not included)... Normal [facility] - Hematology and Cell countsOrdered By: Lorrie Braxton on 08-11-2024 HbA1c (Bld) [Mass fraction] 6.8 % High 4.2-6.3 [facility] 25(OH)D3 [facility] 25-hydroxyvitamin D3 [Mass/Vol] 41.4 ng/mL Normal 31.0-80.0 [facility] Comment on above: Order Comment: Speci men Type: BLOOD SPECIMEN Ordering Facility: [facility] Address: [address] [address] Result Comment: Clas sification of 25 [place] Vitamin D status: Deficiency/Insufficiency: < or = 30 ng/ml. Sufficiency/Optimal Levels: 31-80 ng/mL Toxicity: > 100 ng/mL. Test performed by chemiluminescent immunoassay. Performed By: #### 1 989-3 #### [facility] CLIA [id number] [address] [address] [place] ALBUMIN/CREATININE RATIO, UR INEon 07-28-2024 Albumin DL <= 20 mg/L (U) [Mass/Vol] mg/dL Normal [facility] Comment on above: Order Comment: Speci men Type: URINE SPECIMEN Ordering Facility: [facility] Address: [address] [place], [place] [id number] Performed By: #### U ACR #### [facility] CLIA [id number] [address] [place] [id number] [place] Albumin/Creatinine (U) [Mass ratio] <10 Normal <30 [facility] Comment on above: Order Comment: Speci men Type: URINE SPECIMEN Ordering Facility: [facility] Address: [address] [place] [address] Result Comment: Adul t Male and Female Nephrotic Criteria: <30 mg/g is considered normal to mildly increased 30-300 mg/g is considered moderately increased >300 mg/g is considered severely increased KDIGO. (2013). KDIGO 2012 Clinical Practice Guideline for the Evaluation and Management of Chronic Kidney Disease. Official Journal of the International Society of Nephrology, 3(1), 1-150. Performed By: #### U ACR #### [facility] CLIA [id number] [facility] [place] [id number] [place] Creatinine (U) [Mass/Vol] 123.1 mg/dL Normal 20.0-300.0 [facility] Comment on above: Order Comment: Speci men Type: URINE SPECIMEN Ordering Facility: [facility] Address: [address] [place] [address] Performed By: #### U ACR #### [facility] CLIA [id number] [address] [place] [address] [place] Comprehensive metabolic 2000 panelon 07-28-2024 Albumin [Mass/Vol] 4.3 g/dL Normal 3.9-4.9 [facility] Comment on above: Order Comment: Speci men Type: BLOOD SPECIMEN Ordering Facility: [facility] Address: [address] [place] [address] Performed By: #### 2 4323-8, 56488-0, 6-3 #### [facility] CLIA [id number] [address] [place] [address] [place] ALP [Catalytic activity/Vol] 46 U/L Normal 34-123 [facility] Comment on above: Order Comment: Speci men Type: BLOOD SPECIMEN Ordering Facility: [facility] Address: [address] [place] [address] Performed By: #### 2 4323-8, 55306-9, 6-3 #### [facility] CLIA [id number] [address] [place] [address] [place] ALT [Catalytic activity/Vol] 9 U/L Normal 7-38 [facility] Comment on above: Order Comment: Speci men Type: BLOOD SPECIMEN Ordering Facility: [facility] Address: [address] [place] [address] Performed By: #### 2 4323-8, 67529-1, 6-3 #### [facility] CLIA [id number] [address] [place] [address] [place] Anion gap [Moles/Vol] 7 mmol/L Low 8-15 [facility] Comment on above: Order Comment: Speci men Type: BLOOD SPECIMEN Ordering Facility: [facility] Address: [address] [place] [address] Performed By: #### 2 4323-8, 97451-9, 3015-3 #### [facility] CLIA [id number] [address] [place] [address] [place] AST [Catalytic activity/Vol] 13 U/L Normal 13-35 [facility] Comment on above: Order Comment: Speci men Type: BLOOD SPECIMEN Ordering Facility: [facility] Address: [address] [place] [address] Performed By: #### 2 4323-8, 86349-7, 6-3 #### [facility] CLIA [id number] [address] [place] [address] [place] Bilirubin [Mass/Vol] 0.3 mg/dL Normal 0.2-1.3 [facility] Comment on above: Order Comment: Speci men Type: BLOOD SPECIMEN Ordering Facility: [facility] Address: [address] [place] [address] Performed By: #### 2 4323-8, 48731-3, 3015-3 #### [facility] CLIA [id number] [address] [place] [address] [place] Calcium [Mass/Vol] 9.7 mg/dL Normal 8.5-10.2 [facility] Comment on above: Order Comment: Speci men Type: BLOOD SPECIMEN Ordering Facility: [facility] Address: [address] [place] [address] Performed By: #### 2 4323-8, 72798-4, 3015-3 #### [facility] CLIA [id number] [address] [place] [address] [place] Chloride [Moles/Vol] 103 mmol/L Normal 98-107 [facility] Comment on above: Order Comment: Speci men Type: BLOOD SPECIMEN Ordering Facility: [facility] Address: [address] [place] [address] Performed By: #### 2 4323-8, 48070-9, 3015-3 #### [facility] CLIA [id number] [address] [place] [address] [place] CO2 [Moles/Vol] 31 mmol/L High 22-30 [facility] Comment on above: Order Comment: Speci men Type: BLOOD SPECIMEN Ordering Facility: [facility] Address: [address] [place] [address] Performed By: #### 2 4323-8, 89088-5, 3015-3 #### [facility] CLIA [id number] [address] [place] [address] [place] Creatinine [Mass/Vol] 0.61 mg/dL Normal 0.58-0.96 [facility] Comment on above: Order Comment: Speci men Type: BLOOD SPECIMEN Ordering Facility: [facility] Address: [address] [place] [address] Performed By: #### 2 4323-8, 98118-8, 3015-3 #### [facility] CLIA [id number] [address] [place] [address] [place] Creatinine and Glomerular filtration rate.predicted panel (S/P/Bld) 113 mL/min/1.73m??? Normal >=60 [facility] Comment on above: Order Comment: Rosario garcia Type: BLOOD SPECIMEN Ordering Facility: [facility] Address: [address] [place] [address] Result Comment: Eliana mated Glomerular Filtration Rate [...] actual GFR. Performed By: #### 2 4323-8, 84111-1, 3015-3 #### [facility] CLIA [id number] [address] [place] [address] [place] Glucose [Mass/Vol] 129 mg/dL High 74-99 [facility] Comment on above: Order Comment: Rosario garcia Type: BLOOD SPECIMEN Ordering Facility: [facility] Address: [address] [place] [address] Result Comment: The [place] Diabetes Association (ADA) provides guidance for cutoff [...] Standards of Medical Care in Diabetes 2016, [place] Diabetes Association. Diabetes Care. 2016.39(Suppl 1). Performed By: #### 2 4323-8, 57617-9, 6-3 #### [facility] CLIA [id number] [address] [place] [address] [place] Potassium [Moles/Vol] 4.5 mmol/L Normal 3.7-5.1 [facility] Comment on above: Order Comment: Speci men Type: BLOOD SPECIMEN Ordering Facility: [facility] Address: [address] [place] [address] Performed By: #### 2 4323-8, 82153-1, 3016-3 #### [facility] CLIA [id number] [address] [place] [address] [place] Protein [Mass/Vol] 6.9 g/dL Normal 6.3-8.0 [facility] Comment on above: Order Comment: Speci men Type: BLOOD SPECIMEN Ordering Facility: [facility] Address: [address] [place] [address] Performed By: #### 2 4323-8, 22441-4, 6-3 #### [facility] CLIA [id number] [address] [place] [address] [place] Sodium [Moles/Vol] 141 mmol/L Normal 136-144 [facility] Comment on above: Order Comment: Speci men Type: BLOOD SPECIMEN Ordering Facility: [facility] Address: [address] [place] [address] Performed By: #### 2 4323-8, 74565-6, 6-3 #### [facility] CLIA [id number] [address] [place] [address] [place] Urea nitrogen [Mass/Vol] 13 mg/dL Normal 7-21 [facility] Comment on above: Order Comment: Speci men Type: BLOOD SPECIMEN Ordering Facility: [facility] Address: [address] [place] [address] Performed By: #### 2 4323-8, 17028-3, 6-3 #### [facility] CLIA [id number] [address] [place] [address] [place] GAD65 Ab Ser-aCncon 07-29-19 25 Glutamate decarboxylase 65 Ab Qn (S) 5.6 IU/mL High <=5.0 [facility] Comment on above: Order Comment: Speci men Type: BLOOD SPECIMEN Ordering Facility: [facility] Address: [facility] [place] [id number] Result Comment: Anti -glutamic acid decarboxylase antibody [...] required. Performed By: #### 1 3926-1 #### [facility] CLIA [id number] [address] [place] [address] [place] Glutamate decarboxylase 65 A b Qn (S)on 07-28-2024 GLUTAMIC ACID DECARBOXYLAS AB QUALITATIVE Positive Abnormal Negative [facility] Comment on above: Order Comment: Rosario garcia Type: BLOOD SPECIMEN Ordering Facility: [facility] Address: [address] [place] [address] Performed By: #### 1 3926-1 #### [facility] CLIA [id number] [address] [place] [address] [place] Lipid 1996 panelon 5 Cholesterol [Mass/Vol] 185 mg/dL Normal <200 [facility] Comment on above: Order Comment: Rosario garcia Type: BLOOD SPECIMEN Ordering Facility: [facility] Address: [address] [place] [address] Result Comment: <200 mg/dL, Desirable 200-239 mg/dL, Borderline high >239 mg/dL, High Performed By: #### 2 4323-8, 83447-2, 3016-3 #### [facility] CLIA [id number] [address] [place] [address] [place] Cholesterol in HDL [Mass/Vol] 63 mg/dL Normal >39 [facility] Comment on above: Order Comment: Rosario garcia Type: BLOOD SPECIMEN Ordering Facility: [facility] Address: [address] [place] [address] Result Comment: 40-5 9 mg/dL, Acceptable >59 mg/dL, High: Negative risk factor for coronary heart disease <40 mg/dL, Low: Positive risk factor for coronary heart disease Performed By: #### 2 4323-8, 34883-8, 6-3 #### [facility] CLIA [id number] [address] [place] Cholesterol in LDL [Mass/Vol] 112 mg/dL High <100 [facility] Comment on above: Order Comment: Rosario radha Type: BLOOD SPECIMEN Ordering Facility: [facility] Address: [address] [place] [address] Result Comment: <100 mg/dL, Optimal 100-129 mg/dL, Near optimal/above optimal 130-159 mg/dL, Borderline high 160-189 mg/dL, High >189 mg/dL, Very high Secondary prevention optimal LDL Cholesterol levels are recommended to be < 70 mg/dL Performed By: #### 2 4323-8, 78772-8, 3015-3 #### [facility] CLIA [id number] [address] Cholesterol in LDL/Cholesterol in HDL [Mass ratio] 1.78 {ratio} Normal <2.54 [facility] Comment on above: Order Comment: Rosario [facility] Type: BLOOD SPECIMEN Ordering Facility: [facility] Address: [address] [place] [address] Result Comment: Refe rence: 1. National Cholesterol Education Program ATP III Guideline At-A-Glance Quick Desk Reference: National Heart, Lung, and Blood [place]. National Institutes of Health. 2001: NIH Publication No. 01-3305. 2. An International Atherosclerosis Society position paper: global recommendations for the management of dyslipidemia: executive summary, Atherosclerosis. 2014: 232(2):410-413. Performed By: #### 2 4323-8, 63437-4, 3015-3 #### [facility] CLIA [id number] [address] Cholesterol in VLDL [Mass/Vol] 10 mg/dL Normal <30 [facility] Comment on above: Order Comment: [facility] Type: BLOOD SPECIMEN Ordering Facility: [facility] Address: [address] [place] [address] Performed By: #### 2 4323-8, 16652-2, 6-3 #### [facility] CLIA [id number] [address] [place] Cholesterol non HDL [Mass/Vol] 122 mg/dL Normal <130 [facility] Comment on above: Order Comment: Rosario garcia Type: BLOOD SPECIMEN Ordering Facility: [facility] Address: [address] [place] [address] Result Comment: <130 mg/dL, Optimal 130-159 mg/dL, Near optimal/above optimal 160-189 mg/dL, Borderline high 190-219 mg/dL, High >219 mg/dL, Very high Secondary prevention optimal non HDL Cholesterol levels are recommended to be <100 mg/dL Performed By: #### 2 4323-8, 51434-3, 3016-3 #### [facility] CLIA [id number] [address] Cholesterol.total/C holesterol in HDL [Mass ratio] 2.94 {ratio} Normal <5.10 [facility] Comment on above: Order Comment: Rosario garcia Type: BLOOD SPECIMEN Ordering Facility: [facility] Address: [address] [place] [address] Performed By: #### 2 4323-8, 55810-7, 3016-3 #### [facility] CLIA [id number] [address] FASTING TIME 12 hrs Normal [facility] Comment on above: Order Comment: Rosario garcia Type: BLOOD SPECIMEN Ordering Facility: [facility] Address: [address] [place] [address] Performed By: #### 2 4323-8, 61202-5, 3016-3 #### [facility] CLIA [id number] [address] Triglyceride [Mass/Vol] 50 mg/dL Normal <150 [facility] Comment on above: Order Comment: Rosario [facility] Type: BLOOD SPECIMEN Ordering Facility: [facility] Address: [address] [place] [address] Result Comment: <150 mg/dL, Normal 150-199 mg/dL, Borderline high 200-499 mg/dL, High >499 mg/dL, Very high Performed By: #### 2 4323-8, 57498-8, 3016-3 #### [facility] CLIA [id number] [address] [place] [address] [place] T4 Free SerPl-mCncon 025 Free T4 [Mass/Vol] 1.3 ng/dL Normal 0.9-1.7 [facility] Comment on above: Order Comment: Rosario garcia Type: BLOOD SPECIMEN Ordering Facility: [facility] Address: [address] [place] [address] Performed By: #### 3 024-7 #### [facility] CLIA [id number] [address] [place] [address] [place] TSH SerPl-aCncon 07-28-2024 TSH Qn 4.720 m[IU]/L High 0.270-4.200 [facility] Comment on above: Order Comment: Rosario garcia Type: BLOOD SPECIMEN Ordering Facility: [facility] Address: [address] [place] [address] Result Comment: If t he patient is , TSH reference range varies by gestational period: First Trimester (weeks 9-12): 0.180-2.990 mIU/L Second Trimester: 0.110-3.980 mIU/L Third Trimester: 0.480-4.710 mIU/L Nura Hernández et al. A Practical Approach for the Verifications and Determination of Site- and Trimester-Specific Reference Intervals for Thyroid Function tests in . Thyroid, 2019:29:3:412-420. Luis Baltazar, et al. 2017 Guidelines of the [place] Thyroid Association for the Diagnosis and Management of Thyroid Disease during and the . Thyroid, 2017:27:3:315-389. Performed By: #### 2 4323-8, 45876-8, 3016-3 #### [facility] CLIA [id number] [address] [place] [address] [place] Urinalysis complete panel (U )on 07-28-2024 Bacteria LM.HPF (Urine sed) [#/Area] Rare Abnormal None Seen [facility] Comment on above: Order Comment: Rosario garcia Type: URINE SPECIMEN Ordering Facility: [facility] Address: [address] [place] [address] Performed By: #### 2 4356-8 #### [facility] CLIA [id number] [address] [place] Bilirubin Ql (U) Negative Normal Negative [facility] Comment on above: Order Comment: Speci men Type: URINE SPECIMEN Ordering Facility: [facility] Address: [address] [place] [address] Performed By: #### 2 4356-8 #### [facility] CLIA [id number] [address] [place] Clarity (Unsp spec) Clear Normal Clear [facility] Comment on above: Order Comment: Speci men Type: URINE SPECIMEN Ordering Facility: [facility] Address: [address] [place] [address] Performed By: #### 2 4356-8 #### [facility] CLIA [id number] [address] Color (U) Yellow Normal Yellow [facility] Comment on above: Order Comment: Speci men Type: URINE SPECIMEN Ordering Facility: [facility] Address: [address] [place] [address] Performed By: #### 2 4356-8 #### [facility] CLIA [id number] [address] Epithelial cells LM.HPF (Urine sed) [#/Area] Few Normal [facility] Comment on above: Order Comment: Speci men Type: URINE SPECIMEN Ordering Facility: [facility] Address: [address] [place] [address] Performed By: #### 2 4356-8 #### [facility] CLIA [id number] [address] [place] Glucose Test strip (U) [Mass/Vol] Negative Normal Negative [facility] Comment on above: Order Comment: Speci men Type: URINE SPECIMEN Ordering Facility: [facility] Address: [address] [place] [address] Performed By: #### 2 4356-8 #### [facility] CLIA [id number] [address] [place] Hemoglobin Ql (U) Negative Normal Negative [facility] Comment on above: Order Comment: Speci men Type: URINE SPECIMEN Ordering Facility: [facility] Address: [address] [place] [address] Performed By: #### 2 4356-8 #### [facility] CLIA [id number] [address] [place] [address] [place] [facility] [place] Ketones Ql (U) Negative Normal Negative [facility] Comment on above: Order Comment: Speci men Type: URINE SPECIMEN Ordering Facility: [facility] Address: [address] [place] [address] Performed By: #### 2 4356-8 #### [facility] CLIA [id number] [address] [place] Leukocyte esterase Test strip Ql (U) Negative Normal Negative [facility] Comment on above: Order Comment: Speci men Type: URINE SPECIMEN Ordering Facility: [facility] Address: [address] [place] [address] Performed By: #### 2 4356-8 #### [facility] CLIA [id number] [address] [place] [address] [place] Nitrite Ql (U) Negative Normal Negative [facility] Comment on above: Order Comment: Speci men Type: URINE SPECIMEN Ordering Facility: [facility] Address: [address] [place] [address] Performed By: #### 2 4356-8 #### [facility] CLIA [id number] [address] [place] [address] [place] pH (U) 6.0 [pH] Normal 5.0-8.0 [facility] Comment on above: Order Comment: Speci men Type: URINE SPECIMEN Ordering Facility: [facility] Address: [facility] [place] [address] Performed By: #### 2 4356-8 #### [facility] CLIA [id number] [address] [place] Protein (U) [Mass/Vol] Negative Normal Negative [facility] Comment on above: Order Comment: Speci men Type: URINE SPECIMEN Ordering Facility: [facility] Address: [facility] [place] [address] Performed By: #### 2 4356-8 #### [facility] CLIA [id number] [address] [place] [address] [place] RBC LM.HPF (Urine sed) [#/Area] 0-3 /HPF Normal 0-3 /HPF [facility] Comment on above: Order Comment: Speci men Type: URINE SPECIMEN Ordering Facility: [facility] Address: [address] [place] [address] Performed By: #### 2 4356-8 #### [facility] CLIA [id number] [address] [place] [address] [place] Specific gravity (U) [Rel density] 1.025 Normal 1.005-1.030 [facility] Comment on above: Order Comment: Speci men Type: URINE SPECIMEN Ordering Facility: [facility] Address: [address] [place] [address] Performed By: #### 2 4356-8 #### [facility] CLIA [id number] [address] [place] Urobilinogen Ql (U) 0.2 EU/dL Normal 0.2-1.0 EU/dL [facility] Comment on above: Order Comment: Speci men Type: URINE SPECIMEN Ordering Facility: [facility] Address: [address] [place] [address] Performed By: #### 2 4356-8 #### [facility] CLIA [id number] [address] [place] WBC LM.HPF (Urine sed) [#/Area] 0-5 /HPF Normal 0-5 /HPF [facility] Comment on above: Order Comment: Speci men Type: URINE SPECIMEN Ordering Facility: [facility] Address: [address] [place] [address] Performed By: #### 2 4356-8 #### [facility] CLIA [id number] [address] [place] Vit B12 SerPl-mCncon 025 Cobalamin (Vitamin B12) [Mass/Vol] 454 pg/mL Normal 232-1245 [facility] Comment on above: Order Comment: Speci men Type: BLOOD SPECIMEN Ordering Facility: [facility] Address: [address] [place] [address] Performed By: #### 2 132-9 #### [facility] [id number] [address] [place] [address] [facility] CNOVon 07-14-2024 CNOV Office Visit (PODIWS ) -------- CRISTINA MARTINEZ ([id number]) 1980 F Date Time Provider Department 07/14/24 [...] tab dinner. Per Dr. Vivek Linares Insulin Alderson, Disposable, (BD ULTRAFINE III MINI PEN) 31 gauge x 3/16 Use 4 pen needles daily Blood-Glucose Sensor (DEXCOM G6 SENSOR) ismael Use one sensor every 10 days, IDDM, E 11.9 Blood-Glucose Transmitter (DEXCOM G6 TRANSMITTER) ismael Use one transmitter every 3 months, IDDM, E 11.9 Blood-Glucose Meter,Continuous (DEXCOM G6 RACE ENGINE BUILDER) misc Use continuously to monitor glucose, IDDM, [...] Tubal ster (more content not included)... Normal [facility] Physician Progress No nidia 04-19-2024 [facility] Physician Progress Note CRISTINA MARTINEZ :1980 Registration Date:04/19/2024 Assessment/Plan This Visit Diagnosis 1. Encounter for annual routine gynecological examination Z01.419 pap/hpv neg 2022- ASC-H MVI/Calcium/Vit D Exercise f/u 1 yr and prn Ordered: AMB Preventive Est Age 40-64 [address], 04/19/2024 11:48:00 EST, Encounter for annual routine gynecological examination / S/P hysterectomy / Diabetes type 2 / Hot flashes / Screening mammogram, encounter for 2. S/P hysterectomy Z90.710 Ordered: AMB Preventive Est Age 40-64 [address], 04/19/2024 11:48:00 EST, Encounter for annual routine gynecological examination / S/P hysterectomy / Diabetes type 2 / Hot flashes / Screening mammogram, encounter for 3. Diabetes type 2 E11.9 follows up with PCP- considering pump for better control Ordered: AMB Preventive Est Age 40-64 60481, 04/19/2024 11:48:00 EST, Encounter for annual routine gynecological examination / S/P hysterectomy / Diabetes type 2 / Hot flashes / Screening mammogram, encounter for 4. Hot flashes R23.2 lab order given for estradiol and FSH interested in trying supplements Ordered: AMB Preventive Est Age 40-64 [address]20, 04/19/2024 11:48:00 EST, Encounter for annual routine gynecological examination / S/P hysterectomy / Diabetes type 2 / Hot flashes / Screening mammogram, encounter for ESTRADIOL, ROUTINE, 04/19/2024, Order for future visit-Diagnosis required, Dx: Hot flashes FSH, ROUTINE, 04/19/2024, Order for future visit-Diagnosis required, Dx: Hot flashes 5. Screening mammogram, encounter for Z12.31 order given for mammogram Ordered: AMB Preventive Est Age 40-64 [address]89, 04/19/2024 11:48:00 EST, Encounter for annual routine [...] ambulatory (m (more content not included)... Normal [facility] Ambulatory Clinical Summaryo n 04-19-2024 Ambulatory Clinical Summary CRISTINA MARTINEZ :1980 [facility]:[id number] Registration Date:04/19/2024 Ambulatory Visit Instructions Your Diagnosis [...] (2012) Cholecystectomy, Dr Alves (07/2011) strabismus repair Dixon teeth Discharge Vitals Blood Pressure 110/78 Height [...] call to get immediate medical attention! Normal [facility] Comprehensive Intake - Texto n 04-19-2024 Comprehensive [...] Daniela Gudino - 04/19/2024 10:[address] [facility] MIXING SUPERVISOR Visit - Texton MIXING SUPERVISOR Visit - Text MIXING SUPERVISOR Visit Entered On : 04/19/2024 11:00 EST Performed On: 04/19/2024 10:57 EST by Daniela Gudino MIXING SUPERVISOR Menstrual History Menstrual Status : Hysterectomy Daniela Gudino - 04/19/2024 10:57 EST MIXING SUPERVISOR Screenings Date of Last Pap Smear : 01/23/2023 Last Pap Result : Negative Last Pap Result Comment : 01/23/2023 Neg w/Neg HPV 03/25/2019 ASCUS w/Neg HPV Date of Last Mammogram : 03/31/2023 Last Mammography Result : Benign Last Mammography Result Comment : Negative Date of colo/rectal cancer screen : 2021- per patient [place]/Rectal cancer screen test performed : Colonoscopy [place]/Rectal cancer screen result comment : Rpt in 10 years Daniela Gudino - 04/19/2024 10:57 EST Contraception Contraception Method : Sterilization for contraception Sterilization Type : Hysterectomy Daniela Gudino - 04/19/2024 10:[address] [facility] Endocrinology Visit Reporton 04-14-2024 Endocrinology Visit Report [facility] [address] [place] [address] OFFICE VISIT Date of Service: 04/14/24 MR#: [id number] Acct: [id number] Name: CRISTINA MARTINEZ Rep #: [id number] : 1980 Provider: PATO mohamud Age/Sex: 43/F Location: [facility] Status: Signed Intake Vital [...] rate Rhythm: (more content not included)... Normal [facility] CNOVon 02-09-2024 CNOV Office Visit (FAMPWS ) -------- CRISTINA MARTINEZ ([id number]) 1980 F Date Time Provider Department 02/09/24 9:40 AM [facility] visit today, we recorded the [...] complication, without long-term current use of insulin ([facility]) 09/19/[address] Doyle Vitamin D deficiency Previous Surgical History PAST SURGICAL HISTORY Procedure Laterality Date CHOLECYSTECTOMY HX 2011 HYSTERECTOMY HX 07/01/2013 [facility] - DUB LAPAROSCOPIC TUBAL LIGATION/RING/CLIP 08/20/2012 Filshie [...] tab dinner. Per Dr. Vivek Linares Insulin Alderson, Disposable, (BD ULTRAFINE III MINI PEN) 31 gauge x 3/16 Use 4 pen needles daily Blood-Glucose Sensor (DEXCOM G6 SENSOR) ismael Use one sensor every 10 days, IDDM, E 11.9 Blood-Glucose Transmitter (DEXCOM G6 TRANSMITTER) ismael Use one transmitter every 3 months, IDDM, E 11.9 Blood-Glucose Meter,Continuous (DEXCOM G6 RACE ENGINE BUILDER) [facility] Use continuously to monitor glucose, IDDM, E11.9 blood sugar diagnostic (BLOOD GLUCOSE TEST) test strip Use as directed to test glucose 2 times daily, E11.9, IDDM Lancets lancets Use as directed to test glucose 3 times daily, E11.9, non-insulin. MULTIVITAMIN ORAL Take by mouth. flintstone Blood-Glucose (more content not included)... Normal [facility] CNOVon 01-28-2024 CNOV Office Visit (WALKWA ) -------- CRISTINA MARTINEZ ([id number]) 1980 F Date Time Provider Department 01/28/24 [...] complication, without long-term current use of insulin ([facility]) 09/19/[address] Doyle Vitamin D deficiency PAST SURGICAL HISTORY Procedure Laterality Date CHOLECYSTECTOMY HX 2011 HYSTERECTOMY HX 07/01/2013 [facility] LAPAROSCOPIC TUBAL LIGATION/RING/CLIP 08/20/2012 Filshie clips [...] Other Visi (more content not included)... Normal [facility] COVID AND INFLUENZA A/B AND RSV PCR, ROUTINEon 01-28-2024 SARS-CoV-2 (COVID-19) RNA PAYAM+probe Ql (Unsp spec) SARS-COV-2 (AGENT OF COVID-19) RNA: Detected INFLUENZA A RNA: Not detected INFLUENZA B RNA: Not detected RESPIRATORY SYNCYTIAL VIRUS (RSV) RNA: Not detected Abnormal [facility] Comment on above: Performed By: #### C VFLRS ####[facility] [id number] [address] OF [facility] Endocrinology Visit Reporton 01-14-2024 Endocrinology Visit Report [facility] [address] [facility] [place] [id number] OFFICE VISIT Date of Service: 01/14/24 MR#: [id number] Acct: [id number] Name: CRISTINA MARTINEZ Rep #: [id number] : 1980 Provider: PATO mohamud Age/Sex: 43/F Location: [facility] Status: Signed Intake Vital [...] 3 M FU Chief Complaint: f/u diabetes Weatherization Specialist Required: No Accompanied by: Self Is patient [...] N NPH U-100 Insulin KwikPen) blood-glucose sensor ([email or web address] G7 #3 ea 10/26/23 01/14/24 Rx Sensor [...] (3 mL) subcutaneous pen mL (insulin degludec) [facility] Medical History Hypercholesteremia Anxiety Arthritis Thyroid [...] Endocrinology Visit Reporton 10-15-2023 Endocrinology Visit Report [facility] [address] [place] [address] OFFICE VISIT Date of Service: 10/15/23 MR#: [id number] Acct: [id number] Name: CRISTINA MARTINEZ Rep #: [id number] : 1980 Provider: PATO mohamud Age/Sex: 43/F Location: [facility] Status: Signed Intake Vital [...] 3 M FU Chief Complaint: f/u diabetes Weatherization Specialist Required: No Accompanied by: Self Is patient [...] Speech: speec (more content not included)... Normal [facility] HEMOGLOBIN A1C (EXTERNAL)Ord ered By: Janes Ruano on 10-15-2023 HbA1c (Bld) [Mass fraction] 6.9 % Abnormal 0 - 5.7 % [facility] Interpretation and review of laboratory results Abnormal [facility] CRISTINA MARTINEZ ([id number]) 1980 F Date Time Provider Department 07/28/23 [facility]NA [facility] During your visit today, we recorded the [...] Fully Assessed Reason for Visit: Patient Question [6337] Prescriptions as of 08/06/2023 - tirzepatide (MOUNJARO) [...] dinner. Per Dr. Vivek Linares - Insulin Alderson, Disposable, (BD ULTRAFINE III MINI PEN) 31 [...] E 11.9 - Blood-Glucose Meter,Continuous (DEXCOM G6 RACE ENGINE BUILDER) [facility] Use continuously to monitor glucose, IDDM, E11.9 [...] Status:Closed by JHONNY CAMPBELL on 08/06/23 Normal [facility] CNOVon 07-21-2023 CNOV Office Visit (FAMPWS ) -------- CRISTINA MARTINEZ ([id number]) 1980 F Date Time Provider Department 07/21/23 [...] tab dinner. Per Dr. Vivek Linares Insulin Alderson, Disposable, (BD ULTRAFINE III MINI PEN) 31 gauge x 3/16 Use 4 pen needles daily levothyroxine (SYNTHROID) 125 mcg tablet Take 1 tablet by mouth daily before breakfast. Blood-Glucose Sensor (DEXCOM G6 SENSOR) ismael Use one sensor every 10 days, IDDM, E 11.9 Blood-Glucose Transmitter (DEXCOM G6 TRANSMITTER) ismael Use one transmitter every 3 months, IDDM, E 11.9 Blood-Glucose Meter,Continuous (DEXCOM G6 RACE ENGINE BUILDER) misc Use continuously to monitor glucose, IDDM, [...] to visit (more content not included)... Normal [facility] 25(OH)D3 [facility] 2023 25-hydroxyvitamin D3 [Mass/Vol] 36.0 ng/mL Normal >=30.0 [facility] Comment on above: Order Comment: Speci men Type: BLOOD SPECIMEN Ordering Facility: [facility] Address: [address] [place] [address] Result Comment: Clas sification of 25 [place] Vitamin D status: Deficiency: <= 20.0 ng/ml. Insufficiency: 21.0-29.0 ng/ml. Sufficiency: >= 30.0 ng/ml. Performed By: #### 1 989-3 #### [facility] CLIA [id number] [address] [place] ALBUMIN/CREAT RATIO RND URon 07-16-2023 Albumin Unsp time DL <= 20 mg/L (U) [Mass/Time] 12.8 mg/L Normal [facility] Comment on above: Order Comment: Speci [facility] Type: URINE SPECIMEN Order[facility] Facility: [facility] Address: [address] [address] Performed By: #### U ACR #### [facility] CLIA [id number] [address] [place] Albumin/Creatinine (U) [Mass ratio] 13 mg/g Normal <30 [facility] Comment on above: Order Comment: Speci men Type: URINE SPECIMEN Ordering Facility: [facility] Address: [address] [place] [address] Result Comment: Adul t Male and Female Nephrotic Criteria: <30 mg/g is considered normal to mildly increased 30-300 mg/g is considered moderately increased >300 mg/g is considered severely increased KDIGO. (2013). KDIGO 2012 Clinical Practice Guideline for the Evaluation and Management of Chronic Kidney Disease. Official Journal of the International Society of Nephrology, 3(1), 1-150. Performed By: #### U ACR #### [facility] CLIA [id number] [address] Creatinine (U) [Mass/Vol] 101.8 mg/dL Normal 42.2-237.9 [facility] Comment on above: Order Comment: Speci men Type: URINE SPECIMEN Order[facility] Facility: [facility] Address: [address] [place] [address] Performed By: #### U ACR #### [facility] CLIA [id number] [address] Comprehensive metabolic 2000 panelon 07-16-2023 Albumin [Mass/Vol] 4.1 g/dL Normal 3.9-4.9 [facility] Comment on above: Order Comment: Speci men Type: BLOOD SPECIMEN Order[facility] Facility: [facility] Address: [address] [place] [address] Performed By: #### 3 016-3, 61177-2, 91928-8 #### [facility] CLIA [id number] [address] [place] [address] [place] [facility] ALP [Catalytic activity/Vol] 44 U/L Normal 34-123 [facility] Comment on above: Order Comment: Speci men Type: BLOOD SPECIMEN Order[facility] Facility: [facility] Address: [address] [place] [address] Performed By: #### 3 016-3, 18894-7, 48553-8 #### [facility] CLIA [id number] [address] [place] [address] [place] [facility] ALT With P-5'-P [Catalytic activity/Vol] 12 U/L Normal 7-38 [facility] Comment on above: Order Comment: Speci men Type: BLOOD SPECIMEN Order[facility] Facility: [facility] Address: [address] [place] [address] Performed By: #### 3 016-3, 24994-8, 64092-6 #### [facility] CLIA [id number] [address] [place] [address] [place] Anion gap [Moles/Vol] 12 mmol/L Normal 9-18 [facility] Comment on above: Order Comment: Speci men Type: BLOOD SPECIMEN Order[facility] Facility: [facility] Address: [address] [place] [address] Performed By: #### 3 016-3, 53927-2, #### [facility] CLIA [id number] [address] [place] [address] [place] AST With P-5'-P [Catalytic activity/Vol] 13 U/L Normal 13-35 [facility] Comment on above: Order Comment: Speci men Type: BLOOD SPECIMEN Ordering Facility: [facility] Address: [address] [place] [address] Performed By: #### 3 016-3, 53318-3, 46636-9 #### [facility] CLIA [id number] [address] [place] [address] [place] Bilirubin [Mass/Vol] 0.3 mg/dL Normal 0.2-1.3 [facility] Comment on above: Order Comment: Speci men Type: BLOOD SPECIMEN Order[facility] Facility: [facility] Address: [address] [place] [address] Performed By: #### 3 016-3, 02090-2, 14446-4 #### [facility] CLIA [id number] [address] [place] [address] [place] Calcium [Mass/Vol] 9.2 mg/dL Normal 8.5-10.2 [facility] Comment on above: Order Comment: Speci men Type: BLOOD SPECIMEN Order[facility] Facility: [facility] Address: [address] [place] [address] Performed By: #### 3 016-3, 53150-7, 16948-4 #### [facility] CLIA [id number] [address] [place] [address] [place] Chloride [Moles/Vol] 100 mmol/L Normal 97-105 [facility] Comment on above: Order Comment: Speci men Type: BLOOD SPECIMEN Order[facility] Facility: [facility] Address: [address] [place] [address] Performed By: #### 3 016-3, 13608-7, 66335-5 #### [facility] CLIA [id number] [address] [place] [address] [place] CO2 [Moles/Vol] 26 mmol/L Normal 22-30 [facility] Comment on above: Order Comment: Speci men Type: BLOOD SPECIMEN Ordering Facility: [facility] Address: [address] [place] [address] Performed By: #### 3 016-3, 38246-3, 96707-0 #### [facility] CLIA [id number] [address] [place] [address] [place] Creatinine [Mass/Vol] 0.55 mg/dL Low 0.58-0.96 [facility] Comment on above: Order Comment: Speci men Type: BLOOD SPECIMEN Ordering Facility: [facility] Address: [address] [place] [address] Performed By: #### 3 016-3, 88239-9, 03387-9 #### [facility] CLIA [id number] [address] [place] [address] [facility] Creatinine and Glomerular filtration rate.predicted panel (S/P/Bld) 116 mL/min/1.73m??? Normal >=60 [facility] Comment on above: Order Comment: Speci men Type: BLOOD SPECIMEN Ordering Facility: [facility] Address: [address] [place] [address] Result Comment: Eliana mated Glomerular Filtration Rate [...] actual GFR. Performed By: #### 3 016-3, 20886-9, #### [facility] CLIA [id number] [address] [place] [address] [place] Glucose [Mass/Vol] 228 mg/dL High 74-99 [facility] Comment on above: Order Comment: Rosario garcia Type: BLOOD SPECIMEN Ordering Facility: [facility] Address: [address] [place] [address] Result Comment: The [place] Diabetes Association (ADA) provides guidance for cutoff [...] Standards of Medical Care in Diabetes 2016, [place] Diabetes Association. Diabetes Care. 2016.39(Suppl 1). Performed By: #### 3 016-3, 67472-6, #### [facility] CLIA [id number] [address] [place] [address] [place] Potassium [Moles/Vol] 4.6 mmol/L Normal 3.7-5.1 [facility] Comment on above: Order Comment: Rosario garcia Type: BLOOD SPECIMEN Ordering Facility: [facility] Address: [address] [place] [address] Performed By: #### 3 016-3, 59065-4, #### [facility] CLIA [id number] [address] [place] [address] [place] Protein [Mass/Vol] 7.0 g/dL Normal 6.3-8.0 [facility] Comment on above: Order Comment: Rosario men Type: BLOOD SPECIMEN Ordering Facility: [facility] Address: [address] [place] [address] Performed By: #### 3 016-3, 83230-2, 12546-2 #### [facility] CLIA [id number] [address] [place] [address] [place] Sodium [Moles/Vol] 138 mmol/L Normal 136-144 [facility] Comment on above: Order Comment: Mal[place] men Type: BLOOD SPECIMEN Ordering Facility: [facility] Address: [address] [place] [address] Performed By: #### 3 016-3, 40024-5, #### [facility] CLIA [id number] [address] [place] [address] [place] Urea nitrogen [Mass/Vol] 13 mg/dL Normal 7-21 [facility] Comment on above: Order Comment: Mal[place] men Type: BLOOD SPECIMEN Ordering Facility: [facility] Address: [address] [place] [address] Performed By: #### 3 016-3, 49104-9, #### [facility] CLIA [id number] [address] [place] [address] [place] HbA1c (Bld)on 07-16-2023 Average glucose Estimated from glycated hemoglobin (Bld) [Mass/Vol] 169 mg/dL Normal [facility] Comment on above: Order Comment: Malachii men Type: BLOOD SPECIMEN Ordering Facility: [facility] Address: [address] [place] [address] Result Comment: eAG: (Estimated average glucose) is a calculated value from HgbA1c and is textile machinery sales representative of the average blood glucose level in the last 2-3 month period. Performed By: #### 5 5454-3 #### [facility] CLIA [id number] [address] [place], [place] [address] [address] [place] HbA1c (Bld) [Mass fraction] 7.5 % High 4.3-5.6 [facility] Comment on above: Order Comment: Rosario garcia Type: BLOOD SPECIMEN Ordering Facility: [facility] Address: [address] [place] [address] Result Comment: [place] Diabetes Association guidelines indicate that patients with HgbA1c in the range 5.7-6.4% are at increased risk for development of diabetes, and intervention by lifestyle modification may be beneficial. HgbA1c greater or equal to 6.5% is considered diagnostic of diabetes. Performed By: #### 5 5454-3 #### [facility] CLIA [id number] [address] [facility] [id number] [place] [address] [place] Lipid 1996 panelon 4 Cholesterol [Mass/Vol] 220 mg/dL High <200 [facility] Comment on above: Order Comment: Rosario garcia Type: BLOOD SPECIMEN Ordering Facility: [facility] Address: [address] [place] [address] Result Comment: <200 mg/dL, Desirable 200-239 mg/dL, Borderline high >239 mg/dL, High Performed By: #### 3 016-3, 56053-5, 36881-6 #### [facility] CLIA [id number] [address] [place] [address] [facility] [place] Cholesterol in HDL [Mass/Vol] 58 mg/dL Normal >39 [facility] Comment on above: Order Comment: Rosario garcia Type: BLOOD SPECIMEN Ordering Facility: [facility] Address: [address] [place] [address] Result Comment: 40-5 9 mg/dL, Acceptable >59 mg/dL, High: Negative risk factor for coronary heart disease <40 mg/dL, Low: Positive risk factor for coronary heart disease Performed By: #### 3 016-3, 85506-1, 11835-5 #### [facility] CLIA [id number] [address] [place] [address] [facility] [place] Cholesterol in LDL [Mass/Vol] 149 mg/dL High <100 [facility] Comment on above: Order Comment: Rosario garcia Type: BLOOD SPECIMEN Ordering Facility: [facility] Address: [address] [place] [address] Result Comment: <100 mg/dL, Optimal 100-129 mg/dL, Near optimal/above optimal 130-159 mg/dL, Borderline high 160-189 mg/dL, High >189 mg/dL, Very high Secondary prevention optimal LDL Cholesterol levels are recommended to be < 70 mg/dL Performed By: #### 3 016-3, 09332-8, #### [facility] CLIA [id number] [address] [place] [address] [place] Cholesterol in LDL/Cholesterol in HDL [Mass ratio] 2.57 {ratio} High <2.54 [facility] Comment on above: Order Comment: Rosario garcia Type: BLOOD SPECIMEN Ordering Facility: [facility] Address: [address] [place] [address] Result Comment: Refe rence: 1. National Cholesterol Education Program ATP III Guideline At-A-Glance Quick Desk Reference: National Heart, Lung, and Blood [place]. National Institutes of Health. 2001: NIH Publication No. 01-3305. 2. An International Atherosclerosis Society position paper: global recommendations for the management of dyslipidemia: executive summary, Atherosclerosis. 2014: 232(2):410-413. Performed By: #### 3 016-3, 95409-1, #### [facility] CLIA [id number] [address] [place] [address] [place] Cholesterol in VLDL [Mass/Vol] 13 mg/dL Normal <30 [facility] Comment on above: Order Comment: Rosario garcia Type: BLOOD SPECIMEN Ordering Facility: [facility] Address: [address] [place] [address] Performed By: #### 3 016-3, 58565-3, #### [facility] CLIA [id number] [address] [place] [address] [place] Cholesterol non HDL [Mass/Vol] 162 mg/dL High <130 [facility] Comment on above: Order Comment: Rosario garcia Type: BLOOD SPECIMEN Ordering Facility: [facility] Address: [address] [place] [address] Result Comment: <130 mg/dL, Optimal 130-159 mg/dL, Near optimal/above optimal 160-189 mg/dL, Borderline high 190-219 mg/dL, High >219 mg/dL, Very high Secondary prevention optimal non HDL Cholesterol levels are recommended to be <100 mg/dL Performed By: #### 3 016-3, 54833-0, 71516-9 #### [facility] CLIA [id number] [address] [place] [address] [place] Cholesterol.total/C holesterol in HDL [Mass ratio] 3.79 {ratio} Normal <5.10 [facility] Comment on above: Order Comment: Specyordan men Type: BLOOD SPECIMEN Ordering Facility: [facility] Address: [address] [place] [address] Performed By: #### 3 016-3, 91476-2, 55914-7 #### [facility] CLIA [id number] [address] [place] [address] [facility] [place] FASTING TIME 12 hrs Normal [facility] Comment on above: Order Comment: Specyordan garcia Type: BLOOD SPECIMEN Ordering Facility: [facility] Address: [address] [place] [address] Performed By: #### 3 016-3, 00563-3, 89512-1 #### [facility] CLIA [id number] [address] [place] [address] [place] Triglyceride [Mass/Vol] 64 mg/dL Normal <150 [facility] Comment on above: Order Comment: Speci men Type: BLOOD SPECIMEN Ordering Facility: [facility] Address: [address] [place] [address] Result Comment: <150 mg/dL, Normal 150-199 mg/dL, Borderline high 200-499 mg/dL, High >499 mg/dL, Very high Performed By: #### 3 016-3, 75887-5, 66078-1 #### [facility] CLIA [id number] [address] [place] [address] [place] T4 Free SerPl-mCncon 024 Free T4 [Mass/Vol] 1.8 ng/dL High 0.9-1.7 [facility] Comment on above: Order Comment: Rosario garcia Type: BLOOD SPECIMEN Ordering Facility: [facility] Address: [address] [place] [address] Performed By: #### 3 024-7 #### [facility] CLIA [id number] [address] [place] [address] [place] TSH SerPl-aCncon 07-16-2023 TSH Qn 1.020 m[IU]/L Normal 0.270-4.200 [facility] Comment on above: Order Comment: Rosario garcia Type: BLOOD SPECIMEN Ordering Facility: [facility] Address: [address] [address] Result Comment: If t he patient is , TSH reference range varies by gestational period: First Trimester (weeks 9-12): 0.180-2.990 mIU/L Second Trimester: 0.110-3.980 mIU/L Third Trimester: 0.480-4.710 mIU/L Nura Hernández et al. A Practical Approach for the Verifications and Determination of Site- and Trimester-Specific Reference Intervals for Thyroid Function tests in . Thyroid, 2019:29:3:412-420. Luis Baltazar, et al. 2017 Guidelines of the [place] Thyroid Association for the Diagnosis and Management of Thyroid Disease during and the . Thyroid, 2017:27:3:315-389. Performed By: #### 3 016-3, 35474-4, 11464-1 #### [facility] CLIA [id number] [address] [place] [address] [place] MACIEJ SCREENINGon 03-31-2023 [facility] HEMOGLOBIN A1C (POC)on 12-09 HbA1c (Bld) [Mass fraction] 7.8 % Abnormal 4.2 - 5.6 % [facility] 36on 11-10-2022 36 Placed call to galo harkins. Unable to reach them by phone to discuss lab results. Left detailed message to return call to discuss results. Normal [facility] 36 ----- Message from Jaya Moody PA-C sent at 11/10/2022 1:58 PM EDT ----- We did review your ophthalmology exam as this is no signs of diabetic retinopathy continue on your routine schedule exams as directed per the eye doctor. Follow-up with the office as directed in the next scheduled appointment in February. [facility] CNOVon 10-10-2022 CNOV Office Visit (PLHWBA ) -------- CRISTINA MARTINEZ ([id number]) 1980 F Date Time Provider Department 10/10/22 2:30 PM ZAIRA MEJIA PLHWBA During your visit today, we recorded the following information about you: Weight Height 68.1 kg 1.651 m Zaira Mejia MD 10/11/2022 12:58 PM Signed [facility] Department of Plastic Surgery BREAST AUGMENTATION EVALUATION [...] 10 units subcutaneously at bedtime daily Insulin Alderson, Disposable, (BD ULTRAFINE III MINI PEN) 31 gauge x 3/16 Use 1 pen needles daily Blood-Glucose Sensor (DEXCOM G6 SENSOR) ismael Use one sensor every 10 days, IDDM, E 11.9 Blood-Glucose Transmitter (DEXCOM G6 TRANSMITTER) ismael Use one transmitter every 3 months, IDDM, E 11.9 Blood-Glucose Meter,Continuous (DEXCOM G6 RACE ENGINE BUILDER) [facility] Use continuously to monitor glucose, IDDM, E11.9 [...] distended, positive bowel (more content not included)... [facility] 09-18-2022 36 Patient was sent a letter to return call to the office. [facility] 09-11-2022 36 Left message for pat ient to return call to the office. [facility] [address] [facility] 36 Name of caller: Heidi wilhelm Contact phone number: [phone] Relationship to Patient: patient Provider: Zaira Moody Practice: [facility] Chief Complaint/Reason for Call: Patient states she heard that the [facility] were giving free calcium score tests and would like to know if the provider has heard of this and what she would do to go about this. Please Advise. Best time of day caller can be reached: Any Patient advised that office/PCP has 24-48 business hours to return their call: No [place] 8482708-26-2022 36 Placed call to galo harkins. Was able to speak to patient. All concerns in message have been addressed. [facility] 36 Please assist Normal [facility] 36 Name of caller: Heidi wilhelm Contact phone number: [phone] Relationship to Patient: patient Provider: Blari Practice: [facility] Chief Complaint/Reason for Call: patient states the manufacture has stopped making the eye drops rx naphazoline-pheniramine (Naphcon-A) 0.025-0.3 % ophthalmic solution Please advise what she can get instead . Best time of day caller can be reached: any Patient advised that office/PCP has 24-48 business hours to return their call: yes Normal [facility] Office Visiton 08-19-2022 Follow-up visit [id number] Heidi Martinez Brittaney 1980 F Date Provider Department Center 08/19/2022 [id number] MOODY [facility] Family History Problem Relation Age of Onset Diabetes Paternal Grandfather No Known Problems Mother Thyroid disease Father No Known Problems Brother No Known Problems Sister Family Status - Relation Status Age at Paternal Grandfather Mother Alive Father Alive Brother Alive Sister Alive Level of Service:92226 [place] OFFICE/OUTPATIENT ESTABLISHED MOD MDM 30-39 MIN Reason for Visit and Comments: new to provider [Other] Menopause [537228] - Thinks it in Normal [facility] Progress Noteon 08-19-2022 Progress Note [facility] MEDICAL [facility] [address] [facility] [address] Dept: [phone] Dept Loc: [phone] Visit type: Established Patient Reason for Visit: [...] concern for possible menopause, will refer to MIXING SUPERVISOR for futher evaluation. 3. Hypothyroidism (acquired) Comments: TSH levels have been normal this is continuing to be followed by endocrinology encouraged to continue to follow with them. 4. Type 2 diabetes mellitus without complication, with long-term current use of insulin ([facility] ([facility]) Comments: Most recent hemoglobin A1c is 7.5 [...] states that she is talk to her dry lumber grader before about placing her on a statin [...] 57 which is good. Encouraged to try vxjo-etl-ivhrjla medication such as omega-3 fatty acids or [...] due for exam, will follow up with Geriatric Aide, Last A1c was 7.5 08/07/22 trulicity, and [...] we did discuss this and following with MIXING SUPERVISOR to do any further testing to determine [...] urinating, dysur (more content not included)... Normal [facility] HEMOGLOBIN A1C (POC)on 08-07 HbA1c (Bld) [Mass fraction] 7.5 % Abnormal 4.2 - 5.6 % [facility] 36on 07-09-2022 36 Talked to patient an d she will get the lab work done. Normal [facility] 36on 07-08-2022 36 Left detailed messag e for patient to stop by and have a cbc done before her next menses. Normal [facility] 36 Even though the anem ia is most likely secondary to heavy menses for completeness should have a CBC done before her next menses Normal [facility] HEMOGLOBIN A1C (POC)on 04-01 HbA1c (Bld) [Mass fraction] 7.9 % Abnormal 4.2 - 5.6 % [facility] MRI Brain w/ + w/o Contrasto n 11-21-2021 MRI Brain w/ + w/o Contrast Patient Name: CRISTINA MARTINEZ Magnetic Resonance Imaging ACCESSION EXAM DATE/TIME PROCEDURE ORDERING PROVIDER [id number] 11/21/2021 09:59 EDT MRI Brain w/ + w/o DO PEREZ PAUL E. Contrast CPT code 66126 Reason For Exam (MRI Brain w/ + [...] Transcribed Date and Time: 11/22/2021 10:12 Normal [facility] NM Myocardial Perf Imaging M ulti Specton 11-21-2021 NM Myocardial Perf Imaging Multi Spect Patient Name: CRISTINA MARTINEZ Nuclear Medicine ACCESSION EXAM DATE/TIME PROCEDURE ORDERING PROVIDER [id number] 11/21/2021 09:28 EDT NM Myocardial Perf DO PEREZ PAUL E. Imaging Multi Spect CPT code 55874 50377 A9500 Reason For Exam (NM Myocardial Perf [...] study was interpreted and reported by the risk investigator and the perfusion imaging portion of the [...] peak heart rate and blood pressure was 46673 mm Hg/min. Stress testing did not produce any symptoms suggestive of coronary artery disease. Stress ECG: There was no ischemic ST depression. Occasional isolated ventricul (more content not included)... Normal [employer] NM Myocardial Spect Rest Exe rcise or [...] study was interpreted and reported by the risk investigator and the perfusion imaging portion of the [...] peak heart rate and blood pressure was 29068 mm Hg/min. Stress testing did not produce any symptoms suggestive of coronary artery disease. Stress ECG: There was no ischemic ST depression. Occasional isolated ventricular ectopy. The stress ECG is negative for ischemia. Chang scoring: exercise time of 8. (more content not included)... [facility] Chuck Miles MD - 11/21/2021 [...] study was interpreted and reported by the risk investigator and the perfusion imaging portion of the [...] peak heart rate and blood pressure was 99589 mm Hg/min. Stress testing did not produce [...] + +-------- --------+----- (more content not included)... [employer] Work Phone: Radiology Study observation (narrative) [employer] Work Phone: NM Myocardial Spect Rest Exe rcise or RxOrdered By: Chuck Miles on 11-21-2021 [employer] Work Phone: NM Rad Signatureon 2 NM Rad Signature Patient Name: CRISTINA MARTINEZ Nuclear Medicine ACCESSION EXAM DATE/TIME PROCEDURE ORDERING PROVIDER [id number] 11/21/2021 13:32 EDT NM Rad Signature SIGNATURE, [...] study was interpreted and reported by the risk investigator and the perfusion imaging portion of the [...] peak heart rate and blood pressure was 75886 mm Hg/min. Stress testing did not produce [...] + +------ (more content not included)... Normal [employer] [facility] US Abdomen Completeon 2021 US Abdomen Complete Patient Name: CRISTINA MARTINEZ Ultrasound ACCESSION EXAM DATE/TIME PROCEDURE ORDERING PROVIDER [id number] 11/18/2021 08:15 EDT US Abdomen Complete ЕЛЕНА ANDRES ERIN CPT code 95201 Reason For Exam (US Abdomen Complete) R10.84 [...] Transcribed Date and Time: 11/19/2021 8:37 Normal [facility] HEMOGLOBIN A1C (POC)on 09-19 HbA1c (Bld) [Mass fraction] 8.1 % Abnormal 4.2 - 5.6 % [facility] CR Chest PA/LATon 06-04-2021 CR Chest PA/LAT Patient Name: CRISTINA MARTINEZ Diagnostic Radiology ACCESSION EXAM DATE/TIME PROCEDURE ORDERING PROVIDER [id number] 06/04/2021 14:50 EST CR Chest PA and LAT [id number] -CRESENCIO MORE CPT code 31699 Reason For Exam (CR Chest PA and [...] Transcribed Date and Time: 06/04/2021 3:14 Normal [facility] CR Chest PA/LATon 04-22-2021 CR Chest PA/LAT Patient Name: CRISTINA MARTINEZ Diagnostic Radiology ACCESSION EXAM DATE/TIME PROCEDURE ORDERING PROVIDER [id number] 04/22/2021 16:39 EST CR Chest PA and LAT [id number] CRESENCIO SIERRA CPT code 46088 Reason For Exam (CR Chest PA and [...] Results: Results were conveyed to Cresencio More PLUMBING INSTALLER via [employer] messaging at 10:48 PM on 04/22/2021. Report Dictated on Workstation: TESS Final Dictating Physician: MD ROSENBERG JOHN R Signed Date and Time: 04/22/2021 10:49 pm Signed by: MD ROSENBERG JOHN R Transcribed Date and Time: 04/22/2021 10:50 [facility] Office Visit (Urgent Care)on 04-10-2021 Follow-up visit [...] week Vitals Vital Signs Recorded: 10Apr2021 12:19PM Lsvnnkyplst92.6 F Heart Lxce167 Wgbxvizklqg29 Cnmqxusq097 Sbfylekgn93 Tobacco Useb) No O2 Wzzwtjlwko76 Physical Exam Patient appears in no apparent distress and is well-hydrated. Vital signs noted. The sinuses are nontender. Examination of the ears, nose, throat, neck, and lungs is normal. Signatures Electronically signed by : Oscar Voss MD; Apr 10 2021 12:33PM EST (Author) Normal [employer] Tobacco Screening.on 021 Tobacco use status [facility] b) No [facility] Work Phone: Office Visit (Urgent Care)on 02-22-2021 Follow-up visit Diagnoses/Problems Assessed Accidental fall, initial encounter (E888.9) (W19.XXXA) Acute pain of both knees (338.19,719.46) (M25.561,M25.562) Other internal derangements of left knee (717.89) (M23.8X2) Orders Accidental fall, initial encounter, Acute pain of both knees Xray Knee 3 View; Status:Canceled; Perform:[facility]; Due:23May2021;Ordered; Stat; For:Accidental fall, initial encounter, Acute pain of both knees; Ordered By:Oscar Cedeño; Radiology Cancel Reason: DUPLICATE ORDER Laterality : Right Radiologist to Determine Optimal Study : Y What are the patient's signs and symptoms? : Fell 6 days ago, injury to both knees. Left 1 has a pop Acute pain of both knees Xray Knee 3 View; Status:Canceled; Perform:[facility]; Due:23May2021;Ordered; Stat; For:Acute pain [...] Medication No Known Drug Allergies Recorded By: yEad Pérez; 10/20/2020 4:38:47 PM Current Meds Medication NameInstruction Amoxicillin-Pot Clavulanate 875-125 MG Oral TabletTAKE 1 TABLET TWICE DAILY AFTER MEALS Vitals Vital Signs Recorded: 22Feb2021 09:27AM Cahthxxwxim42.1 F Heart Rate86 Lrzrltzbemg56 Hrqodsih956 Qlcxyfmhx62 Height5 ft 5 in Bfkdoz694 lb 10.05 oz BMI Nnvydefgxb28.23 kg/m2 BSA Calculated1.79 Tobacco Useb) No O2 Lybiurfofl01 Pain Scale4 Physical Exam Constitutional: Well developed, [...] Feb 22 2021 10:18AM EST (Author) Normal [employer] Radiologyon 02-22-2021 XR Knee 4 Views Normal [facility] Work Phone: Tobacco Screening.on 021 Tobacco use [...] = N; Sent To: [facility] [facility] Patient Discussion/Summary Medication as recommended with probiotics and food Gnrk-tzh-owixbbm antihistamines as needed Follow-up with primary care in 1 to 3 days if no improvement seen Any worsening of symptoms go directly to the emergency room Chief Complaint Chief Complaints Cough Nasal Symptoms Sinus headache cough congestion since Thursday History of Present IllnessCRISTINA AMRTINEZ presents with complaints of nasal symptoms. Associated [...] PM Vitals Vital Signs Recorded: 20Oct2020 04:18PM Eoghrowkxtl31.2 F Heart Rate89 Zvgrbfxckvx10 Pnrdyyet124 Xispibzft93 Height5 ft 5 in Jvkehu527 lb BMI Vnfwxnkbas46.79 kg/m2 BSA Calculated1.78 Tobacco Useb) No O2 Gpojxwdrgf26 Physical Exam Constitutional: Well developed, well nourished. [...] Oct 20 2020 4:38PM EST (Author) Normal [employer] Tobacco Screening.on 021 Tobacco use status [facility] b) No [facility] Work Phone: Vital Signs Date Time Vital Sign Value Performing Clinician Martell tobias 11-08-2024 14:19-0400 Body height 165.[address] Tha Major MD Work Phone: [facility] 11-08-2024 14:19-040 Body mass index (BMI) [Ratio] 27.3 kg/m2 Dr. Tha Major MD Work Phone: [facility] 11-08-2024 14:19-0400 Body temperature 98.4 [degF] Dr. Tha Major MD Work Phone: [facility] 11-08-2024 14:19-040 Body weight 74.[address] Tha Major MD Work Phone: [facility] 11-08-2024 14:19-040 Diastolic blood pressure 80 mm[Hg] Dr. Tha Major MD Work Phone: 7(461)424-572438 [place] [address] 11-08-2024 14:19-0400 Heart rate 84 /min Dr. Tha Major MD Work Phone: 5(337)435-293738 [place] [address] 11-08-2024 14:19-0400 Respiratory rate 18 /min Dr. Tha Major MD Work Phone: 3(208)339-699938 [place] [address] 11-08-2024 14:19-0400 SaO2% (BldA) [Mass fraction] 98 % Dr. Tha Major MD Work Phone: 1(618)284-032938 [place] [address] 11-08-2024 14:19-0400 Systolic blood pressure 122 mm[Hg] Dr. Tha Major MD Work Phone: 0(475)917-565238 [place] [address] 09-13-2024 15:04-0400 Body height 165.[address] Tha Major MD Work Phone: 9(883)261-260638 [place] [address] 09-13-2024 15:04-0400 Body mass index (BMI) [Ratio] 27.6 kg/m2 Dr. Tha Major MD Work Phone: 1(067)426-239338 [place] [address] 09-13-2024 15:04-0400 Body temperature 97.7 [degF] Dr. Tha Major MD Work Phone: 5(174)452-113438 [place] [address] 09-13-2024 15:04-0400 Body weight 75.[address] Tha Major MD Work Phone: 0(418)450-365738 [place] [address] 09-13-2024 15:04-0400 Diastolic blood pressure 60 mm[Hg] Dr. Tha Major MD Work Phone: 8(709)618-308638 [place] [address] 09-13-2024 15:04-0400 Heart rate 92 /min Dr. Tha Major MD Work Phone: 8(987)594-961638 [place] [address] 09-13-2024 15:04-0400 Respiratory rate 18 /min Dr. Tha Major MD Work Phone: 7(597)021-321038 [place] [address] 09-13-2024 15:04-0400 SaO2% (BldA) [Mass fraction] 96 % Dr. Tha Major MD Work Phone: 2(980)557-020738 [place] [address] 09-13-2024 15:04-0400 Systolic blood pressure 100 mm[Hg] Dr. Tha Major MD Work Phone: 0(682)024-189138 [place] [address] 08-19-2024 14:56-0400 Body mass index (BMI) [Ratio] 27.6 kg/m2 Dr. Tha Major MD Work Phone: 6(213)240-012638 [place] [address] 08-19-2024 14:56-0400 Body temperature 97.7 [degF] Dr. Tha Major MD Work Phone: 0(323)532-577538 [place] [address] 08-19-2024 14:56-0400 Body weight 75.[address] Tha Major MD Work Phone: 0(673)252-030638 [place] [address] 08-19-2024 14:56-0400 Diastolic blood pressure 70 mm[Hg] Dr. Tha Major MD Work Phone: 0(778)621-806838 [place] [address] 08-19-2024 14:56-0400 Heart rate 94 /min Dr. Tha Major MD Work Phone: 5(021)347-195538 [place] [address] 08-19-2024 14:56-0400 Respiratory rate 18 /min Dr. Tha Major MD Work Phone: 5(530)242-751538 [place] [address] 08-19-2024 14:56-0400 SaO2% (BldA) [Mass fraction] 96 % Dr. Tha Major MD Work Phone: 2(699)316-618638 [place] [address] 08-19-2024 14:56-0400 Systolic blood pressure 115 mm[Hg] Dr. Tha Major MD Work Phone: 6(412)624-929838 [place] [address] 08-11-2024 09:46-0400 Body mass index (BMI) [Ratio] 27.1 kg/m2 Dr. Tha Major MD Work Phone: 6(954)795-301838 [place] [address] 08-11-2024 09:46-0400 Body weight 74.[address] Tha Major MD Work Phone: [facility] 08-11-2024 09:46-0400 Diastolic blood pressure 83 mm[Hg] Dr. Tha Major MD Work Phone: [facility] 08-11-2024 09:46-0400 Heart rate 88 /min Dr. Tha Major MD Work Phone: [facility] 08-11-2024 09:46-0400 SaO2% (BldA) [Mass fraction] 98 % Dr. Tha Major MD Work Phone: [facility] 08-11-2024 09:46-0400 Systolic blood pressure 123 mm[Hg] Dr. Tha Major MD Work Phone: [facility] 02-09-2024 09:28-0400 Body mass index (BMI) [Ratio] 26.22 kg/m2 Jeffery Swift MD Work Phone: [facility] 02-09-2024 09:28-0400 Body weight 72.58 kg Jeffery Swift MD Work Phone: [facility] 02-09-2024 09:28-0400 Diastolic blood pressure 68 mm[Hg] Jeffery Swift MD Work Phone: [facility] 02-09-2024 09:28-0400 Heart rate 82 /min Jeffery Swift MD Work Phone: [facility] 02-09-2024 09:28-0400 Respiratory rate 16 /min Jeffery Swift MD Work Phone: [facility] 02-09-2024 09:28-0400 Systolic blood pressure 108 mm[Hg] Jeffery Swift MD Work Phone: [facility] 01-28-2024 12:31-0400 Body mass index (BMI) [Ratio] 25.81 kg/m2 Rose Mary Finley PA-C Work Phone: [facility] 01-28-2024 12:31-0400 Body temperature 100 [degF] Rose Mary LANCASTERC Work Phone: [facility] 01-28-2024 12:31-0400 Body weight 71.45 kg Rose Mary Finley PA-C Work Phone: [facility] 01-28-2024 12:31-0400 Diastolic blood pressure 82 mm[Hg] Rose Mary Finley PA-C Work Phone: [facility] 01-28-2024 12:31-0400 Heart rate 97 /min Rose Mary Finley PA-C Work Phone: [facility] 01-28-2024 12:31-0400 Respiratory rate 16 /min Rose Mary Finley PA-C Work Phone: [facility] 01-28-2024 12:31-0400 SaO2% (BldA) [Mass fraction] 97 % Rose Mary Finley PA-C Work Phone: [facility] 01-28-2024 12:31-0400 Systolic blood pressure 120 mm[Hg] Rose Mary Finley PA-C Work Phone: [facility] 07-21-2023 14:10-0400 Body height 166.4 cm Jeffery Swift MD Work Phone: [facility] 07-21-2023 14:10-0400 Body weight 71.67 kg Jeffery Swift MD Work Phone: [facility] 07-21-2023 14:10-0400 Diastolic blood pressure 78 mm[Hg] Jeffery Swift MD Work Phone: [facility] 07-21-2023 14:10-0400 Heart rate 76 /min Jeffery Swift MD Work Phone: [facility] 07-21-2023 14:10-0400 Respiratory rate 16 /min Jeffery Swift MD Work Phone: [facility] [facility] 07-21-2023 14:10-0400 Systolic blood pressure 114 mm[Hg] Jeffery Swift MD Work Phone: [facility] 12-09-2022 11:06-0400 Body height 165.1 cm [facility] ORCHID TRANSPLANTER.STUDIO COORDINATOR Work Phone: [facility] 12-09-2022 11:06-0400 Body weight 67.77 kg [facility] ORCHID TRANSPLANTER.STUDIO COORDINATOR Work Phone: [facility] 12-09-2022 11:06-0400 Diastolic blood pressure 75 mm[Hg] [facility] ORCHID TRANSPLANTER.STUDIO COORDINATOR Work Phone: [facility] 12-09-2022 11:06-0400 Heart rate 87 /min [facility] ORCHID TRANSPLANTER.[facility] Work Phone: [facility] 12-09-2022 11:06-0400 SaO2% (BldA) [Mass fraction] 99 % [facility] ORCHID TRANSPLANTER.STUDIO COORDINATOR Work Phone: [facility] 12-09-2022 11:06-0400 Systolic blood pressure 107 mm[Hg] [facility] ORCHID TRANSPLANTER.STUDIO COORDINATOR Work Phone: [facility] 10-10-2022 14:21-0400 Body height 165.1 cm Zaira Mejia MD Work Phone: [facility] 10-10-2022 14:21-0400 Body weight 68.13 kg Zaira Mejia MD Work Phone: [facility] 08-19-2022 10:38-0400 Body height 165.1 cm Zaira Moody PA-C Work Phone: [facility] 08-19-2022 10:38-0400 Body mass index (BMI) [Ratio] 25.06 kg/m2 Zaira Moody PA-C Work Phone: [facility] 08-19-2022 10:38-0400 Body temperature 98.4 [degF] Zaira Moody PA-C Work Phone: [facility] 08-19-2022 10:38-0400 Body weight 68.31 kg Zaira Moody PA-C Work Phone: [facility] [employer] 08-19-2022 10:38-0400 Diastolic blood pressure 81 mm[Hg] Zaira Moody PA-C Work Phone: [facility] 08-19-2022 10:38-0400 Heart rate 85 /min Zaira Moody PA-C Work Phone: [facility] 08-19-2022 10:38-0400 SaO2% (BldA) [Mass fraction] 97 % Zaira Moody PA-C Work Phone: [facility] 08-19-2022 10:38-0400 Systolic blood pressure 115 mm[Hg] Zaira REYNOLDS-Deynaira Work Phone: [facility] 08-07-2022 14:21-0400 Body height 164.4 cm [facility] ORCHID TRANSPLANTER.STUDIO COORDINATOR Work Phone: [facility] 08-07-2022 14:21-0400 Body weight 68.4 kg [facility] ORCHID TRANSPLANTER.STUDIO COORDINATOR Work Phone: [facility] 08-07-2022 14:21-0400 Diastolic blood pressure 74 mm[Hg] [facility] ORCHID TRANSPLANTER.STUDIO COORDINATOR Work Phone: [facility] 08-07-2022 14:21-0400 Heart rate 91 /min [facility] ORCHID TRANSPLANTER.STUDIO COORDINATOR Work Phone: [facility] 08-07-2022 14:21-0400 Respiratory rate 17 /min [facility] ORCHID TRANSPLANTER.STUDIO COORDINATOR Work Phone: [facility] 08-07-2022 14:21-0400 SaO2% (BldA) [Mass fraction] 98 % [facility] ORCHID TRANSPLANTER.STUDIO COORDINATOR Work Phone: [facility] 08-07-2022 14:21-0400 Systolic blood pressure 104 mm[Hg] [facility] ORCHID TRANSPLANTER.STUDIO COORDINATOR Work Phone: [facility] 04-01-2022 12:49-0500 Body height 166.4 cm Genoveva Kupiec ORCHID TRANSPLANTER.STUDIO COORDINATOR Work Phone: [facility] 04-01-2022 12:49-0500 [facility] ORCHID TRANSPLANTER.STUDIO COORDINATOR Work Phone: [facility] 04-01-2022 12:49-0500 Diastolic blood pressure 78 mm[Hg] Genoveva Kupiec ORCHID TRANSPLANTER.STUDIO COORDINATOR Work Phone: [facility] 04-01-2022 12:49-0500 Heart rate 82 /min Genoveva Kupiec ORCHID TRANSPLANTER.STUDIO COORDINATOR Work Phone: [facility] 04-01-2022 12:49-0500 SaO2% (BldA) [Mass fraction] 96 % Genoveva Kupiec ORCHID TRANSPLANTER.[facility] Work Phone: [facility] 04-01-2022 12:49-0500 Systolic blood pressure 117 mm[Hg] Genoveva Kupiec ORCHID TRANSPLANTER.STUDIO COORDINATOR Work Phone: [facility] 09-19-2021 14:02-0400 Body weight 67.13 [facility] ORCHID TRANSPLANTER.[facility] Work Phone: [facility] 09-19-2021 14:02-0400 Diastolic blood pressure 70 mm[Hg] Genoveva Kupiec ORCHID TRANSPLANTER.[facility] Work Phone: [facility] 09-19-2021 14:02-0400 Heart rate 89 /min Genoveva Kupiec ORCHID TRANSPLANTER.STUDIO COORDINATOR Work Phone: [facility] 09-19-2021 14:02-0400 SaO2% (BldA) [Mass fraction] 98 % Genoveva Kupiec ORCHID TRANSPLANTER.[facility] Work Phone: [facility] 09-19-2021 14:02-0400 Systolic blood pressure 106 mm[Hg] Genoveva Kupiec ORCHID TRANSPLANTER.[facility] Work Phone: [facility] 04-10-2021 12:19-0500 Body temperature 98.6 [degF] Oscar [...] area Derived from formula 1.79 m2 Oscar Cedeño MD Work Phone: [facility] [...] mm[Hg] Eyad Pérez MD Work Phone: [facility] Work Phone: 10-20-2020 16:18-0400 Heart rate 89 [...] Start: 11-08-2024 Patient encounter procedure Reyna Alvarado PLUMBING INSTALLERAdrianC -Laboratory Specimen Work Phone: Start: 11-08-2024 End: 11-08-[address] Tha Major MD Work Phone: -After Hours [facility] Start: 10-13-2024 End: 10-14-2024 Follow-up encounter Jeffery Swift MD Work Phone: [facility] Comment on above: Appointment Start: 09-13-2024 End: 09-13-[address] Tha Major MD Work Phone: [facility] Work Phone: Start: 09-07-2024 End: 09-09-2024 ambulatory Jeffery Swift MD Work Phone: [facility] Start: 09-07-2024 End: 09-09-2024 Patient encounter procedure Jeffery Swift MD Work Phone: [facility] Comment on above: Up coming appointmen t Start: 08-11-2024 End: 08-11-2024 Patient encounter procedure Lorrie Braxton PLUMBING INSTALLERAdrianC -[facility] Work Phone: Start: 08-11-2024 End: 08-11-2024 ambulatory Lorrie Braxton [facility] Start: 07-28-2024 End: 07-28-2024 ambulatory JEFFERY SWIFT Facility:[facility] Start: 07-14-2024 End: 07-14-2024 ambulatory JEFFERY SWIFT Facility:[facility] Start: 07-14-2024 End: 07-14-2024 Patient encounter procedure Stephanie Duvall Work Phone: Podiatry Comment on above: Porokeratosis (Prima ry Dx); Type 2 diabetes mellitus without complication, without long-term current use of insulin (HCC); Hallux rigidus of left foot; Hammertoe of left foot Start: 05-11-2024 End: 05-16-2024 ambulatory Jeffery Swift MD Work Phone: Internal Medicine [place] [address] Start: 05-08-2024 End: 05-09-2024 ambulatory Jeffery Swift MD Work Phone: [facility] [place] Comment on above: Back pain Start: 04-19-2024 End: 04-19-2024 ambulatory ROSLYN CARRANZA STUDIO COORDINATOR Facility:[facility] Start: 04-14-2024 End: 04-14-2024 ambulatory [facility] Facility[facility] Start: 02-09-2024 End: 02-09-2024 ambulatory JEFFERY SWIFT Facility:[facility] Start: 02-09-2024 End: 02-09-2024 Patient encounter procedure Jeffery Swift MD Work Phone: [facility] [place] Comment on above: Type 2 diabetes christy itus without complication, without long- term current use of insulin (HCC) (Primary Dx); Dyslipidemia; Postablative hypothyroidism; Vitamin D deficiency; Dizziness; Seasonal allergies; Nasal polyps Start: 01-28-2024 End: 01-28-2024 ambulatory JEFFERY SWIFT Facility:[facility] Start: 01-28-2024 End: 01-28-2024 Patient encounter procedure Rose Mary Finley PA-C Work Phone: [facility] Comment on above: Acute cough (Primary Dx); Flu-like symptoms Start: 01-14-2024 End: 01-14-2024 ambulatory [facility] Facility[facility] Start: 12-08-2023 Refill Genoveva bowman APRN.CNP Work Phone: Endocrinology Comment on above: Refill Request Start: 10-16-2023 Chart abstracting Janes Ruano MA [facility] Start: 10-15-2023 End: 10-15-2023 ambulatory [facility] Facility:[facility] Start: 07-21-2023 End: 07-21-2023 ambulatory JEFFERY SWIFT Facility:[facility] Start: 07-21-2023 End: 07-21-2023 Patient encounter procedure Jeffery Swift MD Work Phone: [facility] [place] Comment on above: Well adult exam (Roslyn kendall Dx); Type 2 diabetes mellitus without complication, without long-term current use of insulin (HCC); Dyslipidemia; Postablative hypothyroidism; Vitamin D deficiency; Encounter for gynecological examination Start: 07-21-2023 End: 07-21-2023 Patient encounter status Jeffery Swift MD Work Phone: [facility] Work Phone: Start: 07-16-2023 End: 07-17-2023 ambulatory JEFFERY SWIFT Facility[facility] Start: 04-01-2023 ambulatory Genoveva bowman ORCHID TRANSPLANTER.STUDIO COORDINATOR Work Phone: Endocrinology Comment on above: My sugar Start: 03-31-2023 ambulatory Genoveva bowman ORCHID TRANSPLANTER.STUDIO COORDINATOR Work Phone: Endocrinology Comment on above: My sugar Start: 03-31-2023 Documentation procedure Mammog benji Coordinator [facility] Start: 03-31-2023 Letter encounter Mammography Coordinator [facility] Department Start: 03-31-2023 Telephone encounter Jeffery Swift MD Work Phone: [facility] Comment on above: Results Start: 03-31-2023 End: 03-31-2023 Subsequent hospital visit by physician Screen/Diagnostic Mammo [facility] Work Phone: Mammography Comment on above: Encounter for screen ing mammogram for breast cancer [Z12.31] Start: 03-10-2023 ambulatory Genoveva bowman ORCHID TRANSPLANTER.STUDIO COORDINATOR Work Phone: Endocrinology Comment on above: Lantus Start: 03-08-2023 ambulatory Genoveva bowman ORCHID TRANSPLANTER.STUDIO COORDINATOR Work Phone: Endocrinology Comment on above: My sugar Start: 02-25-2023 Telephone encounter Genoveva viramontes ORCHID TRANSPLANTER.STUDIO COORDINATOR Work Phone: Endocrinology Comment on above: Medication Problem; Meidcation Pro Start: 02-24-2023 Telephone encounter Genoveva viramontes ORCHID TRANSPLANTER.STUDIO COORDINATOR Work Phone: Endocrinology Comment on above: PA--Mounjaro 5MG/0.5 ML Start: 02-23-2023 Orders Only Genoveva bowman ORCHID TRANSPLANTER.STUDIO COORDINATOR Work Phone: Endocrinology Start: 12-09-2022 End: 12-09-2022 Patient encounter procedure Genoveva Chatman ORCHID TRANSPLANTER.STUDIO COORDINATOR Work Phone: Endocrinology Comment on above: Type 2 diabetes christy itus without complication, without long- term current use of insulin (HCC) (Primary Dx); Postablative hypothyroidism; Dyslipidemia Start: 10-28-2022 Telephone encounter Genoveva viramontes ORCHID TRANSPLANTER.STUDIO COORDINATOR Work Phone: Endocrinology Comment on above: Diabetis Eye Exam Re port ([facility]) Start: 10-10-2022 End: 10-10-2022 ambulatory JEFFERY SWIFT [facility] Start: 10-10-2022 End: 10-10-2022 Patient encounter procedure Zaira Mejia MD Work Phone: Plastic Surgery Comment on above: Micromastia (Primary Dx) Start: 10-08-2022 ambulatory Jeffery acosta MD Work Phone: Internal Medicine [facility] [place] Start: 09-15-2022 Refill Genoveva bowman ORCHID TRANSPLANTER.STUDIO COORDINATOR Work Phone: Endocrinology Comment on above: Refill Request Start: 08-19-2022 End: 08-19-2022 [facility] Start: 08-19-2022 End: 08-19-2022 Office outpatient visit 25 minutes Zaira Moody PA-C Work Phone: [facility] Comment on above: Acute viral conjunct ivitis of left eye (Primary Dx); Perimenopause; Hypothyroidism (acquired); Type 2 diabetes mellitus without complication, with long-term current use of insulin (CMS/HCC) (HCC); Other fatigue Start: 08-07-2022 End: 08-07-2022 Patient encounter procedure Genoveva Chatman ORCHID TRANSPLANTER.STUDIO COORDINATOR Work Phone: Endocrinology Comment on above: Type 2 diabetes christy itus without complication, without long- term current use of insulin (HCC) (Primary Dx); Postablative hypothyroidism; Dyslipidemia Start: 07-08-2022 Telephone encounter Ming palomo DO Work Phone: [facility] Comment on above: Anemia Start: 05-08-2022 End: 05-08-2022 Patient encounter procedure Nurse Milagros [facility] Mc Work Phone: Endocrinology Comment on above: Type 2 diabetes christy itus without complication, without long- term current use of insulin (HCC) (Primary Dx) Start: 04-01-2022 End: 04-01-2022 Patient encounter procedure Genoveva Chatman ORCHID TRANSPLANTER.STUDIO COORDINATOR Work Phone: Endocrinology Comment on above: Type 2 diabetes christy itus without complication, without long- term current use of insulin (HCC) (Primary Dx); Postablative hypothyroidism; Dyslipidemia Start: 01-29-2022 Refill Genoveva bowman ORCHID TRANSPLANTER.STUDIO COORDINATOR Work Phone: Endocrinology Comment on above: Refill Request Start: 12-30-2021 ambulatory Genoveva bowman ORCHID TRANSPLANTER.STUDIO COORDINATOR Work Phone: Endocrinology Comment on above: Meds Start: 11-21-2021 ambulatory UNKNOWN PROVIDER [facility] Start: 11-21-2021 End: 11-21-2021 Subsequent hospital visit by physician Ming Perez DO Work Phone: [facility] Nuclear Medicine Comment on above: Chest pain, unspecif ied type; Dyspnea on exertion Start: 11-14-2021 Refill Genoveva bowman ORCHID TRANSPLANTER.STUDIO COORDINATOR Work Phone: Endocrinology Comment on above: Refill Request Start: 11-06-2021 ambulatory Jeffery acosta MD Work Phone: Internal Medicine [facility] [place] Start: 10-30-2021 Telephone encounter Genoveva viramontes ORCHID TRANSPLANTER.STUDIO COORDINATOR Work Phone: Endocrinology Comment on above: Diabetic Eye Exam ([facility]) Start: 09-24-2021 Refill Genoveva bowman ORCHID TRANSPLANTER.STUDIO COORDINATOR Work Phone: Endocrinology Comment on above: Refill Request Refill on my test st [facility] Start: 09-19-2021 End: 09-19-2021 Patient encounter procedure Genoveva Chatman ORCHID TRANSPLANTER.STUDIO COORDINATOR Work Phone: Endocrinology Comment on above: Type 2 diabetes christy itus without complication, without long- term current use of insulin (HCC) (Primary Dx); Postablative hypothyroidism; Dyslipidemia Start: 09-11-2021 ambulatory [facility] Comment on above: [employer] Start: 09-11-2021 E-mail encounter delores m caregiver [facility] Start: 08-01-2021 Telephone encounter Genoveva viramontes ORCHID TRANSPLANTER.STUDIO COORDINATOR Work Phone: Endocrinology Comment on above: CGM Supply Orders Start: 06-04-2021 ambulatory UNKNOWN PROVIDER [facility] Start: 04-22-[address] [facility] Start: 04-10-2021 ambulatory Oscar Voss [...] 12-09-2022 Hemoglobin A1c/Hemoglobin.total in Blood Genoveva Chatman ORCHID TRANSPLANTER.STUDIO COORDINATOR Work Phone: Start: 08-07-2022 Hemoglobin A1c/Hemoglobin.total in Blood [facility] ORCHID TRANSPLANTER.STUDIO COORDINATOR Work Phone: Start: 04-01-2022 Hemoglobin A1c/Hemoglobin.total in Blood [facility] ORCHID TRANSPLANTER.STUDIO COORDINATOR Work Phone: Start: 01-22-2022 Lipid 1996 panel - S ritu or Plasma Zaira Moody PA-C Work Phone: Start: 01-22-2022 Thyrotropin [Units/v olume] in Serum or Plasma Zaira Moody PA-C Work Phone: Start: 11-21-2021 Myocardial spect mul tiple studies Ming Perez DO Work Phone: Start: 09-19-2021 Hemoglobin A1c/Hemoglobin.total in Blood [facility] ORCHID TRANSPLANTER.STUDIO COORDINATOR Work Phone: Start: 08-31-2020 Adult depression scr eening assessment [facility] ORCHID TRANSPLANTER.STUDIO COORDINATOR Work Phone: Plan of Treatment Date Care Activity Detail Author Start: 11-28-2029 DTaP/Tdap/Td vaccine (2 - Td or Tdap) DTaP/Tdap/Td vaccine (2 - Td or Tdap) [facility] Start: 11-28-2029 DTaP/Tdap/Td Vaccine s (2 - Td or Tdap) DTaP/Tdap/Td Vaccines (2 - Td or Tdap) [facility] Start: 11-28-2029 Urine microalbumin profile [facility] Start: 2029 Zoster Vaccines (1 o f 2) Zoster Vaccines (1 of 2) [facility] Start: 07-28-2025 Hepatitis B screening Urine Al bumin:Creatinine Ratio [facility] Start: 07-28-2025 Hepatitis B surface antibody level LDL Cholesterol [facility] Start: 02-08-2025 Annual PCP Team Sheriff'S Officer malini Disease Visit Annual PCP Team Chronic Disease Visit [facility] Start: 02-08-2025 Anxiety Screening Anxiety Screening [facility] Comment on above: Postponed from 06/07 (Declined at this time) Start: 01-13-2025 Diabetic foot examination Diabetic Foot Exam [facility] Start: 11-10-2024 End: 11-10-2024 Patient encounter procedure 11/10/2024 1:20 PM EDT Office Visit [facility] [address] [place] [address] Nory Aj PA-C [address] [place] [place] [address] physical [facility] Medicine [place] Comment on above: physical Start: 10-08-2024 End: 10-08-2024 Patient encounter procedure 10/08/2024 8:40 AM EDT Office Visit [facility] [place] [address] [facility] [place] [address] Jeffery Swift MD [address] [facility] [place] [address] physical R/S from 08/09 Family [facility] [place] Comment on above: physical R/S from 08/09 Start: 09-13-2024 End: 09-13-2024 Patient encounter procedure 09/13/2024 9:40 AM EDT Office Visit [facility] [place] [address] [facility] [place] [address] Jeffery Swift MD [address] [place] [address] physical R/S from 08/09 Family [facility] Comment on above: physical R/S from 08/09 Start: 08-09-2024 End: 08-09-2024 Patient encounter procedure 08/09/2024 10:20 AM EDT Office Visit [facility] [place] [address] [facility] [place] [address] Jeffery Swift MD [address] [facility] [place] [address] Physical [facility] [place] Comment on above: Physical Start: 07-29-2024 End: 10-28-2024 25-hydroxyvitamin D3 [Mass/volume] in Serum or Plasma VITAMIN D 25 HYDROXY Lab Routine Vitamin D deficiency Expected: 07/29/2024, Expires: 10/28/2024 [facility] Work Phone: Comment on above: Expected: 07/29/2024 , Expires: 10/28/2024 Start: 07-29-2024 End: 10-28-2024 Comprehensive metabolic 2000 panel - Serum or Plasma COMPREHENSIVE METABOLIC PANEL Lab Routine Type 2 diabetes mellitus without complication, without long-term current use of insulin (HCC) Dyslipidemia Expected: 07/29/2024, Expires: 10/28/2024 [facility] Comment on above: Expected: 07/29/2024 , Expires: 10/28/2024 Start: 07-29-2024 End: 10-28-2024 LIPID PANEL, NONFASTING LIPID PANEL, NONFASTING Lab Routine Type 2 diabetes mellitus without complication, without long-term current use of insulin (HCC) Dyslipidemia Expected: 07/29/2024, Expires: 10/28/2024 [facility] Comment on above: Expected: 07/29/2024 , Expires: 10/28/2024 Start: 07-29-2024 End: 10-28-2024 Urinalysis complete panel - Urine URINALYSIS, WITH MICROSCOPIC Lab Routine Type 2 diabetes mellitus without complication, without long-term current use of insulin (HCC) Dyslipidemia Expected: 07/29/2024, Expires: 10/28/2024 [facility] Comment on above: Expected: 07/29/2024 , Expires: 10/28/2024 Start: 07-20-2024 Annual PCP Team [employer] Officer malini Disease Visit Annual PCP Team Chronic Disease Visit [facility] Start: 07-20-2024 Pneumococcal vaccination Pneumococcal Vaccine (1 of 2 - PCV) [facility] Comment on above: Postponed from 06/07 (Declined at this time) Postponed from 06/07 (Declined at this time) Start: 07-15-2024 Hepatitis B screening Urine Al bumin:Creatinine Ratio [facility] Start: 07-15-2024 Hepatitis B surface antibody level LDL Cholesterol [facility] Start: 2024 Screening for malign ant neoplasm of colon [facility] Start: 05-10-2024 Behavioral Health Screening Behavioral Health Screening [facility] Comment on above: Postponed from 05/11 (Declined at this time) Start: 05-10-2024 Depression Assessment Depression Ass essment [facility] Comment on above: Postponed from 05/11 (Declined at this time) Start: 04-15-2024 Hemoglobin A1c measurement HbA1C [facility] Start: 03-31-2024 Mammography Mammogram Screening [facility] Start: 03-31-2024 Screening for malign ant neoplasm of breast Mammogram Screening [facility] Start: 03-17-2024 Annual PCP Team Sheriff'S Officer malini Disease Visit Annual PCP Team Chronic Disease Visit [facility] Start: 03-15-2024 End: 03-15-2024 Patient encounter procedure 03/15/2024 9:40 AM EST Office Visit [facility] [place] [address] [place], [place] [id number] Jeffery Swift MD [address] [place], [place] [id number] 1 month follow up - Dizziness/Eustacion tube [facility] [place] Comment on above: 1 month follow up - Dizziness/Eustacion tube Start: 02-09-2024 Depression Screening Depression Scre ening [facility] Comment on above: Postponed from 06/07 (Declined at this time) Start: 01-26-2024 End: 01-26-2024 Patient encounter procedure 01/26/2024 8:40 AM EDT Office Visit [facility] [place] [address] [facility], [place] [id number] Nory Aj PA-C [address] [place], [place] [id number] 6 month follow up [facility] [place] Comment on above: 6 month follow up Start: 01-16-2024 Hemoglobin A1c measurement HbA1C [facility] Start: 01-08-2024 End: 04-08-2024 LIPID PANEL, NONFASTING LIPID PANEL, NONFASTING Lab Routine Dyslipidemia Expected: 01/08/2024, Expires: 04/08/2024 [facility] Work Phone: Comment on above: Expected: 01/08/2024 , Expires: 04/08/2024 Start: 12-10-2023 3 comp foot exam completed DIABETIC FOOT EXAM [facility] Start: 12-10-2023 Diabetic foot examination Diabetic Foot Exam [facility] Start: 10-29-2023 Glaucoma screening Dilated Retinal E xam [facility] Start: 10-29-2023 Hepatitis C antibody , confirmatory test DILATED RETINAL EXAM [facility] Start: 08-22-2023 Hepatitis B surface antibody level LDL CHOLESTEROL [facility] Start: 06-11-2023 End: 08-11-2023 ALBUMIN/CREAT RATIO RND UR ALBUMIN/CREAT RATIO RND UR Lab Routine Type 2 diabetes mellitus without complication, without long-term current use of insulin (HCC) Expected: 06/11/2023 (Approximate), Expires: 08/11/2023 [facility] Work Phone: Comment on above: Expected: 06/11/2023 (Approximate), Expires: 08/11/2023 Start: 06-11-2023 End: 08-11-2023 Comprehensive metabolic 2000 panel - Serum or Plasma COMP METABOLIC PANEL Lab Routine Type 2 diabetes mellitus without complication, without long-term current use of insulin (HCC) Expected: 06/11/2023 (Approximate), Expires: 08/11/2023 [facility] Work Phone: Comment on above: Expected: 06/11/2023 (Approximate), Expires: 08/11/2023 Start: 06-11-2023 End: 08-11-2023 Hemoglobin A1c in Blood HGB A1C Lab Routine Type 2 diabetes mellitus without complication, without long-term current use of insulin (HCC) Expected: 06/11/2023 (Approximate), Expires: 08/11/2023 [facility] Work Phone: Comment on above: Expected: 06/11/2023 (Approximate), Expires: 08/11/2023 Start: 06-11-2023 Hemoglobin A1c/Hemoglobin.total in Blood HBA1C [facility] Start: 06-11-2023 End: 08-11-2023 Lipid 1996 panel - Serum or Plasma LIPID PANEL BASIC Lab Routine Type 2 diabetes mellitus without complication, without long-term current use of insulin (HCC) Expected: 06/11/2023 (Approximate), Expires: 08/11/2023 [facility] Work Phone: Comment on above: Expected: 06/11/2023 (Approximate), Expires: 08/11/2023 Start: 06-11-2023 End: 08-11-2023 Thyrotropin [Units/volume] in Serum or Plasma TSH BLD Lab Routine Type 2 diabetes mellitus without complication, without long-term current use of insulin (HCC) Postablative hypothyroidism Expected: 06/11/2023 (Approximate), Expires: 08/11/2023 [facility] Work Phone: Comment on above: Expected: 06/11/2023 (Approximate), Expires: 08/11/2023 Start: 02-17-2023 End: 02-17-2023 Patient encounter procedure 02/17/2023 Office Visit Family Medicine Zaira Moody PA-C [address] [place] [address] [facility] Start: 02-07-2023 Hemoglobin A1c/Hemoglobin.total in Blood HBA1C [facility] Start: 01-22-2023 Hepatitis B screening URINE AL BUMIN:CREATININE RATIO [facility] Start: 01-22-2023 Hepatitis B surface antibody level LDL CHOLESTEROL [facility] Start: 01-22-2023 Lipid panel Lipid Panel [facility] Start: 01-22-2023 Thyroid stimulating hormone measurement TSH Level [facility] Start: 01-09-2023 Influenza vaccination [facility] Start: 12-24-2022 3 comp foot exam completed DIABETIC FOOT EXAM [facility] Start: 11-07-2022 Hemoglobin A1c measurement Diabetes: Hemoglobin A1C [facility] Start: 11-07-2022 Influenza vaccination INFLUENZA (#1) [facility] Comment on above: Postponed from 01/09 (Declined at this time) Start: 10-29-2022 Hepatitis C antibody , confirmatory test DILATED RETINAL EXAM [facility] Start: 10-01-2022 COVID-19 Vaccine (1) COVID-19 Vaccin e (1) [facility] Comment on above: Postponed from 06/07 (Patient Refused) Start: 09-29-2022 Hemoglobin A1c/Hemoglobin.total in Blood HBA1C [facility] Start: 09-09-2022 Depression Monitoring Depression Mon itoring [facility] Start: 07-08-2022 End: 07-08-2023 CBC panel - Blood by Automated count CBC Lab Routine Anemia, unspecified type Expected: 07/08/2022 (Approximate), Expires: 07/08/2023 [facility] Work Phone: Comment on above: Expected: 07/08/2022 (Approximate), Expires: 07/08/2023 Start: 07-02-2022 End: 09-01-2022 Cobalamin (Vitamin B12) [Mass/volume] in Serum or Plasma VITAMIN B12 BLOOD Lab Routine Type 2 diabetes mellitus without complication, without long-term current use of insulin (HCC) Expected: 07/02/2022 (Approximate), Expires: 09/01/2022 [facility] Work Phone: Comment on above: Expected: 07/02/2022 (Approximate), Expires: 09/01/2022 Start: 07-02-2022 End: 09-01-2022 Comprehensive metabolic 2000 panel - Serum or Plasma COMP METABOLIC PANEL Lab Routine Type 2 diabetes mellitus without complication, without long-term current use of insulin (HCC) Expected: 07/02/2022 (Approximate), Expires: 09/01/2022 [facility] Work Phone: Comment on above: Expected: 07/02/2022 (Approximate), Expires: 09/01/2022 Start: 07-02-2022 End: 09-01-2022 Hemoglobin A1c in Blood HGB A1C Lab Routine Type 2 diabetes mellitus without complication, without long-term current use of insulin (HCC) Expected: 07/02/2022 (Approximate), Expires: 09/01/2022 [facility] Work Phone: Comment on above: Expected: 07/02/2022 (Approximate), Expires: 09/01/2022 Start: 07-02-2022 End: 09-01-2022 Lipid 1996 panel - Serum or Plasma LIPID PANEL BASIC Lab Routine Type 2 diabetes mellitus without complication, without long-term current use of insulin (HCC) Expected: 07/02/2022 (Approximate), Expires: 09/01/2022 [facility] Work Phone: Comment on above: Expected: 07/02/2022 (Approximate), Expires: 09/01/2022 Start: 07-02-2022 End: 09-01-2022 Thyrotropin [Units/volume] in Serum or Plasma TSH BLD Lab Routine Type 2 diabetes mellitus without complication, without long-term current use of insulin (HCC) Postablative hypothyroidism Expected: 07/02/2022 (Approximate), Expires: 09/01/2022 [facility] Work Phone: Comment on above: Expected: 07/02/2022 (Approximate), Expires: 09/01/2022 Start: 05-11-2022 DEPRESSION ASSESSMENT DEPRESSION ASS ESSMENT [facility] Start: 03-26-2022 Hemoglobin A1c/Hemoglobin.total in Blood HBA1C [facility] Start: 03-05-2022 Hepatitis B screening URINE AL BUMIN:CREATININE RATIO [facility] Start: 03-05-2022 Hepatitis B surface antibody level LDL CHOLESTEROL [facility] Start: 03-05-2022 Lipid panel Lipids [facility] Start: 03-05-2022 Urine screening for protein Diabetic microalbuminuria test [facility] Start: 01-22-2022 3 comp foot exam completed DIABETIC FOOT EXAM [facility] Start: 01-09-2022 Influenza vaccination [facility] Start: 12-20-2021 End: 02-19-2022 ALBUMIN/CREAT RATIO RND UR ALBUMIN/CREAT RATIO RND UR Lab Routine Type 2 diabetes mellitus without complication, without long-term current use of insulin (HCC) Expected: 12/20/2021 (Approximate), Expires: 02/19/2022 [facility] Work Phone: Comment on above: Expected: 12/20/2021 (Approximate), Expires: 02/19/2022 Start: 12-20-2021 End: 02-19-2022 Comprehensive metabolic 2000 panel - Serum or Plasma COMP METABOLIC PANEL Lab Routine Type 2 diabetes mellitus without complication, without long-term current use of insulin (HCC) Expected: 12/20/2021 (Approximate), Expires: 02/19/2022 [facility] Work Phone: Comment on above: Expected: 12/20/2021 (Approximate), Expires: 02/19/2022 Start: 12-20-2021 End: 02-19-2022 Hemoglobin A1c/Hemoglobin.total in Blood [facility] Work Phone: Comment on above: Expected: 12/20/2021 (Approximate), Expires: 02/19/2022 Start: 12-20-2021 End: 02-19-2022 LIPID PANEL BASIC LIPID PANEL BASIC Lab Routine Dyslipidemia Expected: 12/20/2021 (Approximate), Expires: 02/19/2022 [facility] Work Phone: Comment on above: Expected: 12/20/2021 (Approximate), Expires: 02/19/2022 Start: 12-20-2021 End: 02-19-2022 Thyrotropin [Units/volume] in Serum or Plasma TSH BLD Lab Routine Postablative hypothyroidism Expected: 12/20/2021 (Approximate), Expires: 02/19/2022 [facility] Work Phone: Comment on above: Expected: 12/20/2021 (Approximate), Expires: 02/19/2022 Start: 11-13-2021 Hemoglobin A1c/Hemoglobin.total in Blood HBA1C [facility] Start: 08-31-2021 Adult depression screening assessment DEPRESSION SCREENING [facility] Start: 08-30-2021 ANNUAL PCP TEAM FORESTRY HUNTER MALINI DISEASE VISIT ANNUAL PCP TEAM CHRONIC DISEASE VISIT [facility] Start: 05-11-2021 DEPRESSION ASSESSMENT DEPRESSION ASS ESSMENT [facility] Start: 2019 Mammography [facility] Start: 2019 Screening for malign ant neoplasm of breast Mammogram [facility] Start: 07-05-2017 HPV TESTING HPV TESTING [facility] Start: 07-05-2017 PAP TESTING PAP TESTING [facility] Start: 07-05-2017 Screening for malign ant neoplasm of cervix [facility] Start: 03-10-2017 Hemoglobin A1c measurement A1C test (Diabetic or Prediabetic) [facility] Start: 07-05-2015 Screening for malign ant neoplasm of cervix Cervical Cancer Screening [facility] Start: 2009 Screening for malign ant neoplasm of cervix [facility] Start: 2000 Screening for malign ant neoplasm of cervix Pap Smear [facility] Start: 1998 HEPATITIS B (1 of 3 - Risk 3-dose series) HEPATITIS B (1 of 3 - Risk 3-dose series) [facility] Start: 1998 Hepatitis B vaccine (1 of 3 - Risk 3-dose series) Hepatitis B vaccine (1 of 3 - Risk 3-dose series) [facility] Start: 1998 Pneumococcal vaccination Pneumococcal Vaccine (1 of 2 - PCV) [facility] Start: 1998 Urine screening for protein Diabetes: Urine Protein Screening [facility] Start: 1997 Anxiety Screening Anxiety Screening [facility] Start: 1997 Depression Screening Depression Scre ening [facility] Start: 1997 Diabetic retinal exam Diabetic retin al exam [facility] Start: 1997 HEPATITIS C SCREENING HEPATITIS C SC REENING [facility] Start: 1997 Hepatitis C screening S [facility] Start: 1997 HIV SCREENING HIV SCREENING [facility] Start: 1995 ONE PNEUMOVAX PRIOR TO AGE 65 ONE PNEUMOVAX PRIOR TO AGE 65 [facility] Start: 1994 HIV screening HIV screen [facility] Start: 1989 Diabetic foot examination [facility] Start: 1989 Glaucoma screening Diabetes: R etinopathy Screening [facility] Start: 1989 Hepatitis C antibody , confirmatory test DILATED RETINAL EXAM [facility] Start: 1989 Preventive dental service Diabetes: Dental Exam [facility] Start: 1985 PNEUMOCOCCAL (1 - PCV) PNEUMOCOCCAL (1 - PCV) [facility] Start: 1985 Pneumococcal 0-64 ye ars Vaccine (1 - PCV) Pneumococcal 0-64 years Vaccine (1 - PCV) [facility] Start: 1985 Pneumococcal vaccination Pneumococcal Vaccine (1 - PCV) [facility] Start: 1985 Pneumococcal Vaccine : Pediatrics (0 to 5 Years) and At-Risk Patients (6 to 64 Years) (1 - PCV) Pneumococcal Vaccine: Pediatrics (0 to 5 Years) and At-Risk Patients (6 to 64 Years) (1 - PCV) [facility] Start: 1984 COVID-19 VACCINE (#1) COVID-19 VACCI NE (#1) [facility] Start: 1984 COVID-19 VACCINE (1) COVID-19 VACCIN E (1) [facility] Start: 1980 MMR Vaccines (1 of 1 - Standard series) MMR Vaccines (1 of 1 - Standard series) [facility] Start: 1980 Varicella vaccine (1 of 2 - 2-dose childhood series) Varicella vaccine (1 of 2 - 2-dose childhood series) [facility] Start: 1979 COVID-19 VACCINE (#1) COVID-19 VACCI NE (#1) [facility] Start: 1979 Hemoglobin A1c measurement Diabetes: Hemoglobin A1C [facility] Start: 1979 HEPATITIS B (1 of 3 - 3-dose series) HEPATITIS B (1 of 3 - 3-dose series) [facility] Start: 1979 Hepatitis B Vaccine (1 of 3 - 3-dose series) Hepatitis B Vaccine (1 of 3 - 3-dose series) [facility] Start: 1979 Hepatitis B Vaccines (1 of 3 - 3-dose series) Hepatitis B Vaccines (1 of 3 - 3-dose series) [facility] Start: 1979 HIV screening HIV Screening [facility] Start: 1979 Lipid panel Lipid Panel [facility] Start: 1979 Thyroid stimulating hormone measurement TSH Level [facility] COVID & INFLUENZA A/ B & RSV PCR, ROUTINE COVID & INFLUENZA A/B & RSV PCR, ROUTINE Microbiology Routine Acute cough Flu-like symptoms Ordered: 01/28/2024 [facility] Comment on above: Ordered: 01/28/2024 End: 06-10-2025 DBT Breast - bilateral screening MACIEJ SCREENING W [facility] Radiology Routine Encounter for screening mammogram for breast cancer 1 Occurrences starting 05/11/2024 until 06/10/2025 [facility] Work Phone: Comment on above: 1 Occurrences starti ng 05/11/2024 until 06/10/2025 End: 11-07-2023 MACIEJ SCREENING MACIEJ SCREENING Radiology Routine Encounter for screening mammogram for breast cancer 1 Occurrences starting 10/08/2022 until 11/07/2023 [facility] Work Phone: Comment on above: 1 Occurrences starti ng 10/08/2022 until 11/07/2023 End: 11-21-2021 MRI BRAIN W WO CONTRAST [facility] Work Phone: Comment on above: 1 Occurrences [...] cancer 1 Occurrences starting 11/06/2021 until 12/06/2022 [facility] Work Phone: Comment on above: 1 Occurrences starti ng 11/06/2021 until 12/06/2022 End: 02-26-2025 XR Chest PA and Lateral XR CHEST 2V FRONTAL/LAT Radiology Routine Acute cough Flu-like symptoms 1 Occurrences starting 01/28/2024 until 02/26/2025 [facility] Work Phone: Comment on above: 1 Occurrences starti ng 01/28/2024 until 02/26/2025 [facility] Immunizations Immunization Date Immunization Notes Care Provider Trae curran 11-29-2019 tetanus toxoid, redu betty diphtheria toxoid, and acellular pertussis vaccine, adsorbed Genoveva Kupflorinac ORCHID TRANSPLANTER.STUDIO COORDINATOR Work Phone: [facility] Payers Date Payer Category Payer Self-pay 2021 Unknown [facility] [id number] 2021-Present [address] [place] [address] [id number] 2021 Private Health Insurance [place] SELF FUNDED [id number] 2021 Unknown 2021 Unknown [employer] [place] SELF FUNDED [id number] 2021-Present [phone] [address] [place] [address] PPO [id number] 2021 Unknown [id number] 2019 Unknown [id number] 2018 Medicaid [place] [employer] [place] [employer] [id number] 2018-Present [phone] [address] [place] [address] Medicaid [id number] 2018 Medicaid [id number] 1979 Unknown [id number] 1979 Unknown [id number] 1979 Unknown [id number] 1979 Unknown [id number] 1979 Unknown [id number] Unknown [id number] Unknown [id number] Unknown [id number] Unknown [id number] Unknown [id number] Social History Date Type Detail Facility Start: 07-06-2012 End: 11-08-2024 Tobacco smoking status NHIS Ex-smoker [facility] End: 11-21-2009 History of tobacco use Current smoker [facility] End: 11-21-2009 History of tobacco use Cigarette Smoker [facility] Start: 07-06-2012 End: 02-09-2024 Tobacco use and exposure Smokeless tobacco non-user [facility] Start: 05-16-2021 End: 07-14-2024 Alcohol intake Current drinker of alcohol (finding) [facility] Start: 12-31-2015 History SDOH Alcohol Comment rarely [facility] Start: 12-31-2015 End: 12-24-2021 Tobacco Comment Type: cigarette; Start date: 1999; Stop date: 2009 [facility] Start: 1980 Sex Assigned At Not on file [facility] Start: 09-09-2021 End: 08-19-2022 Exposure to SARS-CoV-2 (event) Not sure [facility] Start: 11-21-2014 End: 10-10-2022 Cigarettes smoked current (pack per day) - Reported 1 [facility] Start: 03-04-2019 End: 04-22-2021 History SDOH Social Connections Phone 5 [facility] Work Phone: Start: 03-04-2019 End: 04-22-2021 History SDOH Social Connections Scientology 1 [facility] Work Phone: Start: 03-04-2019 History SDOH Social Connections Membership 2 [facility] Work Phone: Start: 03-04-2019 History SDOH Social Connections Living 3 [facility] Work Phone: Start: 03-04-2019 History SDOH Physica l Activity [employer] Work Phone: Start: 08-19-2022 Alcohol Comment social couple times per week [employer] Start: 10-10-2022 End: 12-09-2022 Tobacco use panel [facility] Adult Depression Screening Assessment 0 [facility] Start: 09-14-2024 Sex Female (finding) [facility] Start: 1980 Sex Assigned At Female [facility] Medical Equipment Procedure Code Equipment Code Equipment Origin al Text Equipment Identifier Dates [id number], [id number], [id number], [id number] Start: 12-17-2020 End: 04-01-2023 Comment on above: [...] Date/Time November 08, 2024 8:09pm After Hours [address] [address] OFFICE VISIT Date of Service: 11/08/24 MR#: [id number] Acct: [id number] Name: CRISTINA MARTINEZ Rep #: [id number] : 1980 Provider: PATO Alvarado Age/Sex: 44/F Location: [facility] Status: Signed Intake Vital Signs 11/08/24 14:19 [...] YELLOW Last Edit by Reyna Alvarado NP, PLUMBING INSTALLER-C on 11/08/24 20:09 Office Urine Clarity Clear Last Edit by Reyna Alvarado NP, PLUMBING INSTALLER-C on 5 20:09 Office Urine Glucose Negative Last Edit by Reyna Alvarado NP, PLUMBING INSTALLER-C on 11/08/24 20:09 Office Urine Ketones Negative Last Edit by Reyna Alvarado NP, PLUMBING INSTALLER-C on 11/08/24 20:09 Off Ur Spec [place] 1.020 Last Edit by Reyna Alvarado NP, PLUMBING INSTALLER-C on 11/08/24 20:09 Office Urine pH 8.5 Last Edit by Reyna Alvarado NP, PLUMBING INSTALLER-C on 11/08/24 20:09 Office Urine Bilirubin Negative Last Edit by Reyna Alvarado NP PLUMBING INSTALLER-C on 11/08/24 20:09 Office Urine Urobilinogen 0.2 mg/dL Last Edit by Reyna Alvarado NP, NP-C o n 11/08/24 20:09 Office Urine Blood Negative Last Edit by Reyna Alvarado NP PLUMBING INSTALLER-C on 20:09 Office Urine Blood Hemolyzed NA Last Edit by Reyna Alvarado NP PLUMBING INSTALLER-C on 11/08/24 20:09 Office Urine Protein Negative Last Edit by Reyna Alvarado NP, PLUMBING INSTALLER-C on 11/08/24 20:09 Office Urine Nitrate Negative Last Edit by Reyna Alvarado NP PLUMBING INSTALLER-C on 11/08/24 20:09 Off Ur Leukocytes Negatve Last Edit by Reyna Alvarado NP PLUMBING INSTALLER-C on 11/08/24 20:09 Coding Level of Care Code Off vis,est,level 4 Diagnoses Acute midline low back pain with left-sided sciatica M54.42 Chronicity: acute Back pain laterality: midline Sciatica presence: with sciatica Sciatica laterality: sciatica of left side Left sided sciatica M54.32 Type 2 diabetes mellitus with hyperglycemia, with long-term current use of insulin E11.65; Z79.4 Diabetes mellitus long chain quiller tender insulin use: with long chain quiller tender use Assessment and Plan Assessment and Plan (1) Lower back pain: Status: Acute Qualifiers: Chronicity: acute Back pain laterality: midline Sciatica presence: with sciatica Sciatica laterality: sciatica of left side Qualified Code(s): M54.42 - Lumbago with sciatica, left side (2) Left sided sciatica: Status: Acute (3) Hyperglycemia due to type 2 diabetes mellitus: Status: Acute Qualifiers: Diabetes mellitus detention insulin use: with long chain quiller tender use Qualified Code(s): E11.65 - Type 2 diabetes mellitus with hyperglycemia; Z79.4 - long term care administrator(current) use of insulin Orders: Orders Culture, Urine [...] WHYTE> Date _ Reyna WHYTE CC: ~ [facility] Work Phone: 1(626) 883-506607-01-2025 Progress noteAfter Hours Family Medicine [address], [place] [id number] OFFICE VISIT Date of Service: 11/08/24 MR#: [id number] Acct: [id number] Name: RAMYACRISTINA LOPEZ Brittaney Rep #: [id number] : 1980 Provider: PATO Alvarado Age/Sex: 44/F Location: [facility] Status: Signed Intake Vital Signs 11/08/24 14:19 [...] pen (Humalog KwikPen (U-100) Insulin) blood-glucose sensor ([employer] G7 #3 ea 10/26/23 5 Rx Sensor [...] Clear Last Edit by Reyna Alvarado NP, PLUMBING INSTALLER-C on 5 20:09 Office Urine Glucose Negative Last Edit by Reyna Alvarado NP PLUMBING INSTALLER-C on 11/08/24 20:09 Office Urine Ketones Negative Last Edit by Reyna Alvarado NP PLUMBING INSTALLER-C on 11/08/24 20:09 Off Ur Spec [place] 1.020 Last Edit by Reyna Alvarado NP, NP-C on 11/08/24 20:09 Office Urine pH 8.5 Last Edit by Reyna Alvarado NP, NP-C on 11/08/24 20:09 Office Urine Bilirubin Negative Last Edit by Reyna Alvarado NP PLUMBING INSTALLER-C on 11/08/24 20:09 Office Urine Urobilinogen 0.2 mg/dL Last Edit by Reyna Alvarado NP, NP-C o n 11/08/24 20:09 Office Urine Blood Negative Last Edit by Reyna Alvarado NP PLUMBING INSTALLER-C on 20:09 Office Urine Blood Hemolyzed NA Last Edit by Reyna Alvarado NP, NP-C on 11/08/24 20:09 Office Urine Protein Negative Last Edit by Reyna Alvarado NP PLUMBING INSTALLER-C on 11/08/24 20:09 Office Urine Nitrate Negative Last Edit by Reyna Alvarado NP PLUMBING INSTALLER-C on 11/08/24 20:09 Off Ur Leukocytes Negatve Last Edit by Reyna Alvarado NP PLUMBING INSTALLER-C on 11/08/24 20:09 Coding Level of Care Code Off vis,est,level 4 Diagnoses Acute midline low back pain with left-sided sciatica M54.42 Chronicity: acute Back pain laterality: midline Sciatica presence: with sciatica Sciatica laterality: sciatica of left side Left sided sciatica M54.32 Type 2 diabetes mellitus with hyperglycemia, with long-term current use of insulin E11.65; Z79.4 Diabetes mellitus detention insulin use: with detention use Assessment and Plan Assessment and Plan (1) Lower back pain: Status: Acute Qualifiers: Chronicity: acute Back pain laterality: midline Sciatica presence: with sciatica Sciatica laterality: sciatica of left side Qualified Code(s): M54.42 - Lumbago with sciatica, left side (2) Left sided sciatica: Status: Acute (3) Hyperglycemia due to type 2 diabetes mellitus: Status: Acute Qualifiers: Diabetes mellitus long chain quiller tender insulin use: with long chain quiller tender use Qualified Code(s): E11.65 - Type 2 diabetes mellitus with hyperglycemia; Z79.4 - shelter(current) use of insulin Orders: Orders Culture, Urine [...] call with the urine culture 11/08/242008 on PLUMBING INSTALLER PLUMBING INSTALLER-C> Date _ Reyna Alvarado PLUMBING INSTALLER PLUMBING INSTALLER-C CC: ~ [facility]06-06-2025 Telephone encounter Note* Telephone Encounter - Gely Patel LPN - 10/14/2024 3:04 PM EDT Patient returned call and went over notes below, scheduled for 11/10/2024 with PA, patient requested later in day time for her appt. [facility]06-06-2025 Miscellaneous Notes* Telephone Encounter - Gely Patel [...] of openings next week [facility] Telephone encounter Note * Telephone Encounter - Koffi Narayanan LPN - 10/14/2024 1:27 PM EDT Left message for pt to contact office. Koffi Narayanan LPN [facility]06-05-2025 Telephone encounter Note* Telephone Encounter - Jeffery Swift MD - 10/13/2024 8:43 PM EDT Patient still needs to reschedule her PE. 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 August 11, 2024 9:43am Overweight chronic August 11 9:43am Type 1 diabetes mellitus wit h hyperglycemia chronic August 11, 2024 9:43am Bronchitis acute August 19 4:54pm Maxillary sinusitis, acute acute August 19, 2024 4:54pm [facility] Work Phone: 1(464) 947-733804-03-2025 Evaluation note* Diagnosis Onset Date Resolution Status Admit Date High cholesterol chronic August 9:43am 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 Author Type: LICENSED NURSE Type: Progress Notes Filed: 07/15/2024 08:15 Note Text: Per Dr. Duvall, Cristina was provided with powerstep gel inserts, size 9, and instructed/educated in its application, wear, and care. All questions were answered, and patient was able to demonstrate competence with the necessary skills to utilize the above equipment. [facility] History of Present illness Narrative* Mallorie [...] complication, without long-term current use of insulin ([facility]) 09/19/[address] Doyle Vitamin D deficiency [...] tab dinner. Per Dr. Vivek Linares Insulin Alderson, Disposable, (BD ULTRAFINE III MINI PEN) 31 gauge x 3/16 Use 4 pen needles daily Blood-Glucose Sensor (DEXCOM G6 SENSOR) ismael Use one sensor every 10 days, IDDM, E 11.9 Blood-Glucose Transmitter (DEXCOM G6 TRANSMITTER) ismael Use one transmitter every 3 months, IDDM, E 11.9 Blood-Glucose Meter,Continuous (DEXCOM G6 RACE ENGINE BUILDER) [facility] Use continuously to monitor glucose, IDDM,E11.9 blood [...] Date CHOLECYSTECTOMY HX 2010 HYSTERECTOMY HX 07/01/2013 [facility] - DUB LAPAROSCOPIC TUBAL LIGATION/RING/CLIP 08/20/2012 Filshie [...] complication, without long-term current use of insulin ([facility]) (M20.22) Hallux rigidus of left foot (M20.42) [...] Duvall DPM Podiatry [address] [facility] [address] Dept: [phone] Dept * Mallorie Jauregui LPN - 07/14/2024 9:30 AM EST AMB ROOMING INTAKE FLOWSHEET DATA Pain Pain Level: 5 Pain Location: Foot-Right Description: Tenderness Duration Amount of Time: 2 Duration Units: Months Frequency: Intermittent Intervention/Comfort measure: Relaxation, Reposition Patient presents with: Right Foot - New, Diabetes, Pain, Wart Mallorie Jauregui LPN documented in this encounterOhiohealth Southeastern Medical Center03-06-2025 Instructions* Patient Instructions* Stephanie Duvall - 07/14/2024 [...] Powerstep Original Full length. Can purchase at [facility] [employer] and boots,shoes and more here in [place], [employer] in [place] or [place]. Also can find in [email or web address] in [facility]. Powersteps can also be purchased online, starting [...] everything fits well together documented in this encounterOhiohealth Southeastern Medical Center03-06-2025 NoteHNO ID: [id number] Author: STEPHANIE DUVALL, ? Service: ? Author [...] complication, without long-term current use of insulin ([facility]) 09/19/[address] Doyle Vitamin D deficiency [...] tab dinner. Per Dr. Vivek Linares Insulin Alderson, Disposable, (BD ULTRAFINE III MINI PEN) 31 gauge x 3/16 Use 4 pen needles daily Blood-Glucose Sensor (DEXCOM G6 SENSOR) ismael Use one sensor every 10 days, IDDM, E 11.9 Blood-Glucose Transmitter (DEXCOM G6 TRANSMITTER) ismael Use one transmitter every 3 months, IDDM, E 11.9 Blood-Glucose Meter,Continuous (DEXCOM G6 RACE ENGINE BUILDER) [facility] Use continuously to monitor glucose, IDDM, E11.9 [...] Thyroid Paternal Grandfather hyperthyroid (more content not included)...[facility]03-06-2025 NoteHNO ID: [id number] Author: MALLORIE JAUREGUI LPN Service: ? Author Type: LICENSED NURSE Type: Progress Notes Filed: 07/15/2024 08:15 Note Text: AMB ROOMING INTAKE FLOWSHEET DATA Pain Pain Level: 5 Pain Location: Foot-Right Description: Tenderness Duration Amount of Time: 2 Duration Units: Months Frequency: Intermittent Intervention/Comfort measure: Relaxation, Reposition Patient presents with: Right Foot - New, Diabetes, Pain, Wart [facility] NotePatient Outreach (INTMMN) CRISTINA MARTINEZ ([id number]) 1980 F Date Time Provider Department 05/11/24 [...] for screening mammogram for breast cancer [Z12.31] Order(s):[facility] SCREENING [facility]EN [[id number]] Order #: [id number] FUTURE Prescriptions as of 05/16/2024 - insulin [...] dinner. Per Dr. Vivek Linares - Insulin Alderson, Disposable, (BD ULTRAFINE III MINI PEN) 31 gauge x 3/16 Use 4 pen needles daily - Blood-Glucose Sensor (DEXCOM G6 SENSOR) ismael Use one sensor every 10 days, IDDM, E 11.9 - Blood-Glucose Transmitter (DEXCOM G6 TRANSMITTER) ismael Use one transmitter every 3 months, IDDM, E 11.9 - Blood-Glucose Meter,Continuous (DEXCOM G6 RACE ENGINE BUILDER) [facility] Use continuously to monitor glucose, IDDM, E11.9 [...] Nasal polyps [J33.9] 02/09/2024 Encounter Status:Closed by CoupstaRIVAS on 05/16/24[facility] 02-09-2024 Instructions* Patient Instructions* Jeffery Swift MD - 02/09/2024 10:25 AM EDT Please get labs and urine test done on or after 07/29/2024 prior to your next visit. documented in this encounterOhiohealth Southeastern Medical Center10-01-2024 NoteHNO ID: [id number] Author: JEFFERY SWIFT MD Service: ? Author [...] complication, without long-term current use of insulin ([facility]) 09/19/[address] Doyle Vitamin D deficiency [...] tab dinner. Per Dr. Vivek Linares Insulin Alderson, Disposable, (BD ULTRAFINE III MINI PEN) 31 gauge x 3/16 Use 4 pen needles daily Blood-Glucose Sensor (DEXCOM G6 SENSOR) ismael Use one sensor every 10 days, IDDM, E 11.9 Blood-Glucose Transmitter (DEXCOM G6 TRANSMITTER) ismael Use one transmitter every 3 months, IDDM, E 11.9 Blood-Glucose Meter,Continuous (DEXCOM G6 RACE ENGINE BUILDER) [facility] Use continuously to monitor glucose, IDDM, E11.9 [...] Tobacco Use Smoking s (more content not included)...[facility]10-01-2024 History of Present illness Narrative* Jeffery [...] complication, without long-term current use of insulin ([facility]) 09/19/[address] Doyle Vitamin D deficiency Previous Surgical History PAST SURGICAL HISTORY Procedure Laterality Date CHOLECYSTECTOMY HX 2010 HYSTERECTOMY HX 07/01/2013 [facility] - DUB LAPAROSCOPIC TUBAL LIGATION/RING/CLIP 08/20/2012 Filshie [...] tab dinner. Per Dr. Vivek Linares Insulin Alderson, Disposable, (BD ULTRAFINE III MINI PEN) 31 gauge x 3/16 Use 4 pen needles daily Blood-Glucose Sensor (DEXCOM G6 SENSOR) ismael Use one sensor every 10 days, IDDM, E 11.9 Blood-Glucose Transmitter (DEXCOM G6 TRANSMITTER) ismael Use one transmitter every 3 months, IDDM, E 11.9 Blood-Glucose Meter,Continuous (DEXCOM G6 RACE ENGINE BUILDER) misc Use continuously to monitor glucose, IDDM,E11.9 blood sugar diagnostic (BLOOD GLUCOSE TEST) test strip Use as directed to test glucose 2 times daily, E11.9, IDDM Lancets lancets Use as directed to test glucose 3 times daily, E11.9, non-insulin. MULTIVITAMIN ORAL Take by mouth. flCranberry Chictone Blood-Glucose Meter Use as directed to test [...] which included preparing to see the patient, [id number] patient care, completing clinical documentation, performing a medically appropriate examination, counseling and educating the patient/family/caregiver and ordering medications, tests, or procedures. Jeffery Swift MD documented in this encounterOhiohealth Southeastern Medical Center09-19-2024 NoteHNO ID: [id number] Author: ROSE MARY FINLEY PA-C Service: ? Author Type: Physician Watchmaking Teacher Type: Progress Notes Filed: 01/28/2024 15:22 Note [...] with the plan and verbalized understanding. [facility]09-19-2024 History of Present illness Narrative* Rose Mary [...] Rose Mary Finley PA-C documented in this encounterOhiohealth Southeastern Medical Center07-30-2024 Telephone encounter Note * Telephone Encounter - [...] Child MA December 08, 2023 9:47 AM [facility]07-30-2024 Miscellaneous Notes* Telephone Encounter - Meredith Child [...] 08, 2023 9:47 AM documented in this encounterOhiohealth Southeastern Medical Center03-12-2024 Instructions* Patient Instructions* Jeffery Swift MD - 07/21/2023 3:40 PM EDT Please get labs done on or after 01/08/2024 prior to your next visit. documented in this encounterOhiohealth Southeastern Medical Center03-12-2024 NoteHNO ID: [id number] Author: JEFFERY SWIFT MD Service: ? Author [...] tab dinner. Per Dr. Vivek Linares Insulin Alderson, Disposable, (BD ULTRAFINE III MINI PEN) 31 gauge x 3/16 Use 4 pen needles daily levothyroxine (SYNTHROID) 125 mcg tablet Take 1 tablet by mouth daily before breakfast. Blood-Glucose Sensor (DEXCOM G6 SENSOR) ismael Use one sensor every 10 days, IDDM, E 11.9 Blood-Glucose Transmitter (DEXCOM G6 TRANSMITTER) ismael Use one transmitter every 3 months, IDDM, E 11.9 Blood-Glucose Meter,Continuous (DEXCOM G6 RACE ENGINE BUILDER) misc Use continuously to monitor glucose, IDDM, [...] Use: Never used Substance (more content not included)...[facility]03-12-2024 History of Present illness Narrative* Jeffery [...] tab dinner. Per Dr. Vivek Linares Insulin Alderson, Disposable, (BD ULTRAFINE III MINI PEN) 31 gauge x 3/16 Use 4 pen needles daily levothyroxine (SYNTHROID) 125 mcg tablet Take 1 tablet by mouth daily before breakfast. Blood-Glucose Sensor (DEXCOM G6 SENSOR) ismael Use one sensor every 10 days, IDDM, E 11.9 Blood-Glucose Transmitter (DEXCOM G6 TRANSMITTER) ismael Use one transmitter every 3 months, IDDM, E 11.9 Blood-Glucose Meter,Continuous (DEXCOM G6 RACE ENGINE BUILDER) misc Use continuously to monitor glucose, IDDM,E11.9 [...] - ICD9: V72.31, ICD10: Z01.419 - seeing MIXING SUPERVISOR F/u 6 months routine check lipid. Jeffery Swift MD documented in this encounterOhiohealth Southeastern Medical Center11-22-2023 Miscellaneous Notes* Telephone Encounter - Cristina Martinez RN - 04/01/2023 9:13 AM EST Closed. documented in this encounterOhiohealth Southeastern Medical Center11-22-2023 Miscellaneous Notes* Telephone Encounter - Cristina Martinez [...] Please review and advise. documented in this encounterOhiohealth Southeastern Medical Center11-21-2023 Miscellaneous Notes* Telephone Encounter - Regina Dodge LPN - 03/31/2023 1:09 PM EST Pt notified & voiced understanding. Regina Dodge LPN * Telephone Encounter - Jeffery Swift MD - 03/31/2023 12:49 PM EST Let patient know mammogram was ok. documented in this encounterOhiohealth Southeastern Medical Center11-21-2023 Miscellaneous Notes* Telephone Encounter - Cristina Martinez RN - 03/31/2023 12:37 PM EST Please review and advise. documented in this encounterOhiohealth Southeastern Medical Center11-21-2023 Miscellaneous Notes* Letter - Coordinator, Mammography - 03/31/2023 11:01 AM EST March 31, 2023 PID: [id number] Cristina Martinez [address] [place] [address] Dear Ms. Martinez, We are pleased to [...] report will be [facility] at [facility] as part of your permanent medical record and are available for your continuing care. Thank you for allowing us to help in meeting your health care needs. Sincerely, Dr. Funes Interpreting Radiologist [facility] (Normal over 40) documented in this encounterOhiohealth Southeastern Medical Center11-21-2023 History of Present illness Narrative* Meghana Ayers [...] 31, 2023 7:54 AM documented in this encounterOhiohealth Southeastern Medical Center10-19-2023 Miscellaneous Notes* Telephone Encounter - Rebecca Bruno [...] Mounjaro. Completed a PA for patient on [facility] yesterday 02/24/23 and it stated patient should be able to get the drug/product without a PA at this time. Called [facility] to have them reprocess the medication, it came back needing a PA. Patient stated she was able to find Trulicity at [facility] in [place]. Please review and send if appropriate. documented in this encounterOhiohealth Southeastern Medical Center10-17-2023 Miscellaneous Notes* Telephone Encounter - Rebecca Bruno RN - 02/24/2023 10:35 AM EDT Cristina Martinez Florian: [id number] Need help? Call us at Outcome Additional Information Required Member should be able to get the drug/product without a PA at this time. Drug Mounjaro 5MG/0.5ML pen-injectors Form Med[employer] ePA Form 2017 NCPDP Closed documented in this encounterOhiohealth Southeastern Medical Center08-01-2023 History of Present illness Narrative* Genoveva Chatman [...] at bedtime daily 15 mL 3 Insulin Alderson, Disposable, (BD ULTRAFINE III MINI PEN) 31 gauge x /16 Use 1 pen needles daily 100 Each 3 Blood-Glucose Sensor (DEXCOM G6 SENSOR) ismael Use one sensor every 10 days, IDDM, E 11.9 Blood-Glucose Transmitter (DEXCOM G6 TRANSMITTER) ismael Use one transmitter every 3 months, IDDM, E 11.9 Blood-Glucose Meter,Continuous (DEXCOM G6 RACE ENGINE BUILDER) misc Use continuously to monitor glucose, IDDM,E11.9 [...] Follow up in 6 months with labs MARKETING DIRECTOR ASSISTED LIVING (E89.0) Postablative hypothyroidism Comment: She has been euthyroid on the present dose of thyroxine Plan: levothyroxine (SYNTHROID) 125 mcg tablet, TSH BLD Repeat labs at follow up (E78.5) Dyslipidemia Comment/Plan: Declines statin Continue with exercise efforts. Medical Decision Making: Level: 4 - Moderate Genoveva Chatman, MSN, ORCHID TRANSPLANTER, PLUMBING INSTALLER-C, CDE Endocrinology [facility] Medical Office [facility]/[address], [address] [place] [address] Fax: documented in this encounterOhiohealth Southeastern Medical Center06-20-2023 Miscellaneous Notes* Telephone Encounter - Ayde Sapp MA - 10/28/2022 1:34 PM EDT Received Eye Exam Report from [facility] HM Updated. Placed in provider's inbox for review. Route to [place] for scanning. documented in this encounterOhiohealth Southeastern Medical Center06-02-2023 NoteHNO ID: [id number] Author: Zaira Mejia MD Service: ? Author Type: Physician Type: Progress Notes Filed: 10/11/2022 12:58 PM Note Text: Cheryl [facility] Department of Plastic Surgery BREAST AUGMENTATION [...] 10 units subcutaneously at bedtime daily Insulin Alderson, Disposable, (BD ULTRAFINE III MINI PEN) 31 gauge x 07/24 Use 1 pen needles daily Blood-Glucose Sensor (DEXCOM G6 SENSOR) ismael Use one sensor every 10 days, IDDM, E 11.9 Blood-Glucose Transmitter (DEXCOM G6 TRANSMITTER) ismael Use one transmitter every 3 months, IDDM, E 11.9 Blood-Glucose Meter,Continuous (DEXCOM G6 RACE ENGINE BUILDER) misc Use continuously to monitor glucose, IDDM, [...] Otto none SUBAXILLARY ROL (more content not included)...[facility] 10-10-2022 History of Present illness Narrative* aZira Mejia MD - 10/10/2022 2:25 PM EDT [facility] Department of Plastic Surgery BREAST AUGMENTATION EVALUATION [...] 10 units subcutaneously at bedtime daily Insulin Alderson, Disposable, (BD ULTRAFINE III MINI PEN) 31 gauge x 3/16 Use 1 pen needles daily Blood-Glucose Sensor (DEXCOM G6 SENSOR) ismael Use one sensor every 10 days, IDDM, E 11.9 Blood-Glucose Transmitter (DEXCOM G6 TRANSMITTER) ismael Use one transmitter every 3 months, IDDM, E 11.9 Blood-Glucose Meter,Continuous (DEXCOM G6 RACE ENGINE BUILDER) [facility] Use continuously to monitor glucose, IDDM,E11.9 semaglutide [...] none SUBAXILLARY ROLLS: {NO (DEF) / YES :[id number] Note: measurements are in centimeters Cleavage: wide [...] OR Time Needed: 3 vs 2 hrs [facility] or ASC: any Equipment Request: plastics set, cookie cutters, tumescent, lipografter, 3-0/4-0 monocryl, 5-0 fast, abd binder, bra SA Requested: Yes Anesthesia: General Post op appointment: 1,3,6 Inpatient stay:No Block Needed: No Pre Testing Needed: Yes Occupational Therapy: No Cosmetic: Yes Zaira Mejia MD documented in this encounterOhiohealth Southeastern Medical Center05-09-2023 Miscellaneous Notes* Telephone Encounter - Meredith Child MA - 09/16/2022 8:23 AM EDT Patient phones requesting refills as follows: Had recent appt Requested Prescriptions Pending Prescriptions Disp Refills insulin glargine (LANTUS SOLOSTAR U-100 INSULIN) 100 unit/mL (3 mL) 15 mL 3 Sig: Inject 10 units subcutaneously at bedtime daily Insulin Alderson, Disposable, (BD ULTRAFINE III MINI PEN) 31 gauge x 3/16 100 Each 3 Sig: Use 1 pen needles daily Please review and advise. Meredith Child MA documented in this encounterOhiohealth Southeastern Medical Center04-11-2023 History of Present illness Narrative* Zaira Moody PA-C - 08/19/2022 10:40 AM EDT Images from the original note were not included. [facility] MEDICINE [address] [address] Dept: [phone] Dept Loc: [phone] Visit type: Established Patient Reason for Visit: [...] concern for possible menopause, will refer to MIXING SUPERVISOR for futher evaluation. 3. Hypothyroidism (acquired) Comments: TSH levels have been normal this is continuing to be followed by endocrinology encouraged to continue to follow with them. 4. Type 2 diabetes mellitus without complication, with long-term current use of insulin ([facility]) ([facility]) Comments: Most recent hemoglobin A1c is 7.5 [...] states that she is talk to her dry lumber grader before about placing her ameya statin as [...] due for exam, will follow up with Geriatric Aide, Last A1c was 7.5 08/07/22 trulicity, and [...] we did discuss this and following with MIXING SUPERVISOR to do any further testing to determine [...] 10 mg by mouth daily. Droplet Pen Alderson 31G X 5 MM [facility] use 1 PEN NEEDLE daily glimepiride (Amaryl) [...] Comment: social couple times per week titos sun'aq water Past Surgical History: Procedure Laterality Date [...] prior to signing but minor errors in transcriptionist may have occurred. documented in this [facility]03-30-2023 Instructions* Patient Instructions* Genoveva Chatman APRN.CNP - 08/07/2022 2:42 PM EDT Continue current diabetes regimen. 2. Start Dexcom 3. Follow up in 4 months BA Guzman, ORCHID TRANSPLANTER, PLUMBING INSTALLER-C, CDE Endocrinology [facility] Medical Office [facility]/[address] [place] [address] Fax: documented in this encounterOhiohealth Southeastern Medical Center03-30-2023 History of Present illness Narrative* Genoveva Chatman [...] Date CHOLECYSTECTOMY HX 2010 HYSTERECTOMY HX 07/01/2013 [facility] - DUB LAPAROSCOPIC TUBAL LIGATION/RING/CLIP 08/20/2012 Filshie [...] daily, E11.9, IDDM 200 Strip 3 Insulin Alderson, Disposable, (BD ULTRAFINE III MINI PEN) 31 [...] complication, without long-term current use of insulin ([facility]) (primary encounter diagnosis) Comment: glycemic control is improving. Plan: Insulin Alderson, Disposable, (BD ULTRAFINE III MINI PEN) 31 gauge x 3/16, HEMOGLOBIN A1C (POC), Blood-Glucose Sensor (DEXCOM G6 SENSOR) ismael, Blood-Glucose Transmitter (DEXCOM G6 TRANSMITTER) ismael, Blood-Glucose Meter,Continuous (DEXCOM G6 RACE ENGINE BUILDER) misc Continue current regimen of Ozempic, metformin, [...] which included preparing to see the patient, [id number] patient care, completing clinical documentation, obtaining and/or reviewing separately obtained history, performing a medically appropriate examination, counseling and educating the pat ient/family/caregiver, ordering medications, tests, or procedures, and communicating results to thepatient/family/caregiver. Genoveva Chatman, MSN, ORCHID TRANSPLANTER, PLUMBING INSTALLER-C, CDE Endocrinology [facility] Medical Office [facility]/[address] [place] [address] Fax: documented in this encounterOhiohealth Southeastern Medical Center03-01-2023 Telephone encounter Note * Telephone Encounter - Tiny Monteiro LPN - 07/09/2022 4:22 PM EST Talked to patient and she will get the lab work done. [facility] [id number] Miscellaneous Notes* Telephone Encounter - Tiny Monteiro [...] before her next menses documented in this encounterSMercy Health St. Charles [id number] Telephone encounter Note* Telephone Encounter - Irina Blankenship MA - 07/08/2022 11:22 AM EST Left detailed message for patient to stop by and have a cbc done before her next menses. [facility] [id number] Miscellaneous Notes* Telephone Encounter - Irina Blnakenship MA - 07/08/2022 11:22 AM EST Left detailed message for patient to stop by and have a cbc done before her next menses. * Telephone Encounter - Ming Perez DO - 07/08/2022 7:42 AM EST Even though the anemia is most likely secondary to heavy menses for completeness should have a CBC done before her next menses documented in this [facility]02-28-2023 Telephone encounter Note* Telephone Encounter - Ming Perez DO - 07/08/2022 7:42 AM EST Even though the anemia is most likely secondary to heavy menses for completeness should have a CBC done before her next menses [facility] [id number] Nurse Note* Cristina Martinez RN - 05/08/2022 [...] home. Cristina Martinez RN documented in this encounterOhiohealth Southeastern Medical Center11-22-2022 Procedure note* Roslyn Perez Ma - 04/01/2022 1:00 PM ESTProcedure(s): EXTERNAL RACE ENGINE BUILDER, CGM SYS Images from the original note were not included. documented in this encounterOhiohealth Southeastern Medical Center11-22-2022 History of Present illness Narrative* Genoveva Chatman [...] not available and she went back [facility] . She is seeing holistic caregiver. [...] 3 units > 351 Give 4 units [facility] 4.5 mg weekly Metformin ER 500 [...] days, IDDM, E11.65 2 Each 11 Insulin Alderson, Disposable, (BD ULTRAFINE III MINI PEN) 31 [...] Follow up in 3 months with labs MARKETING DIRECTOR ASSISTED LIVING. (E89.0) Postablative hypothyroidism Comment: She has been euthyroid on the present dose of thyroxine Plan: TSH BLD TFT with next labs (E78.5) Dyslipidemia Comment/Plan: LIPID PANEL BASIC Declines statin Increasing exercise. Medical Decision Making: Level: 4 - Moderate Genoveva Chatman, MSN, ORCHID TRANSPLANTER, PLUMBING INSTALLER-C, CDE Endocrinology [facility] Medical Office [facility]/[address], [address] [place] [address] Fax: documented in this [facility]09-21-2022 Miscellaneous Notes* Telephone Encounter - Regina Davila [...] advise. Regina Davila LPN documented in this [facility]08-23-2022 Miscellaneous Notes* Telephone Encounter - Cristina Martinez RN - 12/31/2021 7:46 AM EDT Please review. documented in this [facility]07-07-2022 Miscellaneous Notes* Telephone Encounter - Regina Davila [...] advise. Regina Davila LPN documented in this [facility]06-28-2022 Miscellaneous Notes* Telephone Encounter - Genoveva Chatman APRN.CNP - 11/05/2021 9:19 AM EDT Reviewed. No retinopathy noted. Thank you * Telephone Encounter - Regina Davila LPN - 10/30/2021 8:37 AM EDT Received eye exam from [facility] HM Updated. documented in this encounterOhiohealth Southeastern Medical Center05-19-2022 Miscellaneous Notes* Telephone Encounter - Roslyn Perez Ma - 09/26/2021 10:50 AM EDT See other message. Closed documented in this encounterOhio[facility]22 Miscellaneous Notes* Telephone Encounter - Cristina Martinez RN - 09/26/2021 8:14 AM EDT RX was already sent on 09/25/2021. message to patient to contact pharmacy. Closed. documented in this encounterOhio[facility]22 Miscellaneous Notes* Telephone Encounter - Regina Davila [...] advise. Regina Davila LPN documented in this encounterOhio[facility]05-12-2022 Instructions* Patient Instructions* Genoveva Chatman APRN.CNP - [...] up in 3 months Genoveva Chatman, MSN, ORCHID TRANSPLANTER, PLUMBING INSTALLER-C, CDE Endocrinology [facility] Office [facility] [address] Fax: documented in this encounterOhiohealth [facility]heastern [facility] Center05-12-2022 History of Present illness Narrative* Genoveva Chatman [...] Date CHOLECYSTECTOMY HX 2010 HYSTERECTOMY HX 07/01/2013 [facility] L[facility]RING/CLIP 08/20/2012 Filshie clips [...] 15 mL 5 flash glucose scanning reader (Ditto LabsSTYLE SUKHDEEP 2 READER) Use 4x daily, IDDM, E 11.65 1 Each 0 flash glucose sensor (FREESTYLE SUKHDEEP 2 SENSOR) kit Use one sensor every 14 days, IDDM, E11.65 2 Each 11 Insulin [place], Disposable, (BD ULTRAFINE III MINI PEN) 31 [...] complication, without long-term current use of insulin ([facility]) (primary encounter diagnosis) Comment: Glucose has been [...] which included preparing to see the patient, [id number] patient care, completing clinical documentation, obtaining and/or reviewing separately obtained history, performing a medically appropriate examination, counseling and educating the pat ient/family/caregiver, ordering medications, tests, or procedures and communicating results to the patient/family/caregiver. Genoveva Chatman, MSN, ORCHID TRANSPLANTER, PLUMBING INSTALLER-C, CDE Endocrinology [facility] Medical Office Building/[address], [address] [place], [place] [address] Fax: documented in this encounterOhiohealth [facility]heastern [facility] Center04-08-2022 Miscellaneous Notes* Telephone Encounter - Cristina Martinez [...] provided. She is agreeable. She will call [employer] to set up an account and then [...] that the patient has to use the [employer] directly through [employer]. She cannot use a regular pharmacy for this. Patient will need to call and set up an account with them at [phone]. Once this is complete we can send prescriptions (hard copy), last office note and a copy of her insurance cards to F: [phone]. Called patient's home, left voice message to call office at [phone], and ask to speak to the nurse. Please relay the above information when she returns the call. documented in this encounterOhiohealth [facility]heastern [facility] Center11-30-2021 History of Present illness [id number] female who has not been Covid vaccinated and describes a 5-day history of initially upper respiratory symptoms. More recently she developed fatigue with chills and a cough. No loss of taste or smell. She did a home Covid test yesterday which was positive. Review of systems is otherwise negative for constitutional, ear nose and throat, neck, heart, lungs, and abdomen.-[facility] Work Phone: 1(761) 322-232010-22-2021 History of Present illness Narrative6 days ago [...] at this time. Pain level is a 4/10.[facility] Work Phone: 1(444) 540-411010-09-2021 History of Present illness Narrative6 days ago [...] at this time. Pain level is a 4/10.[employer] [facility] [facility] Work Phone: 1(492) 251-361211-08-2018 History of Past illness Narrative* Problem Noted Date Resolved Date Vaginal yeast infection 03/18/2018 03/25/20 18 Vertigo 04/09/2012 06/28/2013 Tinnitus 04/09/2012 06/28/2013 Rhinitis 01/07/2012 06/28/2013 Otalgia 01/07/2012 06/28/2013 documented as of this encounter (statuses as of 08/16/2021) [facility] History of Past illness Narrative* Problem Noted Date Resolved Date Vaginal yeast infection 03/18/2018 03/25/20 18 Vertigo 04/09/2012 06/28/2013 Tinnitus 04/09/2012 06/28/2013 Rhinitis 01/07/2012 06/28/2013 Otalgia 01/07/2012 06/28/2013 documented as of this encounter (statuses as of 09/19/2021) [facility] of [facility] illness Narrative* Problem Noted Date Resolved Date Vaginal yeast infection 03/18/2018 03/25/20 18 Vertigo 04/09/2012 06/28/2013 Tinnitus 04/09/2012 06/28/2013 Rhinitis 01/07/2012 06/28/2013 Otalgia 01/07/2012 06/28/2013 documented as of this encounter (statuses as of 09/25/2021) [facility] of [facility] Narrative* Problem Noted Date Resolved Date Vaginal yeast infection 03/18/2018 03/25/20 18 Vertigo 04/09/2012 06/28/2013 Tinnitus 04/09/2012 06/28/2013 Rhinitis 01/07/2012 06/28/2013 Otalgia 01/07/2012 06/28/2013 documented as of this encounter (statuses as of 09/26/2021) [facility] of [facility] Narrative* Problem Noted Date Resolved Date Vaginal yeast infection 03/18/2018 03/25/20 18 Vertigo 04/09/2012 06/28/2013 Tinnitus 04/09/2012 06/28/2013 Rhinitis 01/07/2012 06/28/2013 Otalgia 01/07/2012 06/28/2013 documented as of this encounter (statuses as of 09/26/2021) [facility] of [facility] Narrative* Problem Noted Date Resolved Date Vaginal yeast infection 03/18/2018 03/25/20 18 Vertigo 04/09/2012 06/28/2013 Tinnitus 04/09/2012 06/28/2013 Rhinitis 01/07/2012 06/28/2013 Otalgia 01/07/2012 06/28/2013 documented as of this encounter (statuses as of 11/05/2021) [facility] of [facility] Narrative* Problem Noted Date Resolved Date Vaginal yeast infection 03/18/2018 03/25/20 18 Vertigo 04/09/2012 06/28/2013 Tinnitus 04/09/2012 06/28/2013 Rhinitis 01/07/2012 06/28/2013 Otalgia 01/07/2012 06/28/2013 documented as of this encounter (statuses as of 11/11/2021) [facility] Narrative* Problem Noted Date Resolved Date Vaginal yeast infection 03/18/2018 03/25/20 18 Vertigo 04/09/2012 06/28/2013 Tinnitus 04/09/2012 06/28/2013 Rhinitis 01/07/2012 06/28/2013 Otalgia 01/07/2012 06/28/2013 documented as of this encounter (statuses as of 11/14/2021) [facility] Narrative* Problem Noted Date Resolved Date Vaginal yeast infection 03/18/2018 03/25/20 18 Vertigo 04/09/2012 06/28/2013 Tinnitus 04/09/2012 06/28/2013 Rhinitis 01/07/2012 06/28/2013 Otalgia 01/07/2012 06/28/2013 documented as of this encounter (statuses as of 12/31/2021) [facility] Narrative* Problem Noted Date Resolved Date Vaginal yeast infection 03/18/2018 03/25/20 18 Vertigo 04/09/2012 06/28/2013 Tinnitus 04/09/2012 06/28/2013 Rhinitis 01/07/2012 06/28/2013 Otalgia 01/07/2012 06/28/2013 documented as of this encounter (statuses as of 01/29/2022) [facility] Narrative* Problem Noted Date Resolved Date Vaginal yeast infection 03/18/2018 03/25/20 18 Vertigo 04/09/2012 06/28/2013 Tinnitus 04/09/2012 06/28/2013 Rhinitis 01/07/2012 06/28/2013 Otalgia 01/07/2012 06/28/2013 documented as of this encounter (statuses as of 04/01/2022) [facility] Narrative* Problem Noted Date Resolved Date Vaginal yeast infection 03/18/2018 03/25/20 18 Vertigo 04/09/2012 06/28/2013 Tinnitus 04/09/2012 06/28/2013 Rhinitis 01/07/2012 06/28/2013 Otalgia 01/07/2012 06/28/2013 documented as of this encounter (statuses as of 05/14/2022) [facility] Narrative* Problem Noted Date Resolved Date Vaginal yeast infection 03/18/2018 03/25/20 18 Vertigo 04/09/2012 06/28/2013 Tinnitus 04/09/2012 06/28/2013 Rhinitis 01/07/2012 06/28/2013 Otalgia 01/07/2012 06/28/2013 documented as of this encounter (statuses as of 08/07/2022) [facility] Narrative* Problem Noted Date Resolved Date Vaginal yeast infection 03/18/2018 03/25/20 18 Vertigo 04/09/2012 06/28/2013 Tinnitus 04/09/2012 06/28/2013 Rhinitis 01/07/2012 06/28/2013 Otalgia 01/07/2012 06/28/2013 documented as of this encounter (statuses as of 09/16/2022) [facility] Narrative* Problem Noted Date Resolved Date Vaginal yeast infection 03/18/2018 03/25/20 18 Vertigo 04/09/2012 06/28/2013 Tinnitus 04/09/2012 06/28/2013 Rhinitis 01/07/2012 06/28/2013 Otalgia 01/07/2012 06/28/2013 documented as of this encounter (statuses as of 09/16/2022) [facility] Narrative* Problem Noted Date Resolved Date Vaginal yeast infection 03/18/2018 03/25/20 18 Vertigo 04/09/2012 06/28/2013 Tinnitus 04/09/2012 06/28/2013 Rhinitis 01/07/2012 06/28/2013 Otalgia 01/07/2012 06/28/2013 documented as of this encounter (statuses as of 10/11/2022) [facility] Narrative* Problem Noted Date Resolved Date Vaginal yeast infection 03/18/2018 03/25/20 18 Vertigo 04/09/2012 06/28/2013 Tinnitus 04/09/2012 06/28/2013 Rhinitis 01/07/2012 06/28/2013 Otalgia 01/07/2012 06/28/2013 documented as of this encounter (statuses as of 10/13/2022) [facility] Narrative* Problem Noted Date Resolved Date Vaginal yeast infection 03/18/2018 03/25/20 Vertigo 04/09/2012 06/28/2013 Tinnitus 04/09/2012 06/28/2013 Rhinitis 01/07/2012 06/28/2013 Otalgia 01/07/2012 06/28/2013 documented as of this encounter (statuses as of 10/29/2022) [facility] Narrative* Problem Noted Date Diagnosed Date Resolved Date Vaginal yeast infection 03/18/201803/11 Vertigo 04/09/2012 06/28/2013 Tinnitus 04/09/2012 06/28/2013 Rhinitis 01/07/2012 06/28/2013 Otalgia 01/07/2012 06/28/2013 documented as of this encounter (statuses as of 12/09/2022) [facility] Narrative* Problem Noted Date Diagnosed Date Resolved Date Vaginal yeast infection 03/18/201803/11 Vertigo 04/09/2012 06/28/2013 Tinnitus 04/09/2012 06/28/2013 Rhinitis 01/07/2012 06/28/2013 Otalgia 01/07/2012 06/28/2013 documented as of this encounter (statuses as of 02/24/2023) [facility] N[facility]ative* Problem Noted Date Diagnosed Date Resolved Date Vaginal yeast infection 03/18/201803/11 Vertigo 04/09/2012 06/28/2013 Tinnitus 04/09/2012 06/28/2013 Rhinitis 01/07/2012 06/28/2013 Otalgia 01/07/2012 06/28/2013 documented as of this encounter (statuses as of 02/24/2023) [facility] Narrative* Problem Noted Date Diagnosed Date Resolved Date Vaginal yeast infection 03/18/201803/11 Vertigo 04/09/2012 06/28/2013 Tinnitus 04/09/2012 06/28/2013 Rhinitis 01/07/2012 06/28/2013 Otalgia 01/07/2012 06/28/2013 documented as of this encounter (statuses as of 02/26/2023) [facility]ative* Problem Noted Date Diagnosed Date Resolved Date Vaginal yeast infection 03/18/201803/11 Vertigo 04/09/2012 06/28/2013 Tinnitus 04/09/2012 06/28/2013 Rhinitis 01/07/2012 06/28/2013 Otalgia 01/07/2012 06/28/2013 documented as of this encounter (statuses as of 03/10/2023) [facility] N[facility]ative* Problem Noted Date Diagnosed Date Resolved Date Vaginal yeast infection 03/18/201803/11 Vertigo 04/09/2012 06/28/2013 Tinnitus 04/09/2012 06/28/2013 Rhinitis 01/07/2012 06/28/2013 Otalgia 01/07/2012 06/28/2013 documented as of this encounter (statuses as of 03/11/2023) [facility] Narrative* Problem Noted Date Diagnosed Date Resolved Date Vaginal yeast infection 03/18/201803/11 Vertigo 04/09/2012 06/28/2013 Tinnitus 04/09/2012 06/28/2013 Rhinitis 01/07/2012 06/28/2013 Otalgia 01/07/2012 06/28/2013 documented as of this encounter (statuses as of 03/31/2023) [facility]* Problem Noted Date Diagnosed Date Resolved Date Vaginal yeast infection 03/18/201803/11 Vertigo 04/09/2012 06/28/2013 Tinnitus 04/09/2012 06/28/2013 Rhinitis 01/07/2012 06/28/2013 Otalgia 01/07/2012 06/28/2013 documented as of this encounter (statuses as of 04/01/2023) [facility] Narrative* Problem Noted Date Diagnosed Date Resolved Date Vaginal yeast infection 03/18/201803/11 Vertigo 04/09/2012 06/28/2013 Tinnitus 04/09/2012 06/28/2013 Rhinitis 01/07/2012 06/28/2013 Otalgia 01/07/2012 06/28/2013 documented as of this encounter (statuses as of 04/01/2023) [facility] Narrative* Problem Noted Date Diagnosed Date Resolved Date Vaginal yeast infection 03/18/201803/11 Vertigo 04/09/2012 06/28/2013 Tinnitus 04/09/2012 06/28/2013 Rhinitis 01/07/2012 06/28/2013 Otalgia 01/07/2012 06/28/2013 documented as of this encounter (statuses as of 04/01/2023) [facility] Narrative* Problem Noted Date Diagnosed Date Resolved Date Vaginal yeast infection 03/18/201803/11 Vertigo 04/09/2012 06/28/2013 Tinnitus 04/09/2012 06/28/2013 Rhinitis 01/07/2012 06/28/2013 Otalgia 01/07/2012 06/28/2013 documented as of this encounter (statuses as of 04/01/2023) [facility]ative* Problem Noted Date Diagnosed Date Resolved Date Vaginal yeast infection 03/18/201803/11 Vertigo 04/09/2012 06/28/2013 Tinnitus 04/09/2012 06/28/2013 Rhinitis 01/07/2012 06/28/2013 Otalgia 01/07/2012 06/28/2013 documented as of this encounter (statuses as of 04/02/2023) [facility]ative* Problem Noted Date Diagnosed Date Resolved Date Vaginal yeast infection 03/18/201803/11 Vertigo 04/09/2012 06/28/2013 Tinnitus 04/09/2012 06/28/2013 Rhinitis 01/07/2012 06/28/2013 Otalgia 01/07/2012 06/28/2013 documented as of this encounter (statuses as of 07/22/2023) [facility] Diagnosis Type 2 diabetes mellitus without complication, without long-term current use of insulin (HCC)- Primary [facility] this encounter [facility]* Diagnosis Type 2 diabetes mellitus without complication, without long-term current use of insulin (HCC)- Primary Postablative hypothyroidism Other postablative hypothyroidism Dyslipidemia Other and unspecified hyperlipidemia [facility] this encounter [facility]* Diagnosis Type 2 diabetes mellitus without complication, without long-term current use of insulin (HCC) [facility] this encounter [facility]* Diagnosis Type 2 diabetes mellitus without complication, without long-term current use of insulin (HCC) [facility] this encounter [facility]* Diagnosis Encounter for screening mammogram for breast cancer documented in this encounter [facility] note* Diagnosis Type 2 diabetes mellitus without complication, without long-term current use of insulin (HCC) documented in this encounter [facility] note* Diagnosis Chest pain, unspecified type Dyspnea on exertion Other dyspnea and respiratory abnormality documented in this encounter [facility] Work Phone: [facility]* Diagnosis Type 2 diabetes mellitus without complication, without long-term current use of insulin (HCC) documented in this encounter [facility] note* Diagnosis Type 2 diabetes mellitus without complication, without long-term current use of insulin (HCC)- Primary Postablative hypothyroidism Other postablative hypothyroidism Dyslipidemia Other and unspecified hyperlipidemia documented in this encounter [facility] note* Diagnosis Type 2 diabetes mellitus without complication, without long-term current use of insulin (HCC)- Primary documented in this encounter [facility] note* Diagnosis Type 2 diabetes mellitus without complication, without long-term current use of insulin (HCC)- Primary Postablative hypothyroidism Other postablative hypothyroidism Dyslipidemia Other and unspecified hyperlipidemia documented in this encounter [facility] note* Diagnosis Acute viral conjunctivitis of left eye- Primary Perimenopause Symptomatic menopausal or female climacteric states Hypothyroidism (acquired) Unspecified hypothyroidism Type 2 diabetes mellitus without complication, with long-term current use of insulin ([facility]/HCC) (HCC) Other fatigue [facility] Diagnosis Type 2 diabetes mellitus without complication, without long-term current use of insulin (HCC) documented [facility] this encounter [facility]* Diagnosis Type 2 diabetes mellitus without complication, without long-term current use of insulin (HCC) [facility]* Diagnosis Micromastia- Primary Hypoplasia of breast [facility] this encounter [facility]* Diagnosis Type 2 diabetes mellitus without complication, without long-term current use of insulin (HCC)- Primary Postablative hypothyroidism Other postablative hypothyroidism Dyslipidemia Other and unspecified hyperlipidemia documented in this encounter [facility] note* Diagnosis Type 2 diabetes mellitus without complication, without long-term current use of insulin (HCC) documented in this encounter [facility] note* Diagnosis Type 2 diabetes mellitus without complication, without long-term current use of insulin (HCC) documented in this encounter [facility] note* Diagnosis Encounter for screening mammogram for breast cancer documented in this encounter [facility] note* Diagnosis Type 2 diabetes mellitus without complication, without long-term current use of insulin (HCC) documented in this encounter [facility] note* Diagnosis Well adult exam- Primary Routine general medical examination at a [facility] care facility Type 2 diabetes mellitus without complication, without long-term current use of insulin (HCC) Dyslipidemia Other and unspecified hyperlipidemia Postablative hypothyroidism Other postablative hypothyroidism Vitamin D deficiency Unspecified vitamin D deficiency Encounter for gynecological examination documented in this encounter [facility] note* Diagnosis Postablative hypothyroidism Other postablative hypothyroidism documented in this encounter [facility] note* Diagnosis Acute cough- Primary Flu-like symptoms Other general symptoms documented in this encounter [facility] note* Diagnosis Type 2 diabetes mellitus without complication, without long-term current use of insulin (HCC)- Primary Dyslipidemia Other and unspecified hyperlipidemia Postablative hypothyroidism Other postablative hypothyroidism Vitamin D deficiency Unspecified vitamin D deficiency Dizziness Dizziness and giddiness Seasonal allergies Allergic rhinitis, cause unspecified Nasal polyps Unspecified nasal polyp documented in this encounter [facility] note* Diagnosis Anemia, unspecified type- Primary documented in this encounter [facility] note* Diagnosis Anemia, unspecified type- Primary documented in this encounter [facility] note* Diagnosis Encounter for screening mammogram for breast cancer documented in this encounter [facility] note* Diagnosis Porokeratosis- Primary Other specified congenital anomaly of skin Type 2 diabetes mellitus without complication, without long-term current use of insulin (HCC) Hallux rigidus of left foot Hallux rigidus Hammertoe of left foot [facility] N[facility]* CRISTINA MARTINEZ presents [...] 2-VIEW BREAST INC CAD Jeffery Swift MD [address] [place] [id number] [facility] [address] [place] [address] Referral ID Status Reason Start Date Expiration Date Visits Requested Visits Authorized [id number] Pending Review Auto-Generat ed Referral 11/06/2021 12/06/2022 1 1 [facility] for referral (narrative)* Diagnostic Procedure Only (Routine) - Pending Review Specialty Diagnoses / Procedures Referred By Renetta sheikh Referred To Contact [facility] Diagnoses Encounter for screening mammogram for breast cancer Procedures MACIEJ SCREENING SCREENING MAMMOGRAPHY BI 2-VIEW BREAST INC CAD Jeffery Swift MD [address] [place] [id number] [facility] [address] [place] [address] Referral ID Status Reason Start Date Expiration Date Visits Requested Visits Authorized [id number] Pending Review Auto-Generat ed Referral 10/08/2022 11/07/2023 1 1 [facility] [place] [facility] for referral (narrative)* Diagnostic Procedure Only (Routine) - Closed Specialty Diagnoses / Procedures Referred By Contac t Referred To Contact [facility] Diagnoses Encounter for screening mammogram for breast cancer Procedures MACIEJ SCREENING SCREENING MAMMOGRAPHY BI 2-VIEW BREAST INC CAD Jeffery Swift MD [address] [place] [address] [facility] [address] [place] [address] Referral ID Status Reason Start Date Expiration Date V isits Requested Visits Authorized [id number] Closed Auto-Generate d Referral 10/08/2022 11/07/2023 1 1 [facility] for referral (narrative)* Diagnostic Procedure Only (Routine) - New Request Specialty Diagnoses / Procedures Referred By Renetta sheikh Referred To Contact [facility] Diagnoses Encounter for screening mammogram for breast cancer Procedures MACIEJ SCREENING W MOHSEN SCREENING DIGITAL BREAST TOMOSYNTHESIS BI SCREENING MAMMOGRAPHY BI 2-VIEW BREAST INC CAD Jeffery Swift MD [address] [place] [address] [facility] [place] [address] Referral ID Status Reason Start Date Expiration Date Visits Requested Visits Authorized [id number] New Request Auto-Generat ed Referral 05/11/2024 06/10/2025 1 1 [facility] for referral (narrative)No reason for referral information availableWCrystal [facility] Work Phone: Recuho for visit Narrative* Diagnostic Procedure Only (Routine) - Closed Specialty Diagnoses / Procedures Referred By Renetta sheikh Referred To Contact [facility] Diagnoses Encounter for screening mammogram for breast cancer Procedures MACIEJ SCREENING SCREENING MAMMOGRAPHY BI 2-VIEW BREAST INC CAD Jeffery Swift MD [address] [place] [address] [facility] [address] [address] Referral ID Status Reason Start Date Expiration Date V isits Requested Visits Authorized [id number] Closed Auto-Generate d Referral 10/08/2022 11/07/2023 1 1 [facility] Chief Complaint Sinus headache cough congestion since Thursday Summary Purpose Family History No Family History Records FoundNo Family History Records FoundNo Family History Records FoundNo Family History Records FoundNo Family History Records FoundNo Family History Records FoundNo Family History Records FoundNo Family History Records FoundNo Family History Records FoundNo Family History Records Found Advance Directives Documents on File Type Date Recorded Patient 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 [address] Referral ID Status Reason Start Date Expiration Date V isits Requested Visits Authorized [id number] Pending Review 1 1 Specialty Diagnoses / Procedures Referred By Contac t Referred To Contact Radiology Diagnoses Dyspnea on exertion Procedures MRI BRAIN W WO CONTRAST Ming Perez, DO [address] [place] [address] Referral ID Status Reason Start Date Expiration Date Visits Re quested Visits Authorized [id number] Closed 09/10/2021 11/15/2021 1 1 Specialty Diagnoses / Procedures Referred By Contac t Referred To Contact Radiology Diagnoses Chest pain, unspecified type Dyspnea on exertion Procedures NM Myocardial Spect Rest Exercise or Rx Ming Perez, DO [address] [place] [address] Referral ID Status Reason Start Date Expiration Date Visits Re quested Visits Authorized [id number] Closed 09/10/2021 11/17/2021 1 1 Chief Complaint [...] DATE CREATED AUTHOR AUTHOR'S ORGANIZ ATION 11/29/2021 [facility] DATE CREATED AUTHOR AUTHOR'S ORGANIZ ATION 03/05/2022 [facility] DATE CREATED AUTHOR AUTHOR'S ORGANIZ ATION 03/07/2022 [facility] DATE CREATED AUTHOR AUTHOR'S ORGANIZ ATION 11/11/2022 [facility] DATE CREATED AUTHOR AUTHOR'S ORGANIZ ATION 07/17/2023 [facility] DATE CREATED AUTHOR AUTHOR'S ORGANIZ ATION 04/22/2024 [facility] DATE CREATED AUTHOR AUTHOR'S ORGANIZ ATION 07/16/2024 [facility] DATE CREATED AUTHOR AUTHOR'S ORGANIZ ATION 08/03/2024 [facility] DATE CREATED AUTHOR AUTHOR'S ORGANIZ ATION 08/13/[address] [facility] Source Comments (unrecognize d section and content) In the event this informatio n is protected by the Federal Confidentiality of Alcohol and Drug Abuse Patient Records regulations: The Federal rules restrict any use of the information to criminally investigate or prosecute any alcohol or drug abuse patient.[facility] Center[facility] the event this information is protected by the Federal Confidentiality of Alcohol and Drug Abuse Patient Records regulations: The Federal rules restrict any use of the information to criminally investigate or prosecute any alcohol or drug abuse patient.[facility] CenterIn the event this information is protected by the Federal Confidentiality of Alcohol and Drug Abuse Patient Records regulations: The Federal rules restrict any use of the information to criminally investigate or prosecute any alcohol or drug abuse patient.[facility] CenterIn the event this information is protected by the Federal Confidentiality of Alcohol and Drug Abuse Patient Records regulations: The Federal rules restrict any use of the information to criminally investigate or prosecute any alcohol or drug abuse patient.[facility] CenterIn the event this information is protected by the Federal Confidentiality of Alcohol and Drug Abuse Patient Records regulations: The Federal rules restrict any use of the information to criminally investigate or prosecute any alcohol or drug abuse patient.[facility] CenterIn the event this information is protected by the Federal Confidentiality of Alcohol and Drug Abuse Patient Records regulations: The Federal rules restrict any use of the information to criminally investigate or prosecute any alcohol or drug abuse patient.[facility] CenterIn the event this information is protected by the Federal Confidentiality of Alcohol and Drug Abuse Patient Records regulations: The Federal rules restrict any use of the information to criminally investigate or prosecute any alcohol or drug abuse patient.[facility] CenterIn the event this information is protected by the Federal Confidentiality of Alcohol and Drug Abuse Patient Records regulations: The Federal rules restrict any use of the information to criminally investigate or prosecute any alcohol or drug abuse patient.[facility] CenterIn the event this information is protected by the Federal Confidentiality of Alcohol and Drug Abuse Patient Records regulations: The Federal rules restrict any use of the information to criminally investigate or prosecute any alcohol or drug abuse patient.[facility] CenterIn the event this information is protected by the Federal Confidentiality of Alcohol and Drug Abuse Patient Records regulations: The Federal rules restrict any use of the information to criminally investigate or prosecute any alcohol or drug abuse patient.[facility] CenterIn the event this information is protected by the Federal Confidentiality of Alcohol and Drug Abuse Patient Records regulations: The Federal rules restrict any use of the information to criminally investigate or prosecute any alcohol or drug abuse patient.[facility] CenterIn the event this information is protected by the Federal Confidentiality of Alcohol and Drug Abuse Patient Records regulations: The Federal rules restrict any use of the information to criminally investigate or prosecute any alcohol or drug abuse patient.[facility] CenterIn the event this information is protected by the Federal Confidentiality of Alcohol and Drug Abuse Patient Records regulations: The Federal rules restrict any use of the information to criminally investigate or prosecute any alcohol or drug abuse patient.[facility] CenterIn the event this information is protected by the Federal Confidentiality of Alcohol and Drug Abuse Patient Records regulations: The Federal rules restrict any use of the information to criminally investigate or prosecute any alcohol or drug abuse patient.[facility] CenterIn the event this information is protected by the Federal Confidentiality of Alcohol and Drug Abuse Patient Records regulations: The Federal rules restrict any use of the information to criminally investigate or prosecute any alcohol or drug abuse patient.[facility] CenterIn the event this information is protected by the Federal Confidentiality of Alcohol and Drug Abuse Patient Records regulations: The Federal rules restrict any use of the information to criminally investigate or prosecute any alcohol or drug abuse patient.[facility] CenterIn the event this information is protected by the Federal Confidentiality of Alcohol and Drug Abuse Patient Records regulations: The Federal rules restrict any use of the information to criminally investigate or prosecute any alcohol or drug abuse patient.[facility] CenterIn the event this information is protected by the Federal Confidentiality of Alcohol and Drug Abuse Patient Records regulations: The Federal rules restrict any use of the information to criminally investigate or prosecute any alcohol or drug abuse patient.[facility] CenterIn the event this information is protected by the Federal Confidentiality of Alcohol and Drug Abuse Patient Records regulations: The Federal rules restrict any use of the information to criminally investigate or prosecute any alcohol or drug abuse patient.[facility] CenterIn the event this information is protected by the Federal Confidentiality of Alcohol and Drug Abuse Patient Records regulations: The Federal rules restrict any use of the information to criminally investigate or prosecute any alcohol or drug abuse patient.[facility] CenterIn the event this information is protected by the Federal Confidentiality of Alcohol and Drug Abuse Patient Records regulations: The Federal rules restrict any use of the information to criminally investigate or prosecute any alcohol or drug abuse patient.[facility] CenterIn the event this information is protected by the Federal Confidentiality of Alcohol and Drug Abuse Patient Records regulations: The Federal rules restrict any use of the information to criminally investigate or prosecute any alcohol or drug abuse patient.[facility] CenterIn the event this information is protected by the Federal Confidentiality of Alcohol and Drug Abuse Patient Records regulations: The Federal rules restrict any use of the information to criminally investigate or prosecute any alcohol or drug abuse patient.[facility] CenterIn the event this information is protected by the Federal Confidentiality of Alcohol and Drug Abuse Patient Records regulations: The Federal rules restrict any use of the information to criminally investigate or prosecute any alcohol or drug abuse patient.[facility] CenterIn the event this information is protected by the Federal Confidentiality of Alcohol and Drug Abuse Patient Records regulations: The Federal rules restrict any use of the information to criminally investigate or prosecute any alcohol or drug abuse patient.[facility] CenterIn the event this information is protected by the Federal Confidentiality of Alcohol and Drug Abuse Patient Records regulations: The Federal rules restrict any use of the information to criminally investigate or prosecute any alcohol or drug abuse patient.[facility] CenterIn the event this information is protected by the Federal Confidentiality of Alcohol and Drug Abuse Patient Records regulations: The Federal rules restrict any use of the information to criminally investigate or prosecute any alcohol or drug abuse patient.[facility] CenterIn the event this information is protected by the Federal Confidentiality of Alcohol and Drug Abuse Patient Records regulations: The Federal rules restrict any use of the information to criminally investigate or prosecute any alcohol or drug abuse patient.[facility] CenterIn the event this information is protected by the Federal Confidentiality of Alcohol and Drug Abuse Patient Records regulations: The Federal rules restrict any use of the information to criminally investigate or prosecute any alcohol or drug abuse patient.[facility] CenterIn the event this information is protected by the Federal Confidentiality of Alcohol and Drug Abuse Patient Records regulations: The Federal rules restrict any use of the information to criminally investigate or prosecute any alcohol or drug abuse patient.[facility] CenterIn the event this information is protected by the Federal Confidentiality of Alcohol and Drug Abuse Patient Records regulations: The Federal rules restrict any use of the information to criminally investigate or prosecute any alcohol or drug abuse patient.[facility] CenterIn the event this information is protected by the Federal Confidentiality of Alcohol and Drug Abuse Patient Records regulations: The Federal rules restrict any use of the information to criminally investigate or prosecute any alcohol or drug abuse patient.[facility] CenterIn the event this information is protected by the Federal Confidentiality of Alcohol and Drug Abuse Patient Records regulations: The Federal rules restrict any use of the information to criminally investigate or prosecute any alcohol or drug abuse patient.[facility] CenterIn the event this information is protected by the Federal Confidentiality of Alcohol and Drug Abuse Patient Records regulations: The Federal rules restrict any use of the information to criminally investigate or prosecute any alcohol or drug abuse patient.[facility] CenterIn the event this information is protected by the Federal Confidentiality of Alcohol and Drug Abuse Patient Records regulations: The Federal rules restrict any use of the information to criminally investigate or prosecute any alcohol or drug abuse patient.[facility] CenterIn the event this information is protected by the Federal Confidentiality of Alcohol and Drug Abuse Patient Records regulations: The Federal rules restrict any use of the information to criminally investigate or prosecute any alcohol or drug abuse patient.[facility] CenterIn the event this information is protected by the Federal Confidentiality of Alcohol and Drug Abuse Patient Records regulations: The Federal rules restrict any use of the information to criminally investigate or prosecute any alcohol or drug abuse patient.[facility] CenterIn the event this information is protected by the Federal Confidentiality of Alcohol and Drug Abuse Patient Records regulations: The Federal rules restrict any use of the information to criminally investigate or prosecute any alcohol or drug abuse patient.[facility] CenterIn the event this information is protected by the Federal Confidentiality of Alcohol and Drug Abuse Patient Records regulations: The Federal rules restrict any use of the information to criminally investigate or prosecute any alcohol or drug abuse patient.[facility] CenterIn the event this information is protected by the Federal Confidentiality of Alcohol and Drug Abuse Patient Records regulations: The Federal rules restrict any use of the information to criminally investigate or prosecute any alcohol or drug abuse patient.[facility] Reason for Visit (unrecogniz ed section and content) Reason Comments CGM Supply Orders Reason Comments Insulin Dependent Diabetes Mellitus Reason Onset Date Comments Refill Request 09/24/2021 Reason Comments Diabetic Eye Exam [facility] Reason Comments Refill Request Reason [...] NEW DPSI GENERAL Self GatherwrZaira rosen MD [address] [facility] [address] [place] [address] Referral ID Status Reason Start Date Expiration Date V isits Requested Visits Authorized [id number] Closed Financial Clearance Required - Self Pay Patient Cleared - True Self-Pay required payment collected 10/10/2022 12/01/2022 1 1 Reason Comments Diabetis Eye Exam Report [facility] Reason Comments PA--Mounjaro 5MG/0.5ML Reason Comments Medication Problem Meidcation Pro Reason Comments Results Reason Comments Physical Reason Comments Viral Syndrome Has fever and chest is burning, started Thursday. Reason Comments F/U 6 months Reason Onset Date Comments Anemia 07/08/2022 Reason Comments New Diabetes Pain Wart Reason Onset Date Comments Appointment 10/13/2024 Care Teams (unrecognized sec tion and content) Second Ride Fare Collector Relationship Specialty Start Date End Date Jeffery Swift MD [address] [place], [place] [address] PCP - General Family Practice 11/29/19 Jeffery Swift MD Family Practice 07/01/12 Second Ride Fare Collector Relationship Specialty Start Date End Date Jeffery Swift MD [address] [place] [address] PCP - General Family Practice 11/29/19 Jeffery Swift MD Family Practice 07/01/12 Second Ride Fare Collector Relationship Specialty Start Date End Date Jeffery Swift MD [address] [facility] [place] [address] PCP - General Family Practice 11/29/19 Jeffery Swift MD Family Practice 07/01/12 Second Ride Fare Collector Relationship Specialty Start Date End Date Jeffery Swift MD [address] [facility] [place] [address] PCP - General Family Practice 11/29/19 Jeffery Swift MD Family Practice 07/01/12 Second Ride Fare Collector Relationship Specialty Start Date End Date Jeffery Swift MD [address] [facility] [place] [address] PCP - General Family Practice 11/29/19 Jeffery Swift MD Family Practice 07/01/12 Second Ride Fare Collector Relationship Specialty Start Date End Date Jeffery Swift MD [address] [place] [address] PCP - General Family Practice 11/29/19 Jeffery Swift MD Family Practice 07/01/12 Second Ride Fare Collector Relationship Specialty Start Date End Date Jeffery Swift MD [address] [place] [address] PCP - General Family Practice 11/29/19 Jeffery Swift MD Family Practice 07/01/12 Second Ride Fare Collector Relationship Specialty Start Date End Date Ming Perez, DO [address] [place] [id number] PCP - General Family Medicine 04/22/21 Second Ride Fare Collector Relationship Specialty Start Date End Date Jeffery Swift MD [address] [place] [address] PCP - General Family Medicine 11/29/19 Jeffery Swift MD Family Medicine 07/01/12 Second Ride Fare Collector Relationship Specialty Start Date End Date Jeffery Swift MD [address] [place] [address] PCP - General Family Medicine 11/29/19 Jeffery Swift MD Family Medicine 07/01/12 Second Ride Fare Collector Relationship Specialty Start Date End Date Jeffery Swift MD [address] [place] [address] PCP - General Family Medicine 11/29/19 Jeffery Swift MD Family Medicine 07/01/12 Second Ride Fare Collector Relationship Specialty Start Date End Date Jeffery Swift MD [address] [place] [address] PCP - General Family Medicine 11/29/19 Jeffery Swift MD Family Medicine 07/01/12 Second Ride Fare Collector Relationship Specialty Start Date End Date Ming Perez, DO [address] [place] [id number] PCP - General 04/22/21 Second Ride Fare Collector Relationship Specialty Start Date End Date Jeffery Swift MD [address] [place] [address] PCP - General Family Medicine 11/29/19 Jeffery Swift MD Family Medicine 07/01/12 Second Ride Fare Collector Relationship Specialty Start Date End Date Jeffery Swift MD [address] [place] [address] PCP - General Family Medicine 11/29/19 Jeffery Swift MD Family Medicine 07/01/12 Second Ride Fare Collector Relationship Specialty Start Date End Date Jeffery Swift MD [address] [place] [address] PCP - General Family Medicine 11/29/19 Jeffery Swift MD Family Medicine 07/01/12 Second Ride Fare Collector Relationship Specialty Start Date End Date Jeffery Swift MD [address] [place] [address] PCP - General Family Medicine 11/29/19 Jeffery Swift MD Family Medicine 07/01/12 Second Ride Fare Collector Relationship Specialty Start Date End Date Jeffery Swift MD [address] [place] [address] PCP - General Family Medicine 11/29/19 Jeffery Swift MD Family Medicine 07/01/12 Second Ride Fare Collector Relationship Specialty Start Date End Date Jeffery Swift MD [address] [place] [address] PCP - General Family Medicine 11/29/19 Jeffery Swift MD Family Medicine 07/01/12 Second Ride Fare Collector Relationship Specialty Start Date End Date Jeffery Swift MD [address] [place] [address] PCP - General Family Medicine 11/29/19 Jeffery Swift MD Family Medicine 07/01/12 Second Ride Fare Collector Relationship Specialty Start Date End Date Jeffery Swift MD [address] [place] [address] PCP - General Family Medicine 11/29/19 Jeffery Swift MD Family Medicine 07/01/12 Second Ride Fare Collector Relationship Specialty Start Date End Date Jeffery Swift MD [address] [place] [address] PCP - General Family Medicine 11/29/19 Jeffery Swift MD Family Medicine 07/01/12 Second Ride Fare Collector Relationship Specialty Start Date End Date Jeffery Swift MD [address] [place] [address] PCP - General Family Medicine 11/29/19 Jeffery Swift MD Family Medicine 07/01/12 Second Ride Fare Collector Relationship Specialty Start Date End Date Jeffery Swift MD [address] [place] [address] PCP - General Family Medicine 11/29/19 Jeffery Swift MD Family Medicine 07/01/12 Second Ride Fare Collector Relationship Specialty Start Date End Date Jeffery Swift MD [address] [place] [address] PCP - General Family Medicine 11/29/19 Jeffery Swift MD Family Medicine 07/01/12 Second Ride Fare Collector Relationship Specialty Start Date End Date Jeffery Swift MD [address] [place] [address] PCP - General Family Medicine 11/29/19 Jeffery Swift MD Family Medicine 07/01/12 Second Ride Fare Collector Relationship Specialty Start Date End Date Jeffery Swift MD [address] [place] [address] PCP - General Family Medicine 11/29/19 Jeffery Swift MD Family Medicine 07/01/12 Second Ride Fare Collector Relationship Specialty Start Date End Date Jeffery Swift MD [address] [place] [address] PCP - General Family Medicine 11/29/19 Jeffery Swift MD Family Medicine 07/01/12 Second Ride Fare Collector Relationship Specialty Start Date End Date Jeffery Swift MD [address] [place] [address] PCP - General Family Medicine 11/29/19 Jeffery Swift MD Family Medicine 07/01/12 Second Ride Fare Collector Relationship Specialty Start Date End Date Jeffery Swift MD [address] [place] [address] PCP - General Family Medicine 11/29/19 Jeffery Swift MD Family Medicine 07/01/12 Second Ride Fare Collector Relationship Specialty Start Date End Date Ming Perez DO [address] [place] [address] PCP - General 04/22/21 Second Ride Fare Collector Relationship Specialty Start Date End Date Ming Perez DO [address] [place] [address] PCP - General 04/22/21 Second Ride Fare Collector Relationship Specialty Start Date End Date Jeffery Swift MD [address] [place] [address] PCP - General Family Medicine 11/29/19 Jeffery Swift MD Family Medicine 07/01/12 Anahy Garcia, ELISA.STUDIO COORDINATOR [address] [place] [address] Education Diagnostician Family Medicine 04/16/24 Nory Aj PA-C [address] [place] [address] Education Diagnostician Family [facility] 04/16/24 Second Ride Fare Collector Relationship Specialty Start Date End Date Jeffery Swift MD [address] [place] [address] PCP - General Family Medicine 11/29/19 Jeffery Swift MD Family Medicine 07/01/12 Anahy Garcia, ELISA.STUDIO COORDINATOR [address] [place] [address] Education Diagnostician Family Medicine 04/16/24 Nory Aj PA-C [address] [place] [address] Education Diagnostician Family [facility] 04/16/24 Second Ride Fare Collector Relationship Specialty Start Date End Date Jeffery Swift MD [address] [place] [address] PCP - General Family Medicine 11/29/19 Jeffery Swift MD Family Medicine 07/01/12 Anahy Garcia, ELISA.STUDIO COORDINATOR [facility] [place] [address] Education Diagnostician Family Medicine 04/16/24 Nory Aj PA-C [address] [place], [place] [id number] [facility] 04/16/24 Second Ride Fare Collector Relationship Specialty Start Date End Date Jeffery Swift MD [address] [place] [address] PCP - General Family Medicine 11/29/19 Jeffery Swift MD Family Medicine 07/01/12 Anahy Garcia APRN.STUDIO COORDINATOR [address] [place], [place] [address] [facility] 04/16/24 Nory Aj PA-C [address] [place], [place] [address] [facility] 04/16/24 Team Status: Active Member Role Status [...] 2024 End: August 19, 2024 Dr. Tha Maojr MD Referring Provider Active Start: August 19, [...] End: September 13, 2024 Reyna Alvarado NP, PLUMBING INSTALLER-C Attending Provider Active Start: September 13, 2024 End: September 13, 2024 Second Ride Fare Collector Relationship Specialty Start Date End Date Jeffery Swift MD [address] [place], [place] [address] PCP - General Family Medicine 11/29/19 Jeffery Swift MD Family Medicine 07/01/12 Anahy Garcia APRN.STUDIO COORDINATOR [address] [place], [place] [id number] Education Diagnostician Family Medicine 10/10/24 Nory Aj PA-C [address] [place], [place] [id number] Education Diagnostician Family [facility] 10/10/24 Team Status: Active Member Role/Relationship Status [...] End: August 19, 2024 Reyna Alvarado NP, PLUMBING INSTALLER-C Attending Provider Active Start: August 19, 2024 End: August 19, 2024 Team Status: Inactive Member Role/Relationship Status Dates Dr. Tha Major MD Primary Care Provider Acti ve Start: September 13, 2024 End: September 13, 2024 Dr. Tha Major MD Referring Provider Active Start: September 13, 2024 End: September 13, 2024 Reyna Alvarado NP PLUMBING INSTALLER-C Attending Provider Active Start: September 13, 2024 [...] Start: November 08, 2024 Reyna Alvarado NP PLUMBING INSTALLER-C Attending Provider Active Start: November 08, 2024 [...] BE BASED ON THE PRIMARY CLINICAL RECORDS. [employer] provides no warranty or guarantee of the accuracy or completeness of information in this document.
== END | disposition home or self-care (01) ==
PROVIDERS: PCP Family Medicine; Referring Provider Nurse Practitioner; Visit Provider Nurse Practitioner
DX: N30.90 Cystitis, unspecified without hematuria (principal)
CPT/HCPCS: 87077; 87086; 87088; 87186